=== PATIENT | male | born 1995 | race Caucasian/White ===

== ENCOUNTER 2021-07-12 14:49 | Emergency (ER) | payer BC, SELFPAY ==
--- NOTE | 2021-07-12 14:50 | ED.URI ---
HPI - URI/Sore Throat General Chief Complaint: Upper Respiratory Infection Stated Complaint: Sore Throat/Cough/Fever Time Seen by Provider: 07/12/21 15:14 Source: patient and RN notes reviewed Mode of arrival: ambulatory Limitations: no limitations History of Present Illness HPI Narrative: 25-year-old male presents with concern for 2-day history of sore throat, cough, fever, nasal congestion and rhinorrhea. He reports he has been taking Tylenol and ibuprofen. He denies shortness of breath, nausea, vomiting, diarrhea. Denies known sick contacts MD elicited complaint: cough and sore throat Related Data Allergies Allergy/AdvReac Type Severity Reaction Status Date / Time No Known Allergies Allergy Unknown Verified 07/12/21 15:05 Review of Systems Review of Systems: CONSTITUTIONAL: Report malaise, fever. EYES: Denies visual changes, redness, or discharge. ENT: Reports rhinorrhea, congestion, and sore throat. Denies sinus pain, otalgia CARDIOVASCULAR: Denies chest pain, palpitations, or edema. RESPIRATORY: Reports cough. Denies dyspnea. GASTROINTESTINAL: Denies abdominal pain, nausea, vomiting, diarrhea SKIN: Denies rash or itching. MUSCULOSKELETAL: Reports myalgia. NEUROLOGIC: Denies headache. All systems reviewed & are unremarkable except as noted in HPI and below PMFSH Social History Social History Smoking status: Never smoker Alcohol intake: never Comments At time of signature, agree with nursing past medical, surgical, social and family history. There is no relevant family history pertinent to the presenting complaint Exam Narrative: GENERAL: Nontoxic-appearing and in no acute distress. HEAD: Normocephalic EYES: PERRLA, conjunctivae clear ENT: Nares clear, clear discharge. Mucous membranes moist. TM pearly pulido with sharp light reflex bilaterally; no tragal tenderness. Oropharynx not erythematous without lesions. Tonsils not enlarged and without exudate, no drooling, no hoarseness, no trismus, uvula midline. NECK: Supple. No lymphadenopathy CHEST: Clear to auscultation, breath sounds equal. No wheezing, rhonchi, rales, or stridor. No respiratory distress, speaks in full sentences. HEART: Regular rate and rhythm. No murmur heard. SKIN: Warm, dry, no rash. NEURO: Alert and oriented x3. PSYCH: Normal mood and affect Course Course Emergency Course: Patient is aware of diagnosis, understands and agrees to treatment plan. Anticipatory guidance given. Patient agrees to follow-up as directed and is aware of reasons to seek care at the emergency department. Portions of this record may have been created with voice recognition software Level of Care: Express Care Visit Vital Signs Vital signs: Reviewed. MDM - URI/Sore Throat MDM Narrative Medical decision making narrative: Differential diagnosis considered: Carter virus, strep pharyngitis, allergic rhinitis, upper respiratory tract infection, sinusitis, rhinosinusitis, nasopharyngitis. viral pharyngitis, otitis media, otitis externa, pneumonia, bronchitis, viral cough syndrome, viral syndrome, and influenza. Exam findings show no acute concerns or changes; patient is non-toxic appearing and is in no distress. Patient is appropriate for outpatient treatment and follow-up. Lab Data Attestation: I reviewed the patient's lab results. Critical Care Time Critical Care Time Critical Care Time: No Discharge Plan Discharge Clinical Impression: Influenza A Patient Disposition: Home, Self-Care Condition: Stable Instructions: Influenza (ED) Additional Instructions: -Your symptoms are likely caused by a virus, and antibiotic does not cure viral illness. -Take strict precautions to prevent the spread of your virus. Be diligent about covering your cough (even when you are alone) and washing your hands frequently. -You may contagious until you have been symptom and/or fever free for 24 hours without fever reducing me
[2021-07-12 14:53] VITALS: BP 138/98; PULSE 85; RESP 16; TEMP 36.7; O2SAT 98
== END 2021-07-12 15:22 | disposition home or self-care (01) ==
PROVIDERS: Emergency Provider Nurse Practitioner
DX: J10.1 Influenza due to other identified influenza virus with other respiratory manifestations (principal)
CPT/HCPCS: 87804; 99213; G0463

== ENCOUNTER 2021-09-12 16:55 | Emergency (ER) | payer OTHER, BC, SELFPAY ==
--- NOTE | ~2021-09-12 | XR_ITS ---
XR wrist RT min 3V DATE: 09/12/2021 17:34 INDICATION: Right wrist caught between 2 freezers. Posterior wrist pain. TECHNIQUE: 4 views COMPARISON: None FINDINGS: No fracture or dislocation, periosteal reaction or bone destruction, joint space narrowing, erosive change or chondrocalcinosis. IMPRESSION: Negative Reviewed, dictated and finalized at location B. IMPRESSION: Negative
--- NOTE | 2021-09-12 17:05 | ED.UPPEXIN ---
HPI - Extremity Injury (Upper) General Chief Complaint: Extremity Injury, Upper Stated Complaint: Right Wrist Injury Time Seen by Provider: 09/12/21 17:05 Source: patient and RN notes reviewed History of Present Illness HPI narrative: Patient is a 25-year-old male who presents the urgent care with complaints of right wrist pain after he smashed it between 2 medical freezers at work today around 1 PM. Patient has not taken anything [id number] for his symptoms or his pain. Patient is right-hand dominant. Denies of any other acute complaints or injuries. No acute distress noted. Patient aware of the plan of care. Some parts of this dictation were generated by voice recognition software and may contain typographical and/or grammatical inaccuracies. Related Data Home Medications Medication Instructions Recorded Confirmed phentermine 37.5 mg tablet 37.5 mg PO DAILY 09/12/21 09/12/21 Allergies Allergy/AdvReac Type Severity Reaction Status Date / Time No Known Allergies Allergy Unknown Verified 07/12/21 15:05 Review of Systems Review of Systems: CONSTITUTIONAL: Denies fever, chills, or sweats. EYES: Denies visual changes, redness, or discharge. ENT: Denies rhinorrhea, congestion, sore throat, or otalgia. CARDIOVASCULAR: Denies chest pain, palpitations, or edema. RESPIRATORY: Denies cough or dyspnea. GASTROINTESTINAL: Denies abdominal pain, nausea, vomiting, or diarrhea. GENITOURINARY: Denies dysuria or hematuria. SKIN: Denies rash or itching. MUSCULOSKELETAL: Reports of right wrist pain NEUROLOGIC: Denies headache, numbness, or weakness. All other systems reviewed are negative, except as documented in HPI. PMFSH Social History Social History Smoking status: Never smoker Alcohol intake: never Comments At the time of my signature, I reviewed and agree with the nursing past medical, surgical, social, and family history. There is no relevant family history pertinent to the patient complaint. Exam Narrative: GENERAL: This is a well-nourished, well-developed patient, in no apparent distress. HEAD: normocephalic, atraumatic. EYES: PERRL. Sclera clear/white. Vision is grossly intact. EARS: External ears normal NOSE: External nose normal with no obvious nasal discharge, nares without redness, no rhinorrhea. THROAT: Mucous membranes moist NECK: Neck supple CARDIOVASCULAR: Regular rate and rhythm without murmurs, gallops, or rubs. RESPIRATORY: Clear to auscultation. Breath sounds equal bilaterally. No wheezes, rales, or rhonchi. SKIN: warm, intact with no suspicious lesions or rash, good texture and turgor. NEURO: awake, alert, and oriented to person, place and time. There were no obvious focal neurologic abnormalities. EXTREMITIES: Very mild edema without ecchymosis with slight tenderness to the distal right ulna. Positive strong right radial pulse with capillary refill less than 2 seconds. Range of motion to right wrist within normal limits with mild exacerbated pain on rotation. Course Course Level of Care: Express [facility] Visit Vital Signs Vital signs: Vital Signs Temperature 98.5 F 09/12/21 17:09 Pulse Rate 89 09/12/21 17:09 Respiratory Rate 16 09/12/21 17:09 Pulse Oximetry 99 09/12/21 17:09 Oxygen Delivery Room Air 09/12/21 17:09 Temperature 98.5 F 09/12/21 17:09 Pulse Rate 89 09/12/21 17:09 Respiratory Rate 16 09/12/21 17:09 Pulse Oximetry 99 09/12/21 17:09 Oxygen Delivery Room Air 09/12/21 17:09 Reviewed MDM - Extremity Injury (Upper) MDM Narrative Medical decision making narrative: Patient is aware that our facility does not have x-ray this evening. He will need to follow-up at [facility] who is aware of his transfer for a right wrist x-ray. Advised the patient to go directly to the facility. Britt Mcknight NP is made aware of the patient's transfer and will discharge the patient based on ev
[2021-09-12 17:09] VITALS: PULSE 89; RESP 16; TEMP 36.9; O2SAT 99
--- NOTE | 2021-09-12 17:15 | PC.NURSE ---
1713 PT LEFT TO GO TO [facility] FOR RIGHT WRIST X RAY.
== END 2021-09-12 17:47 | disposition other institution (70) ==
PROVIDERS: Emergency Provider Nurse Practitioner Family
DX: S60.211A Contusion of right wrist, initial encounter (principal); X58.XXXA Exposure to other specified factors, initial encounter; Y99.0 Civilian activity done for income or pay
CPT/HCPCS: 73110; 99213; G0463

== ENCOUNTER 2022-01-03 10:37 | Emergency (ER) | payer SELFPAY ==
--- NOTE | 2022-01-03 10:38 | ED.URI ---
HPI - URI/Sore Throat General Stated Complaint: Diarrhea/Headache Time Seen by Provider: 01/03/22 10:38 Source: patient Mode of arrival: ambulatory Limitations: no limitations History of Present Illness HPI Narrative: Mr. Humphreys is a 26-year-old male patient presenting to the clinic today with complaints of diarrhea, cough, and headache times 2 days. States had diarrhea approximately 15 times yesterday and several times this morning. He reports no fever, sore throat, nausea,vomiting, or urinary symptoms. He is passing gas. He denies feeling bloated. Has abdominal cramping that is intermittent. Children at home are sick as well. No known exposure to a member COVID, strep, or flu. MD elicited complaint: cough and other (Headache, diarrhea) Related Data Home Medications Medication Instructions Recorded Confirmed No Home Medications 01/03/22 01/03/22 Allergies Allergy/AdvReac Type Severity Reaction Status Date / Time No Known Allergies Allergy Unknown Verified 01/03/22 10:42 Review of Systems Review of Systems: Pertinent positives per HPI. Patient denies any fever, chills, rash, visual changes, dizziness, cough, shortness of breath, chest pain, palpitations, nausea, vomiting, bloody stools, constipation, or any urinary issues. [facility] Past Medical History Medical History Acute appendicitis with localized peritonitis Dietary counseling and surveillance (01/06/17) Encounter for surgical aftercare following surgery of digestive system Unresponsive episode Surgical History Surgical History History of appendectomy History of hip surgery [address] 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 There is no relevant family history pertinent to the patient complaint. Exam Narrative: General: Well-developed, well nourished, in no apparent distress Head: Normocephalic, atraumatic Eyes: Pupils equally round and reactive to light bilaterally, EOM intact, sclera and conjunctive clear, no discharge, lids normal Ears: TMs intact and dull, ear canals clear, no drainage, grossly hearing normal. Nose: Nares patent, no nasal discharge, no inflammation, no sinus tenderness. Mouth: Oral pharynx without lesions or masses, good dentition, MMM. Neck: Supple, trachea midline, no enlargement of anterior or posterior cervical nodes, no thyroid masses or goiter palpable. Cardio: Regular rate and rhythm, s1 and s2 normal, no murmur appreciated. Resp: Clear to auscultation bilaterally, no rhonchi, rales, wheezing or rubs Abdomen: Soft, pliable, nontender to palpation, bowel sounds present all 4 quadrants, no organomegaly, no CVAT tenderness Course Course Emergency Course: Portions of this record may have been created with voice recognition software. Level of Care: Express Care Visit Vital Signs Vital signs: Vital signs reviewed MDM - URI/Sore Throat MDM Narrative Medical decision making narrative: At the time of visit patient is resting comfortably on the exam table. Influenza and COVID testing were obtained. Influenza and COVID testing were negative. I suspect patient has gastroenteritis. Supportive measures were discussed with the patient he voiced understanding of discharge instructions and agrees to the treatm
[2022-01-03 10:42] VITALS: BP 132/79; PULSE 80; RESP 20; TEMP 36.9; O2SAT 100
[2022-01-03 10:56] VITALS: BP 132/79; PULSE 80; RESP 20; TEMP 36.9; O2SAT 100
== END 2022-01-03 11:15 | disposition home or self-care (01) ==
PROVIDERS: Emergency Provider Nurse Practitioner Family
DX: K52.9 Noninfective gastroenteritis and colitis, unspecified (principal); Z20.822 Contact with and (suspected) exposure to COVID-19
CPT/HCPCS: 87426; 87804; 99213; C9803; G0463

== ENCOUNTER 2022-05-02 08:02 | Emergency (ER) | payer OTHER, SELFPAY ==
[2022-05-02 08:10] VITALS: BP 128/81; PULSE 98; RESP 18; TEMP 36.2; O2SAT 100
--- NOTE | 2022-05-02 08:10 | ED.GENADULT ---
HPI - General Adult General Chief complaint: Upper Respiratory Infection Stated complaint: flu Source: patient and RN notes reviewed History of Present Illness HPI narrative: 26-year-old male presents urgent care with complaints of nausea, vomiting, diarrhea since yesterday. Patient reports associated, generalized, abdominal pain. Patient reports having 2 episodes of vomiting and mostly diarrhea after he eats anything. Patient states his has similar symptoms. Patient reports chills and body aches. Denies any headaches, congestion, sore throat, chest pain, shortness of breath. Related Data Allergies Allergy/AdvReac Type Severity Reaction Status Date / Time No Known Allergies Allergy Unknown Verified 05/02/22 08:13 Review of Systems Review of Systems: CONSTITUTIONAL: Reports chills EYES: Denies visual changes, redness, or discharge. ENT: Denies otalgia and sore throat CARDIOVASCULAR: Denies chest pain, palpitations, or edema. RESPIRATORY: Denies cough or dyspnea. GASTROINTESTINAL: Reports abdominal pain, nausea, vomiting, or diarrhea. GENITOURINARY: Denies dysuria or hematuria. SKIN: Denies rash or itching. MUSCULOSKELETAL: Reports myalgia. NEUROLOGIC: Denies headache, numbness, or weakness. [facility] Past Medical History Medical History Acute appendicitis with localized peritonitis Dietary counseling and surveillance (01/06/17) Encounter for surgical aftercare following surgery of digestive system Unresponsive episode Surgical History Surgical History History of appendectomy History of hip surgery [address] 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 There is no relevant family history pertinent to the patient complaint. Exam Narrative: GENERAL: This is a well-nourished, well-developed patient, in no apparent distress. HEAD: normocephalic, atraumatic. EYES: PERRL. Sclera clear/white. Vision is grossly intact. EARS: External ears normal, auditory canals clear and without drainage, TMs normal without perforation. Hearing grossly intact. NOSE: External nose normal with no obvious nasal discharge, nares without redness, no rhinorrhea. THROAT: Mucous membranes moist, posterior pharynx clear. NECK: Neck supple, non-tender without lymphadenopathy, masses or thyromegaly. CARDIOVASCULAR: Regular rate and rhythm without murmurs, gallops, or rubs. RESPIRATORY: Clear to auscultation. Breath sounds equal bilaterally. No wheezes, rales, or rhonchi. GASTROINTESTINAL: Abdomen soft, non-tender, nondistended. Bowel sounds are active. No hepato-splenomegaly, or palpable masses. No guarding. SKIN: warm, intact with no suspicious lesions or rash, good texture and turgor. NEURO: awake, alert, and oriented to person, place and time. There were no obvious focal neurologic abnormalities. Course Course Level of Care: Express Care Visit Vital Signs Vital signs: Vital Signs Temperature 97.1 F L 05/02/22 08:10 Pulse Rate 98 05/02/22 08:10 Respiratory Rate 18 05/02/22 08:10 Blood Pressure 128/81 05/02/22 08:10 Pulse Oximetry 100 05/02/22 08:10 Oxygen Delivery Room Air 05/02/22 08:10 Temperature 97.1 F L 05/02/22 08:10 Pulse Rate 98 05/02/22 08:10 Respiratory
== END 2022-05-02 08:26 | disposition home or self-care (01) ==
PROVIDERS: Emergency Provider Nurse Practitioner Family; PCP Family Medicine
DX: K52.9 Noninfective gastroenteritis and colitis, unspecified (principal)
CPT/HCPCS: 99213; G0463

== ENCOUNTER 2022-10-28 09:06 | Outpatient (CLI) | payer BC, SELFPAY ==
--- NOTE | ~2022-10-28 | US_ITS ---
EXAMINATION: US abdomen limited DATE: 10/28/2022 09:43 INDICATION: Right upper quadrant pain TECHNIQUE: Multiple grayscale and Doppler ultrasound images of the abdomen were obtained. COMPARISON: None available FINDINGS: The head and body of the pancreas are normal. The pancreatic tail is obscured by bowel gas. The liver is normal with normal echogenicity and echotexture. No surface nodularity. Normal hepatope damaris flow in the main portal vein. The gallbladder is normal with no abnormal wall thickening, pericho lecystic fluid or stones. The normal common bile duct measures 4 mm. There was no sonographic Lala sign. IMPRESSION: 1. Normal sonographic study of the gallbladder. Reviewed, dictated and finalized at location B.
== END 2022-10-28 09:07 | disposition home or self-care (01) ==
PROVIDERS: PCP Family Medicine; Visit Provider Family Medicine
DX: R10.11 Right upper quadrant pain (principal)
CPT/HCPCS: 76705

== ENCOUNTER 2022-11-29 08:29 | Outpatient (CLI) | payer BC, SELFPAY ==
--- NOTE | ~2022-11-29 | NM_ITS ---
EXAMINATION: NM hepatobiliary wo pharm DATE: 11/29/2022 11:09 CDT INDICATION: Right upper quadrant pain COMPARISON: Ultrasound dated 10/28/2022. TECHNIQUE: 4.7 mCi Tc-99m mebrofenin (Choletec) was administered intravenously. Scintigraphic images of the abdomen were obtained for one hour. At the 1 hour time point, the patient drank 8 oz Ensure, and imaging was continued for 60 minutes. Gallbladder ejection fraction was calculated by the technol ogist. FINDINGS: There is normal clearance of radiotracer from the blood pool. There is homogeneous tracer u ptake by the liver. Activity progresses to the bowel and gallbladder. The gallbladder ejection fract ion is 34%. Note that with this technique, normal GBEF >= 33%. IMPRESSION: 1. Normal hepatobiliary scan. Reviewed, dictated and finalized at location B.
== END 2022-11-29 08:30 | disposition home or self-care (01) ==
PROVIDERS: PCP Family Medicine; Visit Provider Family Medicine
DX: R10.11 Right upper quadrant pain (principal)
CPT/HCPCS: 78226; A9537

== ENCOUNTER 2022-12-17 11:43 | Emergency (ER) | payer BC, SELFPAY ==
[2022-12-17 11:48] VITALS: BP 136/99; PULSE 72; RESP 20; TEMP 36.8; O2SAT 97
--- NOTE | 2022-12-17 12:06 | ED.URI ---
HPI - URI/Sore Throat General Chief Complaint: Upper Respiratory Infection Stated Complaint: Congestion/Headache Time Seen by Provider: 12/17/22 12:06 Source: patient, RN notes reviewed and old records reviewed Mode of arrival: ambulatory Limitations: no limitations History of Present Illness HPI Narrative: 27-year-old male presents to Express [facility] with complaints of a feelings of congestion and fatigue for the past week.Patient states he has had some dizziness, headache and some nasal stuffiness since this morning. Patient reports no fevers chills or body aches reports no ear pain. Patient reports that kids have been ill with cold symptoms also .Patient reports that he has had Covid shot but no flu shot. He states that he has taken some DayQuil MD elicited complaint: cough, sore throat, rhinorrhea, nasal congestion and other (headache) Onset (ago): week(s) (1 week nasal congestion fatigue today sore throat and headache) Severity: moderate Treatments prior to arrival: other (DayQuil) Related Data Allergies Allergy/AdvReac Type Severity Reaction Status Date / Time No Known Allergies Allergy Unknown Verified 10/16/22 13:00 Review of Systems Review of Systems: CONSTITUTIONAL: Denies malaise, chills, sweats, or fever. EYES: Denies visual changes, redness, or discharge. ENT: Reports rhinorrhea, congestion, sinus pain,no otalgia and some sore throat. CARDIOVASCULAR: Denies chest pain, palpitations, or edema. RESPIRATORY: Reports cough.? Denies dyspnea. GASTROINTESTINAL: Denies abdominal pain, nausea, vomiting, diarrhea SKIN: Denies rash or itching. MUSCULOSKELETAL: Denies myalgia. NEUROLOGIC: Reports headache. All systems reviewed & are unremarkable except as noted in HPI and below PMFSH Past Medical History Medical History Acute appendicitis with localized peritonitis Dietary counseling and surveillance (01/06/17) Encounter for surgical aftercare following surgery of digestive system Unresponsive episode Surgical History Surgical History History of appendectomy History of hip surgery [address] 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 There is no relevant family history pertinent to the presenting complaint Exam Narrative: GENERAL: Well-appearing, well-nourished, and in no acute distress. HEAD: Normocephalic EYES: PERRLA, conjunctivae clear ENT: Nares clear, turbinates edematous and erythematous, clear discharge. Mucous membranes moist. TM pearly pulido with dull light reflex bilaterally; no tragal tenderness. Oropharynx erythematous without lesions. Tonsils red enlarged and without exudate, no drooling, no hoarseness, no trismus, uvula midline.some post nasal drainage NECK: Supple. lymphadenopathy CHEST: Clear to auscultation, breath sounds equal. No wheezing, rhonchi, rales, or stridor. No respiratory distress, speaks in full sentences.cough noted SAO2 97% on room air HEART: Regular rate and rhythm. No murmur heard. SKIN: Warm, dry, no rash. NEURO: Alert and oriented x3. PSYCH: Normal mood and affect Course Course Emergency Course: Patient is aware of diagnosis, understands and agrees to treatment plan.? Anticipatory guidance given.? Patient agrees to follow-up as directed and is aw
== END 2022-12-17 12:47 | disposition home or self-care (01) ==
PROVIDERS: Emergency Provider Registered Nurse
DX: J02.0 Streptococcal pharyngitis (principal); Z20.822 Contact with and (suspected) exposure to COVID-19
CPT/HCPCS: 87426; 87804; 87880; 99213; C9803; G0463

== ENCOUNTER 2023-04-23 15:33 | Outpatient (CLI) | payer BC, SELFPAY ==
--- NOTE | ~2023-04-23 | XR_ITS ---
EXAMINATION: XR finger 2nd RT min 2V DATE: 04/23/2023 16:37 INDICATION: Right hand second digit pain. TECHNIQUE: 4 views of right hand second digit were obtained. COMPARISON: None. FINDINGS: Bone alignment is normal. No fracture. There is mild osteoarthritis of second distal interp halangeal joint. No radiopaque foreign body. IMPRESSION: 1. 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 Reviewed, dictated and finalized at location E. EL BRANDER
== END 2023-04-23 15:34 ==
LOC: MICIMG 15:35
PROVIDERS: PCP Family Medicine; Visit Provider Family Medicine
DX: M19.041 Primary osteoarthritis, right hand (principal)
CPT/HCPCS: 73140

== ENCOUNTER 2024-03-01 09:13 | Emergency (ER) | payer OTHER, SELFPAY ==
--- NOTE | 2024-03-01 09:40 | ED_ITS ---
HPI - URI/Sore Throat General Chief Complaint: Upper Respiratory Infection Stated Complaint: Congestion Time Seen by Provider: 03/01/24 10:14 Source: patient, RN notes reviewed and old records reviewed Mode of arrival: ambulatory Limitations: no limitations History of Present Illness HPI Narrative: 28-year-old male presents to the [facility] with sinus congestion, intermittent headache, intermittent dizziness for at least 10 days. States that he was taking Mucinex. No other treatment prior to arrival Onset (ago): day(s) (Over 10 days) Treatments prior to arrival: cold medicine Related Data Allergies Allergy/AdvReac Type Severity Reaction Status Date / Time No Known Allergies Allergy Unknown Verified 03/01/24 10:14 Review of Systems Review of Systems: All systems reviewed & are unremarkable except as noted in HPI and below Constitutional: Constitutional: Reports no additional constitutional complaints ENT: Reports as per HPI and Reports nasal congestion Cardiovascular: Cardiovascular: Reports no additional cardiovascular complaints, Denies chest pain and Denies dyspnea Respiratory: Respiratory: Reports no additional respiratory complaints, Denies chest congestion, Denies cough and Denies dyspnea Gastrointestinal: Gastrointestinal: Reports no additional gastrointestinal complaints, Denies abdominal pain, Denies nausea and Denies vomiting Musculoskeletal: Musculoskeletal: Reports no additional musculoskeletal complaints Integumentary/Breasts: Skin/Breast: Reports system reviewed and no additional complaints, except as docu PMFSH Past Medical History Medical History Unresponsive episode Encounter for surgical aftercare following surgery of digestive system Dietary counseling and surveillance (01/06/17) Acute appendicitis with localized peritonitis Surgical History Surgical History History of hip surgery [address] 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 There is no relevant family history pertinent to the patient complaint. Exam Const: General: cooperative, healthy appearing, comfortable, no acute distress, well developed, alert and well nourished Nutritional Appearance: well nourished Orientation/consciousness: patient oriented x3 Limitations: no limitations HENMT: Head: normal to inspection Ears: hearing grossly normal bilaterally and external ears normal Face/Nose/Sinus: Normal external nose present, normal facial exam and face symmetric Face and sinus: normal facial exam and face symmetric Eyes: General: appearance normal, both eyes and all related structures Alignment and Position: alignment normal Periorbital: periorbital findings normal Neck: Neck: normal visual inspection, full ROM, no lymphadenopathy and no meningeal signs Chest: Chest palpation & inspection: normal inspection of the chest Resp: Effort & Inspection: normal respiratory effort and able to speak in complete sentences Auscultation: clear to auscultation bilaterally, no crackles, no rales, no rhonchi and no wheezes Cardio: Rate: regular rate Skin: General skin exam: normal color and no rashes or lesions noted Lesio ns: no lesions Rashes: no rashes Wounds: no wounds Neuro: General: patient oriented x3, gait normal, tone normal, moves all extremities and no meningeal signs Cognition (Neuro): normal cognition Speech: normal speech Gait exam (Neuro): Normal gait present Extrem: General: normal to inspection, full ROM, capillary refill normal and normal gait Psych: Appearance: grossly normal and well kempt Mental Status: mental status grossly normal Speech and movement: Normal speech and movement present and Clear speech present Affect: normal affect Attitude: cooperative Course Course Level of Care: Express Care Visit Vital Signs Vital signs: Vital Signs Temperature 97.7 F 03/01/24 09:51 Pulse Rate 81 03/01/24 09:51 Respiratory Rate 16 03/01/24 09:51 Blood Pressure 128/87 03/01/24 09:51 Pulse Oximetry 98 03/01/24 09:51 Oxygen Delivery Room Air 03/01/24 09:51 Temperature 97.7 F 03/01/24 09:51 Pulse Rate 81 03/01/24 09:51 Respiratory Rate 16 03/01/24 09:51 Blood Pressure 128/87 03/01/24 09:51 Pulse Oximetry 98 03/01/24 09:51 Oxygen Delivery Room Air 03/01/24 09:51 Reviewed MDM - URI/Sore Throat MDM Narrative Medical decision making narrative: Patient sitting comfortably in exam room. Nontoxic, vitals stable. Patient in no acute distress. Patient with 10 day history of viral symptoms. But due to length will attempt an antibiotic, discussed with patient that if this is a virus and antibiotics do very little for him. Patient appropriate for outpatient treatment and follow-up Discharge instructions reviewed with patient, as well as provided in writing per nursing staff. The instructions also include specific and strict return/GO TO THE ER as well as f/u information. All questions have been answered, and the patient deny any further questions with discharge and discharge plan. Some parts of this dictation were generated by voice recognition software and may contain typographical and/or grammatical inaccuracies. Differential Diagnosis Differential diagnosis: Likely upper respiratory infection, otitis media, sinusitis, viral infection, bronchitis, influenza and pharyngitis Critical Care Time Critical Care Time Critical Care Time: No Discharge Plan Discharge Clinical Impression: Sinusitis Qualifiers: Sinusitis location: pansinusitis Chronicity: acute Recurrence: not specified as recurrent Qualified Code(s): J01.40 - Acute pansinusitis, unspecified Patient Disposition: Home, Self-Care Condition: Stable Instructions: Sinusitis (ED) Additional Instructions: It is very important to treat your symptoms. Drink plenty of water, Gatorade, Pedialyte, ice pops or Jell-O. -Alternate Tylenol and Motrin per package directions for fever or pain. You can alternate every 4 hours -Antihistamine medication such as Benadryl at night and Zyrtec/Claritin/Krys during the day can help improve symptoms. -doing daily nasal irrigations can help relieve pressure your sinuses. Things like a Neti pot -Use Flonase twice a day for 5 days then daily to help reduce the inflammation and dry up your sinuses. -You can also use Mucinex. Be sure to drink plenty of water with this medication at least 8 ounces with every dose and it is important to drink 8 to 10 glasses of water per day. Water is a natural decongestant -Eat and drink things that are easy to swallow, like tea or soup, or popsicles. -Oral rinses such as: Salt water gargles and/or may use topical anesthetic (eg. Chloraseptic spray) or lozenges to relieve dryness or throat pain). -Frequent hand washing or hand accordion tuner is one of the best ways to prevent spread of infection. -Using a vaporizer or humidifier at night will also help thin secretions and help with coughing up phlegm. -Follow up with primary care provider in 7-10 days if condition is not improving - For new or worsening symptoms go directly to the nearest ER Patient Language: [place] Prescriptions: New doxycycline monohydrate 100 mg tablet 100 mg PO BID Qty: 14 0RF Follow-up/Referrals: Adeel Drew MD [Primary Care Provider] - 2 Weeks ([facility] care follow up ) Stand Alone Forms: Work/School Release IP Time of Disposition: 10:22
[2024-03-01 09:51] VITALS: BP 128/87; PULSE 81; RESP 16; TEMP 36.5; O2SAT 98
--- OUTSIDE RECORDS SUMMARY | 2024-03-08 03:59 | XMS_ITS | Encounter Summary ---
Author Organization [facility] Address [address] [place] [address] Care Team Providers Care Cheese Grader Name Role Phone Vidal Valdez MD Primary Care Provider [phone] Reason for Visit * (Routine) - Closed Specialty Diagnoses / Procedures Referred By Lester hooks Referred To Contact Cardiology [facility] [address] [place] [phone] [address] [place] [id number] Referral ID Status Reason Start Date Expiration Date Visits Re quested Visits Authorized [id number] Closed 09/05/2011 03/03/2012 1 1 Encounter Details Date Type Department Care Team (Latest Contact Info) Description 09/05/2011 8:42 AM CDT - 09/05/2011 11:59 PM CDT Hospital Encounter [facility] at [address] [address] Makayla Fraser MD [address] [place] [id number] Chad Bermudez MD [address] [place] [phone] Discharge Disposition: Home or Self Care Social History Tobacco Use Types Packs/Day Years Used Date Smoking Tobacco: Never Assessed Sex and Gender Information Value Date Recorded Sex Assigned at Not on file Gender Identity Not on file Sexual Orientation Not on file documented as of this encounter Miscellaneous Notes * Miscellaneous Scans - Document, Scanned - 09/16/2011 2:59 PM CDT * Miscellaneous Scans - Document, Scanned - 09/14/2011 2:56 PM CDT documented in this encounter Plan of Treatment Not on file documented as of this encounter Visit Diagnoses Diagnosis Bradycardia Other specified cardiac dysrhythmias documented in this encounter Care Teams Cheese Grader Relationship Specialty Start Date End Date Vidal Valdez MD [address] [place] [phone] PCP - General Pediatrics 09/05/11 08/05/23 documented as of this encounter
--- OUTSIDE RECORDS SUMMARY | 2024-03-08 03:59 | XMS_ITS | Encounter Summary ---
Author Organization [facility] Address [address] [place] [address]. [place] [address] [place] [address] Care Team Providers Care Review Trainer Name Role Phone Unavailable Primary Care Provider Unavailtani e Encounter Details Date Type Department Care Team (Late st Contact Info) Description 07/24/2015 Abstract [facility] Family & Internal Medicine [facility] [address] [place] [address] Magdiel Mack NP Social History Tobacco Use Types Packs/Day Years Used Date Smoking Tobacco: Never Assessed Sex and Gender Information Value Date Recorded Sex Assigned at Not on file Legal Sex Male 7:08 PM CDT Gender Identity Not on file Sexual Orientation Not on file documented as of this encounter Last Filed Vital Signs Vital Sign Reading Time Taken Comments Blood Pressure 128/66 07/24/2015 2:25 PM CDT Pulse 88 07/24/2015 2:25 PM CDT Temperature - - Respiratory Rate - - Oxygen Saturation - - Inhaled Oxygen Concentration - - Weight 93.4 kg (206 lb) 07/24/2015 2:25 PM CDT Height 172.7 cm (5' 8 ) 07/24/2015 2:25 PM CDT Body Mass Index 31.32 07/24/2015 2:25 PM CDT documented in this encounter Progress Notes * Magdiel Mack NP - 07/24/2015 2:15 PM CDT Reason For Visit Reason For Visit: Acute Visit Chief Complaint pt here c/o bleeding from rectum History of Present Illness HPI Free Text: 19 y/o male here with c/o BRB when felt needed to have a BM today. states there was no stool or straining with the BM. has not had previous bleeding. denies rectal pain, straining, constipation or rectal irritation. mild upset stomach that has not caused n/v/d Bright Red Blood Per Rectum: Delbert Humphreys presents with complaints of bright red blood per rectum. Associated symptoms include no abdominal distention, no nausea, no vomiting, no hematemesis, no diarrhea, no constipation, no tenesmus, no rectal mass, no rectal pain, no rectal itching, no rectal urgency, no weight loss, no fever, no chills, no jaundice, no rash, no hematuria, no vaginal bleeding,no palpitations, no pruritus, no pallor and no dizziness. The patient presents with complaints of sudden onset of mild mid abdominal pain, described as aching, non-radiating. Review of Systems See HPI for pertinent positives. Constitutional: Normal. ENT: normal. Cardiovascular: Normal. Respiratory: Normal. Genitourinary: Normal. Integumentary: Normal. Musculoskeletal: Normal. Neurological: Normal. Psychiatric: Normal. Active Problems 1. ADHD (attention deficit hyperactivity disorder), combined type (314.01) (F90.2) 2. Asthma (493.90) (J45.909) 3. Back strain (847.9) (S39.012A) 4. 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 Viral gastroenteritis (008.8) (A08.4) 7. Well adolescent visit (V20.2) (Z00.129) Past Medical History Patient indicats no significant past medical history. Surgical History 1. History of Treatment Of Forearm Fracture Family History Mother 1. Family history of hypertension (V17.49) (Z82.49) Grandparent 2. Family history of hypertension (V17.49) (Z82.49) Social History ?? Never a smoker ?? Never Drank Alcohol ?? Single Current Meds 1. No Reported Medications Recorded CLAUDIA = N; ; Last Updated By: Sabrina Mays; 07/24/2015 2:40:59 PM Allergies 1. No Known Drug Allergies Recorded By: Arlen Alcantar; 05/19/2012 9:06:49 AM Vitals Recorded: [id number] 02:25PM Heart Rate 88 Systolic 128 Diastolic 66 O2 Saturation 98 Height 5 ft 8 in 2-20 Stature Percentile 29 % Weight 206 lb 2-20 Weight Percentile 94 % BMI Calculated 31.32 BMI Percentile 96 % BSA Calculated 2.07 Physical Exam Constitutional General appearance: No acute distress, well appearing and well nourished. Eyes Conjunctiva and lids: No swelling, erythema, or discharge. Pupils and irises: Equal, round and reactive to light. Pulmonary Respiratory effort: No increased work of breathing or signs of respiratory distress. Auscultation of lungs: Clear to auscultation. Cardiovascular Auscultation of heart: Normal rate and rhythm, normal S1 and S2, without murmurs. Examination of extremities for edema and/or varicosities: Normal. Abdomen Abdomen: Abnormal. The abdomen was rounded. Bowel sounds were normal. The abdomen was soft. There was mild tenderness. tenderness in the periumbilical area. tenderness in the suprapubic area. tenderness in the left lower quadrant. The abdomen was not rigid. No rebound tenderness. No guarding. no masses palpated. The abdomen was normal to percussion. Lymphatic Palpation of lymph nodes in neck: No lymphadenopathy. Musculoskeletal Gait and station: Normal. Skin Skin and subcutaneous tissue: Normal without rashes or lesions. The stool was normal and brown, was negative for occult blood analysis and no gross blood. The sphincter tone was tight. The patient was unable to relax for digital rectal exam. Results/Data *Hemoccult Screening In Office 24Jul2015 02:41PM Magdiel Mack Test Name Result Flag Reference *Hemoccult In Office negative Assessment 1. Rectal inflammation (569.49) (K62.89) 2. BRBPR (bright red blood per rectum) (569.3) (K62.5) Plan BRBPR (bright red blood per rectum) 1. *Hemoccult Screening In Office; Status:Resulted - Requires Verification; Done: 24Jul2015 02:41PM Performed:In Office; Due:23Aug2015;Ordered; For:BRBPR (bright red blood per rectum); Ordered By:Magdiel Mack; Rectal inflammation 2. Proctosol HC 2.5 % Rectal Cream; APPLY 1-2 times daily for up to two weeks, use a small amount internally if possible Rx By: Magdiel Mack; Dispense: 0 Days ; #:1 X 28.35 GM Tube; Refill: 2; For: Rectal inflammation; CLAUDIA = N; Verified Transmission to [facility] [id number]; Last Updated By: Chelsey Rangel; 07/24/2015 2:41:59 PM no blood with today's exam avoid straining with BMs get plenty of fiber in your diet and drink lots of water call if bleeding noted again 'School / Work Excuse' Return to School - Work: Delbert Humphreys may return to work on 07/25/15. He has been under my care for medical reasons. He was out from 07/24/15 to 07/25/15. Return to School: Return to Work: Signatures Electronically signed by : Magdiel Mack NP; Jul 24 2015 6:53PM FASHION ILLUSTRATOR (Author) Electronically signed by : Tex Eller M.D.; Aug 20 2015 7:16PM FASHION ILLUSTRATOR (Author) documented in this encounter Miscellaneous Notes * Letter - Magdiel Mack NP - 07/24/2015 2:15 PM CDT Delbert Humphreys may return to work on 07/25/15. He has been under my care for medical reasons. He was out from 07/24/15 to 07/25/15. Electronically signed by : Magdiel Mack NP; Jul 24 2015 6:53PM FASHION ILLUSTRATOR (Author) documented in this encounter Plan of Treatment Not on file documented as of this encounter Procedures Procedure Name Priority Date/Time Associated Diagnosis Comments OCCULT BLOOD, FECES Routine 07/24/2015 2 :41 PM CDT documented in this encounter Results * OCCULT BLOOD, FECES (07/24/2015 2:41 PM CDT) OCCULT BLOOD SCREEN negative [facility] TO EPIC CONVERSION 07/24/2015 2:41 PM CDT 07/24/2015 2:41 PM CDT Narrative [facility] TO [facility] CONVERSION - 07/24/2015 2:41 PM CDT Result Communication: No patient communication needed at this time us Magdiel Mack NP BODY FLUIDS AND STOOLS ORDERAB LES Final Result [facility] TO EPIC CONVERSION documented in this encounter Visit Diagnoses Not on filedocumented in this encounter
--- OUTSIDE RECORDS SUMMARY | 2024-03-08 03:59 | XMS_ITS | Encounter Summary ---
Author Organization [facility] Address [address] [place] [address]. [place] [id number] [place] [address] Care Team Providers Care Special Librarian Name Role Phone Unavailable Primary Care Provider Unavailabl e Encounter Details Date Type Department Care Team (Latest Contact Info) Description 04/25/2015 Abstract [facility] , Vicki Pratt MD Social History Tobacco Use Types Packs/Day Years Used Date Smoking Tobacco: Never Assessed Sex and Gender Information Value Date Recorded Sex Assigned at Not on file Legal Sex Male 7:08 PM CDT Gender Identity Not on file Sexual Orientation Not on file documented as of this encounter Progress Notes * Generic Conversion MD Harlan - 04/25/2015 9:18 AM CST Message Recorded as Task Date: 04/14/2015 12:18 PM, Created By: Magdiel Mack Task Name: Call Patient with results Assigned To: [facility] Nurse Team Regarding Patient: Delbert Humphreys, Status: Complete Comment: Magdiel Mack - 14 Apr 2015 12:18 PM Patient please notify patient his lab is normal except for an elevated bilirubin which should be rechecked in 2-3 months. we have not gotten any records yet from [place] so as yet I am not going to refill his ADD medication. thanks Sabrina Mays - 17 Apr 2015 2:21 PM TASK EDITED l/m for pt to call the office Sabrina Mays - 17 Apr 2015 3:03 PM TASK REASSIGNED: Previously Assigned To Magdiel Mack Tonya - 18 Apr 2015 12:00 PM TASK EDITED letter mailed to patient Sabrina Mays - 25 Apr 2015 7:15 AM TASK COMPLETED Message: pt informed of result & advised to repeat bilirubin level in 2-3 months. order placed for repeat testing. luis antonio russell Signatures Electronically signed by : Em Olivas MA; Apr 25 2015 9:18AM MANAGER OFFICE SERVICES (Author) documented in this encounter Plan of Treatment Not on file documented as of this encounter Procedures Procedure Name Priority Date/Time Associated Diagnosis Comments BILIRUBIN TOTAL Routine 06/02/2015 9:19 AM CDT documented in this encounter Results * (ABNORMAL) BILIRUBIN TOTAL (06/02/2015 9:19 AM CDT) BILIRUBIN TOTAL S/P/B 1.7(H) 0.2 - 1.2 MG/DL [facility] TO [facility] CONVERSION 06/02/2015 9:19 AM CDT 06/02/2015 9:19 AM CDT Narrative [facility] TO [facility] CONVERSION - 06/02/2015 3:36 PM CDT Result Communication: Call patient with results Magdiel Mack NP LABORATORY Final Result [facility] TO EP[facility] CONVERSION documented in this encounter Visit Diagnoses Not on filedocumented in this encounter
--- OUTSIDE RECORDS SUMMARY | 2024-03-08 03:59 | XMS_ITS | Encounter Summary ---
Author Organization [facility] Address [address] [place] [address]. [place] [address] Care Team Providers Care Icu Staff Nurse Name Role Phone Unavailable Primary Care Provider Unavailabl e Encounter Details Date Type Department Care Team (Latest Contact Info) Description 03/22/[address] [facility] Magdiel Mack SUPERVISOR HAND WORKERS Social History Tobacco Use Types Packs/Day Years Used Date Smoking Tobacco: Never Assessed Sex and Gender Information Value Date Recorded Sex Assigned at Not on file Legal Sex Male 7:08 PM CDT Gender Identity Not on file Sexual Orientation Not on file documented as of this encounter Plan of Treatment Not on file documented as of this encounter Visit Diagnoses Not on filedocumented in this encounter
--- OUTSIDE RECORDS SUMMARY | 2024-03-08 03:59 | XMS_ITS | Encounter Summary ---
Author Organization [facility] Address [address] [place] [address]. [place] [address] Care Team Providers Care Flight Operations Specialist Name Role Phone Unavailable Primary Care Provider Unavailabl e Encounter Details Date Type Department Care Team (Latest Contact Info) Description 10/24/2014 Abstract [facility] Social History Tobacco Use Types Packs/Day Years [...]
--- OUTSIDE RECORDS SUMMARY | 2024-03-08 03:59 | XMS_ITS | Encounter Summary ---
Author Organization [facility] Address [address] [place] [address]. [place] [address] [place] [address] Care Team Providers Care Instrumentation Chemist Name Role Phone Unavailable Primary Care Provider Ronak e Encounter Details Date Type Department Care Team (Late st Contact Info) Description 04/12/2015 Abstract [facility] Medical [facility] Family & Internal Medicine [facility] [address] [place] [address] [place] [address] [place] [address] Social History Tobacco Use Types Packs/Day Years Used Date Smoking Tobacco: Never Assessed Sex and Gender Information Value Date Recorded Sex Assigned at Not on file Legal Sex Male 7:08 PM CDT Gender Identity Not on file Sexual Orientation Not on file documented as of this encounter Last Filed Vital Signs Vital Sign Reading Time Taken Comments Blood Pressure 104/60 04/12/2015 8:40 AM CONCRETE BOOM OPERATOR Pulse 100 04/12/2015 8:40 AM CONCRETE BOOM OPERATOR Temperature - - Respiratory Rate - - Oxygen Saturation - - Inhaled Oxygen Concentration - - Weight 92.1 kg (203 lb) 04/12/2015 8:40 AM CONCRETE BOOM OPERATOR Height 172.7 cm (5' 8 ) 04/12/2015 8:40 AM CONCRETE BOOM OPERATOR Body Mass Index 30.87 04/12/2015 8:40 AM CONCRETE BOOM OPERATOR documented in this encounter Progress Notes * Magdiel Mack NP - 04/12/2015 8:30 AM CST Reason For Visit Chronic Recheck Visit Chief Complaint pt here for f/u visit for ADHD History of Present Illness HPI Free Text: 19 y/o male with hx ADHD last seen here in 2013. has been getting care through psych at [facility] in [place]. states he stopped taking the medication about 3 months ago feeling he could do without it. 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 decided to come here for his medication since it would be easier ; did not attempt to go back to [place]. ADHD (Follow-Up): The patient's ADHD subtype is the predominantly inattentive type. He is also being followed by a psychiatrist. Interval Events: stopped medication on own. Target Symptoms: 1. Hyperactive behavior is denied. 2. Impulsive behavior is denied. 3. Difficulty concentrating is worse. Medications: The patient is not currently on any medications for his ADHD. (previously on concerta)Medication side effects include states weight better controlled on medication, but no anorexia, no headache, no tics, no irritability, no problems sleeping, no abdominal pain, no nausea and no suicidal ideation. The side effects are described as tolerable. Review of Systems Constitutional: Normal. ENT: normal. Cardiovascular: Normal. Respiratory: Normal. Gastrointestinal: Normal. Genitourinary: Normal. Integumentary: Normal. Neurological: Normal. Psychiatric: no anxiety. no suicidal ideation no depression Active Problems 1. ADHD (attention deficit hyperactivity disorder), combined type (314.01) (F90.2) 2. Asthma (493.90) (J45.909) 3. Back strain (847.9) (S39.012A) 4. Viral gastroenteritis (008.8) (A08.4) 5. Well adolescent visit (V20.2) (Z00.129) Surgical History 1. History of Treatment Of Forearm Fracture Family History Mother 1. Family history of hypertension (V17.49) (Z82.49) Grandparent 2. Family history of hypertension (V17.49) (Z82.49) Social History ?? Never a smoker ?? Never Drank Alcohol ?? Single Allergies 1. No Known Drug Allergies Vitals Recorded: 12Apr2015 08:40AM Heart Rate 100 Systolic 104 Diastolic 60 O2 Saturation 98 Height 5 ft 8 in 2-20 Stature Percentile 29 % Weight 203 lb 2-20 Weight Percentile 93 % BMI Calculated 30.87 BMI Percentile 96 % BSA Calculated 2.06 Physical Exam Constitutional General appearance: No acute distress, well appearing and well nourished. Eyes Conjunctiva and lids: No swelling, erythema, or discharge. Pupils and irises: Equal, round and reactive to light. Ears, Nose, Mouth, and Throat External inspection of ears and nose: Normal. Otoscopic examination: Tympanic membrane translucent with normal light reflex. Canals patent without erythema. Oropharynx: Normal with no erythema, edema, exudate or lesions. Pulmonary Respiratory effort: No increased work of breathing or signs of respiratory distress. Auscultation of lungs: Clear to auscultation. Cardiovascular Auscultation of heart: Normal rate and rhythm, normal S1 and S2, without murmurs. Examination of extremities for edema and/or varicosities: Normal. Lymphatic Palpation of lymph nodes in neck: No lymphadenopathy. Musculoskeletal Gait and station: Normal. Skin Skin and subcutaneous tissue: Normal without rashes or lesions. Neurologic Cranial nerves: Cranial nerves 2-12 intact. Psychiatric Orientation to person, place and time: Normal. Mood and affect: Normal. no SI/HI. cognitively slow. Assessment 1. ADHD (attention deficit hyperactivity disorder), combined type (314.01) (F90.2) 2. exterminator use of drug (V58.69) (Z79.899) Plan ADHD (attention deficit hyperactivity disorder), combined type, exterminator use of drug 1. Compr Metabolic Prof ( CMP ); Status:In Progress - Specimen/Data Collected; Done: 12Apr2015 Perform:. [facility]; Due:[id number]; Last Updated By:Tanya Benjamin; 04/12/2015 9:02:12 AM;Ordered; For:ADHD (attention deficit hyperactivity disorder), combined type, exterminator use of drug; Ordered By:Magdiel Mack; 2. TSH W Reflex Free T4; Status:In Progress - Specimen/Data Collected; Done: 12Apr2015 Perform:[facility]; Due:[id number]; Last Updated By:Tanya Benjamin; 04/12/2015 9:02:12 AM;Ordered; For:ADHD (attention deficit hyperactivity disorder), combined type, exterminator use of drug; Ordered By:Magdiel Mack; 3. *Venipuncture In Office; Status:Complete; Done: 12Apr2015 Perform:In Office; Due:[id number]; Last Updated By:Tanya Benjamin; 04/12/2015 9:09:36 AM;Ordered; For:ADHD (attention deficit hyperactivity disorder), combined type, exterminator use of drug; Ordered By:Magdiel Mack; 4. CBC W Differential; Status:In Progress - Specimen/Data Collected; Done: 12Apr2015 Perform:[facility]; Due:[id number]; Last Updated By:Tanya Benjamin; 04/12/2015 9:02:12 AM;Ordered; For:ADHD (attention deficit hyperactivity disorder), combined type, exterminator use of drug; Ordered By:Magdiel Mack; will have him sign ROR from [place] will review records and lab prior to restarting methylphenidate f/u 3 months and prn Discussion/Summary [place] do [place] also before restarting medication ([place]/ for focalin #30 and # 15 03/04/2014 Signatures Electronically signed by : Magdiel Mack NP; Apr 12 2015 10:01AM CONCRETE BOOM OPERATOR (Author) documented in this encounter Plan of Treatment Not on file documented as of this encounter Procedures Procedure Name Priority Date/Time Associated Diagnosis Comments TSH W/REFLEX Routine 04/12/2015 9:10 AM CONCRETE BOOM OPERATOR COMPREHENSIVE METABOLIC PANEL Routine 04/12/2015 9:10 AM CONCRETE BOOM OPERATOR CBC W/DIFF AUTOMATED Routine 04/12/2015 9:10 AM CONCRETE BOOM OPERATOR documented in this encounter Results * (ABNORMAL) CBC W/DIFF AUTOMATED (04/12/2015 9:10 AM CONCRETE BOOM OPERATOR) WBC 9.1 4.4 - 11.0 x10'3/uL [facility] TO EPIC CONVERSION RBC 5.51 4.50 - 5.90 x10'6/uL [facility] TO EPIC CONVERSION HGB 16.4 14.0 - 17.5 G/DL [facility] TO EPIC CONVERSION HCT 47.7 41.5 - 50.4 % [facility] TO EPIC CONVERSION MCV 86.6 80.0 - 96.0 FL [facility] TO EPIC CONVERSION MCH 29.8 26.5 - 31.4 PG [facility] TO EPIC CONVERSION MCHC 34.4 31.9 - 34.8 G/DL [facility] TO EPIC CONVERSION RDW 11.9(L) 12.3 - 14.3 % [facility] TO EPIC CONVERSION PLT 309 151 - 353 x10'3/uL [facility] TO EPIC CONVERSION MPV 11.1 9.7 - 11.9 FL [facility] TO EPIC CONVERSION BASOPHILS % 0.4 0.0 - 1.3 % [facility] TO EPIC CONVERSION EOSINOPHILS % 0.2 0.0 - 5.6 % [facility] TO EPIC CONVERSION NEUTROPHILS % 77.2(H) 42.1 - 71.9 % [facility] TO EPIC CONVERSION LYMPHOCYTES % 15.1(L) 15.8 - 45.0 % [facility] TO EPIC CONVERSION MONOCYTES % 6.8 5.7 - 12.5 % [facility] TO EPIC CONVERSION IMMATURE GRANS % 0.3 0.0 - 0.5 % [facility] TO EPIC CONVERSION ABS. NEUTROPHILS TOTAL 7.03(H) 1.40 - 6.00 x10'3/uL [facility] TO EPIC CONVERSION WBC MORPHOLOGY NORMAL [facility] OUP TO EPIC CONVERSION PLT MORPH. NORMAL [facility] TO EPIC CONVERSION RBC MORPHOLOGY NORMAL [facility] OUP TO EPIC CONVERSION 04/12/2015 9:10 AM CONCRETE BOOM OPERATOR 04/12/2015 9:10 AM CONCRETE BOOM OPERATOR Narrative [facility] TO EP[facility] CONVERSION - 04/12/2015 3:23 PM CONCRETE BOOM OPERATOR Result Communication: Call patient with results us Magdiel Mack NP LABORATORY Final Result [facility] TO EPIC CONVERSION * TSH W/REFLEX (SNS) (04/12/2015 9:10 AM CONCRETE BOOM OPERATOR) TSH 1.06 0.35 - 4.94 uIU/mL [facility] TO EPIC CONVERSION Comment:Result Comment: FREE T4 NOT INDICATED 04/12/2015 9:10 AM CONCRETE BOOM OPERATOR 04/12/2015 9:10 AM CONCRETE BOOM OPERATOR Narrative [facility] TO EPIC CONVERSION - 04/12/2015 6:28 PM CONCRETE BOOM OPERATOR Result Communication: Call patient with results us Magdiel Mack FARM EQUIPMENT ASSEMBLER LABORATORY Final Result [facility] TO EPIC CONVERSION * (ABNORMAL) COMPREHENSIVE METABOLIC PANEL (04/12/2015 9:10 AM CONCRETE BOOM OPERATOR) SODIUM S/P/B 140 136 - 145 MMOL/L [facility] TO EPIC CONVERSION POTASSIUM S/P/B 4.5 3.5 - 5.1 MMOL/L [facility] TO EPIC CONVERSION CHLORIDE S/P/B 102 98 - 107 MMOL/L [facility] TO EPIC CONVERSION CO2 26.0 22 - 29 MMOL/L [facility] TO EPIC CONVERSION ANION GAP 16.5 10.0 - 24.0 MMOL/L [facility] TO EPIC CONVERSION BUN 13 8.9 - 20.6 MG/DL [facility] TO EPIC CONVERSION CREATININE S/P/B 1.04 0.72 - 1.25 MG/DL [facility] TO EPIC CONVERSION GFR ESTIMATE NOT CALCULATED ?? GFR Reference Range: Kidney Failure - <15mL/min Chronic Kidney Disease - <60mL/min Normal Kidney Function - >60mL/min GFR calculation is not recommended for Patients less than 18 years or greater than 70 years as per the national Kidney Foundation. If the patient is -[place]ol[place] n, multiply results by 1.21 >60 ml/min/1 .73 m2 [facility] TO EPIC CONVERSION BUN CREATININE RATIO 12.5 6.0 - 26.0 [facility] TO EPIC CONVERSION GLUCOSE 88 70 - 105 MG/DL [facility] TO EPIC CONVERSION OSMOLALITY (CALC) 279 271 - 290 MOSM/KG [facility] TO EPIC CONVERSION CALCIUM S/P/B 10.4 8.8 - 10.8 MG/DL [facility] TO EPIC CONVERSION BILIRUBIN TOTAL S/P/B 2.6(H) 0.2 - 1.2 MG/DL [facility] TO EPIC CONVERSION AST 18 5 - 34 UNITS/L [facility] TO [facility]IC CONVERSION ALT 16 6 - 55 UNITS/L [facility] TO EPIC CONVERSION ALKALINE PHOSPHATASE S/P/B 96 40 - 115 UNITS/L [facility] TO EPIC CONVERSION TOTAL PROTEIN S/P/B 7.7 6.4 - 8.3 G/DL [facility] TO EPIC CONVERSION ALBUMIN S/P/B 4.8 3.5 - 5.0 G/DL [facility] TO EPIC CONVERSION A/G RATIO 1.7 1.1 - 1.9 RATIO [facility] TO EPIC CONVERSION 04/12/2015 9:10 AM CONCRETE BOOM OPERATOR 04/12/2015 9:10 AM CONCRETE BOOM OPERATOR Narrative [facility] TO EPIC CONVERSION - 04/12/2015 6:14 PM CONCRETE BOOM OPERATOR Result Communication: Call patient with results us Magdiel Mack NP LABORATORY Final Result [facility] TO EPIC CONVERSION documented in this encounter Visit Diagnoses Not on filedocumented in this encounter
--- OUTSIDE RECORDS SUMMARY | 2024-03-08 03:59 | XMS_ITS | Clinical Summary ---
Author Organization [facility] Address [address] [place] [address]. [place], [place] [address] [place], [place] [id number] Care Team Providers Care Braid Folder Name Role Phone Unavailable Primary Care Provider Unavailabl e Social History Tobacco Use Types Packs/Day Years Used Date Smoking Tobacco: Never Assessed Sex and Gender Information Value Date Recorded Sex Assigned at Not on file Legal Sex Male 7:08 PM CDT Gender Identity Not on file Sexual Orientation Not on file Last Filed Vital Signs Vital Sign Reading [...] Mass Index 31.32 07/24/2015 2:25 PM CDT Plan of Treatment Health Maintenance Due Date Last Done Comments Annual Physical 10/16/1998 Hepatitis C 10/16/2013 DTaP, Tdap and Td Vaccines ( 1 - Tdap) 10/16/2014 Hepatitis B Vaccines (1 of 3 - 19+ 3-dose series) 10/16/2014 COVID-19 Vaccine (2023-2 5 season) 2023 Influenza Adult (#1) 2023 HPV Vaccines Aged Out No longer eligi ble based on patient's age to complete this topic Meningococcal Vaccine Aged Out No dereck dieter eligible based on patient's age to complete this topic Pneumococcal Vaccine: Pediat rics (0 to 5 Years) and At-Risk Patients (6 to 64 Years) Aged Out No longer eligible b ased on patient's age to complete this topic RSV Immunizations Under 20 Months Aged Out No longer eligible based on patient's age to complete this topic
--- OUTSIDE RECORDS SUMMARY | 2024-03-08 03:59 | XMS_ITS | Referral Summary ---
Author Organization [facility] Address [facility] [place] [address] Care Team Providers Care Vegetable Farming Supervisor Name Role Phone Unavailable Primary Care Provider Unavailabl e Source Comments [facility],non-owned Affiliates and Associated Physician Practices is amultiple site organization consisting of ambulatory clinics and hospital sitesin [place], [place], [place] and [place]. This disclosure is being madepursuant to the Care Everywhere program and may not contain all information available regarding this patient. Last updated 17.[facility] Social History Tobacco Use Types Packs/Day Years Used Date Smoking Tobacco: Never Assessed Sex and Gender Information Value Date Recorded Sex Assigned at Not on file Gender Identity Not on file Sexual Orientation Not on file Plan of Treatment Not on file
--- OUTSIDE RECORDS SUMMARY | 2024-03-08 03:59 | XMS_ITS | Clinical Summary ---
Author Organization [id number] Address [address] [place] [address] Care Team Providers Care Bookkeepers Supervisor Name Role Phone Unavailable Primary Care Provider Unavailabl e Source Comments [facility],non-owned Affiliates and Associated Physician Practices is amultiple site organization consisting of ambulatory clinics and hospital sitesin [place], [place], [place] and [place]. This disclosure is being madepursuant to the Care Everywhere program and may not contain all information available regarding this patient. Last updated 17.[facility] Social History Tobacco Use Types Packs/Day Years Used Date Smoking Tobacco: Never Assessed Sex and Gender Information Value Date Recorded Sex Assigned at Not on file Gender Identity Not on file Sexual Orientation Not on file Plan of Treatment Health Maintenance Due Date Last Done Comments HIV SCREENING 10/16/2010 HEPATITIS C SCREENING 10/12/2013 DTAP/TDAP/TD VACCINES (1 - Tdap) 10/16/2014 HEPATITIS B VACCINE (1 of 3 - 19+ 3-dose series) 10/16/2014 DEPRESSION SCREENING 03/17/2023 COVID-19 VACCINE (1 - 2023-2 5 season) 2023 INFLUENZA VACCINE (#1) 2023 ZOSTER VACCINE (1 of 2) 10/16/2045 HIB VACCINE Aged Out No longer eligi ble based on patient's age to complete this topic HPV VACCINE Aged Out No longer eligi ble based on patient's age to complete this topic MENINGOCOCCAL VACCINE Aged Out No dereck dieter eligible based on patient's age to complete this topic PNEUMOCOCCAL VACCINE Aged Out No long er eligible based on patient's age to complete this topic
--- OUTSIDE RECORDS SUMMARY | 2024-03-08 03:59 | XMS_ITS | Encounter Summary ---
Author Organization [facility] Address [address] [place] [address]. [place], [place] [address] [place] [address] Care Team Providers Care Brothel Keeper Name Role Phone Unavailable Primary Care Provider Ronak e Encounter Details Date Type Department Care Team (Latest Contact Info) Description 04/14/2015 Abstract [facility] Medical Group Social History Tobacco Use Types Packs/Day Years Used Date Smoking Tobacco: Never Assessed Sex and Gender Information Value Date Recorded Sex Assigned at Not on file Legal Sex Male 7:08 PM CDT Gender Identity Not on file Sexual Orientation Not on file documented as of this encounter Progress Notes * Magdiel Mack NP - 04/14/2015 12:18 PM CST Message please notify patient his lab is normal except for an elevated bilirubin which should be rechecked in 2-3 months. we have not gotten any records yet from [place] so as yet I am not going to refill his ADD medication. thanks Verified Results CBC W Differential 12Apr2015 09:10AM Magdiel Mack Test Name Result Flag Reference White Blood Cell Count (WBC) 9.1 x10'3/uL 4.4-11.0 Red Blood Cell Count (RBC) 5.51 x10'6/uL 4.50-5.90 Hemoglobin (HGB) 16.4 G/DL 14.0-17.5 Hematocrit (HCT) 47.7 % 41.5-50.4 Mean Corpuscular Volume (MCV) 86.6 FL 80.0-96.0 Mean Corpuscular Hgb (MCH) 29.8 PG 26.5-31.4 Mean Corpuscular Hgb Conc (MCH 34.4 G/DL 31.9-34.8 Red Cell Distrib Width (RDW) 11.9 % L 12.3-14.3 Platelet Count (PLT) 309 x10'3/uL 151-353 Mean Platelet Volume (MPV) 11.1 FL 9.7-11.9 Lymphocytes % (Auto) 15.1 % L 15.8-45.0 Neutrophils % (Auto) 77.2 % H 42.1-71.9 Monocytes % (Auto) 6.8 % 5.7-12.5 Eosinophils % (Auto) 0.2 % 0.0-5.6 Basophils % (Auto) 0.4 % 0.0-1.3 Total Absolute Neutrophils 7.03 x10'3/uL H 1.40-6.00 Immature Granulocytes 0.3 % 0.0-0.5 Platelet Evaluation NORMAL RBC Morphology NORMAL WBC Morphology NORMAL Compr Metabolic Prof ( CMP ) 12Apr2015 09:10AM Magdiel Mack Test Name Result Flag Reference Glucose 88 MG/DL 70-105 Blood Urea Nitrogen (BUN) 13 MG/DL 8.9-20.6 Creatinine 1.04 MG/DL 0.72-1.25 Sodium (Na) 140 MMOL/L 136-145 Potassium (K) 4.5 MMOL/L 3.5-5.1 Chloride (Cl) 102 MMOL/L 98-107 Carbon Dioxide (CO2) 26.0 MMOL/L 22-29 Anion Gap 16.5 MMOL/L 10.0-24.0 Osmolality Calc 279 MOSM/KG 271-290 Calcium 10.4 MG/DL 8.8-10.8 Total Bilirubin 2.6 MG/DL H 0.2-1.2 Total Protein 7.7 G/DL 6.4-8.3 Albumin 4.8 G/DL 3.5-5.0 AST/GOT 18 UNITS/L 5-34 ALT/GPT 16 UNITS/L 6-55 Alkaline Phosphatase (ALKP) 96 UNITS/L 40-115 BUN Creatinine Ratio 12.5 6.0-26.0 A:G Ratio 1.7 RATIO 1.1-1.9 Glomerular Filt Rate Calc (Report) >60 NOT CALCULATED GFR Reference Range: Kidney Failure - <15mL/min Chronic Kidney Disease - <60mL/min Normal Kidney Function - >60mL/min GFR calculation is not recommended for Patients less than 18 years or greater than 70 years as per the national Kidney Foundation. If the patient is -[place], multiply results by 1.21 TSH W Reflex Free T4 12Apr2015 09:10AM Magdiel Mack Test Name Result Flag Reference TSH w Reflex Free T4 1.06 uIU/mL 0.35-4.94 FREE T4 NOT INDICATED documented in this encounter Plan of Treatment Not on file documented as of this encounter Visit Diagnoses Not on filedocumented in this encounter
--- OUTSIDE RECORDS SUMMARY | 2024-03-08 03:59 | XMS_ITS | Patient Health Summary ---
Author Organization [facility] Address [address] [place] [address] Care Team Providers Care Lead Javascript Engineer Name Role Phone Unavailable Primary Care Provider Unavailabl e Note from [facility],non-owned Affiliates and Associated Physician Practices is amultiple site organization consisting of ambulatory clinics and hospital sitesin [place], [place], [place] and [place]. This disclosure is being madepursuant to the Care Everywhere program and may not contain all information available regarding this patient. Last updated 17.[facility] Social History Tobacco Use Types Packs/Day Years Used Date Smoking Tobacco: Never Assessed Sex and Gender Information Value Date Recorded Sex Assigned at Not on file Gender Identity Not on file Sexual Orientation Not on file
--- OUTSIDE RECORDS SUMMARY | 2024-03-08 03:59 | XMS_ITS | Encounter Summary ---
Author Organization [facility] Address [address] [place] [address]. [place] [address] Care Team Providers Care Screener Operator Name Role Phone Unavailable Primary Care Provider Unavailabl e Encounter Details Date Type Department Care Team (Late st Contact Info) Description 04/12/2015 Abstract [facility] [address] [address] [place] [id number] Magdiel Mack, MAIL HANDLER SORTER Social History Tobacco Use Types Packs/Day Years Used Date Smoking Tobacco: Never Assessed Sex and Gender Information Value Date Recorded Sex Assigned at Not on file Legal Sex Male 7:08 PM CDT Gender Identity Not on file Sexual Orientation Not on file documented as of this encounter Plan of Treatment Not on file documented as of this encounter Visit Diagnoses Diagnosis Attention-deficit hyperactivity disorder, combined type Attention deficit disorder with hyperactivity documented in this encounter
--- OUTSIDE RECORDS SUMMARY | 2024-03-08 03:59 | XMS_ITS | Encounter Summary ---
Author Organization [facility] Address [address] [place] [address]. [place] [address] [place] [address] Care Team Providers Care Travel Registered Nurse Pacu Name Role Phone Unavailable Primary Care Provider Ronak e Encounter Details Date Type Department Care Team (Late st Contact Info) Description 06/02/2015 Abstract [facility] Medical Group Family & Internal Medicine [facility] [address] [place] [address] Magdiel Mack NP Social History Tobacco Use Types Packs/Day Years Used Date Smoking Tobacco: Never Assessed Sex and Gender Information Value Date Recorded Sex Assigned at Not on file Legal Sex Male 7:08 PM CDT Gender Identity Not on file Sexual Orientation Not on file documented as of this encounter Progress Notes * Magdiel Mack NP - 06/02/2015 3:51 PM CDT Message please notify patient his bilirubin is better; still a little high so we should recheck it again in6 monnths. thanks Verified Results Total Bilirubin 02Jun2015 09:19AM Magdiel Mack Test Name Result Flag Reference Total Bilirubin 1.7 MG/DL H 0.2-1.2 Plan Elevated bilirubin ?? Compr Metabolic Prof ( CMP ); Status:Hold For - Manual Activation; Requested for:[id number]; ?? Fract Bilirub ( Total / Direct ); Status:Hold For - Manual Activation; Requested for:[id number]; documented in this encounter Plan of Treatment Not on file documented as of this encounter Visit Diagnoses Not on filedocumented in this encounter
--- OUTSIDE RECORDS SUMMARY | 2024-03-08 03:59 | XMS_ITS | Encounter Summary ---
Author Organization [facility] Address [address] [place] [address]. [place] [address] Care Team Providers Care Burr Sander Name Role Phone Unavailable Primary Care Provider Unavailabl e Encounter Details Date Type Department Care Team (Latest Contact Info) Description 01/20/2018 Abstract [facility] Medical Group , Generic [place], Social History Tobacco Use Types Packs/Day Years [...]
--- OUTSIDE RECORDS SUMMARY | 2024-03-08 03:59 | XMS_ITS | Encounter Summary ---
Author Organization [facility] Address [address] [place] [address]. [place] [address] Care Team Providers Care Insurance Coordinator Name Role Phone Unavailable Primary Care Provider Unavailabl e Encounter Details Date Type Department Care Team (Late st Contact Info) Description 06/02/2015 Abstract [facility] [address] [place] [phone] Magdiel Mack, SENIOR FUNCTIONAL ANALYST Social History Tobacco Use Types Packs/Day Years Used Date Smoking Tobacco: Never Assessed Sex and Gender Information Value Date Recorded Sex Assigned at Not on file Legal Sex Male 7:08 PM CDT Gender Identity Not on file Sexual Orientation Not on file documented as of this encounter Plan of Treatment Not on file documented as of this encounter Visit Diagnoses Diagnosis Jaundice Jaundice, unspecified, not of documented in this encounter
--- OUTSIDE RECORDS SUMMARY | 2024-03-08 04:00 | XMS_ITS | Encounter Summary ---
Author Organization [facility] Address [address] [place] [address]. [place] [phone] [place], [place] [id number] Care Team Providers Care Pharmacist'S Aide Name Role Phone Unavailable Primary Care Provider Unavailtani e Encounter Details Date Type Department Care Team (Late st Contact Info) Description 04/02/2013 Abstract [facility] Family & Internal Medicine [facility] [address] [place] [address] Duc Green MD Social History Tobacco Use Types Packs/Day Years Used Date Smoking Tobacco: Never Assessed Sex and Gender Information Value Date Recorded Sex Assigned at Not on file Legal Sex Male 7:08 PM CDT Gender Identity Not on file Sexual Orientation Not on file documented as of this encounter Progress Notes * Lucy Green MD - 04/02/2013 3:15 PM CST Reason For Visit Nurse Visit: Injection Chief Complaint pt. came with his mom today for a flu inj. IM Active Problems 1. ADHD, Combined Type 314.01 2. Asthma 493.90 3. Back Strain 847.9 Current Meds 1. Methylphenidate HCl ER 54 MG Oral Tablet Extended Release; TK 1 T PO QAM; Therapy: 08Apr2012 to (Evaluate:11Apr2013); Last Rx:[id number] Allergies 1. No Known Drug Allergies Signatures Electronically signed by : Lianna Jacobson, ; Apr 02 2013 3:38PM (Author) Electronically signed by : Lucy Green M.D.; Apr 03 2013 2:29PM BUILDER OPERATOR documented in this encounter Plan of Treatment Not on file documented as of this encounter Visit Diagnoses Not on filedocumented in this encounter
--- OUTSIDE RECORDS SUMMARY | 2024-03-08 04:00 | XMS_ITS | Encounter Summary ---
Author Organization [facility] Address [address] [place] [address]. [place] [phone] [place], [place] [phone] Care Team Providers Care Credit Products Officer Name Role Phone Unavailable Primary Care Provider Unavailabl e Encounter Details Date Type Department Care Team (Late st Contact Info) Description 07/13/[address] [facility] CONVERSION [address] [place] [address] , Generic Conversion, Social History Tobacco Use Types Packs/Day Years [...]
--- OUTSIDE RECORDS SUMMARY | 2024-03-08 04:00 | XMS_ITS | Encounter Summary ---
Author Organization [facility] Address [address] [place] [address]. [place] [phone] [place] [phone] Care Team Providers Care Machine Setter And Repairer Name Role Phone Unavailable Primary Care Provider Unavailtani e Encounter Details Date Type Department Care Team (Late st Contact Info) Description 01/18/2013 Abstract [facility] Family & Internal Medicine [facility] [address] [place] [address] Lynn Irwin MD Social History Tobacco Use Types Packs/Day Years Used Date Smoking Tobacco: Never Assessed Sex and Gender Information Value Date Recorded Sex Assigned at Not on file Legal Sex Male 7:08 PM CDT Gender Identity Not on file Sexual Orientation Not on file documented as of this encounter Last Filed Vital Signs Vital Sign Reading Time Taken Comments Blood Pressure 108/78 01/18/2013 3:32 PM KENNEL MANAGER Pulse 52 01/18/2013 3:32 PM KENNEL MANAGER Temperature - - Respiratory Rate - - Oxygen Saturation - - Inhaled Oxygen Concentration - - Weight 87.5 kg (193 lb) 01/18/2013 3:32 PM KENNEL MANAGER Height 172.7 cm (5' 8 ) 01/18/2013 3:32 PM KENNEL MANAGER Body Mass Index 29.35 01/18/2013 3:32 PM KENNEL MANAGER Body Mass Index Percentile 95.57% 01/18/2013 3:3 2 PM KENNEL MANAGER Growth Chart: CDC (Boys, 2-2 0 Years) documented in this encounter Progress Notes * Lynn Irwin MD - 01/18/2013 3:00 PM CST Reason For Visit Reason For Visit: Acute Visit Chief Complaint Chief Complaint Free Text: Pt is here today for a check up for medication refills. History of Present Illness HPI Free Text: Patient is a 17-year-old male with past medical history of ADHD and asthma. Currently he is on Concerta. His mood is stable. He does not feel like hurting himself or others. Asthma is stable. He denies shortness of breath or wheezing or cough. No recent fever or chills. Appetite is good, weight is stable. Active Problems 1. ADHD, Combined Type 314.01 2. Asthma 493.90 3. Back Strain 847.9 Past Medical History Patient indicats no significant past medical history. Surgical History Patient indicates no past surgical history. Family History Patient indicates no significant family history of disease. Social History ?? Never A Smoker ?? Never Drank Alcohol Current Meds 1. Methylphenidate HCl ER 54 MG Oral Tablet Extended Release; TK 1 T PO QAM; Therapy: 08Apr2012 to (Evaluate:23Dec2012); Last Rx:23Nov2012 Ordered; For: ADHD, Combined Type (314.01); Rx By: Lynn Irwin; Dispense: 30 Days ; #:30 Tablet Extended Release; Refill: 0; Record; Msg to Pharmacy: handwritten script; Last Updated By: Arlen Alcantar Allergies 1. No Known Drug Allergies No Known Drug Allergies Vitals Vital Signs [Data Includes: Current Encounter] 18Jan2013 03:32PM Temperature 98.2 F Heart Rate 52 Respiration 18 Systolic 108 Diastolic 78 O2 Saturation 98 BMI Calculated 29.25 BSA Calculated 2.02 Height 5 ft 8 in Weight 193 lb Physical Exam Constitutional - General appearance: No acute distress, well appearing and well nourished. Ears, Nose, Mouth, and Throat - Oropharynx: Moist mucosa, normal tongue and tonsils without lesions. Pulmonary - Auscultation of lungs: Clear bilaterally. Cardiovascular - Auscultation of heart: Regular rate and rhythm, normal S1 and S2, no murmur. Skin - Skin and subcutaneous tissue: Normal. Psychiatric - Orientation to person, place, and time: Normal. Mood and affect: Normal. Assessment 1. ADHD, Combined Type 314.01 2. Asthma 493.90 Plan Continue with Concerta. Refer to psychiatrist. Stable, follow up as needed. Signatures Electronically signed by : Lynn Irwin M.D.; Jan 18 2013 4:18PM (Author) EL MANAGER documented in this encounter Plan of Treatment Not on file documented as of this encounter Visit Diagnoses Not on filedocumented in this encounter
--- OUTSIDE RECORDS SUMMARY | 2024-03-08 04:00 | XMS_ITS | Encounter Summary ---
Author Organization [facility] Address [address] [place] [address]. [place], [place] [phone] [place] [address] Care Team Providers Care Epidemiology Intern Name Role Phone Unavailable Primary Care Provider Unavailtani e Encounter Details Date Type Department Care Team (Late st Contact Info) Description 08/20/2011 Abstract [facility] [address] [place] [place] [phone] Vidal Valdez MD [address] [address] Social History Tobacco Use Types Packs/Day Years Used Date Smoking Tobacco: Never Assessed Sex and Gender Information Value Date Recorded Sex Assigned at Not on file Legal Sex Male 7:08 PM CDT Gender Identity Not on file Sexual Orientation Not on file documented as of this encounter Plan of Treatment Not on file documented as of this encounter Visit Diagnoses Diagnosis Chest pain Chest pain, unspecified documented in this encounter
--- OUTSIDE RECORDS SUMMARY | 2024-03-08 04:00 | XMS_ITS | Encounter Summary ---
Author Organization [facility] Address [address] [place] [address]. [place] [phone] [place], [place] [phone] Care Team Providers Care Width Stripper Name Role Phone Unavailable Primary Care Provider Unavailabl e Encounter Details Date Type Department Care Team (Latest Contact Info) Description 05/03/2013 Abstract [facility] Social History Tobacco Use Types Packs/Day Years Used Date Smoking Tobacco: Never Assessed Sex and Gender Information Value Date Recorded Sex Assigned at Not on file Legal Sex Male 7:08 PM CDT Gender Identity Not on file Sexual Orientation Not on file documented as of this encounter Progress Notes * Vicki Pratt Md, MD - 05/03/2013 2:47 PM CST Message Recorded as Task Date: 05/03/2013 11:43 AM, Created By: Arlen Alcantar Task Name: Follow Up Assigned To: Arlen Alcantar Regarding Patient: Delbert Humphreys, Status: Active Comment: Arlen Alcantar - 03 May 2013 11:43 AM TASK CREATED Pt mother Angeline called requesting refill on pt Concerta. He is due for appt. Looks like mansoor was in Jan 2013. Please advise Lynn Irwin - 03 May 2013 12:51 PM TASK REPLIED TO: Previously Assigned To Lynn Irwin We have a policy that he has to be seen every month. Arlen Alcantar - 03 May 2013 2:46 PM TASK EDITED pt mother Angeline informed per 5 in 1 that pt needs appt before refill. She was transferred to scheduling to get appt Signatures Electronically signed by : Arlen Alcantar MA; May 03 2013 2:47PM HOME FIRE ALARM INSTALLER (Author) FIRE ALARM INSTALLER documented in this encounter Plan of Treatment Not on file documented as of this encounter Visit Diagnoses Not on filedocumented in this encounter
--- OUTSIDE RECORDS SUMMARY | 2024-03-08 04:00 | XMS_ITS | Encounter Summary ---
Author Organization [facility] Address [address] [place] [address]. [place] [address] Care Team Providers Care Prototype Fabricator Name Role Phone Unavailable Primary Care Provider Unavailabl e Encounter Details Date Type Department Care Team (Latest Contact Info) Description 12/07/2013 Abstract [facility] Social History Tobacco Use Types [...]
--- OUTSIDE RECORDS SUMMARY | 2024-03-08 04:00 | XMS_ITS | Encounter Summary ---
Author Organization [facility] Address [address] [place] [address]. [place] [phone] Care Team Providers Care Location Man Name Role Phone Unavailable Primary Care Provider Unavailabl e Encounter Details Date Type Department Care Team (Latest Contact Info) Description 11/23/2012 Abstract [facility] Social History Tobacco Use Types Packs/Day Years Used Date Smoking Tobacco: Never Assessed Sex and Gender Information Value Date Recorded Sex Assigned at Not on file Legal Sex Male 7:08 PM CDT Gender Identity Not on file Sexual Orientation Not on file documented as of this encounter Progress Notes * Lynn Irwin MD - 11/23/2012 4:10 PM CDT Message Date: 23 Nov 2012 4:11 PM PICKED EDGE SEWING MACHINE OPERATOR, Recorded By: Arlen Alcantar Calling For: Lynn Irwin PT NEEDING REFILL ON HIS CONCERTA. HE HAS APPT SCHEDULED ON 12/07/12 HANDWRITTEN SCRIPT LEFT AT FRONT FOR HIS MOTHER TO SIMULATION SOFTWARE ENGINEER Plan 1. Methylphenidate HCl ER 54 MG Oral Tablet Extended Release; TK 1 T PO QAM; Therapy: 08Apr2012 to (Evaluate:23Dec2012); Last Rx:23Nov2012 Signatures Electronically signed by : Lynn Irwin M.D.; Nov 27 2012 11:15AM (Author) ED EDGE SEWING MACHINE OPERATOR documented in this encounter Plan of Treatment Not on file documented as of this encounter Visit Diagnoses Not on filedocumented in this encounter
--- OUTSIDE RECORDS SUMMARY | 2024-03-08 04:00 | XMS_ITS | Encounter Summary ---
Author Organization [facility] Address [address] [place] [address]. [place] [address] Care Team Providers Care Hair Machine Operator Name Role Phone Unavailable Primary Care Provider Unavailabl e Encounter Details Date Type Department Care Team (Latest Contact Info) Description 11/24/2012 Abstract [facility] Social History Tobacco [...]
--- OUTSIDE RECORDS SUMMARY | 2024-03-08 04:00 | XMS_ITS | Encounter Summary ---
Author Organization [facility] Address [address] [place] [address]. [place] [phone] [place], [place] [phone] Care Team Providers Care Garbage Man Name Role Phone Unavailable Primary Care Provider Unavailtani e Encounter Details Date Type Department Care Team (Late st Contact Info) Description 11/16/1998 Abstract [facility] CONVERSION [address] [place] [address] , Generic Conversion, Social History [...]
--- OUTSIDE RECORDS SUMMARY | 2024-03-08 04:00 | XMS_ITS | Encounter Summary ---
Author Organization [facility] Address [address] [place] [address]. [place], [place] [phone] [place] [address] Care Team Providers Care Balance And Hairspring Assembler Name Role Phone Unavailable Primary Care Provider Unavailabl e Encounter Details Date Type Department Care Team (Late st Contact Info) Description 12/13/2010 Abstract [facility] Emergency Room [address] [place] [address] Jignesh Ortiz MD [place] [address] [place] [address] Social History Tobacco Use Types Packs/Day Years Used Date Smoking Tobacco: Never Assessed Sex and Gender Information Value Date Recorded Sex Assigned at Not on file Legal Sex Male 7:08 PM CDT Gender Identity Not on file Sexual Orientation Not on file documented as of this encounter Plan of Treatment Not on file documented as of this encounter Visit Diagnoses Diagnosis Open wound of hand Open wound of hand except finger(s) alone, without mention of complication documented in this encounter
--- OUTSIDE RECORDS SUMMARY | 2024-03-08 04:00 | XMS_ITS | Encounter Summary ---
Author Organization [facility] Address [address] [place] [address]. [place], [place] [phone] [place] [address] Care Team Providers Care Fur Mixer Operator Name Role Phone Unavailable Primary Care Provider Unavailabl e Encounter Details Date Type Department Care Team (Latest Contact Info) Description 01/20/2013 Abstract [facility] Social History Tobacco Use Types Packs/Day Years Used Date Smoking Tobacco: Never Assessed Sex and Gender Information Value Date Recorded Sex Assigned at Not on file Legal Sex Male 7:08 PM CDT Gender Identity Not on file Sexual Orientation Not on file documented as of this encounter Progress Notes * Lynn Irwin MD - 01/20/2013 6:48 AM CST Message Recorded as Task Date: 01/12/2013 03:22 PM, Created By: Komal Schmitt Task Name: Renew Medication Assigned To: Arlen Alcantar Regarding Patient: Delbert Humphreys, Status: In Progress Comment: Komal Schmitt - 12 Jan 2013 3:22 PM TASK CREATED Caller: Self; Renew Medication; Patient made appt for 01-18-13. Is out of Concerta. Wants to know if Dr. Irwin will write a RX for mom to lease picker?? Arlen Alcantar - 12 Jan 2013 4:07 PM TASK EDITED PLEASE ADVISE Lynn Márquez - 12 Jan 2013 4:28 PM TASK REPLIED TO: Previously Assigned To Lynn Irwin yes Arlen Alcantar - 13 Jan 2013 6:51 AM TASK IN PROGRESS Arlen Alcantar 13 Jan 2013 8:10 AM TASK EDITED LEFT MESSAGE FOR RETURN CALL Arlen Alcantar - 14 Jan 2013 9:44 AM TASK EDITED LEFT MESSAGE FOR RETURN CALL Arlen Alcantar - 20 Jan 2013 6:47 AM TASK EDITED I WAS NOT EVER ABLE TO GET A HOLD OF PT WILL INFORM HIM OF THIS INFORMATION WHEN HE RETURNS MY MESSAGES Arlen Alcantar - 20 Jan 2013 6:48 AM TASK EDITED LOOKS LIKE PT HAD APPT ON 01/18 Signatures Electronically signed by : Lynn Irwin M.D.; Jan 20 2013 12:29PM (Author) ICAL BIOCHEMIST documented in this encounter Plan of Treatment Not on file documented as of this encounter Visit Diagnoses Not on filedocumented in this encounter
--- OUTSIDE RECORDS SUMMARY | 2024-03-08 04:00 | XMS_ITS | Encounter Summary ---
Author Organization [facility] Address [address] [place] [address]. [place] [phone] [place], [place] [phone] Care Team Providers Care Tire Adjuster Name Role Phone Unavailable Primary Care Provider Unavailabl e Encounter Details Date Type Department Care Team (Late st Contact Info) Description 10/19/1998 Abstract [facility] CONVERSION [address] [place] [address] , Generic Conversion, Social History [...]
--- OUTSIDE RECORDS SUMMARY | 2024-03-08 04:00 | XMS_ITS | Encounter Summary ---
Author Organization [facility] Address [address] [place] [address]. [place] [phone] [place], [place] [phone] Care Team Providers Care Hostel Parent Name Role Phone Unavailable Primary Care Provider Unavailabl e Encounter Details Date Type Department Care Team (Late st Contact Info) Description 05/21/2003 Abstract [facility] CONVERSION [address] [place] [address] , Generic Conversion, Social History [...]
--- OUTSIDE RECORDS SUMMARY | 2024-03-08 04:00 | XMS_ITS | Encounter Summary ---
Author Organization [facility] Address [address] [place] [address]. [place] [address] Care Team Providers Care Certified Industrial Hygienist Name Role Phone Unavailable Primary Care Provider Unavailabl e Encounter Details Date Type Department Care Team (Latest Contact Info) Description 09/01/2012 Abstract [facility] Social History Tobacco Use [...]
--- OUTSIDE RECORDS SUMMARY | 2024-03-08 04:00 | XMS_ITS | Encounter Summary ---
Author Organization [facility] Address [address] [place] [address]. [place] [phone] [place], [place] [phone] Care Team Providers Care Sas Programmer Analyst Name Role Phone Unavailable Primary Care Provider Unavailabl e Encounter Details Date Type Department Care Team (Latest Contact Info) Description 05/19/2012 Abstract [facility] Group Lynn Irwin MD Social History Tobacco Use Types Packs/Day Years Used Date Smoking Tobacco: Never Assessed Sex and Gender Information Value Date Recorded Sex Assigned at Not on file Legal Sex Male 7:08 PM CDT Gender Identity Not on file Sexual Orientation Not on file documented as of this encounter Last Filed Vital Signs Vital Sign Reading Time Taken Comments Blood Pressure 120/80 05/19/2012 9:05 AM PATROL JUDGE Pulse 87 05/19/2012 9:05 AM PATROL JUDGE Temperature - - Respiratory Rate - - Oxygen Saturation - - Inhaled Oxygen Concentration - - Weight 72.6 kg (160 lb) 05/19/2012 9:05 AM PATROL JUDGE Height 172.7 cm (5' 8 ) 05/19/2012 9:05 AM PATROL JUDGE Body Mass Index 24.33 05/19/2012 9:05 AM PATROL JUDGE Body Mass Index Percentile 83.46% 05/19/2012 9:0 5 AM PATROL JUDGE Growth Chart: CDC (Boys, 2-2 0 Years) documented in this encounter Progress Notes * Lynn Irwin MD - 05/19/2012 9:00 AM CST Chief Complaint 1. Medication Refill Chief Complaint Free Text: New pt here to establish care and for medication refill eg,rma Patient is a 16 year old male with PMH of ADHD. he was diagnosed 10 + years ago. he was on concertain the past. Currently he is on methylphenidate. he is doing good overall. Review of Systems Complete-Male Adolescent: Constitutional: no chills and not feeling poorly. Head and Face: normocephalic, atraumatic and no scalp tenderness. Eyes: no itching of the eyes and no purulent discharge from the eyes. ENT: no earache and no hearing loss. Cardiovascular: the heart rate was not fast, no palpitations and no chest pain. Respiratory: no wheezing and no shortness of breath during exertion. Gastrointestinal: no abdominal pain and no nausea. Genitourinary: no testicular pain and no nocturia. Musculoskeletal: no myalgias. Integumentary: no rashes. Endocrine: no feelings of weakness. Hematologic and Lymphatic: no swollen glands and no swollen glands in the neck. Social History ?? Never A Smoker ?? Never Drank Alcohol Current Meds 1. Methylphenidate HCl ER 54 MG Oral Tablet Extended Release; TK 1 T PO QAM; Therapy: 08Apr2012 to Recorded; Dispense: 30 Days ; #:30 TBCR; Refill: 0; Record; Last Updated By: Arlen Alcantar Allergies 1. No Known Drug Allergies No Known Drug Allergies Vitals Vital Signs [Data Includes: Current Encounter] 19May2012 09:05AM Temperature 97.5 F Heart Rate 87 Respiration 20 Systolic 120 Diastolic 80 O2 Saturation 98 BMI Calculated 24.25 BSA Calculated 1.86 Height 5 ft 8 in Weight 160 lb Physical Exam Constitutional - General appearance: No acute distress, well appearing and well nourished. Head and Face - Head and face: Normocephalic, atraumatic. Eyes - Pupils and irises: Equal, round, reactive to light bilaterally. Ears, Nose, Mouth, and Throat - Otoscopic examination: Tympanic membranes pulido, translucent with good bony landmarks and light reflex. Canals patent without erythema. Neck - Neck: Supple, symmetric, no masses. Thyroid: No thyromegaly. Pulmonary - Auscultation of lungs: Clear bilaterally. Cardiovascular - Auscultation of heart: Regular rate and rhythm, normal S1 and S2, no murmur. Abdomen - Abdomen: Normal bowel sounds, soft, non-tender, no masses. Liver and spleen: No hepatomegaly or splenomegaly. Lymphatic - Palpation of lymph nodes in neck: No anterior or posterior cervical lymphadenopathy. Musculoskeletal - Gait and station: Normal gait. Digits and nails: Normal without clubbing or cyanosis. Skin - Skin and subcutaneous tissue: No rash or lesions. Neurologic - Cranial nerves: Normal. Cortical function: Normal. Sensation: Normal. Coordination: Normal. Psychiatric - Recent and remote memory: Normal. Mood and affect: Normal. Assessment 1. Health Maintenance V20.2 2. 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 Stable. he goes to school , he is very active and is doing well. F Up in 3 months. Signatures Electronically signed by : Lynn Irwin M.D.; May 19 2012 9:39AM (Author) OL JUDGE documented in this encounter Plan of Treatment Not on file documented as of this encounter Visit Diagnoses Not on filedocumented in this encounter
--- OUTSIDE RECORDS SUMMARY | 2024-03-08 04:00 | XMS_ITS | Encounter Summary ---
Author Organization [facility] Address [address] [place] [address]. [place] [phone] [place], [place] [phone] Care Team Providers Care Hotel Maintenance Worker Name Role Phone Unavailable Primary Care Provider Unavailtani e Encounter Details Date Type Department Care Team (Late st Contact Info) Description 09/27/2001 Abstract [facility] CONVERSION [address] [place] [address] , Generic Conversion, Social History [...]
--- OUTSIDE RECORDS SUMMARY | 2024-03-08 04:00 | XMS_ITS | Encounter Summary ---
Author Organization [facility] Address [address] [place] [address]. [place] [phone] [place], [place] [phone] Care Team Providers Care Chopper Operator Name Role Phone Unavailable Primary Care Provider Unavailtani e Encounter Details Date Type Department Care Team (Late st Contact Info) Description 06/26/2007 Abstract [facility] Emergency Room [address] [place] [id number] Social History Tobacco Use Types Packs/Day Years [...]
--- OUTSIDE RECORDS SUMMARY | 2024-03-08 04:00 | XMS_ITS | Encounter Summary ---
Author Organization [facility] Address [address] [place] [address]. [place] [address] Care Team Providers Care Assistant County Attorney Name Role Phone Unavailable Primary Care Provider Unavailabl e Encounter Details Date Type Department Care Team (Latest Contact Info) Description 06/23/2012 Abstract [facility] Group Social [...]
--- OUTSIDE RECORDS SUMMARY | 2024-03-08 04:00 | XMS_ITS | Encounter Summary ---
Author Organization [facility] Address [address] [place] [address]. [place] [phone] Care Team Providers Care Classroom Monitor Name Role Phone Unavailable Primary Care Provider Unavailabl e Encounter Details Date Type Department Care Team (Latest Contact Info) Description 08/31/2012 Abstract [facility] Lynn Irwin MD Social History [...] Sign Reading Time Taken Comments Blood Pressure 126/90 08/31/2012 1:51 PM CDT Pulse 96 08/31/2012 1:51 PM CDT Temperature - - Respiratory Rate - - Oxygen Saturation - - Inhaled Oxygen Concentration - - Weight 80.7 kg (178 lb) 08/31/2012 1:51 PM CDT Height 172.7 cm (5' 8 ) 08/31/2012 1:51 PM CDT Body Mass Index 27.06 08/31/2012 1:51 PM CDT Body Mass Index Percentile 92.93% 08/31/2012 1:5 1 PM CDT Growth Chart: CDC (Boys, 2-2 0 Years) documented in this encounter Progress Notes * Lynn Irwin MD - 08/31/2012 1:30 PM CDT Chief Complaint Chief Complaint Free Text: PT HERE FOR SPORTS PHYSICAL AND REFILL ON HIS CONCERTA History of Present Illness HPI Free Text: Patient is a 16-year-old male with significant history of exercise induced asthma, ADHD. He is herefor follow. ADHD is stable. He takes Concerta every day. His mood is good. Asthma is well controlled, he uses albuterol inhaler only during exercise. He used inhaler probablya year ago. Also he is here for sports physical exam. Review of Systems Complete-Male Adolescent: Constitutional: no chills, no fever and not feeling tired. Active Problems 1. ADHD, Combined Type 314.01 Social History ?? Never A Smoker ?? Never Drank Alcohol Current Meds 1. Methylphenidate HCl ER 54 MG Oral Tablet Extended Release; TK 1 T PO QAM; Therapy: 08Apr2012 to (Evaluate:22Aug2012); Last Rx:23Jul2012 Allergies 1. No Known Drug Allergies Vitals Vital Signs [Data Includes: Current Encounter] 31Aug2012 01:51PM Temperature 98 F Heart Rate 96 Respiration 22 Systolic 126 Diastolic 90 O2 Saturation 98 BMI Calculated 26.98 BSA Calculated 1.95 Height 5 ft 8 in Weight 178 lb Physical Exam Constitutional - General appearance: No acute distress, well appearing and well nourished. Head and Face - Face and sinuses: Normal, no sinus tenderness. Eyes - Pupils and irises: Equal, round, reactive to light bilaterally. Ears, Nose, Mouth, and Throat - Otoscopic examination: Tympanic membranes pulido, translucent with good bony landmarks and light reflex. Canals patent without erythema. Oropharynx: Moist mucosa, normaltongue and tonsils without lesions. Neck - Neck: Supple, symmetric, no masses. Pulmonary - Respiratory effort: Normal respiratory rate and rhythm, no increased work of breathing.Auscultation of lungs: Clear bilaterally. Cardiovascular - Pedal pulses: Normal, 2+ bilaterally. Examination of extremities for edema and/or varicosities: Normal. Abdomen - Abdomen: Normal bowel sounds, soft, non-tender, no masses. Liver and spleen: No hepatomegaly or splenomegaly. Lymphatic - Palpation of lymph nodes in neck: No anterior or posterior cervical lymphadenopathy. Musculoskeletal - Gait and station: Normal gait. Digits and nails: Normal without clubbing or cyanosis. Inspection/palpation of joints, bones, and muscles: Normal. Neurologic - Cranial nerves: Normal. Reflexes: Normal. Sensation: Normal. Psychiatric - Orientation to person, place, and time: Normal. Mood and affect: Normal. Assessment 1. ADHD, Combined Type 314.01 2. Asthma 493.90 Plan Continue with current medication. Sports physical exam form completed. Follow-up in 3 months. Signatures Electronically signed by : Lynn Irwin M.D.; Aug 31 2012 2:20PM (Author) NCIAL OPERATIONS CONSULTANT documented in this encounter Plan of Treatment Not on file documented as of this encounter Visit Diagnoses Not on filedocumented in this encounter
--- OUTSIDE RECORDS SUMMARY | 2024-03-08 04:00 | XMS_ITS | Encounter Summary ---
Author Organization [facility] Address [address] [place] [address]. [place] [phone] [place], [place] [id number] Care Team Providers Care Commercial Pilot Name Role Phone Unavailable Primary Care Provider Unavailabl e Encounter Details Date Type Department Care Team (Late st Contact Info) Description 05/04/2013 Abstract [facility] [address] [place] [phone] Maksim Bowen MD Social History Tobacco Use Types Packs/Day Years Used Date Smoking Tobacco: Never Assessed Sex and Gender Information Value Date Recorded Sex Assigned at Not on file Legal Sex Male 7:08 PM CDT Gender Identity Not on file Sexual Orientation Not on file documented as of this encounter Plan of Treatment Not on file documented as of this encounter Visit Diagnoses Diagnosis Nausea with vomiting documented in this encounter
--- OUTSIDE RECORDS SUMMARY | 2024-03-08 04:00 | XMS_ITS | Encounter Summary ---
Author Organization [facility] Address [address] [place] [address]. [place] [address] Care Team Providers Care Puzzle Assembler Name Role Phone Unavailable Primary Care Provider Unavailabl e Encounter Details Date Type Department Care Team (Latest Contact Info) Description 10/16/2012 Abstract [facility] Social History Tobacco Use Types [...]
--- OUTSIDE RECORDS SUMMARY | 2024-03-08 04:00 | XMS_ITS | Encounter Summary ---
Author Organization [facility] Address [address] [place] [address]. [place] [address] [place] [address] Care Team Providers Care Mechanic/Welder Name Role Phone Unavailable Primary Care Provider Unavailtani e Encounter Details Date Type Department Care Team (Late st Contact Info) Description 08/17/2013 Abstract [facility] Family & Internal Medicine [facility] [address] [place] [address] Magdiel Mack NP Social History [...] Sign Reading Time Taken Comments Blood Pressure 122/80 08/17/2013 3:05 PM CDT Pulse 82 08/17/2013 3:05 PM CDT Temperature - - Respiratory Rate - - Oxygen Saturation - - Inhaled Oxygen Concentration - - Weight 95.3 kg (210 lb) 08/17/2013 3:05 PM CDT Height 172.7 cm (5' 8 ) 08/17/2013 3:05 PM CDT Body Mass Index 31.93 08/17/2013 3:05 PM CDT Body Mass Index Percentile 96.78% 08/17/2013 3:0 5 PM CDT Growth Chart: [facility] (Boys, 2-2 0 Years) documented in this encounter Progress Notes * Magdiel Mack NP - 08/17/2013 3:00 PM CDT Reason For Visit Reason For Visit: here for medication refills. Chief Complaint 1. Medication Refill History of Present Illness HPI Free Text: 17 y/o male here for refill of ritalin. has been doing well; concentration, appetite and sleep good. weight stable. had blood count done in Apr 2013. sees a psychiatrist every 45 days Review of Systems Focused-Male: Constitutional: Normal. ENT: normal. Cardiovascular: Normal. Respiratory: Normal. Gastrointestinal: Normal. Genitourinary: Normal. Integumentary: Normal. Neurological: Normal. Psychiatric: Normal. Active Problems 1. ADHD (attention deficit hyperactivity disorder), combined type (314.01) (F90.2) 2. Asthma (493.90) (J45.909) 3. Back strain (847.9) (S39.012A) 4. Viral gastroenteritis (008.8) (A08.4) Past Medical History Patient indicats no significant past medical history. Surgical History 1. History of Treatment Of Forearm Fracture Family History Mother 1. Family history of hypertension (V17.49) (Z82.49) Grandparent 2. Family history of hypertension (V17.49) (Z82.49) Social History ?? Never a smoker ?? Never Drank Alcohol Current Meds 1. GuanFACINE HCl - 1 MG Oral Tablet (Tenex); TAKE 1 TABLET DAILY; Therapy: 07Jun2013 to (Evaluate:07Jul2013); Last Rx:07Jun2013 Ordered Rx By: Lynn Irwin; Dispense: 30 Days ; #:30 Tablet; Refill: 0; For: ADHD (attention deficit hyperactivity disorder), combined type; CLAUDIA = N; Record; Last Updated By: Eleni Bhagat; 08/17/2013 3:20:03 PM 2. Methylphenidate HCl ER 54 MG Oral Tablet Extended Release; TK 1 T PO QAM; Therapy: 08Apr2012 to (Evaluate:07Jul2013); Last Rx:07Jun2013 Ordered Rx By: Lynn Irwin; Dispense: 30 Days ; #:30 Tablet Extended Release; Refill: 0; For: ADHD (attention deficit hyperactivity disorder), combined type; CLAUDIA = N; Print Rx; Last Updated By: Eleni Bhagat; 08/17/2013 3:19:19 PM Allergies 1. No Known Drug Allergies Recorded By: Arlen Alcantar; 05/19/2012 9:06:49 AM Vitals Vital Signs [Data Includes: Current Encounter] Recorded by : Sharla Chacon at 17Aug2013 03:05PM Temperature 99.3 F Heart Rate 82 Respiration 16 Systolic 122 Diastolic 80 O2 Saturation 98 Height 5 ft 8 in 2-20 Stature Percentile 33 % Weight 210 lb 2-20 Weight Percentile 96 % BMI Calculated 31.93 BMI Percentile 99 % BSA Calculated 2.09 Physical Exam Constitutional - General appearance: No acute distress, well appearing and well nourished. Eyes - Conjunctiva and lids: No injection, edema or discharge. Pupils and irises: Equal, round, reactive to light bilaterally. Ears, Nose, Mouth, and Throat - External inspection of ears and nose: Normal without deformities ordischarge. Otoscopic examination: Tympanic membranes pulido, translucent with good bony landmarks andlight reflex. Canals patent without erythema. Oropharynx: Moist mucosa, normal tongue and tonsils without lesions. Neck - Neck: Supple, symmetric, no masses. Pulmonary - Respiratory effort: Normal respiratory rate and rhythm, no increased work of breathing.Auscultation of lungs: Clear bilaterally. Cardiovascular - Auscultation of heart: Regular rate and rhythm, normal S1 and S2, no murmur. Pedalpulses: Normal, 2+ bilaterally. Examination of extremities for edema and/or varicosities: Normal. Lymphatic - Palpation of lymph nodes in neck: No anterior or posterior cervical lymphadenopathy. Skin - Skin and subcutaneous tissue: Normal. Psychiatric - Orientation to person, place, and time: Normal. Mood and affect: Normal. Assessment 1. ADHD (attention deficit hyperactivity disorder), combined type (314.01) (F90.2) Plan 1. Renew: GuanFACINE HCl - 1 MG Oral Tablet (Tenex 1 MG Oral Tablet); TAKE 1 TABLET DAILY Rx By: Magdiel Mack; Dispense: 30 Days ; #:30 Tablet; Refill: 3; For: ADHD (attention deficit hyperactivity disorder), combined type; CLAUDIA = N; Verified Transmission to [facility] [id number]; Last Updated By: Chlesey Rangel; 08/17/2013 3:20:03 PM 2. Renew: Methylphenidate HCl ER 54 MG Oral Tablet Extended Release; TK 1 T PO QAM Rx By: Lynn Irwin; Dispense: 30 Days ; #:30 Tablet Extended Release; Refill: 0; For: ADHD (attention deficit hyperactivity disorder), combined type; CLAUDIA = N; Print Rx; Last Updated By: Magdiel Mack; 08/17/2013 3:19:19 PM we need records from psychiatrist office as would wonder if he can be off medication over summer. f/u monthly and prn Signatures Electronically signed by : Sharla Chacon L.P.N.; Aug 17 2013 3:09PM BULL LADLE TENDER (Author) Electronically signed by : Magdiel Mack NP; Aug 17 2013 4:05PM BULL LADLE TENDER (Author) documented in this encounter Plan of Treatment Not on file documented as of this encounter Visit Diagnoses Not on filedocumented in this encounter
--- OUTSIDE RECORDS SUMMARY | 2024-03-08 04:00 | XMS_ITS | Encounter Summary ---
Author Organization [facility] Address [address] [place] [address]. [place] [phone] [place], [place] [phone] Care Team Providers Care Extension Service Specialist In Charge Name Role Phone Unavailable Primary Care Provider Unavailabl e Encounter Details Date Type Department Care Team (Late st Contact Info) Description 03/26/2004 Abstract [facility] Emergency Room [address] [place] [phone] , Vicki Pratt MD Social History Tobacco [...]
--- OUTSIDE RECORDS SUMMARY | 2024-03-08 04:00 | XMS_ITS | Encounter Summary ---
Author Organization [facility] Address [address] [place] [address]. [place] [phone] [place], [place] [phone] Care Team Providers Care Associate Designer Name Role Phone Unavailable Primary Care Provider Unavailabl e Encounter Details Date Type Department Care Team (Late st Contact Info) Description 07/08/1997 Abstract [facility] CONVERSION [address] [place] [address] , Generic Conversion, Social History [...]
--- OUTSIDE RECORDS SUMMARY | 2024-03-08 04:00 | XMS_ITS | Encounter Summary ---
Author Organization [facility] Address [address] [place] [address]. [place], [place] [address] [place], [place] [phone] Care Team Providers Care Laboratory Tester Name Role Phone Unavailable Primary Care Provider Ronak e Encounter Details Date Type Department Care Team (Latest Contact Info) Description 12/09/2012 Abstract [facility] Social History Tobacco Use Types Packs/Day Years Used Date Smoking Tobacco: Never Assessed Sex and Gender Information Value Date Recorded Sex Assigned at Not on file Legal Sex Male 7:08 PM CDT Gender Identity Not on file Sexual Orientation Not on file documented as of this encounter Progress Notes * Magdiel Mack NP - 12/09/2012 1:10 PM CDT Message please notify parent his back xray is normal. thanks Verified Results XR T-SPINE 3 VIEW ( Routine ) 01Dec2012 03:21PM Magdiel Mack Test Name Result Flag Reference DELBERT HUMPHREYS ORDERING MD: MAGDIEL MACK ACCT: [id number] : 1995 PT TYPE: REG CLI SEX: M ORD SITE: [facility] STUDY DATE REPORT # PROCEDURE CODE PROCEDURE 12/01/12 [id number] XR T-SPINE 3 VIEW EXTORDERID [id number] CHART DOCUMENT DIVISION OF RADIOLOGY ACCESSION # EXAM DATE EXAM DESCRIPTION [id number] 12/01/2012 XR T-SPINE 3 VIEW IMAGING STUDIES: FOUR VIEWS OF THE THORACIC SPINE 12-01-2012 COMPARISON STUDIES: NO PREVIOUS AVAILABLE HISTORY: TRAUMA, PAIN FINDINGS/IMPRESSION: 1)MINIMAL DEXTROCURVATURE OF THE THORACIC SPINE. 2)NO EVIDENCE OF COMPRESSION DEFORMITIES. NO SPONDYLOLISTHESIS. NO VISIBLE ACUTE FRACTURE LINE. ELECTRONICALLY SIGNED BY STUART MCGOVERN MD 12/09/2012 09:18 MG/YADIEL 12/01/2012 3:21 P 12/01/2012 4:54 P JOB NO: DOC NO: [id number] CC: ECTION MANAGER documented in this encounter Plan of Treatment Not on file documented as of this encounter Visit Diagnoses Not on filedocumented in this encounter
--- OUTSIDE RECORDS SUMMARY | 2024-03-08 04:00 | XMS_ITS | Encounter Summary ---
Author Organization [facility] Address [address] [place] [address]. [place], [place] [address] [place] [address] Care Team Providers Care Gas Station Clerk Name Role Phone Unavailable Primary Care Provider Unavailabl e Encounter Details Date Type Department Care Team (Latest Contact Info) Description 10/15/2012 Abstract [facility] Social History Tobacco Use Types Packs/Day Years Used Date Smoking Tobacco: Never Assessed Sex and Gender Information Value Date Recorded Sex Assigned at Not on file Legal Sex Male 7:08 PM CDT Gender Identity Not on file Sexual Orientation Not on file documented as of this encounter Progress Notes * Lynn Irwin MD - 10/15/2012 4:52 PM CDT Message Recorded as Task Date: 10/15/2012 03:47 PM, Created By: Treva Carter Task Name: Call Back Assigned To: Arlen Alcantar Regarding Patient: Delbert Humphreys, Status: Active Comment: Treva Carter - 15 Oct 2012 3:47 PM TASK CREATED Caller: Angeline, Cady; Angeline called about getting a written Rx for Concerta for her son. Was hoping we had it up front. Please call Angeline at [phone] Arlen Alcantar - 15 Oct 2012 4:32 PM TASK EDITED PLEASE ADVISE Lynn Márquez - 15 Oct 2012 4:48 PM TASK REPLIED TO: Previously Assigned To Lynn Irwin we can do that. Arlen Alcantar - 15 Oct 2012 4:53 PM TASK EDITED HANDWRITTEN SCRIPT LEFT AT FRONT FOR KINDERGARTEN CLASSROOM TEACHER Plan 1. Methylphenidate HCl ER 54 MG Oral Tablet Extended Release; TK 1 T PO QAM; Therapy: 08Apr2012 to (Evaluate:01Mgx5715); Last Rx:15Oct2012 Signatures Electronically signed by : Lynn Irwin M.D.; Oct 20 2012 1:05PM (Author) CONSULTANT documented in this encounter Plan of Treatment Not on file documented as of this encounter Visit Diagnoses Not on filedocumented in this encounter
--- OUTSIDE RECORDS SUMMARY | 2024-03-08 04:00 | XMS_ITS | Encounter Summary ---
Author Organization [facility] Address [address] [place] [address]. [place] [phone] [place], [place] [phone] Care Team Providers Care Playback Operator Name Role Phone Unavailable Primary Care Provider Unavailtani e Encounter Details Date Type Department Care Team (Late st Contact Info) Description 04/29/1996 Abstract [facility] CONVERSION [address] [place] [address] , Generic Conversion, Social History [...]
--- OUTSIDE RECORDS SUMMARY | 2024-03-08 04:00 | XMS_ITS | Encounter Summary ---
Author Organization [facility] Address [address] [place] [address]. [place] [phone] [place], [place] [phone] Care Team Providers Care Business Segment Manager Name Role Phone Unavailable Primary Care Provider Unavailabl e Encounter Details Date Type Department Care Team (Late st Contact Info) Description 12/01/2012 Abstract [facility] [address] [place] [phone] Magdiel Mack, SANDWICH AND DRINK CART OPERATOR Social History Tobacco Use Types Packs/Day Years Used Date Smoking Tobacco: Never Assessed Sex and Gender Information Value Date Recorded Sex Assigned at Not on file Legal Sex Male 7:08 PM CDT Gender Identity Not on file Sexual Orientation Not on file documented as of this encounter Plan of Treatment Not on file documented as of this encounter Visit Diagnoses Diagnosis Sprain of back Sprain of unspecified site of back documented in this encounter
--- OUTSIDE RECORDS SUMMARY | 2024-03-08 04:00 | XMS_ITS | Encounter Summary ---
Author Organization [facility] Address [address] [place] [address]. [place] [address] [place] [address] Care Team Providers Care Furnace Firer Name Role Phone Unavailable Primary Care Provider Unavailabl e Encounter Details Date Type Department Care Team (Late st Contact Info) Description 06/07/2013 Abstract [facility] Medical Group Family & Internal Medicine [facility] [address] [place] [address] [place] [address] [address] Social History Tobacco Use Types Packs/Day Years Used Date Smoking Tobacco: Never Assessed Sex and Gender Information Value Date Recorded Sex Assigned at Not on file Legal Sex Male 7:08 PM CDT Gender Identity Not on file Sexual Orientation Not on file documented as of this encounter Last Filed Vital Signs Vital Sign Reading Time Taken Comments Blood Pressure 120/70 06/07/2013 11:01 AM CDT Pulse 75 06/07/2013 11:01 AM CDT Temperature - - Respiratory Rate - - Oxygen Saturation - - Inhaled Oxygen Concentration - - Weight 94.8 kg (209 lb) 06/07/2013 11:01 AM CDT Height 172.7 cm (5' 8 ) 06/07/2013 11:01 AM CDT Body Mass Index 31.78 06/07/2013 11:01 AM CDT Body Mass Index Percentile 96.78% 06/07/2013 11: 01 AM CDT Growth Chart: CDC (Boys, 2-2 0 Years) documented in this encounter Progress Notes * Erin Sung RN SURGICAL - 06/07/2013 11:00 AM CDT Reason For Visit Reason For Visit: Chronic Recheck Visit History of Present Illness ADHD Medication Check, 3-19 years (Brief): The patient is being seen for a routine clinic follow-upregarding medication for attention deficit hyperactivity disorder. Symptoms: forgetfulness, but no short attention span, no hyperactive behavior, no easy distractibility, no poor grades and no fidgeting. No associated symptoms are reported. Current treatment includes Seeing a Physciatrist - they added an afternoon dose for him. (Pt reports that the ADD medication has been improving attention span. Pt is seeing psychiatrist and has had medication added to routine) Review of Systems Focused-Male: ENT: normal and no earache. Cardiovascular: no chest pain and no palpitations. Respiratory: Normal and no cough. Gastrointestinal: Normal, no abdominal pain and no constipation. Genitourinary: Normal and no dysuria. Integumentary: Normal. Musculoskeletal: Normal. Neurological: Normal and no dizziness. Psychiatric: (see HPI). no depression Active Problems 1. ADHD (attention deficit hyperactivity disorder), combined type (314.01) (F90.2) 2. Asthma (493.90) (J45.909) 3. Back strain (847.9) (S39.012A) 4. Viral gastroenteritis (008.8) (A08.4) Surgical History 1. History of Treatment Of Forearm Fracture Family History 1. Family history of hypertension (V17.49) (Z82.49) 2. Family history of hypertension (V17.49) (Z82.49) Social History ?? Never a smoker ?? Never Drank Alcohol Current Meds 1. Methylphenidate HCl ER 54 MG Oral Tablet Extended Release; TK 1 T PO QAM; Therapy: 08Apr2012 to (Evaluate:03Jun2013); Last Rx:04May2013 Ordered Allergies 1. No Known Drug Allergies Vitals Vital Signs [Data Includes: Current Encounter] Recorded by : Eleni Bhagat at 07Jun2013 11:01AM Heart Rate 75 Systolic 120 Diastolic 70 O2 Saturation 98 Height 5 ft 8 in 2-20 Stature Percentile 33 % Weight 209 lb 2-20 Weight Percentile 96 % BMI Calculated 31.78 BMI Percentile 99 % BSA Calculated 2.08 Physical Exam Constitutional - General appearance: No acute distress, well appearing and well nourished. Eyes - Conjunctiva and lids: No injection, edema or discharge. Pupils and irises: Equal, round, reactive to light bilaterally. Ears, Nose, Mouth, and Throat - External inspection of ears and nose: Normal without deformities ordischarge. Neck - Neck: Supple, symmetric, no masses. Pulmonary - Respiratory effort: Normal respiratory rate and rhythm, no increased work of breathing.Auscultation of lungs: Clear bilaterally. Cardiovascular - Pedal pulses: Normal, 2+ bilaterally. Examination of extremities for edema and/or varicosities: Normal. Abdomen - Abdomen: Normal bowel sounds, soft, non-tender, no masses. Lymphatic - Palpation of lymph nodes in neck: No anterior or posterior cervical lymphadenopathy. Musculoskeletal - Gait and station: Normal gait. Digits and nails: Normal without clubbing or cyanosis. Inspection/palpation of joints, bones, and muscles: Normal. Skin - Skin and subcutaneous tissue: Normal. Neurologic - Cranial nerves: Normal. Reflexes: Normal. Psychiatric - Orientation to person, place, and time: Normal. Mood and affect: Normal. Assessment 1. ADHD (attention deficit hyperactivity disorder), combined type (314.01) (F90.2) Plan 1. Start: GuanFACINE HCl - 1 MG Oral Tablet (Tenex 1 MG Oral Tablet); TAKE 1 TABLET DAILY Rx By: Lynn Irwin; Dispense: 30 Days ; #:30 Tablet; Refill: 0; For: ADHD (attention deficit hyperactivity disorder), combined type; CLAUDIA = N; Record; Last Updated By: Eleni Bhagat; 06/07/2013 11:13:07 AM 2. Renew: Methylphenidate HCl ER 54 MG Oral Tablet Extended Release; TK 1 T PO QAM Rx By: Lynn Irwin; Dispense: 30 Days ; #:30 Tablet Extended Release; Refill: 0; For: ADHD (attention deficit hyperactivity disorder), combined type; CLAUDIA = N; Print Rx; Last Updated By: Eleni Bhagat; 06/07/2013 9:42:52 AM 3. Follow-up visit in 1 month Outpatient Follow-up Status: Complete Done: 07Jun2013 Ordered; For: ADHD (attention deficit hyperactivity disorder), combined type; Ordered By: Erin Sung Performed: Due: 17Jun2013; Last Updated By: Angeline Jin; 06/07/2013 11:22:15 AM Pt had guanfacine 1 mg added to daily routine by the psychiatrist. Pt denies feeling suicidal or any feeling of wanting hurt someone else. Pt states has been doing well at school. Signatures Electronically signed by : Erin Sung NP; Jun 07 2013 1:32PM MEDICAL I D SALES (Author) documented in this encounter Plan of Treatment Not on file documented as of this encounter Visit Diagnoses Not on filedocumented in this encounter
--- OUTSIDE RECORDS SUMMARY | 2024-03-08 04:00 | XMS_ITS | Encounter Summary ---
Author Organization [facility] Address [address] [place] [address]. [place] [id number] [place], [place] [id number] Care Team Providers Care Travel Pt Name Role Phone Unavailable Primary Care Provider Unavailabl e Encounter Details Date Type Department Care Team (Late st Contact Info) Description 04/11/2004 Abstract [facility] Emergency Room [address] [place] [phone] , Vicki Pratt MD Social History Tobacco [...]
--- OUTSIDE RECORDS SUMMARY | 2024-03-08 04:00 | XMS_ITS | Encounter Summary ---
Author Organization [facility] Address [address] [place] [address]. [place] [address] Care Team Providers Care Trains Service Conductor Name Role Phone Unavailable Primary Care Provider Unavailabl e Encounter Details Date Type Department Care Team (Latest Contact Info) Description 05/21/2012 Abstract [facility] Social History Tobacco [...]
--- OUTSIDE RECORDS SUMMARY | 2024-03-08 04:00 | XMS_ITS | Encounter Summary ---
Author Organization [facility] Address [address] [place] [address]. [place], [place] [address] [place] [address] Care Team Providers Care Communication Technician Name Role Phone Unavailable Primary Care Provider Unavailabl e Encounter Details Date Type Department Care Team (Late st Contact Info) Description 03/22/2010 Abstract [facility] Emergency Room [address] [place] [address] Jignesh Ortiz MD [place] [address] [place] [address] Social History Tobacco Use Types Packs/Day Years Used Date Smoking Tobacco: Never Assessed Sex and Gender Information Value Date Recorded Sex Assigned at Not on file Legal Sex Male 7:08 PM CDT Gender Identity Not on file Sexual Orientation Not on file documented as of this encounter Plan of Treatment Not on file documented as of this encounter Visit Diagnoses Diagnosis Closed fracture of nasal bones Nasal bones, closed fracture documented in this encounter
--- OUTSIDE RECORDS SUMMARY | 2024-03-08 04:00 | XMS_ITS | Encounter Summary ---
Author Organization [facility] Address [address] [place] [address]. [place] [phone] [place] [phone] Care Team Providers Care Bus Driver School Name Role Phone Unavailable Primary Care Provider Unavailabl e Encounter Details Date Type Department Care Team (Late st Contact Info) Description 10/08/2013 Abstract [facility] Family [facility] [address] [place] [address] Lynn Irwin MD Social History [...] Sign Reading Time Taken Comments Blood Pressure 110/70 10/08/2013 11:08 AM CDT Pulse 72 10/08/2013 11:08 AM CDT Temperature - - Respiratory Rate - - Oxygen Saturation - - Inhaled Oxygen Concentration - - Weight 97.1 kg (214 lb) 10/08/2013 11:08 AM CDT Height 172.7 cm (5' 8 ) 10/08/2013 11:08 AM CDT Body Mass Index 32.54 10/08/2013 11:08 AM CDT Body Mass Index Percentile 97.04% 10/08/2013 11: 08 AM CDT Growth Chart: [facility] (Boys, 2-2 0 Years) documented in this encounter Progress Notes * Lynn Irwin MD - 10/08/2013 11:30 AM CDT Reason For Visit Reason For Visit: Acute Visit Chief Complaint Chief Complaint Free Text: 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 History of Present Illness HPI Free Text: Patient has bee gaining weight,he has not been physically active,he does not watch his diet. He does not smoke or drink alcohol. he does not use drug.Currently he lives with his mother. He has a girlfriend and a child. ADHD Medication Check, 3-19 years (Brief): The patient is being seen for a routine clinic follow-upregarding medication for attention deficit hyperactivity disorder. Symptoms: no short attention span, no impulsive behavior, no poor grades, no forgetfulness, no fidgeting, no excessive talking and no difficulty awaiting turn. Associated symptoms: no palpitations and no anxiety. ADHD Evaluation, 3-19 years (Initial): Current treatment includes stimulant medications. By report,there is good compliance with treatment, good tolerance of treatment and good symptom control. Asthma (Follow-Up): The patient is being seen for a routine clinic follow-up of asthma. The patient's long-term asthma pattern has been classified as intermittent . The patient states he has been stable with his asthma control since the last visit. Interval symptoms: Denies wheezing, denies coughing, denies shortness of breath, denies chest tightness and denies reduced exercise tolerance. Associated symptoms include not awakened at night with cough and not awakened at night because of wheezing or trouble breathing. Review of Systems Focused-Male: Constitutional: feeling tired. ENT: normal and no earache. Cardiovascular: no chest pain and no palpitations. Respiratory: no shortness of breath and no cough. Gastrointestinal: abdominal pain, but no constipation. Genitourinary: no dysuria. Integumentary: no skin rash. Musculoskeletal: no arthralgias. Neurological: no dizziness. no depression Complete-Male Adolescent: Constitutional: no chills. Head and Face: normocephalic and normal head size. Eyes: no itching of the eyes. ENT: no earache and no nasal discharge. Cardiovascular: the heart rate was not fast and no chest pain. Respiratory: no wheezing and no shortness of breath. Gastrointestinal: no abdominal pain and no nausea. Genitourinary: no dysuria. Musculoskeletal: joint stiffness, but no myalgias. Integumentary: no rashes and no skin lesions. Neurological: no confusion and no dizziness. Psychiatric: no anxiety and no depression. Endocrine: negative. Hematologic and Lymphatic: no swollen glands. Active Problems 1. ADHD (attention deficit hyperactivity [...] TAKE 1 TABLET DAILY; Therapy: 07Jun2013 to (Evaluate:15Dec2013) Requested for: 17Aug2013; Last Rx:17Aug2013 Ordered 2. Methylphenidate HCl ER 54 MG Oral Tablet Extended Release; Take one tab every morning; Therapy: 08Apr2012 to (Evaluate:90Zsx3965); Last Rx:21Sep2013 Ordered Allergies 1. No Known Drug Allergies Vitals Vital Signs [Data Includes: Current Encounter] Recorded by : Lianna Jacobson at 26Qhh0157 11:08AM Temperature 98.6 F Heart Rate 72 Respiration 16 Systolic 110 Diastolic 70 O2 Saturation 98 Height 5 ft 8 in 2-20 Stature Percentile 32 % Weight 214 lb 2-20 Weight Percentile 97 % BMI Calculated 32.54 BMI Percentile 99 % BSA Calculated 2.1 Physical Exam Constitutional - General appearance: No acute distress, well appearing and well nourished. Head and Face - Face and sinuses: Normal, no sinus tenderness. Eyes - Pupils and irises: Equal, round, reactive to light bilaterally. Ears, Nose, Mouth, and Throat - Oropharynx: Moist mucosa, normal tongue and tonsils without lesions. Neck - Neck: Supple, symmetric, no masses. Pulmonary - Auscultation of lungs: Clear bilaterally. Cardiovascular - Pedal pulses: Normal, 2+ bilaterally. Examination of extremities for edema and/or varicosities: Normal. Abdomen - Abdomen: Normal bowel sounds, soft, non-tender, no masses. Lymphatic - Palpation of lymph nodes in neck: No anterior or posterior cervical lymphadenopathy. Musculoskeletal - Gait and station: Normal gait. Skin - Skin and subcutaneous tissue: Normal. Neurologic - Cranial nerves: Normal. Reflexes: Normal. Sensation: Normal. Psychiatric - Orientation to person, place, and time: Normal. Mood and affect: Normal. Assessment 1. ADHD (attention deficit hyperactivity disorder), combined type (314.01) (F90.2) 2. Well child visit (V20.2) (Z00.129) 3. Asthma (493.90) (J45.909) 4. Well adolescent visit (V20.2) (Z00.129) Plan 1. Renew: Methylphenidate HCl ER 54 MG Oral Tablet Extended Release; Take one tab every morning Rx By: Lynn Irwin; Dispense: 30 Days ; #:30 Tablet Extended Release; Refill: 0; For: ADHD (attention deficit hyperactivity disorder), combined type; CLAUDIA = N; Print Rx; Last Updated By: Lianna Jacobson; 10/08/2013 11:08:02 AM 2. Follow-up visit in 3 months Outpatient Follow-up Status: Complete Done: [id number] Ordered; For: ADHD (attention deficit hyperactivity disorder), combined type, Asthma; Ordered By: Lynn Irwin Performed: Due: 21Kqt7821; Last Updated By: Angeline Jin; 10/08/2013 11:47:25 AM Discussion/Summary Discussion Summary Free Text: continue with the current medications. Medications reviewed with the patient. Patient mother is with him. Patient has significantly gained weight almost 100 pounds in last one year. He has to exercise and watch diet. Nutrition counseling done with the patient and his mother. They verbalized understanding. Signatures Electronically signed by : Lynn Irwin M.D.; Oct 12 2013 12:18PM RN HEMODIALYSIS (Author) documented in this encounter Plan of Treatment Not on file documented as of this encounter Visit Diagnoses Not on filedocumented in this encounter
--- OUTSIDE RECORDS SUMMARY | 2024-03-08 04:00 | XMS_ITS | Encounter Summary ---
Author Organization [facility] Address [address] [place] [address]. [place] [phone] [place], [place] [phone] Care Team Providers Care Microbiological Analyst Name Role Phone Unavailable Primary Care Provider Unavailtani e Encounter Details Date Type Department Care Team (Late st Contact Info) Description 01/24/2008 Abstract [facility] Emergency Room [address] [place] [address] Social History Tobacco Use Types [...]
--- OUTSIDE RECORDS SUMMARY | 2024-03-08 04:00 | XMS_ITS | Encounter Summary ---
Author Organization [facility] Address [address] [place] [address]. [place] [address] Care Team Providers Care Casino Dealer Name Role Phone Unavailable Primary Care Provider Unavailabl e Encounter Details Date Type Department Care Team (Latest Contact Info) Description 07/23/2012 Abstract [facility] [...]
--- OUTSIDE RECORDS SUMMARY | 2024-03-08 04:00 | XMS_ITS | Encounter Summary ---
Author Organization [facility] Address [address] [place] [address]. [place] [phone] Care Team Providers Care Histology Technician Name Role Phone Unavailable Primary Care Provider Unavailabl e Encounter Details Date Type Department Care Team (Latest Contact Info) Description 09/21/2013 Abstract [facility] Social History Tobacco Use Types Packs/Day Years Used Date Smoking Tobacco: Never Assessed Sex and Gender Information Value Date Recorded Sex Assigned at Not on file Legal Sex Male 7:08 PM CDT Gender Identity Not on file Sexual Orientation Not on file documented as of this encounter Progress Notes * Vicki Pratt Md, MD - 09/21/2013 11:46 AM CDT Message Recorded as Task Date: 09/21/2013 11:44 AM, Created By: Tarsha Asencio Task Name: Informational Assigned To: [facility] Nurse Team Regarding Patient: Delbert Humphreys, Status: Active Comment: Tarsha Asencio - 21 Sep 2013 11:44 AM TASK CREATED Patient needs script for his concerta. He is out. Patient has appt October 08 with you. Thanks Grace Curiel - 21 Sep 2013 11:51 AM TASK EDITED Printed script for pt and informed that script is ready for sweet pickle maker. Also infomred pt to keep appt October 08 or no further refills will be authorized. Plan 1. Changed: From Methylphenidate HCl ER 54 MG Oral Tablet Extended Release TK 1 T PO QAM To Methylphenidate HCl ER 54 MG Oral Tablet Extended Release Take one tab every morning Signatures Electronically signed by : Grace Curiel, ; Sep 21 2013 11:51AM DENTAL FLOSS PACKER (Author) documented in this encounter Plan of Treatment Not on file documented as of this encounter Visit Diagnoses Not on filedocumented in this encounter
--- OUTSIDE RECORDS SUMMARY | 2024-03-08 04:00 | XMS_ITS | Encounter Summary ---
Author Organization [facility] Address [address] [place] [address]. [place], [place] [address] [place] [address] Care Team Providers Care Chicken Sexer Name Role Phone Unavailable Primary Care Provider Ronak e Encounter Details Date Type Department Care Team (Late st Contact Info) Description 01/07/2012 Abstract [facility] [address] [place] [phone] Vidal Valdez MD [address] [address] Social History Tobacco Use Types Packs/Day Years Used Date Smoking Tobacco: Never Assessed Sex and Gender Information Value Date Recorded Sex Assigned at Not on file Legal Sex Male 7:08 PM CDT Gender Identity Not on file Sexual Orientation Not on file documented as of this encounter Plan of Treatment Not on file documented as of this encounter Visit Diagnoses Diagnosis Injury, other and unspecified, elbow, forearm, and wrist documented in this encounter
--- OUTSIDE RECORDS SUMMARY | 2024-03-08 04:00 | XMS_ITS | Encounter Summary ---
Author Organization [facility] Address [address] [place] [address]. [place] [address] [place] [address] Care Team Providers Care Drafting Supervisor Name Role Phone Unavailable Primary Care Provider Unavailabl e Encounter Details Date Type Department Care Team (Late st Contact Info) Description 12/01/[address] [facility] Family & Internal Medicine [facility] [address] [place] [address] [place] [address] [address] Social History Tobacco Use Types Packs/Day Years Used Date Smoking Tobacco: Never Assessed Sex and Gender Information Value Date Recorded Sex Assigned at Not on file Legal Sex Male 7:08 PM CDT Gender Identity Not on file Sexual Orientation Not on file documented as of this encounter Last Filed Vital Signs Vital Sign Reading Time Taken Comments Blood Pressure 116/68 12/01/2012 10:52 AM CDT Pulse 51 12/01/2012 10:52 AM CDT Temperature - - Respiratory Rate - - Oxygen Saturation - - Inhaled Oxygen Concentration - - Weight 86.2 kg (190 lb) 12/01/2012 10:52 AM CDT Height - - Body Mass Index 28.89 08/31/2012 1:51 PM CDT Body Mass Index Percentile 95.35% 12/01/2012 10: 52 AM CDT Growth Chart: [facility] (Boys, 2-2 0 Years) documented in this encounter Progress Notes * Magdiel Mack NP - 12/01/2012 10:45 AM CDT Reason For Visit Reason For Visit: Other: Back and rib pain Chief Complaint 1. Back Pain 2. Back Pain, 3-19 years Chief Complaint Free Text: pt c/o mid and lower back pain and right side rib pain since Sat football game. History of Present Illness HPI Free Text: generally healthy 17 y/o male tackled in football and upper back snapped back but he continued to play the football game. since has continued to have upper back pain. has not tried ice or heat or ibuprofen. has not resumed football yet but plans to play next week. no weakness of extremities or bowel/bladder issues Review of Systems Focused-Male: Constitutional: Normal. Cardiovascular: Normal. Respiratory: Normal. Gastrointestinal: Normal. Genitourinary: Normal. Integumentary: Normal. Musculoskeletal: no joint swelling, no limb pain, no joint pain, no joint stiffness and no limb swelling The patient presents with complaints of arthralgias (pain across mid to lower thoracic area spanning across entire back). Neurological: Normal. Active Problems 1. ADHD, Combined Type 314.01 2. Asthma 493.90 Past Medical History Patient indicats no significant [...] Vitals Vital Signs [Data Includes: Current Encounter] 01Dec2012 10:52AM Temperature 98.5 F Heart Rate 51 Systolic 116 Diastolic 68 O2 Saturation 98 Weight 190 lb Physical Exam Constitutional - General appearance: [...] cyanosis. Inspection/palpation of joints, bones, and muscles: Abnormal. Mild TTP across mid back in the paraspinous muscles bilat. has FROM back and upper and lower extremities without deficit. feels a pulling sensation when bends over. full rotation and lateral movement. Skin - Skin and subcutaneous tissue: Normal. Neurologic - Cranial nerves: Normal. Psychiatric - Orientation to person, place, and time: Normal. Assessment 1. Back Strain 847.9 Plan 1. Cyclobenzaprine HCl 10 MG Oral Tablet; TAKE 1 TABLET every 8 hours as needed for muscles spasmsDAILY; Therapy: 11Nmu9303 to (Last Rx:28Vnr7219) Requested for: 10Pyh7185; Edited Ordered; For: Back Strain (847.9); Rx By: Magdiel Mack; Dispense: 0 Days ; #:30 Tablet; Refill: 0; Verified Transmission to [facility] [id number]; Msg to Pharmacy: avoid use middle school band teacher or driving 2. Naproxen 500 MG Oral Tablet; TAKE 1 TABLET EVERY 12 HOURS WITH FOOD; Therapy: 34Glt5642 to (Evaluate:21Dec2012) Requested for: 30Coa9287; Last Rx:56Vma4502; Edited Ordered; For: Back Strain (847.9); Rx By: Magdiel Mack; Dispense: 20 Days ; #:40 Tablet; Refill: 0;Verified Transmission to [facility] [id number] 3. XR T-SPINE 3 VIEW ( Routine ) Requested for: 00Jfi5637 Ordered; For: Back Strain (847.9); Ordered By: Magdiel Mack Perform: [facility] Radiology Due: 40Krv5669 will get an xray as mother concerned but reassured appears muscular. given stretches to do several times daily. use heat alternating with ice. can take the muscle relaxer after school if needed. takethe naprosyn routinely with food until improved. recheck one week. Signatures Electronically signed by : Magdiel Mack NP; Dec 03 2012 7:04AM (Author) T ROCK APPLICATOR documented in this encounter Plan of Treatment Not on file documented as of this encounter Procedures Procedure Name Priority Date/Time Associated Diagnosis Comments XR THOR SPINE 3V Routine 12/01/2012 3:21 PM CDT documented in this encounter Results * XR THOR SPINE 3V (12/01/2012 3:21 PM CDT) Anatomical Region Laterality Modality Spine Radiographic Leydi ging 12/01/2012 3:21 PM CDT 12/01/2012 3:21 PM CDT Narrative 12/09/2012 9:20 AM CDT DELBERT GOMEZ MD: MAGDIEL MACK ?? ACCT: [id number] ?? : 1995 PT TYPE: REG CLI ?? SEX: M ORD SITE: [facility] ? STUDY DATE REPORT # PROCEDURE CODE PROCEDURE ?? 12/01/12 [id number] TSPN3V XR T-SPINE 3 VIEW ? EXTORDERID ? [id number] ? CHART DOCUMENT ? DIVISION OF RADIOLOGY ? ACCESSION # ?EXAM DATE ? EXAM DESCRIPTION ?? [id number] ?12/01/2012 ?XR T-SPINE 3 VIEW ? IMAGING STUDIES: ? FOUR VIEWS OF THE THORACIC SPINE 12-01-2012 ? COMPARISON STUDIES: ?? NO PREVIOUS AVAILABLE ? HISTORY: ? TRAUMA, PAIN ? FINDINGS/IMPRESSION: ?1)MINIMAL DEXTROCURVATURE OF THE THORACIC SPINE. ?2)NO EVIDENCE OF COMPRESSION DEFORMITIES. ??NO SPONDYLOLISTHESIS. ?? NO VISIBLE ACUTE FRACTURE LINE. ? ELECTRONICALLY SIGNED BY ?? STUART MCGOVERN MD 12/09/2012 09:18 ? MG/DJM ?? 12/01/2012 3:21 P ?? 12/01/2012 ??4:54 P ?? JOB NO: ?DOC NO: ??[id number] ?? CC: ? Procedure Note Vicki Claros MD - 01/07/2018 DELBERT GOMEZ MD: MAGDIEL MACK ACCT: [id number] : 1995 PT TYPE: REG CLI SEX: M ORD SITE: [facility] STUDY DATE REPORT # PROCEDURE CODE PROCEDURE 12/01/12 [id number] TSPN3V XR T-SPINE 3 VIEW EXTORDERID [id number] CHART DOCUMENT DIVISION OF RADIOLOGY ACCESSION # EXAM DATE EXAM DESCRIPTION [id number] 12/01/2012 XR T-SPINE 3 VIEW IMAGING STUDIES: FOUR VIEWS OF THE THORACIC SPINE 12-01-2012 COMPARISON STUDIES: NO PREVIOUS AVAILABLE HISTORY: TRAUMA, PAIN FINDINGS/IMPRESSION: 1)MINIMAL DEXTROCURVATURE OF THE THORACIC SPINE. 2)NO EVIDENCE OF COMPRESSION DEFORMITIES. NO SPONDYLOLISTHESIS. NO VISIBLE ACUTE FRACTURE LINE. ELECTRONICALLY SIGNED BY STUART MCGOVERN MD 12/09/2012 09:18 MG/DJM 12/01/2012 3:21 P 12/01/2012 4:54 P JOB NO: DOC NO: [id number] CC: Magdiel Mack INSIGHT LEADER GENERAL IMAGING Final Result documented in this encounter Visit Diagnoses Not on filedocumented in this encounter
--- OUTSIDE RECORDS SUMMARY | 2024-03-08 04:00 | XMS_ITS | Encounter Summary ---
Author Organization [facility] Address [address] [place] [address]. [place] [phone] [place], [place] [phone] Care Team Providers Care Cattle Dipper Name Role Phone Unavailable Primary Care Provider Unavailabl e Encounter Details Date Type Department Care Team (Late st Contact Info) Description 11/28/2003 Abstract [facility] [address] [place] [address] , Generic Conversion, Social History [...]
--- OUTSIDE RECORDS SUMMARY | 2024-03-08 04:00 | XMS_ITS | Encounter Summary ---
Author Organization [facility] Address [address] [place] [address]. [place] [address] [place] [address] Care Team Providers Care Fiberglass Luggage Molder Name Role Phone Unavailable Primary Care Provider Unavailabl e Encounter Details Date Type Department Care Team (Late st Contact Info) Description 05/04/2013 Abstract [facility] Family & Internal Medicine [facility] [address] [place] [address] Lynn Irwin MD Social History [...] Reading Time Taken Comments Blood Pressure 110/70 05/04/2013 9:06 AM ASSISTANT CENTER DIRECTOR Pulse 77 05/04/2013 9:06 AM ASSISTANT CENTER DIRECTOR Temperature - - Respiratory Rate - - Oxygen Saturation - - Inhaled Oxygen Concentration - - Weight 92.5 kg (204 lb) 05/04/2013 9:06 AM ASSISTANT CENTER DIRECTOR Height 172.7 cm (5' 8 ) 05/04/2013 9:06 AM ASSISTANT CENTER DIRECTOR Body Mass Index 31.02 05/04/2013 9:06 AM ASSISTANT CENTER DIRECTOR Body Mass Index Percentile 96.41% 05/04/2013 9:0 6 AM ASSISTANT CENTER DIRECTOR Growth Chart: CDC (Boys, 2-2 0 Years) documented in this encounter Progress Notes * Lynn Irwin MD - 05/04/2013 9:30 AM CST Reason For Visit Reason For Visit: Other: 1 month Check up/ Med Refill Chief Complaint 1. Medication Refill Chief Complaint Free Text: Pt is here for Check up for follow up ADHD. He states he is doing well. He is waiting to get in with a psychiatrist. He currently has an appt on Friday at [facility] with Sophie Ramirez. He will then get scheduled to see Psychiatrist. History of Present Illness HPI Free Text: Patient is a 17 year old male with past medical history of ADHD. He is here for the follow up from ER visit. Follow up for ADHD. The patient has been having nausea vomiting and watery diarrhea for 2 days. Mild abdominal pain. Hedid eat Uzbek food 2 days back and he started. He denies any fever or chills. Nobody at home is sick. No blood in the stool. In emergency room patient received Zofran, hydrocodone. His basic labs were done. Review of Systems Focused-Male: Constitutional: feeling tired. ENT: normal and no earache. Cardiovascular: no chest pain and no palpitations. Respiratory: no shortness of breath and no cough. Gastrointestinal: abdominal pain, but no constipation. Genitourinary: no dysuria. Integumentary: no skin rash. Musculoskeletal: no arthralgias. Neurological: no dizziness. no depression Active Problems 1. ADHD (attention deficit hyperactivity disorder), combined type (314.01) (F90.2) 2. Asthma (493.90) (J45.909) 3. Back strain (847.9) (S39.012A) Surgical History 1. History of Treatment Of Forearm Fracture Family History 1. Family history of hypertension (V17.49) (Z82.49) 2. Family history of hypertension (V17.49) (Z82.49) Social History ?? Never a smoker ?? Never Drank Alcohol Current Meds 1. Methylphenidate HCl ER 54 MG Oral Tablet Extended Release; TK 1 T PO QAM; Therapy: 08Apr2012 to (Evaluate:11Apr2013); Last Rx:[id number] Ordered Allergies 1. No Known Drug Allergies Vitals Vital Signs [Data Includes: Current Encounter] Recorded by : Arlen Alcantar at 04May2013 09:06AM Temperature 97.8 F Heart Rate 77 Respiration 16 Systolic 110 Diastolic 70 O2 Saturation 97 Height 5 ft 8 in 2-20 Stature Percentile 34 % Weight 204 lb 2-20 Weight Percentile 96 % BMI Calculated 31.02 BMI Percentile 98 % BSA Calculated 2.06 Physical Exam Ears, Nose, Mouth, and Throat - Oropharynx: Moist mucosa, normal tongue and tonsils without lesions. Pulmonary - Auscultation of lungs: Clear bilaterally. Cardiovascular - Auscultation of heart: Regular rate and rhythm, normal S1 and S2, no murmur. Skin - Skin and subcutaneous tissue: Normal. Psychiatric - Orientation to person, place, and time: Normal. Mood and affect: Normal. Assessment 1. Viral gastroenteritis (008.8) (A08.4) 2. ADHD (attention deficit hyperactivity disorder), combined type (314.01) (F90.2) Discussion/Summary Emergency room records reviewed. Rest, hydration. Takes Zofran as needed for nausea. Follow up for fever or chills or worsening symptoms. Continue with Concerta for now. Keep up an appointment with a psychiatrist. Signatures Electronically signed by : Lynn Irwin M.D.; May 04 2013 9:40AM ASSISTANT CENTER DIRECTOR (Author) STANT CENTER DIRECTOR documented in this encounter Plan of Treatment Not on file documented as of this encounter Visit Diagnoses Not on filedocumented in this encounter
--- OUTSIDE RECORDS SUMMARY | 2024-03-08 04:00 | XMS_ITS | Encounter Summary ---
Author Organization [facility] Address [address] [place] [address]. [place] [address] [place] [address] Care Team Providers Care Press Operator Carbon Products Name Role Phone Unavailable Primary Care Provider Unavailabl e Encounter Details Date Type Department Care Team (Late st Contact Info) Description 07/04/2010 Abstract [facility] Emergency Room [address] [place] [address] Bertha Neff MD [address] [address] Social History Tobacco Use Types Packs/Day Years Used Date Smoking Tobacco: Never Assessed Sex and Gender Information Value Date Recorded Sex Assigned at Not on file Legal Sex Male 7:08 PM CDT Gender Identity Not on file Sexual Orientation Not on file documented as of this encounter Plan of Treatment Not on file documented as of this encounter Visit Diagnoses Diagnosis Cellulitis and abscess of upper arm and forearm documented in this encounter
--- OUTSIDE RECORDS SUMMARY | 2024-03-08 04:00 | XMS_ITS | Encounter Summary ---
Author Organization [facility] Address [address] [place] [address]. [place], [place] [address] [place] [address] Care Team Providers Care Case Finishing Machine Adjuster Name Role Phone Unavailable Primary Care Provider Ronak e Encounter Details Date Type Department Care Team (Late st Contact Info) Description 02/17/2012 Abstract [facility] [address] [place] [id number] Vidal Valdez MD [address] [address] Social History Tobacco Use Types Packs/Day Years [...] Visit Diagnoses Diagnosis Injury, other and unspecified, unspecified site documented in this encounter
--- OUTSIDE RECORDS SUMMARY | 2024-03-08 04:00 | XMS_ITS | Encounter Summary ---
Author Organization [facility] Address [address] [place] [address]. [place] [id number] Care Team Providers Care Rn Advice Name Role Phone Unavailable Primary Care Provider Unavailabl e Encounter Details Date Type Department Care Team (Latest Contact Info) Description 06/19/2012 Abstract [facility] Medical Group Social History Tobacco Use Types Packs/Day Years Used Date Smoking Tobacco: Never Assessed Sex and Gender Information Value Date Recorded Sex Assigned at Not on file Legal Sex Male 7:08 PM CDT Gender Identity Not on file Sexual Orientation Not on file documented as of this encounter Progress Notes * Lynn Irwin MD - 06/19/2012 11:59 AM CDT Message Recorded as Task Date: 06/18/2012 10:43 AM, Created By: Arlen Alcantar Task Name: Med Renewal Request Assigned To: Arlen Alcantar Regarding Patient: Delbert Humphreys, Status: Active Comment: Arlen Alcantar - 18 Jun 2012 10:43 AM TASK CREATED pt mom called stating pt needs refill on his Mehtylphenidate. Pt just seen May 19. If you can signscript I can fill it out TAM Quiroga Nitu - 18 Jun 2012 1:27 PM TASK REPLIED TO: Previously Assigned To Lynn Irwin Emily - 19 Jun 2012 12:00 PM TASK EDITED handwritten script left at front for pt mom rosas to machine operator picker eg,rma Plan 1. Methylphenidate HCl ER 54 MG Oral Tablet Extended Release; TK 1 T PO QAM; Therapy: 08Apr2012 to (Evaluate:[id number]); Last Rx:[id number] RIAL CONTROL SPECIALIST documented in this encounter Plan of Treatment Not on file documented as of this encounter Visit Diagnoses Not on filedocumented in this encounter
--- OUTSIDE RECORDS SUMMARY | 2024-03-08 04:00 | XMS_ITS | Encounter Summary ---
Author Organization [facility] Address [address] [place] [address]. [place] [id number] [place], [place] [id number] Care Team Providers Care Investigation Division Lieutenant Name Role Phone Unavailable Primary Care Provider Unavailtani e Encounter Details Date Type Department Care Team (Late st Contact Info) Description 12/26/2003 Abstract [facility] CONVERSION [address] [place] [address] , Generic Conversion, Social History [...]
--- OUTSIDE RECORDS SUMMARY | 2024-03-08 04:03 | XMS_ITS | Encounter Summary ---
Author Organization [facility] Address [address] [place] [address] Care Team Providers Care Glaucoma Specialist Name Role Phone No, Physician Primary Care Provider [phone] Reason for Referral * Diagnostic Imaging (Routine) - Closed Specialty Diagnoses / Procedures Referred By Lester hooks Referred To Contact Diagnoses Follow-up examination following surgery Pain in right hip Procedures Injection Hip Right Arthro Only Randolph Sullivan MD [address] [address] Phone: tel: fax: [place] [address] [place] [address] Referral ID Status Reason Start Date Expiration Date Visits Re quested Visits Authorized [id number] Closed 07/31/2020 08/30/2021 1 1 Reason for Visit * Diagnostic Imaging (Routine) - Closed Specialty Diagnoses / Procedures Referred By Lester hooks Referred To Contact Diagnoses Follow-up examination following surgery Pain in right hip Procedures Injection Hip Right Arthro Only Randolph Sullivan MD [address] [facility] [address] [place] [address] Phone: tel: fax: [place] [address] [place] [address] Referral ID Status Reason Start Date Expiration Date Visits Re quested Visits Authorized [id number] Closed 07/31/2020 08/30/2021 1 1 Encounter Details Date Type Department Care Team (Latest Contact Info) Description 08/23/2020 9:19 AM CDT - 08/23/2020 11:59 PM CDT Hospital Encounter [facility] Imaging [address] [address] [place] [address] Randolph Sullivan MD [address] [facility] [address] [place] [address] Follow-up examination following surgery; Pain in right hip Discharge Disposition: Discharge to home or self care Social History Tobacco Use Types Packs/Day Years Used Date Smoking Tobacco: Never Smokeless Tobacco: Never Alcohol Use Standard Drinks/Week Comments Yes 0 (1 standard drink = 0.6 oz pur e alcohol) Social Sex and Gender Information Value Date Recorded Sex Assigned at Not on file 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 06/07/2020 meloxicam (MOBIC) 7.5 mg tabletIndications :Osteoarthritis Take 1 tablet (7.5 mg total) by mouth daily 45 tablet 08/21/2020 10/05/2020 documented as of this encounter Discharge Disposition Disposition Code Departure Means Destination Discharge to home or self care documented in this encounter Miscellaneous Notes * Post-Procedure Note - Chau Manzo MD - 08/23/2020 9:45 AM CDT Radiology Brief Post Procedure Note Attending: Dg Supervisor Airplane Flight Attendant: Jovany Sedation/Anesthesia: Local Pre-Op/Pre-Procedure Diagnosis: Right hip dysplasia Post-Op/Post-Procedure Diagnosis: Same Procedure Performed: Right hip injection Procedure Findings: Normal right hip joint Complications: None Estimated Blood Loss: None Specimens: None Condition: Stable Full report to follow. documented in this encounter Plan of Treatment Not on file documented as of this encounter Procedures Procedure Name Priority Date/Time Associated Diagnosis Comments INJECTION HIP RIGHT ARTHRO ONLY Schedule Routine, Read Routine (OP Routine) 08/23/2020 10:08 AM CDT Follow-up examination following surgery Pain in right hip documented in this encounter Results * Injection Hip Right Arthro Only (08/23/2020 10:08 AM CDT) Anatomical Region Laterality Modality Hip Right X-Ray Angiograph y 08/23/2020 11:2 5 AM CDT Impressions 08/23/2020 11:45 AM CDT 1. ??Right hip joint injection under fluoroscopic guidance for MR arthrography. Dictated by: Chau Manzo M.D. The radiology attending physician has personally reviewed this study, and had reviewed and/or edited this written report and agrees with it. Electronically signed by: Colin Conte M.D. Narrative 08/23/2020 11:45 AM CDT EXAMINATION: ?? 1. Right hip joint injection 2. Fluoroscopic guidance for needle placement HISTORY: 24-year-old man with right hip dysplasia status post right periacetabular osteotomy, pre MR arthrogram TECHNIQUE: ??The risks, benefits and alternatives were discussed with the patient. ??Informed consent was obtained. ??Prior to beginning the procedure, [place] Protocol was performed to confirm the patient's identity and the planned procedure. ??The fluoroscopy time has been recorded in the electronic medical record. The patient was placed supine on the fluoroscopy table. ??The right hip joint was localized with fluoroscopic guidance. ?? The skin was prepped and draped in a standard sterile fashion. ??Using sterile technique, a 20 mL solution was prepared consisting of 10 mL of a 1:100 dilution of Dotarem gadolinium contrast in sterile saline and 10 mL Omnipaque 300. Local anesthesia was achieved with subcutaneous injection of 1% lidocaine 1 mL. ??A 22-gauge ??needle was then introduced into the joint under fluoroscopic guidance. The intra-articular position of the needle was confirmed with injection of 1 mL of the previously described injectate. ??Subsequently 12 mL of the 1:200 gadolinium contrast was injected with intermittent fluoroscopic visualization. The injection was performed by Dr. Manzo. ?? Complication: None Type: NONE The patient was then transferred to the MR suite for MR arthrogram. Dr. Colin Conte M.D., the attending radiologist, was present from the beginning to the end of the procedure. FINDINGS: Fluoroscopic images confirm intra-articular position of the needle tip with subsequent filling of the joint space. ?? The results of the MR arthrogram are reported separately. Procedure Note Colin Conte MD - 08/23/2020 EXAMINATION: 1. Right hip joint injection 2. Fluoroscopic guidance for needle placement HISTORY: 24-year-old man with right hip dysplasia status post right periacetabular osteotomy, pre MR arthrogram TECHNIQUE: The risks, benefits and alternatives were discussed with the patient. Informed consent was obtained. Prior to beginning the procedure, [place] Protocol was performed to confirm the patient's identity and the planned procedure. The fluoroscopy time has been recorded in the electronic medical record. The patient was placed supine on the fluoroscopy table. The right hip joint was localized with fluoroscopic guidance. The skin was prepped and draped in a standard sterile fashion. Using sterile technique, a 20 mL solution was prepared consisting of 10 mL of a 1:100 dilution of Dotarem gadolinium contrast in sterile saline and 10 mL Omnipaque 300. Local anesthesia was achieved with subcutaneous injection of 1% lidocaine 1 mL. A 22-gauge needle was then introduced into the joint under fluoroscopic guidance. The intra-articular position of the needle was confirmed with injection of 1 mL of the previously described injectate. Subsequently 12 mL of the 1:200 gadolinium contrast was injected with intermittent fluoroscopic visualization. The injection was performed by Dr. Manzo. Complication: None Type: NONE The patient was then transferred to the MR suite for MR arthrogram. Dr. Colin Conte M.D., the attending radiologist, was present from the beginning to the end of the procedure. FINDINGS: Fluoroscopic images confirm intra-articular position of the needle tip with subsequent filling of the joint space. The results of the MR arthrogram are reported separately. IMPRESSION: 1. Right hip joint injection under fluoroscopic guidance for MR arthrography. Dictated by: Chau Dario Manzo, M.D. The radiology attending physician has personally reviewed this study, and had reviewed and/or edited this written report and agrees with it. Electronically signed by: Colin Conte M.D. Randolph Sullivan MD IMG XR PROCEDURES Final Resul t documented in this encounter Visit Diagnoses Diagnosis Follow-up examination following surgery Pain in right hip documented in this encounter Administered Medications Inactive Administered Medications - up to 3 most recent administrations Medication Order MAR Action Action Date Dose Rate Site gadoterate meglumine (DOTAREM) 0.5 mmol/mL injection Code/trauma/sedation medication, Starting on Fri08/23/20 at 1030 Given 08/23/2020 10:30 AM CDT 0.01 mmol iohexoL (OMNIPAQUE) 300 mg iodine/mL injection solution Code/trauma/sedation medication, Starting on Fri08/23/20 at 1029 Given 08/23/2020 10:29 AM CDT 10 mL sodium chloride 0.9% flush Code/trauma/sedation medication, Starting on Fri08/23/20 at 1030 Given 08/23/2020 10:30 AM CDT 5 mL documented in this encounter Care Teams Glaucoma Specialist Relationship Specialty Start Date End Date No, Physician PCP - General 07/28/19 documented as of this encounter
--- OUTSIDE RECORDS SUMMARY | 2024-03-08 04:03 | XMS_ITS | Encounter Summary ---
Author Organization [facility] Address [address] [place] [address] Phone Care Team Providers Care Global President Name Role Phone No, Physician Primary Care Provider [phone] Encounter Details Date Type Department Care Team (Late st Contact Info) Description 01/04/2020 Orders Only [facility] PMR [phone] Scanning, Provider Social History Tobacco Use Types Packs/Day Years Used Date Smoking Tobacco: Never Smokeless Tobacco: Never Alcohol Use Standard Drinks/Week Comments Yes 0 (1 standard drink = 0.6 oz pur e alcohol) Social Sex and Gender Information Value Date Recorded Sex Assigned at Not on file 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 Gender Identity Not on file Sexual Orientation Not on file documented as of this encounter Plan of Treatment Not on file documented as of this encounter Procedures Procedure Name Priority Date/Time Associated Diagnosis Comments SCAN - RADIOLOGY/IMAGING 01/04/2020 documented in this encounter Results * SCAN - RADIOLOGY/IMAGING (01/04/2020) Anatomical Region Laterality Modality Other us Provider Scanning Final Result documented in this encounter Visit Diagnoses Not on filedocumented in this encounter Additional Health Concerns Infection Onset Date Last Indicated Resolved Time COVID: Suspected 11/01/2020 11/01/2020 11/01/2020 5:33 PM CDT COVID19 11/01/2020 11/01/2020 11/15/2020 3:05 AM CDT documented as of this encounter Care Teams Global President Relationship Specialty Start Date End Date No, Physician PCP - General 07/28/19 documented as of this encounter
--- OUTSIDE RECORDS SUMMARY | 2024-03-08 04:03 | XMS_ITS | Encounter Summary ---
Author Organization [facility] Medical Group Address [address] [place] [address] [address] [place] [address] Care Team Providers Care Pulp Making Plant Operator Name Role Phone No, Physician Primary Care Provider [phone] Reason for Visit * Reason Onset Date Comments Covid-19 Home Monitoring 11/04/2020 Encounter Details Date Type Department Care Team (Late st Contact Info) Description 11/04/2020 Telephone [facility] Accountable Care Organization [address] [place] [address] Teetee Cardozo MA [address] [address] Covid-19 Home Monitoring Social History Tobacco Use Types Packs/Day Years Used Date Smoking Tobacco: Never Smokeless Tobacco: Never Alcohol Use Standard Drinks/Week Comments Yes 0 (1 standard drink = 0.6 oz pur e alcohol) Social Sex and Gender Information Value Date Recorded Sex Assigned at Not on file 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 The patient was contacted via phone for enrollment in the program, but could not be reached to accept or decline. Next program call due: n/a documented in this encounter Plan of Treatment Not on file documented as of this encounter Visit Diagnoses Not on filedocumented in this encounter Additional Health Concerns Infection Onset Date Last Indicated Resolved Time COVID19 11/01/2020 11/01/2020 11/15/2020 3:05 AM CDT documented as of this encounter Care Teams Pulp Making Plant Operator Relationship Specialty Start Date End Date No, Physician PCP - General 07/28/19 documented as of this encounter
--- OUTSIDE RECORDS SUMMARY | 2024-03-08 04:03 | XMS_ITS | Encounter Summary ---
Author Organization [facility] Address [address] [place] [address] Care Team Providers Care Ballet Company Member Name Role Phone No, Physician Primary Care Provider [phone] Encounter Details Date Type Department Care Team (Late st Contact Info) Description 08/22/2020 Telephone [facility] Imaging [address] [place] [address] [address] Social History Tobacco Use Types Packs/Day Years Used Date Smoking Tobacco: Never Smokeless Tobacco: Never Alcohol Use Standard Drinks/Week Comments Yes 0 (1 standard drink = 0.6 oz pur e alcohol) Social Sex and Gender Information Value Date Recorded Sex Assigned at Not on file 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
--- OUTSIDE RECORDS SUMMARY | 2024-03-08 04:03 | XMS_ITS | Encounter Summary ---
Author Organization [facility] Facility Care Team Providers Care Health Safety Specialist Name Role Phone Unavailable Primary Care Provider Unavailabl e Encounter Details Date Type Department Care Team (Late st Contact Info) Description 10/15/2013 4:30 PM CDT - 10/15/2013 11:59 PM CDT Hospital Encounter [facility] Mohinder Julio MD [address] [address] Laboratory examination Social History Tobacco Use Types Packs/Day Years Used Date Smoking Tobacco: Never Assessed Sex and Gender Information Value Date Recorded Sex Assigned at Not on file 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 Gender Identity Not on file Sexual Orientation Not on file documented as of this encounter Plan of Treatment Not on file documented as of this encounter Procedures Procedure Name Priority Date/Time Associated Diagnosis Comments STAPH AUREUS (MRSA/MSSA) CULTURE, CDR Routine 10/15/2013 11:17 AM CDT ALL MICROBIOLOGY REPORT SECTION Routine 10/15/2013 12:00 AM CDT DISCHARGE LABORATORY CUMULATIVE REPORT Routine 10/15/2013 12:00 AM CDT documented in this encounter Results * Staph aureus (MRSA/MSSA) Culture (10/15/2013 11:17 AM CDT) Organism CARLITA^[id number] HISTORICAL RESULTS Nasal (Unknown) 10/15/2013 1 1:17 AM CDT 10/15/2013 4:46 PM CDT Narrative HISTORICAL RESULTS - 10/19/2013 11:12 AM CDT Moderate Staphylococcus aureus (methicillin-susceptible) * ??* ??* ??* ??* ??* ??* ??* ??* ??* ??* ??* ??* ??* ??* ??* ??* ??* ??* ??* This Staphylococcus aureus (methicillin-susceptible) is presumed to be clindamycin resistant based on detection of inducible resistance. ??Clindamycin may still be effective in some patients. ??Doxycycline and other tetracycline antibiotics are not generally recommended for treatment of Staphylococcus aureus in children under 8 years of age. Rifampin should not be used alone for antimicrobial therapy. Organism Antibiotic Method Susceptibility Staphylococcus aureus, methicillin susceptible Erythromycin Resistant Staphylococcus aureus, methicillin susceptible Clindamycin Resistant Staphylococcus aureus, methicillin susceptible Trimethoprim with Sulfamethoxazole Susceptible Staphylococcus aureus, methicillin susceptible Rifampin Susceptible Staphylococcus aureus, methicillin susceptible Tetracycline Susceptible Staphylococcus aureus, methicillin susceptible Vancomycin Susceptible Staphylococcus aureus, methicillin susceptible Oxacillin Susceptible Staphylococcus aureus, methicillin susceptible Cefazolin Susceptible Historical Provider MD LAB MICROBIOLOGY - GENERA L ORDERABLES Final Result HISTORICAL RESULTS * Discharge Laboratory Cumulative Report (10/15/2013 12:00 AM CDT) 10/15/2013 Narrative HISTORICAL RESULTS - 10/20/2013 2:39 AM CDT ? [facility] ?Clinical Laboratories ? [facility] ? [place] [address] Patient Name: ? DELBERT HUMPHREYS Rec Number: ?? [id number] [facility] Number: ? [id number] Date: ? 1995 Sex/Age: ?Male 18 years Admit Date: ? 10/15/2013 Discharge Date: ?? 10/15/2013 Doctor: ? Mohinder Julio Referring Doctor: Mohinder Julio Facility: ? [facility] Location: ? [facility] Chart Printed: ?10/20/2013 02:39 ?* Abnormal ??C Critical ??f Footnote ??^ Corrected ??L Low ??H High ? i Interp Data ??@ Ref Lab ?Chart Type:Cumulative ? GENERAL MICROBIOLOGY ? PROCEDURE: Staph aureus Screen Culture ?SOURCE: Nasal COLLECTED: 10/15/13 ??1117 ? BODY SITE: STARTED: 10/15/13 ??1646 FREE TEXT SOURCE: FINAL REPORT REPORTED: 10/19/13 1112 Moderate Staphylococcus aureus (methicillin-susceptible) * ??* ??* * ??* ??* ??* ??* ??* ??* ??* ??* ??* ??* ??* ??* ??* ??* ??* ??* This Staphylococcus aureus (methicillin-susceptible) is presumed to be clindamycin resistant based on detection of inducible resistance. ??Clindamycin may still be effective in some patients. Doxycycline and other tetracycline antibiotics are not generally recommended for treatment of Staphylococcus aureus in children under 8 years of age. Rifampin should not be used alone for antimicrobial therapy. SUSCEPTIBILITY RESULTS Staphylococcus aureus (methicillin-susceptible) ? SUSCEPTIBLE: Trimethoprim with Sulfamethoxazole, ?Rifampin,Tetracycline, ?Vancomycin (JONATHAN),Oxacillin, ?Cefazolin ? RESISTANT: Erythromycin,Clindamycin us Historical Provider MD LAB BLOOD ORDERABLES Laura l Result HISTORICAL RESULTS * All Microbiology Report Section (10/15/2013 12:00 AM CDT) 10/15/2013 Narrative HISTORICAL RESULTS - 10/19/2013 12:24 PM CDT ?[facility] ? Clinical Laboratories ?[facility] ?[place] [address] ? Patient Name: ? DELBERT HUMPHREYS ? Med Rec Number: ? [id number] ? Fin Number: ? [id number] ? Date: ? 1995 ? Sex/Age: ?Male 18 years ? Admit Date: ? 10/15/2013 ? Discharge Date: ? 10/15/2013 ? Doctor: ? Mohinder Julio L ? Facility: ? [facility] ? Location: ? [facility] ? * Abnormal ??C Critical ??f Footnote ??^ Corrected ??L Low ??H High ?i Interp Data ??@ Ref Lab ? Chart Type: Cumulative ?* * * * MICROBIOLOGY - GENERAL MICROBIOLOGY * * * * ?PROCEDURE: Staph aureus Screen Culture ? SOURCE: Nasal ? COLLECTED: 10/15/ ??1117 ?BODY SITE: ? STARTED: 10/15/13 ??1646 ? FREE TEXT SOURCE: ? FINAL REPORT ? REPORTED: 10/19/13 1112 ? Moderate Staphylococcus aureus (methicillin-susceptible) * ??* ??* ? * ??* ??* ??* ??* ??* ??* ??* ??* ??* ??* ??* ??* ??* ??* ??* ??* This ? Staphylococcus aureus (methicillin-susceptible) is presumed to ? be clindamycin resistant based on detection of inducible ? resistance. ??Clindamycin may still be effective in some patients. ? Doxycycline and other tetracycline antibiotics are not ? generally recommended for treatment of Staphylococcus aureus in ? children under 8 years of age. Rifampin should not be used alone ? for antimicrobial therapy. ? SUSCEPTIBILITY RESULTS ? Staphylococcus aureus (methicillin-susceptible) ?SUSCEPTIBLE: Trimethoprim with Sulfamethoxazole, ? Rifampin,Tetracycline, ? Vancomycin (JONATHAN),Oxacillin, ? Cefazolin ?RESISTANT: Erythromycin,Clindamycin ? us Historical Provider LAB MICROBIOLOGY - GENERA L ORDERABLES Final Result HISTORICAL RESULTS documented in this encounter Visit Diagnoses Diagnosis Laboratory examination documented in this encounter
--- OUTSIDE RECORDS SUMMARY | 2024-03-08 04:03 | XMS_ITS | Encounter Summary ---
Author Organization [facility] Address [address] [place] [address] Phone Care Team Providers Care Ship Propeller Finisher Name Role Phone No, Physician Primary Care Provider [phone] Reason for Referral * Diagnostic Imaging (Routine) - Closed Specialty Diagnoses / Procedures Referred By Lester t Referred To Contact Diagnoses Follow-up examination following surgery Pain in right hip Procedures Injection Hip Right Arthro Only Randolph Sullivan MD [address] [address] Phone: tel: fax: [place] [address] [place] [address] Referral ID Status Reason Start Date Expiration Date Visits Re quested Visits Authorized [id number] Closed 07/31/2020 08/30/2021 1 1 * MRI/CAT/PET Scan (Routine) - Closed Specialty Diagnoses / Procedures Referred By Lester hooks Referred To Contact Radiology Diagnoses Follow-up examination following surgery Pain in right hip Procedures MRI Hip Arthrogram Right W Contrast Randolph Sullivan MD [address] [address] Phone: tel: fax: [place] [address] [place] [address] Referral ID Status Reason Start Date Expiration Date Visits Re quested Visits Authorized [id number] Closed 08/11/2020 09/09/2020 1 1 Reason for Visit * Reason Comments Pain Encounter Details Date Type Department Care Team (Late st Contact Info) Description 07/31/2020 3:50 PM CDT Office Visit [facility] Orthopaedic Surgery [address] [place] [address] Medical Office Building [address] [place] [address] Randolph Sullivan MD [facility] [place] [address] Follow-up examination following surgery (Primary Dx); Pain in right hip Social History Tobacco Use Types Packs/Day Years Used Date Smoking Tobacco: Never Smokeless Tobacco: Never Alcohol Use Standard Drinks/Week Comments Yes 0 (1 standard drink = 0.6 oz pur e alcohol) Social Sex and Gender Information Value Date Recorded Sex Assigned at Not on file 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 ESTABLISHED PATIENT VISIT INTERIM HISTORY: Delbert Humphreys presents today 6-1/2 years after right periacetabular osteotomy. Last injection made the pain worse, no relief. His last steroid injection in March did not help very much. He reports his hip is about the same. 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 He is up on his feet a lot during the day walking a lot throughout hospitals. Mercedes Hip Score indicates: Unchanged since last visit PHYSICAL EXAM: The physical examination demonstrates: RIGHT Start of Flexion 0 End of flexion 90 Abduction 20 Adduction 10 ERE 20 LINDA 10 Anterior Impingement (FADIR) RIGHT positive REVIEW OF XRAYS/STUDIES: Radiographs show maintenance of reduction and a healed periacetabular osteotomy. The joint space iswell-maintained. TREATMENT PLAN: Given his continued symptoms, we would recommend an MR arthrogram of his right hip. FOLLOW UP: We will call him with the results of his MR arthrogram. Patient seen and examined by Dr. Laurie Givens MD [facility] Orthopaedics Adult Reconstruction Fellow ATTENDING ADDENDUM The patient was seen and examined today with the resident or fellow. I was present for the History,Physical Exam, Case Discussion, and Plan. I agree with the Assessment and Plan as dictated in the full clinic note. MD Sagar Henderson and Amalia Membreno Distinguished Professor of Orthopaedic Surgery Chief Adult Reconstructive Surgery Director Adolescent and Young Adult Hip Service Roaster Helper Department of Orthopaedic Surgery documented in this encounter Plan of Treatment Not on file documented as of this encounter Results * MRI Hip Arthrogram Right W Contrast (08/23/2020 11:19 AM CDT) Anatomical Region Laterality Modality Lower Extremities Right Magnetic Reson ance 08/23/2020 4:05 PM CDT Impressions 08/24/2020 9:09 AM CDT 1. Healed right periacetabular osteotomy with right femoral head Perthes ??deformity. ??No evidence of recurrent right labral tear or hip chondrosis. Dictated by: Chau Manzo M.D. The radiology attending physician has personally reviewed this study, and had reviewed and/or edited this written report and agrees with it. Electronically signed by: Chau Ornelas M.D. Narrative 08/24/2020 9:09 AM CDT EXAMINATION: 1. MRI right hip with contrast HISTORY: ??24-year-old man with history of right hip dysplasia status post right periacetabular osteotomy six years ago, with several months of right hip pain. TECHNIQUE: An MRI of the right hip and pelvis was performed following the fluoroscopic guided intra-articular injection of 12 mL of a (1:200) dilution of Dotarem in sterile saline and Conray 60. ??Please see separate dictation for details of the procedure. An MR examination was then performed using a multi-coil array. Coronal short TR/TE and fast spin echo images of the entire pelvis were supplemented by small field of view, high resolution images of the hip. The ??right hip was examined in the transverse, oblique transverse, sagittal and coronal plane with short TR/TE and fast spin echo technique. FINDINGS: Comparison is made to prior right hip radiographs dated 01/24/2020. There are postsurgical changes from prior right-sided periacetabular osteotomy and right hip labral repair. There is normal marrow signal intensity in the lower lumbar spine, sacrum, pelvis, and proximal femora. Specifically, there is no evidence of fracture, stress fracture, or avascular necrosis. The musculature of the pelvis is normal and symmetric. The sciatic nerves are symmetric. The hamstring origins, adductor muscles, and abductor tendons are normal. There is no evidence of bursitis. Within the right hip, the labrum is intact. There is no right hip chondrosis. The ligamentum teres is intact. There are no loose bodies in the hip joint. There is a Perthes deformity of the right femoral head. Procedure Note Chau Ornelas MD - 08/24/2020 EXAMINATION: 1. MRI right hip with contrast HISTORY: 24-year-old man with history of right hip dysplasia status post right periacetabular osteotomy six years ago, with several months of right hip pain. TECHNIQUE: An MRI of the right hip and pelvis was performed following the fluoroscopic guided intra-articular injection of 12 mL of a (1:200) dilution of Dotarem in sterile saline and Conray 60. Please see separate dictation for details of the procedure. An MR examination was then performed using a multi-coil array. Coronal short TR/TE and fast spin echo images of the entire pelvis were supplemented by small field of view, high resolution images of the hip. The right hip was examined in the transverse, oblique transverse, sagittal and coronal plane with short TR/TE and fast spin echo technique. FINDINGS: Comparison is made to prior right hip radiographs dated 01/24/2020. There are postsurgical changes from prior right-sided periacetabular osteotomy and right hip labral repair. There is normal marrow signal intensity in the lower lumbar spine, sacrum, pelvis, and proximal femora. Specifically, there is no evidence of fracture, stress fracture, or avascular necrosis. The musculature of the pelvis is normal and symmetric. The sciatic nerves are symmetric. The hamstring origins, adductor muscles, and abductor tendons are normal. There is no evidence of bursitis. Within the right hip, the labrum is intact. There is no right hip chondrosis. The ligamentum teres is intact. There are no loose bodies in the hip joint. There is a Perthes deformity of the right femoral head. IMPRESSION: 1. Healed right periacetabular osteotomy with right femoral head Perthes deformity. No evidence of recurrent right labral tear or hip chondrosis. Dictated by: Chau Manzo M.D. The radiology attending physician has personally reviewed this study, and had reviewed and/or edited this written report and agrees with it. Electronically signed by: Chau Ornelas M.D. Randolph Sullivan MD IM MRI PROCEDURES Final Resu lt * Injection Hip Right Arthro Only (08/23/2020 [...] was obtained. ??Prior to beginning the procedure, [place] Protocol was performed to confirm the patient's [...] was obtained. Prior to beginning the procedure, [place] Protocol was performed to confirm the patient's [...] and agrees with it. Electronically signed by: Coiln Conte M.D. us Randolph Sullivan MD IMG XR PROCEDURES Final Resul t documented in this encounter Visit Diagnoses Diagnosis Follow-up examination following surgery- Primary Pain in right hip Follow-up examination following surgery Pain in right hip Follow-up examination following surgery Pain in right hip documented in this encounter Historical Medications * This list may reflect changes made after this encounter. ID NOW COVID-19 Test Kit kit TEST DIRECTED. 06/07/2020 added in this encounter Care Teams Ship Propeller Finisher Relationship Specialty Start Date End Date No, Physician PCP - General 07/28/19 documented as of this encounter
--- OUTSIDE RECORDS SUMMARY | 2024-03-08 04:03 | XMS_ITS | Encounter Summary ---
Author Organization [facility] Address [address] [place] [address] Phone Care Team Providers Care Chlorinator Operator Name Role Phone No, Physician Primary Care Provider [phone] Reason for Visit * Reason Onset Date Comments Injections 04/11/2020 Pain Diary Encounter Details Date Type Department Care Team (Late st Contact Info) Description 05/02/2020 Telephone [facility] Orthopaedic Surgery [facility] [place] [address] Vannessa Bacon MD [address] [facility] [address] [place], [place] [id number] Injections (Pain Diary) Social History Tobacco Use Types Packs/Day Years Used Date Smoking Tobacco: Never Smokeless Tobacco: Never Alcohol Use Standard Drinks/Week Comments Yes 0 (1 standard drink = 0.6 oz pur e alcohol) Social Sex and Gender Information Value Date Recorded Sex Assigned at Not on file Legal Sex Male 3:24 AM MOLYBDENUM STEAMER OPERATOR Gender Identity Not on file Sexual Orientation Not on file 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 He is going to [facility] in [place] and is going tomorrow for an appointment and is going to have them send us progress notes. BDENUM STEAMER OPERATOR * Telephone Encounter - Gely Marie CMA - 05/03/2020 1:31 PM CST LVM for pt to call back to discuss. BDENUM STEAMER OPERATOR * Telephone Encounter - Vannessa Bacon MD - 05/03/2020 12:40 PM MOLYBDENUM STEAMER OPERATOR This tells us we need to optimize the physical therapy. I haven't seen any PT notes recently. BDENUM STEAMER OPERATOR * Telephone Encounter - Gely Marie CMA - 05/03/2020 11:15 AM CST 04/11/2020 Iliopsoas tendon injection w/ Ultrasound Guidance BDENUM STEAMER OPERATOR * Telephone Encounter - Suyapa Garcia CPhT - 05/02/2020 4:07 PM MOLYBDENUM STEAMER OPERATOR THERAPEUTIC INJECTION DOS: 04/11/20 INJECTION TYPE: us Guided Rate each of the followin% 25% 50% 75% 100% Immediately? 0% 6 hours after? 0% 24 hours after? 0% 4 days after? 0% 1 week after? 0% 10 days after? 0% 2 weeks after? 0% Pt is wanting to know what the next step is. How would you rate your overall improvement since your injection? 0% Hip feels a lot worse. Are you currently in Physical Therapy? yes How many sessions have you attended? 3 Are you performing a monitored home exercise program? yes Has your injection improved your ability to perform activities of daily living with less pain? no Are you happy with your improvement level? yes BDENUM STEAMER OPERATOR documented in this encounter Plan of Treatment Not on file documented as of this encounter Visit Diagnoses Not on filedocumented in this encounter Care Teams Chlorinator Operator Relationship Specialty Start Date End Date No, Physician PCP - General 07/28/19 documented as of this encounter
--- OUTSIDE RECORDS SUMMARY | 2024-03-08 04:03 | XMS_ITS | Encounter Summary ---
Author Organization [facility] Address [address] [place] [address] Phone Care Team Providers Care Contact Acid Plant Operator Name Role Phone No, Physician Primary Care Provider [phone] Reason for Visit * Reason Comments Follow-up Encounter Details Date Type Department Care Team (Late st Contact Info) Description 03/20/2020 11:10 AM RESTORATION SILVERSMITH Office Visit [facility] Orthopaedic Surgery [address] [place] [address] Medical Office Building [address] [place] [id number] Randolph Sullivan MD [address] 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 ESTABLISHED PATIENT VISIT INTERIM HISTORY: Delbert Emmanuel Petr presents today 6 years after right periacetabular osteotomy. Patient returns to clinic today after being seen approximately 2 months ago for her right hip pain. At that time it was thought that he was having tendinitis in his right psoas tendon, and the plan was to send him to physical therapy, give him a prescription for naproxen, and to obtain a steroid injection into the tendon sheath. Unfortunately, that injection had to be rescheduled due to work, and is now scheduled for the 11 of April. With therapy and anti- inflammatories alone he does feel that his pain is somewhatimproved, but he still has significant pain when he feels the popping in his hip. It does limit hisactivities somewhat, but he is still able to work. Mercedes Hip Score indicates: RIGHT Pain: moderate LEFT Pain: none RIGHT Limp: slight LEFT Limp: none RIGHT Distance: 6 blocks LEFT Distance: unlimited RIGHT Sitting: any chair ?? hour LEFT Sitting: any chair 1 hour\ RIGHT Shoes/Socks easy LEFT Shoes/Socks easy RIGHT Stairs: normal LEFT Stairs: normal RIGHT Support: none LEFT Support: none RIGHT Public Transportation Yes LEFT Public Transportation Yes PHYSICAL EXAM: The physical examination demonstrates: Limp: RIGHT slight LEFT none Trendelenburg: RIGHT positive LEFT negative Leg Length Discrepancy: legs equal Pulse intact: RIGHT Yes LEFT Yes Neurological Status Intact: RIGHT Yes LEFT Yes Deformity: RIGHT No deformity noted LEFT No deformity noted Skin status: RIGHT prev. Incision LEFT normal Abductor Strength: RIGHT 5/5 LEFT 5/5 Pain Location: RIGHT Anterior (groin) LEFT none REVIEW OF XRAYS/STUDIES: Radiographs show maintenance of reduction and a healed periacetabular osteotomy. The joint space iswell-maintained. No evidence of hardware failure. TREATMENT PLAN: He is doing relatively the same as he was 2 months ago, and we did discuss the planned does remain that he needs to continue with therapy, take his anti- inflammatories, and obtain the steroid injection. His response to that injection will be extremely helpful in terms of guiding his further treatment. He does have that scheduled at the end the month, and then we will plan to see him back in about4 months from today for repeat clinical evaluation. He was in agreement with this plan. FOLLOW UP: Delbert should return for Four months for routine. Samson Sung M.D. Orthopaedic Surgery Resident [facility] in [place] Sung MD dictating using Fluency Direct Software. Cpr Instructor variances may occur. ATTENDING ADDENDUM The patient was seen and examined today with the resident or fellow. I was present for the History,Physical Exam, Case Discussion, and Plan. I agree with the Assessment and Plan as dictated in the full clinic note. MD Sagar Henderson and Amalia Membreno Distinguished Professor of Orthopaedic Surgery Chief Adult Reconstructive Surgery Director Adolescent and Young Adult Hip Service Assistant Golf Course Superintendent Department of Orthopaedic Surgery ORATION SILVERSMITH documented in this encounter Plan of Treatment Not on file documented as of this encounter Visit Diagnoses Diagnosis Follow-up examination following surgery- Primary Pain in right hip documented in this encounter Care Teams Contact Acid Plant Operator Relationship Specialty Start Date End Date No, Physician PCP - General 07/28/19 documented as of this encounter
--- OUTSIDE RECORDS SUMMARY | 2024-03-08 04:03 | XMS_ITS | Encounter Summary ---
Author Organization [facility] Address [address] [place] [address] Phone Care Team Providers Care Adult Neuropsychologist Name Role Phone No, Physician Primary Care Provider [phone] Reason for Referral * Injectables (Routine) - Closed Specialty Diagnoses / Procedures Referred By Contac t Referred To Contact Diagnoses Right hip pain Procedures Iliopsoas tendon injection w/ Ultrasound Guidance Vannessa Bacon MD [address] [facility] [address] [address] Phone: tel: fax: [facility] (All Locations) Referral ID Status Reason Start Date Expiration Date Visits Re quested Visits Authorized [id number] Closed 01/20/2020 02/18/2021 1 1 DINATOR HOTELS Encounter Details Date Type Department Care Team (Late st Contact Info) Description 01/20/2020 9:45 AM COORDINATOR HOTELS Office Visit [facility] Orthopaedic Surgery [address] [facility] Advanced Medicine 6th [place] [address] [place] [address] Vannessa Bacon MD [address] [facility] [id number] [place] [address] Right hip pain (Primary Dx) Social History Tobacco Use Types Packs/Day Years Used Date Smoking Tobacco: Never Smokeless Tobacco: Never Alcohol Use Standard Drinks/Week Comments Yes 0 (1 standard drink = 0.6 oz pur e alcohol) Social Sex and Gender Information Value Date Recorded Sex Assigned at Not on file Legal Sex Male 3:24 AM COORDINATOR HOTELS Gender Identity Not on file Sexual Orientation Not on file documented as of this encounter Patient Instructions * Patient Instructions* Gely Marie CMA - 01/20/2020 9:45 AM COORDINATOR HOTELS PLAN: 1. You were scheduled for an ultrasound injection today 2. Referral was set up for [phone] 3. Diclofenac was sent to your pharmacy If you have any questions or concerns please give us a call at [phone] DINATOR HOTELS DINATOR HOTELS documented in this encounter Progress Notes * Vannessa Bacon MD - 01/20/2020 9:45 AM CST Images from the original note were not included. ESTABLISHED PATIENT VISIT INTERIM HISTORY: Delbert Humphreys is a 24 y.o. male who presents to the office today for follow-up. The patient was last seen on 11/04/2019 for an intra articular hip injection which gave him immediate 40% improvement of the lateral hip pain but no steroid affect and on 01/04/2020 for a greater trochanteric bursa injection under US did not give him relief with the anesthetic or the steroid. He continues to have painwith walking more than 2 blocks. He also has pain with transitional movement and difficulty gettingup and going. He has pain with donning and doffing his shoes and stairs. Past medical history and review of systems are unchanged from previous visit. PHYSICAL EXAM: On examination today, the patient is awake, alert, and oriented x3. He is tender over the right iliopsoas. Pain with activation. Hip flexion is painful at 90 degrees, IRF minimally painful and ERF islimited and minimally painful. REVIEW OF IMAGING/STUDIES XR Pelvis 2 views, Lumbar spine 2 views 09/30/19 ??There is a healed right periacetabular osteotomy with internal fixation of the iliac bone. There is mild Perthes deformity of the right femur and right labral repair. On the left, there is femoral head asphericity. The hip joint spaces are normal and symmetric. ?? IMPRESSION/DIAGNOSIS 1. 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 R iliopsoas pain and dysfunction ?? TREATMENT/PLAN 1. Physical exam findings, diagnosis and management plan discussed with patient. Questions were answered. Discussed he has both intra and extra articular pain. 2. Recommend a right iliopsoas bursa injection to see if this is the source of the snapping. Although I do think he has intra articular hip pain as well. 3. Discussed f/u with Dr. Sullivan to discuss when to consider a ALVINA. Vannessa Bacon M.D. Laceworker Physical Medicine and Rehabilitation [facility] Orthopedics DINATOR HOTELS documented in this encounter Plan of Treatment Not on file documented as of this encounter Results * TX INJECTION 1 TENDON SHEATH/LIGAMENT APONEUROSIS, CHG US GUIDANCE NEEDLE PLACEMENT IMG S&I (04/11/2020 4:00 PM COORDINATOR HOTELS) Narrative Vannessa Bacon MD - 04/11/2020 4:00 PM COORDINATOR HOTELS Vannessa Bacon MD ? 04/24/2020 ??5:57 PM Iliopsoas tendon injection w/ Ultrasound Guidance Performed by: Vannessa Bacon MD Authorized by: Vannessa Bacon MD Procedure Details: ??Site: ??Right Iliopsoas Tendon ??Ultrasound guidance: Yes ??Injection with ultrasound guidance. The iliopsoas tendon was identified in the anterior hip using the ultrasound. The area was cleaned and prepped in sterile fashion. ??Sterile ultrasound probe cover and sterile ultrasound gel were used. ??Ultrasound approach: The needle was advanced under ultrasound guidance using an ??In-plane approach into the iliopsoas tendon. ??Ultrasound Note: ??Ultrasound Guided Iliopsoas Tendon Injection Informed consent was obtained. ??Risks and benefits of the procedure were explained. ??Ultrasound guided iliopsoas tendon/bursa injection was performed for diagnosis of iliopsoas tendinopathy/bursitis. ??The right iliopsoas tendon was visualized using the curvilinear ultrasound probe. ?? Skin was cleaned and prepped with Betadine x 3. Sterile ultrasound probe cover and sterile ultrasound gel were used. ??Ethyl chloride spray was used to anesthetize the skin. ??Then using a 25 gauge 3.5 inch needle, this was inserted laterally and directed medially under ultrasound guidance using an in-plane approach into the iliopsoas tendon/busa. ??Then, the treatment solution as documented was injected. ??Patient tolerated the procedure well without any complications. ??Medications: ??2 mL lidocaine 10 mg/mL (1 %); 2 mL bupivacaine 0.25 % (2.5 mg/mL); 40 mg triamcinolone 40 mg/mL us Vannessa Bacon MD IN CLINIC/BEDSIDE ORDERABL ES Final Result documented in this encounter Visit Diagnoses Diagnosis Right hip pain- Primary Pain in joint, pelvic region and thigh Right hip pain Pain in joint, pelvic region and thigh documented in this encounter Care Teams Adult Neuropsychologist Relationship Specialty Start Date End Date No, Physician PCP - General 07/28/19 documented as of this encounter
--- OUTSIDE RECORDS SUMMARY | 2024-03-08 04:03 | XMS_ITS | Encounter Summary ---
Author Organization [facility] Address [address] [place] [address] Phone Care Team Providers Care Pharmaceutical Service Representative Name Role Phone No, Physician Primary Care Provider [phone] Reason for Referral * Diagnostic Imaging (Routine) - Closed Specialty Diagnoses / Procedures Referred By Contac t Referred To Contact Radiology Diagnoses Low back pain with radiation Tendinitis of right hip flexor Procedures IR Injection Tendon Sheath Or Ligament Right (ILIOPSOAS) Vannessa Bacon MD [address] [place] [address] Phone: tel: fax: [address] [address] Referral ID Status Reason Start Date Expiration Date Visits Re quested Visits Authorized [id number] Closed 12/07/2019 01/05/2021 1 1 Encounter Details Date Type Department Care Team (Late st Contact Info) Description 12/07/2019 Orders Only [facility] Orthopaedic Surgery [address] [facility] Medical [address] [place] [address] Vannessa Bacon MD [address] [place] [address] Low back pain with radiation (Primary Dx); Tendinitis of right hip flexor Social History Tobacco Use Types Packs/Day Years Used Date Smoking Tobacco: Never Smokeless Tobacco: Never Alcohol Use Standard Drinks/Week Comments Yes 0 (1 standard drink = 0.6 oz pur e alcohol) Social Sex and Gender Information Value Date Recorded Sex Assigned at Not on file 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 Gender Identity Not on file Sexual Orientation Not on file documented as of this encounter Plan of Treatment Scheduled Orders Name Type Priority Associated Diagnoses Orde r Schedule IR Injection Tendon Sheath Or Ligament Right (ILIOPSOAS) Imaging Schedule Routine, Read Routine (OP Routine) Low back pain with radiation Tendinitis of right hip flexor Expected: 12/07/2019, Expires: 12/06/2020 documented as of this encounter Visit Diagnoses Diagnosis Low back pain with radiation- Primary Tendinitis of right hip flexor documented in this encounter Care Teams Pharmaceutical Service Representative Relationship Specialty Start Date End Date No, Physician PCP - General 07/28/19 documented as of this encounter
--- OUTSIDE RECORDS SUMMARY | 2024-03-08 04:03 | XMS_ITS | Encounter Summary ---
Author Organization [facility] Address [address] [place] [address] Phone Care Team Providers Care Street Engineer Name Role Phone No, Physician Primary Care Provider [phone] Encounter Details Date Type Department Care Team (Late st Contact Info) Description 09/04/2020 Telephone [facility] Orthopaedic Surgery [address] 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 Sullivan reviewed MRA. No obvious tear of problem in the joint space. F/u with Dr. Bacon. He verbalized understanding. documented in this encounter Plan of Treatment Not on file documented as of this encounter Visit Diagnoses Not on filedocumented in this encounter Care Teams Street Engineer Relationship Specialty Start Date End Date No, Physician PCP - General 07/28/19 documented as of this encounter
--- OUTSIDE RECORDS SUMMARY | 2024-03-08 04:03 | XMS_ITS | Encounter Summary ---
Author Organization [facility] Address [address] [place] [address] Phone Care Team Providers Care Relay Shop Tester Name Role Phone No, Physician Primary Care Provider [phone] Reason for Referral * Procedure (Routine) - Closed Specialty Diagnoses / Procedures Referred By Lester hooks Referred To Contact Diagnoses Trochanteric bursitis of right hip Procedures Greater trochanteric bursa injection Vannessa Bacon MD [address] [place] [address] Phone: tel: fax: [facility] (All Locations) Referral ID Status Reason Start Date Expiration Date Visits Re quested Visits Authorized [id number] Closed 01/04/2020 02/02/2021 1 1 Reason for Visit * Diagnostic Imaging (Routine) - Closed Specialty Diagnoses / Procedures Referred By Lester hooks Referred To Contact Radiology Diagnoses Low back pain with radiation Tendinitis of right hip flexor Procedures IR Injection Tendon Sheath Or Ligament Right (ILIOPSOAS) Vannessa Bacon MD [address] [place] [address] Phone: tel: fax: [facility] [address] [place] [address] Referral ID Status Reason Start Date Expiration Date Visits Re quested Visits Authorized [id number] Closed 12/07/2019 01/05/2021 1 1 Encounter Details Date Type Department Care Team (Late st Contact Info) Description 01/04/2020 2:00 PM CDT Office Visit [facility] Orthopaedic Surgery [address] [facility] Medical Office Building [address] [place] [address] Vannessa Bacon MD [address] [facility] [address] [place] [address] Trochanteric bursitis of right hip (Primary Dx); Low back pain with radiation; Tendinitis of right hip flexor Social History Tobacco Use Types Packs/Day Years Used Date Smoking Tobacco: Never Smokeless Tobacco: Never Alcohol Use Standard Drinks/Week Comments Yes 0 (1 standard drink = 0.6 oz pur e alcohol) Social Sex and Gender Information Value Date Recorded Sex Assigned at Not on file 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 Gender Identity Not on file Sexual Orientation Not on file documented as of this encounter Progress Notes * Vannessa Bacon MD - 01/04/2020 2:00 PM CDTAssociated Order(s): Greater trochanteric bursa injection Post-Procedure Diagnose(s): Trochanteric bursitis of right hip Greater trochanteric bursa injection Performed by: Vannessa Bacon MD Authorized by: Vannessa Bacon MD Prior to the start of the procedure, verbal verification by the procedure participant(s) confirmed (as applicable): corect patient idenity; correct site/side marked and visible; agreement on the procedure to be done; correct patient positioning; an accurate procedure consent form, relevant images and results correctly labeled and displayed; any safety precautions based on clinical history and/or medication use have been addressed.: Procedure Details: Site: Right Greater Trochanteric Bursa Patient position: Sidelying Needle Size: 25 G Ultrasound guidance: Yes Ultrasound Note: Ultrasound Guided Greater Trochanteric Bursa Injection Informed consent was obtained. Risks and benefits of the procedure were explained. Ultrasound guidance was used to accurately inject the greater trochanteric bursa for a diagnosis of greater trochanteric bursitis. The right greater trochanter area of maximal tenderness was identified using a linear ultrasound probe. Skin was cleaned and prepped with Betadine x 3. Sterile ultrasound probe cover and sterile ultrasound gel were used. Ethyl chloride spray was used to anesthetize the skin. Then, using a 25 gauge 3.5 inch needle, this was was inserted posteriorly and directed anteriorly under ultrasound guidance using an in-plane approach into the greater trochanteric bursa. Then, the treatment solution as documented was injected. The patient tolerated the procedure well without complications. Medications: 2 mL bupivacaine 0.25 % (2.5 mg/mL); 2 mL lidocaine 10 mg/mL (1 %); 40 mg triamcinolone 40 mg/mL documented in this encounter Plan of Treatment Not on file documented as of this encounter Procedures Procedure Name Priority Date/Time Associated Diagnosis Comments [place] ARTHROCENTESIS ASPIR&/INJ MAJOR JT/BURSA W/US Routine 01/04/2020 2:00 PM CDT Trochanteric bursitis of right hip documented in this encounter Results * [place] ARTHROCENTESIS ASPIR&/INJ MAJOR JT/BURSA W/US (01/04/2020 2:00 PM CDT) Narrative Vannessa Bacon MD - 01/04/2020 2:00 PM CDT Vannessa Bacon MD ? 01/04/2020 ??3:32 PM Greater trochanteric bursa injection Performed by: Vannessa Bacon MD Authorized by: Vannessa Bacon MD Prior to the start of the procedure, verbal verification by the procedure participant(s) confirmed (as applicable): corect patient idenity; correct site/side marked and visible; agreement on the procedure to be done; correct patient positioning; an accurate procedure consent form, relevant images and results correctly labeled and displayed; any safety precautions based on clinical history and/or medication use have been addressed.: Procedure Details: ??Site: ??Right Greater Trochanteric Bursa ??Patient position: ??Sidelying ??Needle Size: ??25 G ??Ultrasound guidance: Yes ?Ultrasound Note: ??Ultrasound Guided Greater Trochanteric Bursa Injection Informed consent was obtained. ??Risks and benefits of the procedure were explained. ??Ultrasound guidance was used to accurately inject the greater trochanteric bursa for a diagnosis of greater trochanteric bursitis. ??The right greater trochanter area of maximal tenderness was identified using a linear ultrasound probe. ??Skin was cleaned and prepped with Betadine x 3. ?? Sterile ultrasound probe cover and sterile ultrasound gel were used. ?? Ethyl chloride spray was used to anesthetize the skin. ??Then, using a 25 gauge 3.5 inch needle, this was was inserted posteriorly and directed anteriorly under ultrasound guidance using an in-plane approach into the greater trochanteric bursa. ??Then, the treatment solution as documented was injected. ??The patient tolerated the procedure well without complications. ??Medications: ??2 mL bupivacaine 0.25 % (2.5 mg/mL); 2 mL lidocaine 10 mg/mL (1 %); 40 mg triamcinolone 40 mg/mL Vannessa Bacon MD IN CLINIC/BEDSIDE ORDERABL ES Final Result documented in this encounter Visit Diagnoses Diagnosis Trochanteric bursitis of right hip- Primary Low back pain with radiation Tendinitis of right hip flexor documented in this encounter Administered Medications Inactive Administered Medications - up to 3 most recent administrations Medication Order MAR Action Action Date Dose Rate Site bupivacaine (MARCAINE) 0.25 % (2.5 mg/mL) injection 2 mL 2 mL, other, One-Time Injection, Starting on Fri01/04/20 at 1531, For 1 doseIndications:Trochanteric bursitis of right hip Given 01/04/2020 3:31 PM CDT 2 mL lidocaine (XYLOCAINE) 10 mg/mL (1 %) injection 2 mL 2 mL, One-Time Injection, Starting on Fri01/04/20 at 1531, For 1 dose, Indications: Administration of Local AnesthesiaIndications:Administratio n of Local Anesthesia Given 01/04/2020 3:31 PM CDT 2 mL triamcinolone (KENALOG) 40 mg/mL injection 40 mg 40 mg, intra-articular, One-Time Injection, Starting on Fri01/04/20 at 1531, For 1 doseIndications:Trochanteric bursitis of right hip Given 01/04/2020 3:31 PM CDT 40 mg documented in this encounter Orders Imaging Orders Without Results Count Last Order ed Date First Ordered Date IR INJECTION TENDON SHEATH O R LIGAMENT RIGHT 1 01/04/2020 documented in this encounter Care Teams Relay Shop Tester Relationship Specialty Start Date End Date No, Physician PCP - General 07/28/19 documented as of this encounter
--- OUTSIDE RECORDS SUMMARY | 2024-03-08 04:03 | XMS_ITS | Referral Summary ---
Author Organization [facility] Address [address] [place] [address] Care Team Providers Care Auto Clutch Specialist Name Role Phone No, Physician Primary Care Provider [phone] Allergies No known active allergies Medications ID NOW COVID-19 Test Kit kit TEST DIRECTED. 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 Gender Identity Not on file Sexual Orientation Not on file 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 Not on file Not on file Last Filed Vital Signs Vital Sign Reading Time Taken Comments Blood Pressure 118/86 11/01/2020 5:23 PM CDT Pulse 113 11/01/2020 5:23 PM CDT Temperature 36.2 ??C (97.1 ??F) 11/01/2020 5:23 PM CD T Respiratory Rate 16 11/01/2020 5:23 PM CDT Oxygen Saturation 97% 11/01/2020 5:23 PM CDT Inhaled Oxygen Concentration - - Weight 118.6 kg (261 lb 6.4 oz) 11/01/2020 5:23 PM CDT Height 175.3 cm (5' 9 ) 11/01/2020 5:23 PM CDT Body Mass Index 38.6 11/01/2020 5:23 PM CDT Plan of Treatment Not on file [place] Care Teams Auto Clutch Specialist Relationship Specialty Start Date End Date No, Physician PCP - General 07/28/19
--- OUTSIDE RECORDS SUMMARY | 2024-03-08 04:03 | XMS_ITS | Encounter Summary ---
Author Organization [facility] Address [address] [place] [address] Phone Care Team Providers Care Piecer Up Name Role Phone No, Physician Primary Care Provider [phone] Encounter Details Date Type Department Care Team (Late st Contact Info) Description 12/06/2019 Telephone [facility] Orthopaedic Surgery [facility] Medical Office Building [address] [place] [address] Vannessa Bacon MD [address] [facility] [address] [place] [address] Social History Tobacco Use Types Packs/Day Years Used Date Smoking Tobacco: Never Smokeless Tobacco: Never Alcohol Use Standard Drinks/Week Comments Yes 0 (1 standard drink = 0.6 oz pur e alcohol) Social Sex and Gender Information Value Date Recorded Sex Assigned at Not on file 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 If less than 50% better, next step is to now address the hip flexor tendon with a right IP tendon sheath injection under US. The first injeciton addressed the pain inside the joint. This injection will address the bursa/tendon issue outside the joint. Per Patient he states right after the injection he got maybe 25% relief but nothing more. Scheduledhim for USI with . No further questions at this time. * Telephone Encounter - Sarah Toscano - 12/07/2019 2:38 PM CDT Patient is calling back Per patient 25% maybe is all he received even right after with the numbing medication pain is still all in right hip * Telephone Encounter - Randolph Mak - 12/06/2019 2:47 PM CDT Pt attempted to return call, please call [phone]. * Telephone Encounter - Ludy Avila RN - 12/06/2019 2:35 PM CDT LMOR for pt to return call to discuss injection and hip pain. Need to know % improvement immediately after injection. This will determine pt next steps in tx plan. * Telephone Encounter - Ludy Avila RN - 12/06/2019 2:35 PM CDT ----- Message from Delbert Humphreys sent at 12/03/2019 2:33 PM CDT ----- Regarding: RE: Visit Follow-Up Question Contact: Yes I still have a lot of pain in the hip ----- Message ----- From: Nurse Ludy De Leon Sent: 12/03/19, 2:24 PM To: Delbert Humphreys Subject: RE: Visit Follow-Up Question Samm Mandujano, Did the injection provide anymore relief than 25% initially after the injection? This is important to determine the next step in your care. Thank you, Ludy ----- Message ----- From:Delbert Humphreys Sent:12/02/2019 3:02 PM CDT To:Vannessa Bacon MD Subject:RE: Visit Follow-Up Question Velvet I have been in physical for 4 weeks 2 days a week so far I'm still having a lot of pain in the hip and a lot of popping when I walk the shot feels like it maybe cleared up 25% of the pain. ----- Message ----- From:Nurse Ludy De Leon Sent:12/02/2019 2:57 PM CDT To:Delbert Humphreys Subject:RE: Visit Follow-Up Question Samm Mandujano, We request you send an update 2 weeks after your injection. Also, have you started physical therapyand if yes are you seeing any improvement with physical therapy? Thank you, Ludy ----- Message ----- From:Delbert Humphreys Sent:12/02/2019 1:53 PM CDT To:Vannessa Bacon MD Subject:Visit Follow-Up Question Velvet I was wondering when you would like to see me back documented in this encounter Plan of Treatment Not on file documented as of this encounter Visit Diagnoses Not on filedocumented in this encounter Care Teams Piecer Up Relationship Specialty Start Date End Date No, Physician PCP - General 07/28/19 documented as of this encounter
--- OUTSIDE RECORDS SUMMARY | 2024-03-08 04:03 | XMS_ITS | Encounter Summary ---
Author Organization [facility] Address [address] [facility] [address] [place] [id number] Care Team Providers Care Chemical Engineering Intern Name Role Phone No, Physician Primary Care Provider [phone] Reason for Visit * Reason Comments COVID-19 EVALUATION Headaches, fatigue, sinus drainage and hot and cold chills since yesterday. no exp. vaccinated. Encounter Details Date Type Department Care Team (Late st Contact Info) Description 11/01/2020 4:15 PM CDT Office Visit [facility] [address] [place] [address] Isabela Pepper, BENCH ASSEMBLER OPERATOR [address] [place] [address] COVID-19 (Primary Dx) Social History Tobacco Use Types Packs/Day Years Used Date Smoking Tobacco: Never Smokeless Tobacco: Never Alcohol Use Standard Drinks/Week Comments Yes 0 (1 standard drink = 0.6 oz pur e alcohol) Social Sex and Gender Information Value Date Recorded Sex Assigned at Not on file Legal Sex Male 3:24 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 The following are recommendations for treating the symptoms related to COVID19. What is the difference between Influenza (Flu) and COVID-19? Influenza (Flu) and COVID-19 are both contagious respiratory illnesses, but they are caused by different viruses. COVID-19 is caused by infection with a new coronavirus (called SARS-CoV-2) and flu is caused by infection with influenza viruses. There are some irwin differences between flu and COVID-19. COVID-19 seems to spread more easily than flu and causes more serious illnesses in some people. It can also take longer before people show symptoms and people can be contagious for longer. The best way to prevent infection is to avoid being exposed to the virus. Because some of the symptoms of flu and COVID-19 are similar, it may be hard to tell the difference between them based on symptoms alone, and testing may be needed to help confirm a diagnosis.While more is learned every day, there is still a lot that is unknown about COVID-19 and the virus that causes it. The [facility] will be reaching out to all patients who have a positive test for further discussion and monitoring. Continue to self isolate until at least 10 days have passed since symptom onset, your symptoms have improved, and you have been fever free without the use of fever reducing medications for at least 24 hours. You may use acetaminophen and/or ibuprofen to control pain and fever. If you have chronic liver disease, have ever had a stomach ulcer or gastrointestinal bleeding talk with your healthcare provider before using these medicines. Aspirin should never be given to anyone under 18 years of age who is ill with a viral infection or fever. It may cause severe liver or brain damage. Your appetite may be poor, so a light diet is ok. Stay well hydrated by drinking 6 to 8 glasses of fluids per day (water, soft drinks, juices, tea, or soup). Extra fluids will help loosen secretions in the nose and lungs. Yjop-wkw-ngxqies cold medicines will not shorten the length of time you???re sick, but they may be helpful for relieving the following symptoms: headache, cough, sore throat, and nasal and sinus congestion. If you take prescription medicines, ask your healthcare provider or pharmacist which cpts-qfm-etrgfbg medicines are safe to use. (Note: DO NOT use decongestants if you have high blood pressure.) Steps to help prevent the spread of COVID-19 if you are sick If you are sick with COVID-19 or think you might have COVID-19, follow the steps below to care for yourself and to help protect other people in your home and community. Stay home except to get medical care ??? Most people with COVID-19 have mild illness and are able to recover at home without medical care. Do not leave your home, except to get medical care. Do not visit public areas. ??? Take care of yourself. Get rest and stay hydrated. Take pyvp-grb-ozposfm medicines to help you feel better. ??? Stay in touch with your doctor. Call before you get medical care. Be sure to get care if you have trouble breathing, or have any other emergency warning signs, or if you think it is an emergency. ??? Avoid using public transportation, ride-sharing, or taxis. Monitor your symptoms ??? Symptoms of COVID-19 include fever, cough, shortness of breath or difficulty breathing, fatigue, muscle or body aches, headache, new loss of taste or smell, sore throat, congestion, runny nose, nausea, vomiting, or diarrhea. When to Seek Medical Attention If you develop emergency warning signs for COVID-19 get medical attention immediately. Emergency warning signs include*: ??? Trouble breathing ??? Persistent pain or pressure in the chest ??? New confusion or inability to arouse ??? Bluish lips or face *This list is not all inclusive. Please consult your medical provider for any other symptoms that are severe or concerning. Call 911 if you have a medical emergency: If you have a medical emergency and need to call 911, notify the scada operator that you have or think you might have, COVID-19. If possible, put on a facemask before medical help arrives. Separate yourself from other people in your home, this is known as home isolation ??? As much as possible, you should stay away from other people and pets in your home. You should stay in a specific ???sick room?? if possible. Use a separate bathroom, if available. If you need peggy around other people or animals in or outside of the home, wear a mask For more information on sharing close living quarters with someone who is sick visit https://www.cdc .gov/coronavirus/2019-ncov/ofkkl-spxx-zdhqwi/lvwyti-bp-lmtcd-quarters.html For more information on COVID-19 and pets visit https://www.cdc.gov/coronavirus/2019-ncov/faq.html Call ahead before visiting your doctor ??? Many medical visits for routine care are being postponed or done by phone or telemedicine. ??? If you have a medical appointment that cannot be postponed, call your doctor???s office, and tell them you have or may have COVID-19. This will help the office protect themselves and other patients. documented in this encounter Progress Notes * Isabela Pepper NP - 11/01/2020 4:15 PM CDT Images from the original note were not included. Patient ID: Delbert Humphreys is a 25 y.o. male followed by No, Physician Chief Complaint Patient presents with ??? COVID-19 EVALUATION Headaches, fatigue, sinus drainage and hot and cold chills since yesterday. no exp. vaccinated. Patient presents to the clinic with c/o headache, fatigue, chills, and sinus drainage x1 day. Denies shortness of breath, fevers, nausea, and vomiting. He has taken advil for his symptoms. Patient isfully vaccinated against covid. Review of Systems Constitutional: Positive for chills and fatigue. Negative for fever. HENT: Positive for congestion. Negative for ear pain, postnasal drip, rhinorrhea and sore throat. Respiratory: Negative for cough, chest tightness, shortness of breath and wheezing. Cardiovascular: Negative for chest pain. Neurological: Positive for headaches. Vitals: 11/01/20 1723 BP: 118/86 BP Location: Right arm Patient Position: Sitting Pulse: 113 Resp: 16 Temp: 36.2 ??C (97.1 ??F) TempSrc: Temporal SpO2: 97% Weight: 118.6 kg (261 lb 6.4 oz) Height: 175.3 cm (5' 9 ) Recent Results (from the past 24 hour(s)) COVID-19 POC Collection Time: 11/01/20 5:33 PM Result Value Ref Range COVID-19 Ag POC Positive (A) Presumptive Negative, Invalid Physical Exam Vitals reviewed. Constitutional: Appearance: He is well-developed. HENT: Head: Normocephalic. Right Ear: Tympanic membrane, ear canal and external ear normal. Tympanic membrane is not injected,erythematous or bulging. Left Ear: Tympanic membrane, ear canal and external ear normal. Tympanic membrane is not injected, erythematous or bulging. Nose: Right Sinus: No maxillary sinus tenderness or frontal sinus tenderness. Left Sinus: No maxillary sinus tenderness or frontal sinus tenderness. Mouth/Throat: Lips: [place]. Mouth: Mucous membranes are moist. Pharynx: No posterior oropharyngeal erythema. Tonsils: No tonsillar exudate. Eyes: Conjunctiva/sclera: Conjunctivae normal. Cardiovascular: Rate and Rhythm: Normal rate and regular rhythm. Pulmonary: Effort: Pulmonary effort is normal. Breath sounds: Normal breath sounds. No wheezing or rhonchi. Musculoskeletal: General: Normal range of motion. Skin: General: Skin is warm and dry. Neurological: Mental Status: He is alert and oriented to person, place, and time. Diagnoses and all orders for this visit: COVID-19 (Primary) - COVID-19 POC Orders Placed This Encounter Procedures ??? COVID-19 POC Order Specific Question: Is the Patient experiencing symptoms consistent with COVID? Answer: Yes Order Specific Question: Date of Symptom Onset Answer: 10/31/2020 Order Specific Question: Is the patient hospitalized? Answer: No Order Specific Question: Is the patient admitted to an ICU? Answer: No Order Specific Question: Is this the first COVID-19 test for this patient? Answer: No Order Specific Question: Does the patient currently work in a healthcare facility with direct patient contact? Answer: No Order Specific Question: Is the patient a resident of a congregate care or living setting? Answer: No Order Specific Question: Is the patient ? Answer: No Assessment/Plan Lungs CTA, O2 Saturation @97%/RA, low suspicion for pneumonia at this time. Will recommend supportive care for symptoms with f/u precautions including signs/symptoms warranting ER evaluation. ??? Discussed home self-care, follow up needs, and signs and symptoms that warrant immediate medical attention/ER evaluation including worsening fever, increased shortness of breath, severe N/V/D, orany other worrisome symptoms ??? Reviewed isolation/quarantine protocols ??? Discussed symptomatic relief of symptoms ??? Advised to rest and increase oral fluid intake ??? Advised to stay out of work and work release given explaining when patient can return to work Patient Education The rapid COVID test performed today in clinic was positive. The following are recommendations for treating the symptoms related to COVID19. What is the difference between Influenza (Flu) and COVID-19? Influenza (Flu) and COVID-19 are both contagious respiratory illnesses, but they are caused by different viruses. COVID-19 is caused by infection with a new coronavirus (called SARS-CoV-2) and flu is caused by infection with influenza viruses. There are some irwin differences between flu and COVID-19. COVID-19 seems to spread more easily than flu and causes more serious illnesses in some people. It can also take longer before people show symptoms and people can be contagious for longer. The best way to prevent infection is to avoid being exposed to the virus. Because some of the symptoms of flu and COVID-19 are similar, it may be hard to tell the difference between them based on symptoms alone, and testing may be needed to help confirm a diagnosis.While more is learned every day, there is still a lot that is unknown about COVID-19 and the virus that causes it. The [facility] will be reaching out to all patients who have a positive test for further discussion and monitoring. Continue to self isolate until at least 10 days have passed since symptom onset, your symptoms have improved, and you have been fever free without the use of fever reducing medications for at least 24 hours. You may use acetaminophen and/or ibuprofen to control pain and fever. If you have chronic liver disease, have ever had a stomach ulcer or gastrointestinal bleeding talk with your healthcare provider before using these medicines. Aspirin should never be given to anyone under 18 years of age who is ill with a viral infection or fever. It may cause severe liver or brain damage. Your appetite may be poor, so a light diet is ok. Stay well hydrated by drinking 6 to 8 glasses of fluids per day (water, soft drinks, juices, tea, or soup). Extra fluids will help loosen secretions in the nose and lungs. Ufjo-aql-rbokvge cold medicines will not shorten the length of time you???re sick, but they may be helpful for relieving the following symptoms: headache, cough, sore throat, and nasal and sinus congestion. If you take prescription medicines, ask your healthcare provider or pharmacist which mkhc-dgo-nrozfbe medicines are safe to use. (Note: DO NOT use decongestants if you have high blood pressure.) Steps to help prevent the spread of COVID-19 if you are sick If you are sick with COVID-19 or think you might have COVID-19, follow the steps below to care for yourself and to help protect other people in your home and community. Stay home except to get medical care ??? Most people with COVID-19 have mild illness and are able to recover at home without medical care. Do not leave your home, except to get medical care. Do not visit public areas. ??? Take care of yourself. Get rest and stay hydrated. Take ytlk-lrl-yekceee medicines to help you feel better. ??? Stay in touch with your doctor. Call before you get medical care. Be sure to get care if you have trouble breathing, or have any other emergency warning signs, or if you think it is an emergency. ??? Avoid using public transportation, ride-sharing, or taxis. Monitor your symptoms ??? Symptoms of COVID-19 include fever, cough, shortness of breath or difficulty breathing, fatigue, muscle or body aches, headache, new loss of taste or smell, sore throat, congestion, runny nose, nausea, vomiting, or diarrhea. When to Seek Medical Attention If you develop emergency warning signs for COVID-19 get medical attention immediately. Emergency warning signs include*: ??? Trouble breathing ??? Persistent pain or pressure in the chest ??? New confusion or inability to arouse ??? Bluish lips or face *This list is not all inclusive. Please consult your medical provider for any other symptoms that are severe or concerning. Call 911 if you have a medical emergency: If you have a medical emergency and need to call 911, notify the scada operator that you have or think you might have, COVID-19. If possible, put on a facemask before medical help arrives. Separate yourself from other people in your home, this is known as home isolation ??? As much as possible, you should stay away from other people and pets in your home. You should stay in a specific ???sick room?? if possible. Use a separate bathroom, if available. If you need peggy around other people or animals in or outside of the home, wear a mask For more information on sharing close living quarters with someone who is sick visit https://www.cdc .gov/coronavirus/2019-ncov/jdgxl-yztp-mndhbs/hzzocw-mw-enzxn-quarters.html For more information on COVID-19 and pets visit https://www.cdc.gov/coronavirus/2019-ncov/faq.html Call ahead before visiting your doctor ??? Many medical visits for routine care are being postponed or done by phone or telemedicine. ??? If you have a medical appointment that cannot be postponed, call your doctor???s office, and tell them you have or may have COVID-19. This will help the office protect themselves and other patients. Isabela Pepper NP documented in this encounter Plan of Treatment Not on file documented as of this encounter Procedures Procedure Name Priority Date/Time Associated Diagnosis Comments COVID-19 POC Routine 11/01/2020 5:33 PM CDT COVID-19 documented in this encounter Results * (ABNORMAL) COVID-19 POC (11/01/2020 5:33 PM CDT) [facility] Signature COVID-19 Ag POC (BD Veritor) Positive( A) Presumptive Negative, Invalid [facility] Nasal 11/01/2020 5:33 PM CDT Isabela Pepper NP POINT OF CARE TEST ORDERABLES Final Result [facility] [address] [place] [address] documented in this encounter Visit Diagnoses Diagnosis COVID-19- Primary documented in this encounter Additional Health Concerns Infection Onset Date Last Indicated Resolved Time COVID: Suspected 11/01/2020 11/01/2020 11/01/2020 5:33 PM CDT COVID19 11/01/2020 11/01/2020 11/15/2020 3:05 AM CDT documented as of this encounter Care Teams Chemical Engineering Intern Relationship Specialty Start Date End Date No, Physician PCP - General 07/28/19 documented as of this encounter
--- OUTSIDE RECORDS SUMMARY | 2024-03-08 04:03 | XMS_ITS | Encounter Summary ---
Author Organization [facility] Address [address] [place] [address] Phone Care Team Providers Care Retail Tire Sales Manager Name Role Phone No, Physician Primary Care Provider [phone] Encounter Details Date Type Department Care Team (Late st Contact Info) Description 05/12/2020 Orders Only [facility] Orthopaedic Surgery [address] [facility] [address] [place] [address] Vannessa Bacon MD [address] [facility] [address] [place], [place] [id number] Right hip pain (Primary Dx); Low back pain with radiation; Tendinitis of right hip flexor; Trochanteric bursitis of right hip; Bilateral hip pain; Thoracic spine pain Social History Tobacco Use Types Packs/Day Years Used Date Smoking Tobacco: Never Smokeless Tobacco: Never Alcohol Use Standard Drinks/Week Comments Yes 0 (1 standard drink = 0.6 oz pur e alcohol) Social Sex and Gender Information Value Date Recorded Sex Assigned at Not on file 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 Gender Identity Not on file Sexual Orientation Not on file 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
--- OUTSIDE RECORDS SUMMARY | 2024-03-08 04:03 | XMS_ITS | Encounter Summary ---
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 Name Role Phone Unavailable Primary Care Provider Unavailabl e Encounter Details Date Type Department Care Team (Late st Contact Info) Description 07/21/2013 - 07/21/2013 11:59 PM CDT Hospital Encounter [facility] John Reveles MD [address] [place] [address] Pain in joint, pelvic region and thigh; Sprain and strain of other specified sites of hip and thigh Social History Tobacco Use Types Packs/Day Years Used Date Smoking Tobacco: Never Assessed Sex and Gender Information Value Date Recorded Sex Assigned at Not on file 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 Gender Identity Not on file Sexual Orientation Not on file documented as of this encounter Plan of Treatment Not on file documented as of this encounter Procedures Procedure Name Priority Date/Time Associated Diagnosis Comments MRI LOWER EXTREMITY JOINT W CONTRAST Routine 07/21/2013 4:34 PM CDT FLUORO GUIDED NEEDLE PLACEMENT Routine 07/21/2013 3:42 PM CDT FLUORO GUIDED NEEDLE PLACEMENT Routine 07/21/2013 3:42 PM CDT documented in this encounter Results * MRI Lower Extremity Joint W Contrast (07/21/2013 4:34 PM CDT) Anatomical Region Laterality Modality N/A Magnetic Resonan ce 07/21/2013 4:34 PM CDT Narrative 07/22/2013 10:29 AM CDT SAMANTA ALANIS M.D. Todd WALKER FINAL REPORT The radiology attending physician has personally reviewed this study, and has reviewed and/or edited this written report and agrees with it. ACC# ??Date Time ??Exam [id number] July 21, 2013 16:34:00 [id number] MRI Jnt Lower Extr wi con R EXAMINATION: ?? MRI of the right hip with contrast HISTORY: Right Legg-Perthes and right hip labral tear FINDINGS: Outside hospital hip radiographs and a CT examination dated 07/21/2013 were reviewed. MR examination of the pelvis was performed with a multicoil array following the intra-articular injection of 9 mL of a 1:200 dilution of OptiMARK intravenous contrast into the right hip joint. The details of the injection procedure will be dictated as a separate report. Coronal short TR/TE and fast spin echo images of the entire pelvis were supplemented by high-resolution small [id number] images of the right hip. The right hip was imaged in the transverse, sagittal, coronal, and oblique transverse plane with fast spin echo technique. There is normal marrow signal intensity within the lower lumbar spine, sacrum, pelvis, and both proximal femora. There is no evidence of fracture, stress fracture, or acute osteonecrosis. Musculature of the pelvis is normal and symmetric. The piriformis muscles are normal and symmetric. Hamstring origins are normal. The sciatic nerves are normal in course and caliber. There is mild right coxa magna and coxa plana compatible with prior Legg-Perthes. There is a detached nondisplaced tear of the anterosuperior right hip labrum measuring approximately 12 mm in length. Ligamentum teres is intact. No focal chondrosis of the right femoral head or acetabular socket is noted. The acetabulum is anteverted. ?? IMPRESSION: 1. Mild right Legg-Perthes deformity with a detached nondisplaced tear of the anterosuperior right hip labrum. Right hip articular cartilage is normal. 2. Images of both femora were not performed. The patient could return for additional images for calculation of femoral torsion. ?? Requested By: JOHN MORENO ??Todd Dictated By: ?? Todd WALKER ??on July ??2013 ??9:15A This document has been electronically signed by: SAMANTA ALNAIS M.D. on July ??2013 10:29A Procedure Note Provider, MD Caren - 07/09/2016 SAMANTA ALANIS M.D. JENN ARIAS M.D. FINAL REPORT The radiology attending physician has personally reviewed this study, and has reviewed and/or edited this written report and agrees with it. ACC# Date Time Exam [id number] July 21, 2013 16:34:00 [id number] MRI Jnt Lower Extr wi con R EXAMINATION: MRI of the right hip with contrast HISTORY: Right Legg-Perthes and right hip labral tear FINDINGS: Outside hospital hip radiographs and a CT examination dated 07/21/2013 were reviewed. MR examination of the pelvis was performed with a multicoil array following the intra-articular injection of 9 mL of a 1:200 dilution of OptiMARK intravenous contrast into the right hip joint. The details of the injection procedure will be dictated as a separate report. Coronal short TR/TE and fast spin echo images of the entire pelvis were supplemented by high-resolution small dlteq-kp-lkyj images of the right hip. The right hip was imaged in the transverse, sagittal, coronal, and oblique transverse plane with fast spin echo technique. There is normal marrow signal intensity within the lower lumbar spine, sacrum, pelvis, and both proximal femora. There is no evidence of fracture, stress fracture, or acute osteonecrosis. Musculature of the pelvis is normal and symmetric. The piriformis muscles are normal and symmetric. Hamstring origins are normal. The sciatic nerves are normal in course and caliber. There is mild right coxa magna and coxa plana compatible with prior Legg-Perthes. There is a detached nondisplaced tear of the anterosuperior right hip labrum measuring approximately 12 mm in length. Ligamentum teres is intact. No focal chondrosis of the right femoral head or acetabular socket is noted. The acetabulum is anteverted. IMPRESSION: 1. Mild right Legg-Perthes deformity with a detached nondisplaced tear of the anterosuperior right hip labrum. Right hip articular cartilage is normal. 2. Images of both femora were not performed. The patient could return for additional images for calculation of femoral torsion. Requested By: JOHN MORENO M.D. Dictated By: Todd WALKER on Jul 22 2013 9:15A This document has been electronically signed by: SAMANTA ALANIS M.D. on Jul 22 2013 10:29A us Historical Provider IMG MRI PROCEDURES Final Result * FLUORO GUIDED NEEDLE PLACEMENT (07/21/2013 3:42 PM CDT) Anatomical Region Laterality Modality Body N/A Radiographic Leydi ging 07/21/2013 3:42 PM CDT Narrative 07/21/2013 4:36 PM CDT JENN ARIAS M.D. FINAL REPORT ACC# ??Date Time ??Exam [id number] July 21, 2013 15:42:00 [id number] Asp/Inj Large Joint R [id number] July 21, 2013 15:42:00 [id number] Fluoro Guide [employer] [employer] EXAMINATION: ??EXAMINATIONS: 1. Right hip injection. 2. Fluoroscopic guidance for needle placement. HISTORY: Right hip pain. Intra-articular injection of gadolinium contrast is requested prior to right hip MRI. FINDINGS: Comparison is made to radiographs dated 07/20/2013 The procedure was explained to the patient, his and his mother's questions were answered, and they agreed to proceed. The ipsilateral femoral artery was palpated and marked. Using sterile technique, a 20 mL solution was prepared consisting of 10 mL of a 1:100 dilution of Optimark gadolinium contrast in sterile saline, 5 mL 1% lidocaine, and 5 mL Conray- 43. 2 mL subcutaneous 1% lidocaine was administered for local anesthesia. Using fluoroscopic guidance, a 22-gauge spinal needle was introduced into the right hip joint from an anterior approach. 9 mL was instilled under fluoroscopic observation. The needle was removed. There were no complications of the injection. Dr. Arias, the attending radiologist, was present throughout the procedure. Fluoroscopic images show contrast filling the right hip joint. A right hip MRI was then performed. This examination is dictated under a separate report. IMPRESSION: ?? Successful right hip injection for MR arthrogram. Requested By: FREDDY AMAYA ??M.D. Dictated By: ?? JENN ARIAS M.D. ??on July ??2013 ??4:36P This document has been electronically signed by: JENN ARIAS M.D. on July ??2013 ??4:36P Procedure Note Provider, MD Caren - 07/09/2016 JENN ARIAS M.D. FINAL REPORT ACC# Date Time Exam [id number] July 21, 2013 15:42:00 [id number] Asp/Inj Large Joint R [id number] July 21, 2013 15:42:00 19454 Fluoro Guide [employer] EXAMINATION: EXAMINATIONS: 1. Right hip injection. 2. Fluoroscopic guidance for needle placement. HISTORY: Right hip pain. Intra-articular injection of gadolinium contrast is requested prior to right hip MRI. FINDINGS: Comparison is made to radiographs dated 07/20/2013 The procedure was explained to the patient, his and his mother's questions were answered, and they agreed to proceed. The ipsilateral femoral artery was palpated and marked. Using sterile technique, a 20 mL solution was prepared consisting of 10 mL of a 1:100 dilution of Optimark gadolinium contrast in sterile saline, 5 mL 1% lidocaine, and 5 mL Conray- 43. 2 mL subcutaneous 1% lidocaine was administered for local anesthesia. Using fluoroscopic guidance, a 22-gauge spinal needle was introduced into the right hip joint from an anterior approach. 9 mL was instilled under fluoroscopic observation. The needle was removed. There were no complications of the injection. Dr. Arias, the attending radiologist, was present throughout the procedure. Fluoroscopic images show contrast filling the right hip joint. A right hip MRI was then performed. This examination is dictated under a separate report. IMPRESSION: Successful right hip injection for MR arthrogram. Requested By: FREDDY AMAYA M.D. Dictated By: JENN ARIAS M.D. on Jul 21 2013 4:36P This document has been electronically signed by: JENN ARIAS M.D. on Jul 21 2013 4:36P Historical Provider MD MEJIA FLUOROSCOPY PROCEDURE S Final Result * FLUORO GUIDED NEEDLE PLACEMENT (07/21/2013 3:42 PM CDT) Anatomical Region Laterality Modality Body N/A Radiographic Leydi ging 07/21/2013 3:42 PM CDT Narrative 07/21/2013 4:36 PM CDT JENN ARIAS M.D. FINAL REPORT ACC# ??Date Time ??Exam [id number] July 21, 2013 15:42:00 [id number] Asp/Inj Large Joint R [id number] July 21, 2013 15:42:00 [id number] Fluoro Guide [employer] EXAMINATION: ??EXAMINATIONS: 1. Right hip injection. 2. Fluoroscopic guidance for needle placement. HISTORY: Right hip pain. Intra-articular injection of gadolinium contrast is requested prior to right hip MRI. FINDINGS: Comparison is made to radiographs dated 07/20/2013 The procedure was explained to the patient, his and his mother's questions were answered, and they agreed to proceed. The ipsilateral femoral artery was palpated and marked. Using sterile technique, a 20 mL solution was prepared consisting of 10 mL of a 1:100 dilution of Optimark gadolinium contrast in sterile saline, 5 mL 1% lidocaine, and 5 mL Conray- 43. 2 mL subcutaneous 1% lidocaine was administered for local anesthesia. Using fluoroscopic guidance, a 22-gauge spinal needle was introduced into the right hip joint from an anterior approach. 9 mL was instilled under fluoroscopic observation. The needle was removed. There were no complications of the injection. Dr. Arias, the attending radiologist, was present throughout the procedure. Fluoroscopic images show contrast filling the right hip joint. A right hip MRI was then performed. This examination is dictated under a separate report. IMPRESSION: ?? Successful right hip injection for MR arthrogram. Requested By: FREDDY AMAYA ??Todd Dictated By: ?? JENN ARIAS M.D. ??on July ??2013 ??4:36P This document has been electronically signed by: JENN ARIAS M.D. on July ??2013 ??4:36P Procedure Note Provider, MD Caren - 07/09/2016 JENN MIKE, M.D. FINAL REPORT ACC# Date Time Exam [id number] July 21, 2013 15:42:00 [id number] Asp/Inj Large Joint R [id number] July 21, 2013 15:42:00 [id number] Fluoro Guide Ndl [facility] EXAMINATION: EXAMINATIONS: 1. Right hip injection. 2. Fluoroscopic guidance for needle placement. HISTORY: Right hip pain. Intra-articular injection of gadolinium contrast is requested prior to right hip MRI. FINDINGS: Comparison is made to radiographs dated 07/20/2013 The procedure was explained to the patient, his and his mother's questions were answered, and they agreed to proceed. The ipsilateral femoral artery was palpated and marked. Using sterile technique, a 20 mL solution was prepared consisting of 10 mL of a 1:100 dilution of Optimark gadolinium contrast in sterile saline, 5 mL 1% lidocaine, and 5 mL Conray- 43. 2 mL subcutaneous 1% lidocaine was administered for local anesthesia. Using fluoroscopic guidance, a 22-gauge spinal needle was introduced into the right hip joint from an anterior approach. 9 mL was instilled under fluoroscopic observation. The needle was removed. There were no complications of the injection. Dr. Arias, the attending radiologist, was present throughout the procedure. Fluoroscopic images show contrast filling the right hip joint. A right hip MRI was then performed. This examination is dictated under a separate report. IMPRESSION: Successful right hip injection for MR arthrogram. Requested By: FREDDY AMAYA M.D. Dictated By: JENN ARIAS M.D. on Jul 21 2013 4:36P This document has been electronically signed by: JENN ARIAS M.D. on Jul 21 2013 4:36P us Historical Provider MD MEJIA FLUOROSCOPY PROCEDURE S Final Result documented in this encounter Visit Diagnoses Diagnosis Pain in joint, pelvic region and thigh Sprain and strain of other specified sites of hip and thigh documented in this encounter
--- OUTSIDE RECORDS SUMMARY | 2024-03-08 04:03 | XMS_ITS | Encounter Summary ---
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 Gender Identity Not on file Sexual Orientation Not on file documented as of this encounter Plan of Treatment Not on file documented as of this encounter Procedures Procedure Name Priority Date/Time Associated Diagnosis Comments HIP MAGNETIC RESONANCE (MR) IMAGING WITH CONTRAST Routine 11/10/2015 10:17 AM CDT XR INJECT HIP ARTHRO ONLY Routine 11/10/2015 9:00 AM CDT FLUORO GUIDED NEEDLE PLACEMENT Routine 11/10/2015 9:00 AM CDT documented in this encounter Results * HIP MAGNETIC RESONANCE (MR) IMAGING WITH CONTRAST (11/10/2015 10:17 AM CDT) Anatomical Region Laterality Modality N/A Magnetic Resonan ce 11/10/2015 10:1 7 AM CDT Narrative 11/10/2015 11:50 AM CDT TORY AGUIRRE, FINAL REPORT ACC# ??Date Time ??Exam [id number] Nov 10, 2015 09:00:00 [id number] FLUORO GUIDE FOR NDLE [facility] [id number] Nov 10, 2015 09:00:00 [id number] INJECTION HIP ARTHROGRAM R [id number] Nov 10, 2015 10:17:00 [id number] MRI HIP W R EXAMINATION: ?? 1. Fluoroscopic guidance for right hip joint needle placement. 2. Right hip joint injection. 3. MRI right hip with contrast. HISTORY: 20-year-old male with healed right Legg-Perthes disease, status post right acetabular labral repair and periacetabular osteotomy in 2013. Recurrent right hip pain. TECHNIQUE: The risks, benefits, and alternatives of right hip arthrography were explained to the patient and written informed consent was obtained from the patient. Risks discussed included pain, paresthesias, infection, and/or bleeding at the puncture site. A time-out procedure was then performed. The skin over the right hip was prepped and draped in the usual sterile fashion. 1% lidocaine was administered for local analgesia. Using fluoroscopic guidance with sterile technique, 12 cc of a 20 cc mixture of 1:200 dilute gadolinium contrast (10 cc of 1:100 Dotarem:normal saline, 8 cc of Omnipaque-180, and 2 cc of 1% lidocaine) were injected into the right hip joint from an anterior approach. Following this, a multisequence multiplanar MR examination of the right hip was performed. Metal artifact suppression techniques were utilized. COMPARISON: Right hip MR arthrogram dated 07/21/2013 (pre-operative) and outside right hip and pelvis radiographs dated 09/07/2015 and 07/02/2013. The most recent radiographs demonstrate symmetric cartilage thickness in the hip joints and good coverage of the right femoral head. FINDINGS: Bones: There has been interval right periacetabular osteotomy with susceptibility artifact from four screws noted in the iliac bone and scarring in the overlying soft tissues. The superior acetabulum is anteverted. The subspine region is difficult to evaluate given the artifact, but the outside radiographs demonstrate no substantial bony spur. Redemonstrated is mild right coxa breva, coxa magna, and coxa plana with asphericity of the femoral head, consistent with healed Legg-Perthes disease. Normal marrow signal. Femoral anteversion measures 32 degrees. Joint: Right hip joint alignment is maintained. The anterior joint capsule is thickened consistent with interval arthrotomy. Intact articular cartilage. No intra-articular body. Normal left hip joint and sacroiliac joints. Labrum: Interval repair of the previously reported detached anterosuperior tear. No evidence of a re-tear or new tear. Ligaments: Ligamentum teres is thickened, but intact. Tendons: Postsurgical thickening of the right rectus femoris tendon (direct and indirect heads). Otherwise normal. Muscles and soft tissues: Iatrogenic decompression of contrast material into the iliopsoas bursa. Otherwise normal muscle signal and bulk. Normal visualized visceral pelvis, including the sciatic nerves. IMPRESSION: ?? 1. Interval right acetabular labral repair with no evidence of a re-tear or new tear. 2. Healed right Legg-Perthes disease with redemonstration of mild coxa breva, coxa magna, and coxa plana. No evidence of cartilage loss in the right hip joint. 3. Postsurgical changes from interval right periacetabular osteotomy. Requested By: Dictated By: ?? TORY AGUIRRE, ?? on Nov 10 2015 11:50A This document has been electronically signed by: TORY AGUIRRE, ??on Nov 10 2015 11:50A [id number] Procedure Note Provider, MD Caren - 07/09/2016 TORY AGUIRRE, FINAL REPORT ACC# Date Time Exam [id number] Nov 10, 2015 09:00:00 [id number] FLUORO GUIDE FOR NDLE PL[facility] [id number] Nov 10, 2015 09:00:00 [id number] INJECTION HIP ARTHROGRAM R [id number] Nov 10, 2015 10:17:00 [id number] MRI HIP W R EXAMINATION: 1. Fluoroscopic guidance for right hip joint needle placement. 2. Right hip joint injection. 3. MRI right hip with contrast. HISTORY: 20-year-old male with healed right Legg-Perthes disease, status post right acetabular labral repair and periacetabular osteotomy in 2013. Recurrent right hip pain. TECHNIQUE: The risks, benefits, and alternatives of right hip arthrography were explained to the patient and written informed consent was obtained from the patient. Risks discussed included pain, paresthesias, infection, and/or bleeding at the puncture site. A time-out procedure was then performed. The skin over the right hip was prepped and draped in the usual sterile fashion. 1% lidocaine was administered for local analgesia. Using fluoroscopic guidance with sterile technique, 12 cc of a 20 cc mixture of 1:200 dilute gadolinium contrast (10 cc of 1:100 Dotarem:normal saline, 8 cc of Omnipaque-180, and 2 cc of 1% lidocaine) were injected into the right hip joint from an anterior approach. Following this, a multisequence multiplanar MR examination of the right hip was performed. Metal artifact suppression techniques were utilized. COMPARISON: Right hip MR arthrogram dated 07/21/2013 (pre-operative) and outside right hip and pelvis radiographs dated 09/07/2015 and 07/02/2013. The most recent radiographs demonstrate symmetric cartilage thickness in the hip joints and good coverage of the right femoral head. FINDINGS: Bones: There has been interval right periacetabular osteotomy with susceptibility artifact from four screws noted in the iliac bone and scarring in the overlying soft tissues. The superior acetabulum is anteverted. The subspine region is difficult to evaluate given the artifact, but the outside radiographs demonstrate no substantial bony spur. Redemonstrated is mild right coxa breva, coxa magna, and coxa plana with asphericity of the femoral head, consistent with healed Legg-Perthes disease. Normal marrow signal. Femoral anteversion measures 32 degrees. Joint: Right hip joint alignment is maintained. The anterior joint capsule is thickened consistent with interval arthrotomy. Intact articular cartilage. No intra-articular body. Normal left hip joint and sacroiliac joints. Labrum: Interval repair of the previously reported detached anterosuperior tear. No evidence of a re-tear or new tear. Ligaments: Ligamentum teres is thickened, but intact. Tendons: Postsurgical thickening of the right rectus femoris tendon (direct and indirect heads). Otherwise normal. Muscles and soft tissues: Iatrogenic decompression of contrast material into the iliopsoas bursa. Otherwise normal muscle signal and bulk. Normal visualized visceral pelvis, including the sciatic nerves. IMPRESSION: 1. Interval right acetabular labral repair with no evidence of a re-tear or new tear. 2. Healed right Legg-Perthes disease with redemonstration of mild coxa breva, coxa magna, and coxa plana. No evidence of cartilage loss in the right hip joint. 3. Postsurgical changes from interval right periacetabular osteotomy. Requested By: Dictated By: TORY AGUIRRE on Nov 10 2015 11:50A This document has been electronically signed by: TORY AGUIRRE on Nov 10 2015 11:50A [id number] us Historical Provider MD MEJIA MRI PROCEDURES Final Result * FLUORO GUIDED NEEDLE PLACEMENT (11/10/2015 9:00 AM CDT) Anatomical Region Laterality Modality Body N/A Radiographic Leydi ging 11/10/2015 9:00 AM CDT Narrative 11/10/2015 11:50 AM CDT TORY AGUIRRE, FINAL REPORT ACC# ??Date Time ??Exam [id number] Nov 10, 2015 09:00:00 [id number] FLUORO GUIDE FOR NDLE PLCM [id number] Nov 10, 2015 09:00:00 [id number] INJECTION HIP ARTHROGRAM R [id number] Nov 10, 2015 10:17:00 [id number] MRI HIP W R EXAMINATION: ?? 1. Fluoroscopic guidance for right hip joint needle placement. 2. Right hip joint injection. 3. MRI right hip with contrast. HISTORY: 20-year-old male with healed right Legg-Perthes disease, status post right acetabular labral repair and periacetabular osteotomy in 2013. Recurrent right hip pain. TECHNIQUE: The risks, benefits, and alternatives of right hip arthrography were explained to the patient and written informed consent was obtained from the patient. Risks discussed included pain, paresthesias, infection, and/or bleeding at the puncture site. A time-out procedure was then performed. The skin over the right hip was prepped and draped in the usual sterile fashion. 1% lidocaine was administered for local analgesia. Using fluoroscopic guidance with sterile technique, 12 cc of a 20 cc mixture of 1:200 dilute gadolinium contrast (10 cc of 1:100 Dotarem:normal saline, 8 cc of Omnipaque-180, and 2 cc of 1% lidocaine) were injected into the right hip joint from an anterior approach. Following this, a multisequence multiplanar MR examination of the right hip was performed. Metal artifact suppression techniques were utilized. COMPARISON: Right hip MR arthrogram dated 07/21/2013 (pre-operative) and outside right hip and pelvis radiographs dated 09/07/2015 and 07/02/2013. The most recent radiographs demonstrate symmetric cartilage thickness in the hip joints and good coverage of the right femoral head. FINDINGS: Bones: There has been interval right periacetabular osteotomy with susceptibility artifact from four screws noted in the iliac bone and scarring in the overlying soft tissues. The superior acetabulum is anteverted. The subspine region is difficult to evaluate given the artifact, but the outside radiographs demonstrate no substantial bony spur. Redemonstrated is mild right coxa breva, coxa magna, and coxa plana with asphericity of the femoral head, consistent with healed Legg-Perthes disease. Normal marrow signal. Femoral anteversion measures 32 degrees. Joint: Right hip joint alignment is maintained. The anterior joint capsule is thickened consistent with interval arthrotomy. Intact articular cartilage. No intra-articular body. Normal left hip joint and sacroiliac joints. Labrum: Interval repair of the previously reported detached anterosuperior tear. No evidence of a re-tear or new tear. Ligaments: Ligamentum teres is thickened, but intact. Tendons: Postsurgical thickening of the right rectus femoris tendon (direct and indirect heads). Otherwise normal. Muscles and soft tissues: Iatrogenic decompression of contrast material into the iliopsoas bursa. Otherwise normal muscle signal and bulk. Normal visualized visceral pelvis, including the sciatic nerves. IMPRESSION: ?? 1. Interval right acetabular labral repair with no evidence of a re-tear or new tear. 2. Healed right Legg-Perthes disease with redemonstration of mild coxa breva, coxa magna, and coxa plana. No evidence of cartilage loss in the right hip joint. 3. Postsurgical changes from interval right periacetabular osteotomy. Requested By: Dictated By: ?? TORY AGUIRRE, ?? on Nov 10 2015 11:50A This document has been electronically signed by: TORY AGUIRRE, ??on Nov 10 2015 11:50A Procedure Note Provider, MD Caren - 07/09/2016 TORY AGUIRRE, FINAL REPORT ACC# Date Time Exam [id number] Nov 10, 2015 09:00:00 [id number] FLUORO GUIDE FOR NDLE PLCM [id number] Nov 10, 2015 09:00:00 [id number] INJECTION HIP ARTHROGRAM R [id number] Nov 10, 2015 10:17:00 [id number] MRI HIP W R EXAMINATION: 1. Fluoroscopic guidance for right hip joint needle placement. 2. Right hip joint injection. 3. MRI right hip with contrast. HISTORY: 20-year-old male with healed right Legg-Perthes disease, status post right acetabular labral repair and periacetabular osteotomy in 2013. Recurrent right hip pain. TECHNIQUE: The risks, benefits, and alternatives of right hip arthrography were explained to the patient and written informed consent was obtained from the patient. Risks discussed included pain, paresthesias, infection, and/or bleeding at the puncture site. A time-out procedure was then performed. The skin over the right hip was prepped and draped in the usual sterile fashion. 1% lidocaine was administered for local analgesia. Using fluoroscopic guidance with sterile technique, 12 cc of a 20 cc mixture of 1:200 dilute gadolinium contrast (10 cc of 1:100 Dotarem:normal saline, 8 cc of Omnipaque-180, and 2 cc of 1% lidocaine) were injected into the right hip joint from an anterior approach. Following this, a multisequence multiplanar MR examination of the right hip was performed. Metal artifact suppression techniques were utilized. COMPARISON: Right hip MR arthrogram dated 07/21/2013 (pre-operative) and outside right hip and pelvis radiographs dated 09/07/2015 and 07/02/2013. The most recent radiographs demonstrate symmetric cartilage thickness in the hip joints and good coverage of the right femoral head. FINDINGS: Bones: There has been interval right periacetabular osteotomy with susceptibility artifact from four screws noted in the iliac bone and scarring in the overlying soft tissues. The superior acetabulum is anteverted. The subspine region is difficult to evaluate given the artifact, but the outside radiographs demonstrate no substantial bony spur. Redemonstrated is mild right coxa breva, coxa magna, and coxa plana with asphericity of the femoral head, consistent with healed Legg-Perthes disease. Normal marrow signal. Femoral anteversion measures 32 degrees. Joint: Right hip joint alignment is maintained. The anterior joint capsule is thickened consistent with interval arthrotomy. Intact articular cartilage. No intra-articular body. Normal left hip joint and sacroiliac joints. Labrum: Interval repair of the previously reported detached anterosuperior tear. No evidence of a re-tear or new tear. Ligaments: Ligamentum teres is thickened, but intact. Tendons: Postsurgical thickening of the right rectus femoris tendon (direct and indirect heads). Otherwise normal. Muscles and soft tissues: Iatrogenic decompression of contrast material into the iliopsoas bursa. Otherwise normal muscle signal and bulk. Normal visualized visceral pelvis, including the sciatic nerves. IMPRESSION: 1. Interval right acetabular labral repair with no evidence of a re-tear or new tear. 2. Healed right Legg-Perthes disease with redemonstration of mild coxa breva, coxa magna, and coxa plana. No evidence of cartilage loss in the right hip joint. 3. Postsurgical changes from interval right periacetabular osteotomy. Requested By: Dictated By: TORY AGUIRRE on Nov 10 2015 11:50A This document has been electronically signed by: TORY AGUIRRE on Nov 10 2015 11:50A us Historical Provider MD MEJIA FLUOROSCOPY PROCEDURE S Final Result * XR Inject Hip Arthro Only (11/10/2015 9:00 AM CDT) Anatomical Region Laterality Modality Hip N/A Radiographic Leydi ging 11/10/2015 9:00 AM CDT Narrative 11/10/2015 11:50 AM CDT TORY AGUIRRE, FINAL REPORT ACC# ??Date Time ??Exam [id number] Nov 10, 2015 09:00:00 [id number] FLUORO GUIDE FOR NDLE PLCM [id number] Nov 10, 2015 09:00:00 [id number] INJECTION HIP ARTHROGRAM R [id number] Nov 10, 2015 10:17:00 [id number] MRI HIP W R EXAMINATION: ?? 1. Fluoroscopic guidance for right hip joint needle placement. 2. Right hip joint injection. 3. MRI right hip with contrast. HISTORY: 20-year-old male with healed right Legg-Perthes disease, status post right acetabular labral repair and periacetabular osteotomy in 2013. Recurrent right hip pain. TECHNIQUE: The risks, benefits, and alternatives of right hip arthrography were explained to the patient and written informed consent was obtained from the patient. Risks discussed included pain, paresthesias, infection, and/or bleeding at the puncture site. A time-out procedure was then performed. The skin over the right hip was prepped and draped in the usual sterile fashion. 1% lidocaine was administered for local analgesia. Using fluoroscopic guidance with sterile technique, 12 cc of a 20 cc mixture of 1:200 dilute gadolinium contrast (10 cc of 1:100 Dotarem:normal saline, 8 cc of Omnipaque-180, and 2 cc of 1% lidocaine) were injected into the right hip joint from an anterior approach. Following this, a multisequence multiplanar MR examination of the right hip was performed. Metal artifact suppression techniques were utilized. COMPARISON: Right hip MR arthrogram dated 07/21/2013 (pre-operative) and outside right hip and pelvis radiographs dated 09/07/2015 and 07/02/2013. The most recent radiographs demonstrate symmetric cartilage thickness in the hip joints and good coverage of the right femoral head. FINDINGS: Bones: There has been interval right periacetabular osteotomy with susceptibility artifact from four screws noted in the iliac bone and scarring in the overlying soft tissues. The superior acetabulum is anteverted. The subspine region is difficult to evaluate given the artifact, but the outside radiographs demonstrate no substantial bony spur. Redemonstrated is mild right coxa breva, coxa magna, and coxa plana with asphericity of the femoral head, consistent with healed Legg-Perthes disease. Normal marrow signal. Femoral anteversion measures 32 degrees. Joint: Right hip joint alignment is maintained. The anterior joint capsule is thickened consistent with interval arthrotomy. Intact articular cartilage. No intra-articular body. Normal left hip joint and sacroiliac joints. Labrum: Interval repair of the previously reported detached anterosuperior tear. No evidence of a re-tear or new tear. Ligaments: Ligamentum teres is thickened, but intact. Tendons: Postsurgical thickening of the right rectus femoris tendon (direct and indirect heads). Otherwise normal. Muscles and soft tissues: Iatrogenic decompression of contrast material into the iliopsoas bursa. Otherwise normal muscle signal and bulk. Normal visualized visceral pelvis, including the sciatic nerves. IMPRESSION: ?? 1. Interval right acetabular labral repair with no evidence of a re-tear or new tear. 2. Healed right Legg-Perthes disease with redemonstration of mild coxa breva, coxa magna, and coxa plana. No evidence of cartilage loss in the right hip joint. 3. Postsurgical changes from interval right periacetabular osteotomy. Requested By: Dictated By: ?? TORY AGUIRRE, ?? on Nov 10 2015 11:50A This document has been electronically signed by: TORY AGUIRRE, ??on Nov 10 2015 11:50A Procedure Note Provider, MD Caren - 07/09/2016 TORY AGUIRRE, FINAL REPORT ACC# Date Time Exam [id number] Nov 10, 2015 09:00:00 [id number] FLUORO GUIDE FOR NDLE PLCM [id number] Nov 10, 2015 09:00:00 [id number] INJECTION HIP ARTHROGRAM R [id number] Nov 10, 2015 10:17:00 [id number] MRI HIP W R EXAMINATION: 1. Fluoroscopic guidance for right hip joint needle placement. 2. Right hip joint injection. 3. MRI right hip with contrast. HISTORY: 20-year-old male with healed right Legg-Perthes disease, status post right acetabular labral repair and periacetabular osteotomy in 2013. Recurrent right hip pain. TECHNIQUE: The risks, benefits, and alternatives of right hip arthrography were explained to the patient and written informed consent was obtained from the patient. Risks discussed included pain, paresthesias, infection, and/or bleeding at the puncture site. A time-out procedure was then performed. The skin over the right hip was prepped and draped in the usual sterile fashion. 1% lidocaine was administered for local analgesia. Using fluoroscopic guidance with sterile technique, 12 cc of a 20 cc mixture of 1:200 dilute gadolinium contrast (10 cc of 1:100 Dotarem:normal saline, 8 cc of Omnipaque-180, and 2 cc of 1% lidocaine) were injected into the right hip joint from an anterior approach. Following this, a multisequence multiplanar MR examination of the right hip was performed. Metal artifact suppression techniques were utilized. COMPARISON: Right hip MR arthrogram dated 07/21/2013 (pre-operative) and outside right hip and pelvis radiographs dated 09/07/2015 and 07/02/2013. The most recent radiographs demonstrate symmetric cartilage thickness in the hip joints and good coverage of the right femoral head. FINDINGS: Bones: There has been interval right periacetabular osteotomy with susceptibility artifact from four screws noted in the iliac bone and scarring in the overlying soft tissues. The superior acetabulum is anteverted. The subspine region is difficult to evaluate given the artifact, but the outside radiographs demonstrate no substantial bony spur. Redemonstrated is mild right coxa breva, coxa magna, and coxa plana with asphericity of the femoral head, consistent with healed Legg-Perthes disease. Normal marrow signal. Femoral anteversion measures 32 degrees. Joint: Right hip joint alignment is maintained. The anterior joint capsule is thickened consistent with interval arthrotomy. Intact articular cartilage. No intra-articular body. Normal left hip joint and sacroiliac joints. Labrum: Interval repair of the previously reported detached anterosuperior tear. No evidence of a re-tear or new tear. Ligaments: Ligamentum teres is thickened, but intact. Tendons: Postsurgical thickening of the right rectus femoris tendon (direct and indirect heads). Otherwise normal. Muscles and soft tissues: Iatrogenic decompression of contrast material into the iliopsoas bursa. Otherwise normal muscle signal and bulk. Normal visualized visceral pelvis, including the sciatic nerves. IMPRESSION: 1. Interval right acetabular labral repair with no evidence of a re-tear or new tear. 2. Healed right Legg-Perthes disease with redemonstration of mild coxa breva, coxa magna, and coxa plana. No evidence of cartilage loss in the right hip joint. 3. Postsurgical changes from interval right periacetabular osteotomy. Requested By: Dictated By: TORY AGUIRRE on Nov 10 2015 11:50A This document has been electronically signed by: TORY AGUIRRE on Nov 10 2015 11:50A us Historical Provider MD MEJIA XR PROCEDURES Final R esult documented in this encounter Visit Diagnoses Diagnosis Pain in right hip documented in this encounter
--- OUTSIDE RECORDS SUMMARY | 2024-03-08 04:03 | XMS_ITS | Encounter Summary ---
Author Organization 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 Gender Identity Not on file Sexual Orientation Not on file documented as of this encounter Plan of Treatment Not on file documented as of this encounter Procedures Procedure Name Priority Date/Time Associated Diagnosis Comments OUTSIDE GENERAL DIAG REFERENCE Routine 07/20/2013 10:56 AM CDT CLINICAL IMAGE Routine 07/02/2013 12:32 PM CDT documented in this encounter Results * OUTSIDE GENERAL DIAG REFERENCE (07/20/2013 10:56 AM CDT) Anatomical Region Laterality Modality N/A Radiographic Leydi ging 07/20/2013 10:5 6 AM CDT Narrative 07/20/2013 12:37 PM CDT OUTSIDE IMAGES SURGICAL APPLIANCES SALESPERSON, FINAL REPORT ACC# ??Date Time ??Exam [id number] July 20, 2013 10:56:00 REFERENCE STUDY-[facility] EXAMINATION: ?Images For Reference Purposes Only IMPRESSION: ?These images have been uploaded for Reference purposes only. ??There will be no separate report generated by a [facility] Radiologist. Requested By: FREDDY JULIO ??M.D. Dictated By: ?? OUTSIDE IMAGES SURGICAL APPLIANCES SALESPERSON, ?? on July ??2013 12:37P This document has been electronically signed by: OUTSIDE IMAGES SURGICAL APPLIANCES SALESPERSON, ??on July ??2013 12:37P Procedure Note Provider, Caren, - 07/09/2016 OUTSIDE IMAGES SURGICAL APPLIANCES SALESPERSON, FINAL REPORT ACC# Date Time Exam [id number] July 20, 2013 10:56:00 REFERENCE STUDY-[facility] EXAMINATION: Images For Reference Purposes Only IMPRESSION: These images have been uploaded for Reference purposes only. There will be no separate report generated by a [facility] Radiologist. Requested By: FREDDY JULIO M.D. Dictated By: OUTSIDE IMAGES SURGICAL APPLIANCES SALESPERSON, on Jul 20 2013 12:37P This document has been electronically signed by: OUTSIDE IMAGES SURGICAL APPLIANCES SALESPERSON, on Jul 20 2013 12:37P us Historical Provider IMG XR PROCEDURES Final R esult * Clinical Image (07/02/2013 12:32 PM CDT) 07/02/2013 12:3 2 PM CDT us Historical Provider NURSING COMMUNICATION Fin al Result HISTORICAL RESULTS documented in this encounter Visit Diagnoses Not on filedocumented in this encounter
--- OUTSIDE RECORDS SUMMARY | 2024-03-08 04:03 | XMS_ITS | Encounter Summary ---
Author Organization [facility] Facility Care Team Providers Care Ambulance Driver Name Role Phone Unavailable Primary Care Provider Unavailabl e Encounter Details Date Type Department Care Team (Late st Contact Info) Description 07/21/2013 11:22 AM CDT - 07/21/2013 11:59 PM CDT Hospital Encounter [facility] CLINCONV Mohinder Julio MD [address] [address] Juvenile osteochondrosis of hip and pelvis Social History Tobacco Use Types Packs/Day Years Used Date Smoking Tobacco: Never Assessed Sex and Gender Information Value Date Recorded Sex Assigned at Not on file 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 MIR DEAN M.D. FINAL REPORT The radiology attending physician has personally reviewed this study, and has reviewed and/or edited this written report and agrees with it. ACC# ??Date Time ??Exam [id number] July 21, 2013 11:58:[id number] LOWER EXTREMITY W/O CON R [id number] July 21, 2013 11:58:00 [id number] 3D RENDERING BY [employer]* ACC# ??Date Time ??Exam [id number] July 21, 2013 11:58:[id number] LOWER EXTREMITY W/O CON R [id number] July 21, 2013 11:58:00 [id number] 3D RENDERING BY [employer]* EXAMINATION: ?CT study of right hip without contrast with 3-D rendering. HISTORY: ??Legg-Perthes disease involving the right hip, concern for impingement. TECHNIQUE: CT study of right hip was performed without intravenous contrast according to standard protocol. 3-D reconstruction was performed by the technologist. FINDINGS: ?? Comparison is made to prior radiograph dated 07/02/2013. There is decreased height of right femoral head. The physis is essentially closed. The head neck offset appears normal. The lateral coverage of the right femoral head is normal. No evidence of joint effusion or erosions. The remainder of the visualized bones appear unremarkable. The visualized soft tissues appear normal. ?? IMPRESSION: ?? Slightly decreased height of right femoral head compatible with healed Legg-Perthes disease. Otherwise normal examination. ?? Requested By: Mohinder Julio ??M.DIris Dictated By: ?? MIR DEAN M.D. ??on July ??2013 ??1:29P This document has been electronically signed by: YADIEL CHEEMA M.D. on July ??2013 ??3:08P Procedure Note Provider, MD Caren - 07/09/2016 YADIEL CHEEMA M.D. MIR DEAN M.D. FINAL REPORT The radiology attending physician has personally reviewed this study, and has reviewed and/or edited this written report and agrees with it. ACC# Date Time Exam [id number] July 21, 2013 11:58:[id number] LOWER EXTREMITY W/O CON R [id number] July 21, 2013 11:58:00 [id number] 3D RENDERING BY TECH*BODY* ACC# Date Time Exam [id number] July 21, 2013 11:58:[id number] LOWER EXTREMITY W/O CON R [id number] July 21, 2013 11:58:00 [id number] 3D RENDERING BY TECH*BODY* EXAMINATION: CT study of right hip without contrast with 3-Drendering. HISTORY: Legg-Perthes disease involving the right hip, concern for impingement. TECHNIQUE: CT study of right hip was performed without intravenous contrast according to standard protocol. 3-D reconstruction was performed by the technologist. FINDINGS: Comparison is made to prior radiograph dated 07/02/2013. There is decreased height of right femoral head. The physis is essentially closed. The head neck offset appears normal. The lateral coverage of the right femoral head is normal. No evidence of joint effusion or erosions. The remainder of the visualized bones appear unremarkable. The visualized soft tissues appear normal. IMPRESSION: Slightly decreased height of right femoral head compatible with healed Legg-Perthes disease. Otherwise normal examination. Requested By: Mohinder Julio M.D. Dictated By: MIR DEAN M.D. on Jul 21 2013 1:29P This document has been electronically signed by: YADIEL CHEEMA M.D. on Jul 21 2013 3:08P us Historical Provider MD MEJIA CT PROCEDURES Final R esult * 3-D Rendering on Modality (07/21/2013 11:58 AM CDT) Anatomical Region Laterality Modality N/A Magnetic Resonan ce 07/21/2013 11:5 8 AM CDT Narrative 07/21/2013 3:08 PM CDT Todd LITTLE M.D. FINAL REPORT The radiology attending physician has personally reviewed this study, and has reviewed and/or edited this written report and agrees with it. ACC# ??Date Time ??Exam July 21, 2013 11:58:[id number] LOWER EXTREMITY W/O CON R [id number] July 21, 2013 11:58:00 [id number] 3D RENDERING BY TECH*BODY* ACC# ??Date Time ??Exam [id number] July 21, 2013 11:58:[id number] LOWER EXTREMITY W/O CON R [id number] July 21, 2013 11:58:00 [id number] 3D RENDERING BY TECH*BODY* EXAMINATION: ?CT study of right hip without contrast with 3-D rendering. HISTORY: ??Legg-Perthes disease involving the right hip, concern for impingement. TECHNIQUE: CT study of right hip was performed without intravenous contrast according to standard protocol. 3-D reconstruction was performed by the technologist. FINDINGS: ?? Comparison is made to prior radiograph dated 07/02/2013. There is decreased height of right femoral head. The physis is essentially closed. The head neck offset appears normal. The lateral coverage of the right femoral head is normal. No evidence of joint effusion or erosions. The remainder of the visualized bones appear unremarkable. The visualized soft tissues appear normal. ?? IMPRESSION: ?? Slightly decreased height of right femoral head compatible with healed Legg-Perthes disease. Otherwise normal examination. ?? Requested By: Mohinder Julio ??M.D. Dictated By: ?? MIR DEAN M.D. ??on July ??2013 ??1:29P This document has been electronically signed by: YADIEL CHEEMA M.D. on July ??2013 ??3:08P Procedure Note Provider, MD Caren - 07/09/2016 Todd LITTLE M.D. FINAL REPORT The radiology attending physician has personally reviewed this study, and has reviewed and/or edited this written report and agrees with it. ACC# Date Time Exam [id number] July 21, 2013 11:58:[id number] LOWER EXTREMITY W/O CON R [id number] July 21, 2013 11:58:00 [id number] 3D RENDERING BY TECH*BODY* ACC# Date Time Exam [id number] July 21, 2013 11:58:[id number] LOWER EXTREMITY W/O CON R [id number] July 21, 2013 11:58:00 [id number] 3D RENDERING BY TECH*BODY* EXAMINATION: CT study of right hip without contrast with 3-Drendering. HISTORY: Legg-Perthes disease involving the right hip, concern for impingement. TECHNIQUE: CT study of right hip was performed without intravenous contrast according to standard protocol. 3-D reconstruction was performed by the technologist. FINDINGS: Comparison is made to prior radiograph dated 07/02/2013. There is decreased height of right femoral head. The physis is essentially closed. The head neck offset appears normal. The lateral coverage of the right femoral head is normal. No evidence of joint effusion or erosions. The remainder of the visualized bones appear unremarkable. The visualized soft tissues appear normal. IMPRESSION: Slightly decreased height of right femoral head compatible with healed Legg-Perthes disease. Otherwise normal examination. Requested By: Mohinder Julio M.D. Dictated By: MIR DEAN M.D. on Jul 21 2013 1:29P This document has been electronically signed by: YADIEL CHEEMA M.D. on Jul 21 2013 3:08P Historical Provider MD MEJIA MRI PROCEDURES Final Result documented in this encounter Visit Diagnoses Diagnosis Juvenile osteochondrosis of hip and pelvis documented in this encounter
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
--- OUTSIDE RECORDS SUMMARY | 2024-03-08 04:03 | XMS_ITS | Encounter Summary ---
Author Organization [facility] Address [address] [place] [address] Care Team Providers Care Director Of Publications Name Role Phone No, Physician Primary Care Provider [phone] Reason for Referral * Diagnostic Imaging (Routine) - Closed Specialty Diagnoses / Procedures Referred By Contac t Referred To Contact Diagnoses Right hip pain Procedures XR Hip Right 4 or More Views Randolph Sullivan MD [address] [address] Phone: tel: fax: [place] [address] [place] [address] Referral ID Status Reason Start Date Expiration Date Visits Re quested Visits Authorized [id number] Closed 01/21/2020 02/19/2021 1 1 K REPAIRER HELPER Reason for Visit * Diagnostic Imaging (Routine) - Closed Specialty Diagnoses / Procedures Referred By Contac t Referred To Contact Diagnoses Right hip pain Procedures XR Hip Right 4 or More Views Randolph Sullivan MD [address] [address] Phone: tel: fax: [place] [address] [place] [address] Referral ID Status Reason Start Date Expiration Date Visits Re quested Visits Authorized [id number] Closed 01/21/2020 02/19/2021 1 1 Encounter Details Date Type Department Care Team (Latest Contact Info) Description 01/24/2020 7:56 AM TRACK REPAIRER HELPER - 01/24/2020 11:59 PM TRACK REPAIRER HELPER Hospital Encounter [id number] [address] [facility] [address] [place] [address] Randolph Sullivan MD [address] [place] [address] Right hip pain Discharge Disposition: Discharge to home or self care Social History Tobacco Use Types Packs/Day Years Used Date Smoking Tobacco: Never Smokeless Tobacco: Never Alcohol Use Standard Drinks/Week Comments Yes 0 (1 standard drink = 0.6 oz pur e alcohol) Social Sex and Gender Information Value Date Recorded Sex Assigned at Not on file Legal Sex Male 3:24 AM TRACK REPAIRER HELPER Gender Identity Not on file Sexual Orientation Not on file 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 Not on file Not on file documented as of this encounter Medications at Time of Discharge diclofenac DR (VOLTAREN) 75 mg EC tablet Take 1 tablet (75 mg total) by mouth 2 (two) times a day PRN pain 60 tablet 01/20/2020 08/21/2020 documented as of this encounter Discharge Disposition Disposition Code Departure Means Destination Discharge to home or self care documented in this encounter Plan of Treatment Not on file documented as of this encounter Procedures Procedure Name Priority Date/Time Associated Diagnosis Comments XR HIP RIGHT 4 OR MORE VIEWS Schedule Routine, Read Routine (OP Routine) 01/24/2020 8:14 AM TRACK REPAIRER HELPER Right hip pain documented in this encounter Results * XR Hip Right 4 or More Views (01/24/2020 8:14 AM TRACK REPAIRER HELPER) Anatomical Region Laterality Modality Lower Extremities, Hip, Pelvis Right C omputed Radiography 01/24/2020 8:17 AM TRACK REPAIRER HELPER Impressions 01/24/2020 8:17 AM TRACK REPAIRER HELPER 1. Healed right periacetabular rotational osteotomy with mild femoral head Perthes deformity and normal hip joint spaces. Electronically signed by: Chau Ornelas M.D. Narrative 01/24/2020 8:17 AM TRACK REPAIRER HELPER EXAMINATION: XR HIP RIGHT 4 OR MORE VIEWS HISTORY: Developmental hip dysplasia FINDINGS: 4 views of the right hip are compared with a study from 09/30/2019. There is a healed right periacetabular osteotomy with internal fixation of the iliac bone. There is mild Perthes deformity of the right femur and right labral repair. On the left, there is femoral head asphericity. The hip joint spaces are normal and symmetric.. Procedure Note Chau Ornelas MD - 01/24/2020 EXAMINATION: XR HIP RIGHT 4 OR MORE VIEWS HISTORY: Developmental hip dysplasia FINDINGS: 4 views of the right hip are compared with a study from 09/30/2019. There is a healed right periacetabular osteotomy with internal fixation of the iliac bone. There is mild Perthes deformity of the right femur and right labral repair. On the left, there is femoral head asphericity. The hip joint spaces are normal and symmetric.. IMPRESSION: 1. Healed right periacetabular rotational osteotomy with mild femoral head Perthes deformity and normal hip joint spaces. Electronically signed by: Chau Ornelas M.D. Randolph Sullivan MD IMG XR PROCEDURES Final Resul t documented in this encounter Visit Diagnoses Diagnosis Right hip pain Pain in joint, pelvic region and thigh documented in this encounter Care Teams Director Of Publications Relationship Specialty Start Date End Date No, Physician PCP - General 07/28/19 documented as of this encounter
--- OUTSIDE RECORDS SUMMARY | 2024-03-08 04:03 | XMS_ITS | Encounter Summary ---
Author Organization [facility] Address [address] [place] [address] Care Team Providers Care Detail Sergeant Name Role Phone No, Physician Primary Care Provider [phone] Reason for Referral * MRI/CAT/PET Scan (Routine) - Closed Specialty Diagnoses / Procedures Referred By Contac t Referred To Contact Radiology Diagnoses Follow-up examination following surgery Pain in right hip Procedures MRI Hip Arthrogram Right W Contrast Randolph Sullivan MD [address] [place] [address] Phone: tel: fax: [place] [address] [place] [address] Referral ID Status Reason Start Date Expiration Date Visits Re quested Visits Authorized [id number] Closed 08/11/2020 09/09/2020 1 1 Reason for Visit * MRI/CAT/PET Scan (Routine) - Closed Specialty Diagnoses / Procedures Referred By Contac t Referred To Contact Radiology Diagnoses Follow-up examination following surgery Pain in right hip Procedures MRI Hip Arthrogram Right W Contrast Randolph Sullivan MD [address] [place] [id number] Phone: tel: fax: [place] [address] [place] [address] Referral ID Status Reason Start Date Expiration Date Visits Re quested Visits Authorized [id number] Closed 08/11/2020 09/09/2020 1 1 Encounter Details Date Type Department Care Team (Latest Contact Info) Description 08/23/2020 9:19 AM CDT - 08/23/2020 11:59 PM CDT Hospital Encounter [facility] [address] [address] [address] Randolph Sullivan MD [address] [place] [address] Follow-up examination following surgery; Pain in right [...] on file 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 Randolph Sullivan MD [facility] MRI PROCEDURES Final Resu lt documented in this encounter Visit Diagnoses Diagnosis Follow-up examination following surgery Pain in right hip documented in this encounter Care Teams Detail Sergeant Relationship Specialty Start Date End Date No, Physician PCP - General 07/28/19 documented as of this encounter
--- OUTSIDE RECORDS SUMMARY | 2024-03-08 04:03 | XMS_ITS | Encounter Summary ---
Author Organization [facility] Address [address] [place] [address] Phone Care Team Providers Care Retort Unloader Name Role Phone No, Physician Primary Care Provider [phone] Encounter Details Date Type Department Care Team (Late st Contact Info) Description 04/11/2020 Orders Only [facility] PMR [phone] Scanning, Provider Social History Tobacco Use Types Packs/Day Years Used Date Smoking Tobacco: Never Smokeless Tobacco: Never Alcohol Use Standard Drinks/Week Comments Yes 0 (1 standard drink = 0.6 oz pur e alcohol) Social Sex and Gender Information Value Date Recorded Sex Assigned at Not on file Legal Sex Male 3:24 AM ARCHEOLOGY FACULTY MEMBER Gender Identity Not on file Sexual Orientation Not on file 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 Not on file Not on file documented as of this encounter Plan of Treatment Not on file documented as of this encounter Procedures Procedure Name Priority Date/Time Associated Diagnosis Comments SCAN - RADIOLOGY/IMAGING 04/11/2020 documented in this encounter Results * SCAN - RADIOLOGY/IMAGING (04/11/2020) Anatomical Region Laterality Modality Other us Provider Scanning Final Result documented in this encounter Visit Diagnoses Not on filedocumented in this encounter Additional Health Concerns Infection Onset Date Last Indicated Resolved Time COVID: Suspected 11/01/2020 11/01/2020 11/01/2020 5:33 PM CDT COVID19 11/01/2020 11/01/2020 11/15/2020 3:05 AM CDT documented as of this encounter Care Teams Retort Unloader Relationship Specialty Start Date End Date No, Physician PCP - General 07/28/19 documented as of this encounter
--- OUTSIDE RECORDS SUMMARY | 2024-03-08 04:03 | XMS_ITS | Encounter Summary ---
Author Organization [facility] Address [address] [place] [address] Care Team Providers Care Incident Handler Name Role Phone No, Physician Primary Care Provider [phone] Reason for Referral * Diagnostic Imaging (Routine) - Closed Specialty Diagnoses / Procedures Referred By Contac t Referred To Contact Diagnoses Bilateral hip pain Right hip pain Procedures FL Fluoro Guided Injection Hip Right Vannessa Bacon MD [address] [employer] [address] [place] [address] [place] [address] Phone: tel: fax: [address] [phone] Referral ID Status Reason Start Date Expiration Date Visits Re quested Visits Authorized [id number] Closed 09/30/2019 04/10/2021 1 1 Reason for Visit * Diagnostic Imaging (Routine) - Closed Specialty Diagnoses / Procedures Referred By Contac t Referred To Contact Diagnoses Bilateral hip pain Right hip pain Procedures FL Fluoro Guided Injection Hip Right Vannessa Bacon MD [address] [place] [address] Phone: tel: fax: [address] [phone] Referral ID Status Reason Start Date Expiration Date Visits Re quested Visits Authorized [id number] Closed 09/30/2019 04/10/2021 1 1 Encounter Details Date Type Department Care Team (Latest Contact Info) Description 11/04/2019 1:30 PM CDT - 11/04/2019 11:59 PM CDT Hospital Encounter [facility] [address] [place] [address] Vannessa Bacon MD [address] [place] [address] Right hip pain (Primary Dx); Bilateral hip pain Discharge Disposition: Discharge to home or self care Social History Tobacco Use Types Packs/Day Years Used Date Smoking Tobacco: Never Smokeless Tobacco: Never Alcohol Use Standard Drinks/Week Comments Yes 0 (1 standard drink = 0.6 oz pur e alcohol) Social Sex and Gender Information Value Date Recorded Sex Assigned at Not on file 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 Gender Identity Not on file Sexual Orientation Not on file documented as of this encounter Last Filed Vital Signs Vital Sign Reading Time Taken Comments Blood Pressure 146/86 11/04/2019 2:06 PM CDT Pulse 86 11/04/2019 2:06 PM CDT Temperature - - Respiratory Rate 20 11/04/2019 2:06 PM CDT Oxygen Saturation - - Inhaled Oxygen Concentration - - Weight - - Height - - Body Mass Index - - documented in this encounter Discharge Disposition Disposition Code Departure Means Destination Discharge to home or self care documented in this encounter Progress Notes * Vannessa Bacon MD - 11/04/2019 1:30 PM CDT Right Fluoroscopically-Guided Hip Joint Injection [facility] Department of Orthopedic Surgery Division of Physical Medicine and Rehabilitation Patient name: Delbert Humphreys Date of : 1995 Date of service: 11/04/2019 Delbert Humphreys presents to the fluoroscopy suite for a fluoroscopically guided right hip injection as part of conservative treatment for hip OA. After informed consent was obtained, the patient was positioned supine on the fluoroscopy table. The right intertrochanteric joint was located under fluoroscopic guidance. The area was prepped and draped in sterile fashion. Using a 25 gauge 2 inch needle, 1-2 mL of 1% lidocaine was infused subcutaneously to anesthetize the region. Then, a 25 gauge 3.5 inch spinal needle was advanced to periosteum under fluoroscopic guidance. Confirmation into the joint capsule was attained with the infusion of 0.5 mL of Omnipaque contrast which showed capsular flow. Then, a combination of 2 mL of 1% lidocaine , 40 mg Kenalog and 2 mL of 0.2% ropivacaine was infused. The patient tolerated the procedure without complications. Pre and post procedure blood pressures were stable. The patient was given verbal as well as written follow-up instructions. A pain diary with follow-up instructions was given to the patient. Prior to the start of the procedure, verbal verification by the procedure participant(s) confirmed (as applicable): correct patient identity; correct site/side marked and visible; agreement on the procedure to be done; correct patient positioning; an amLurate procedure consent form, relevant imagesand results correctly labeled and displayed; any safety precautions based on clinical history and/or medication use have been addressed. Fluoroscopic guidance was used to assist right hip joint injection. Confirmation of needle placement into the right hip joint was obtained by injecting approximately 0.5 mL of Omnipaque contrast. There was no evidence of vascular uptake noted. I personally performed or was present for the procedure above. Vannessa Bacon MD documented in this encounter Plan of Treatment Not on file documented as of this encounter Procedures Procedure Name Priority Date/Time Associated Diagnosis Comments FLUORO GUIDED INJECTION HIP RIGHT Schedule Routine, Read Routine (OP Routine) 11/04/2019 2:04 PM CDT Bilateral hip pain Right hip pain documented in this encounter Results * FL Fluoro Guided Injection Hip Right (11/04/2019 2:04 PM CDT) Narrative RAD_[facility] - 11/04/2019 2:05 PM CDT The images from this study are not interpreted by Radiology. ??Please refer to the physician's procedure / OR operative note. us Vannessa Bacon MD IMG FLUOROSCOPY PROCEDURES Final Result [facility] documented in this encounter Visit Diagnoses Diagnosis Right hip pain- Primary Pain in joint, pelvic region and thigh Bilateral hip pain Pain in joint, pelvic region and thigh documented in this encounter Administered Medications Inactive Administered Medications - up to 3 most recent administrations Medication Order MAR Action Action Date Dose Rate Site iohexoL (OMNIPAQUE) 300 mg iodine/mL injection solution Code/trauma/sedation medication, Starting on Anali 11/04/19 at 1403 Given 11/04/2019 2:03 PM CDT 5 mL ropivacaine (NAROPIN) 2 mg/mL (0.2 %) preservative free injection Code/trauma/sedation medication, Starting on Anali 11/04/19 at 1403 Given 11/04/2019 2:03 PM CDT 5 mL triamcinolone (KENALOG) 40 mg/mL injection Code/trauma/sedation medication, Starting on Anali 11/04/19 at 1403 Given 11/04/2019 2:03 PM CDT 40 mg documented in this encounter Care Teams Incident Handler Relationship Specialty Start Date End Date No, Physician PCP - General 07/28/19 documented as of this encounter
--- OUTSIDE RECORDS SUMMARY | 2024-03-08 04:03 | XMS_ITS | Encounter Summary ---
Author Organization [facility] Address [address] [place] [address] Phone Care Team Providers Care Non Destructive Testing Inspector Name Role Phone No, Physician Primary Care Provider [phone] Reason for Referral * Diagnostic Imaging (Routine) - Closed Specialty Diagnoses / Procedures Referred By Contac t Referred To Contact Diagnoses Right hip pain Procedures XR Hip Right 4 or More Views Randolph Sullivan MD [address] [address] Phone: tel: fax: [address] [phone] Referral ID Status Reason Start Date Expiration Date Visits Re quested Visits Authorized [id number] Closed 01/21/2020 02/19/2021 1 1 YTICAL RESEARCH PROGRAM MANAGER Reason for Visit * Reason Comments Pain Encounter Details Date Type Department Care Team (Late st Contact Info) Description 01/24/2020 8:10 AM ANALYTICAL RESEARCH PROGRAM MANAGER Office Visit [facility] Orthopaedic Surgery [address] [place] [address] Medical Office Building [address] [place] [id number] Randolph Sullivan MD [address] [address] Right hip pain (Primary Dx); Follow-up examination following surgery Social History Tobacco Use Types Packs/Day Years Used Date Smoking Tobacco: Never Smokeless Tobacco: Never Alcohol Use Standard Drinks/Week Comments Yes 0 (1 standard drink = 0.6 oz pur e alcohol) Social Sex and Gender Information Value Date Recorded Sex Assigned at Not on file Legal Sex Male 3:24 AM ANALYTICAL RESEARCH PROGRAM MANAGER Gender Identity Not on file Sexual Orientation Not on file 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 ESTABLISHED PATIENT VISIT INTERIM HISTORY: Delbert Humphreys presents today 6 years after right periacetabular osteotomy. He had done quite well after his RASHI until approximately 2 years ago when he began noticing some increased pain primarily with sitting at work. This has waxed and waned over time. It did worsen to the point that he sought care with Dr. Bacon. She has given him a trochanteric injection which provided no relief and then intra-articular steroid injection which provided less than 20% relief which was not durable. He has beengiven a prescription for diclofenac and 1 for physical therapy but has not completed his course of physical therapy yet and has not picked of the diclofenac. He currently takes Tylenol. 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 Mercedes Hip Score indicates: RIGHT Pain: slight LEFT Pain: moderate RIGHT Limp: slight LEFT Limp: none RIGHT [...] slight LEFT none Trendelenburg: RIGHT positive LEFT positive Leg Length Discrepancy: legs equal True Discrepancy: 0 (cm) Pulse intact: RIGHT Yes LEFT Yes Neurological Status Intact: RIGHT Yes LEFT Yes Deformity: RIGHT No deformity noted LEFT No deformity noted Skin status: RIGHT prev. Incision LEFT normal Abductor Strength: RIGHT 5/5 LEFT 5/5 Pain Location: RIGHT Anterior (groin) and Lateral LEFT Anterior (groin) Range of Motion: LEFT Start of Flexion 0 End of flexion 85 IR @ 90 Flexion 10 ER @ 90 Flexion 20 Abduction 25 Adduction 10 ERE 50 LINDA 0 RIGHT Start of Flexion 0 End of flexion 85 IR @ 90 Flexion 20 ER @ 90 Flexion 30 Abduction 10 Adduction 15 ERE 0 LINDA 5 Joint Preservation Patients Only: Anterior Impingement (FADIR) RIGHT positive LEFT negative Apprehension Sign RIGHT negative LEFT negative Lazaro's Test (groin) RIGHT negative LEFT negative REVIEW OF XRAYS/STUDIES: Radiographs show maintenance of reduction and a healed periacetabular osteotomy. With Perthes type deformity of the femoral head and neck with coxa magna and coxa brevis. The joint space is well-maintained. 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 Unfortunately now has some recurrent pain. At this point he will proceed with receiving his ileus psoas injection with Dr. Bacon on the 02 of March. Additionally 1 him to begin physical therapy. He hasa script is provided by Dr. Bacon. He is to follow up on this and fill his prescription for naproxen. We will see him back in 2 months after he was started this to see how he is improving FOLLOW UP: Delbert should return for repeat evaluation after starting physical therapy and beginning a course ofNSAIDs. We will see him back in 2 months for repeat clinical evaluation. Luc Sosa PGY4 ATTENDING ADDENDUM The patient was seen and examined today with the resident or fellow. I was present for the History,Physical Exam, Case Discussion, and Plan. I agree with the Assessment and Plan as dictated in the full clinic note. MD Sagar Henderson and Amalia Membreno Distinguished Professor of Orthopaedic Surgery Chief Adult Reconstructive Surgery Director Adolescent and Young Adult Hip Service Bobbin Coil Winder Department of Orthopaedic Surgery YTICAL RESEARCH PROGRAM MANAGER documented in this encounter Plan of Treatment Not on file documented as of this encounter Results * XR Hip Right 4 or More Views (01/24/2020 8:14 AM ANALYTICAL RESEARCH PROGRAM MANAGER) Anatomical Region Laterality Modality Lower Extremities, Hip, Pelvis Right C omputed Radiography 01/24/2020 8:17 AM ANALYTICAL RESEARCH PROGRAM MANAGER Impressions 01/24/2020 8:17 AM ANALYTICAL RESEARCH PROGRAM MANAGER 1. Healed right periacetabular rotational osteotomy with mild femoral head Perthes deformity and normal hip joint spaces. Electronically signed by: Chau Ornelas M.D. Narrative 01/24/2020 8:17 AM ANALYTICAL RESEARCH PROGRAM MANAGER EXAMINATION: XR HIP RIGHT 4 OR MORE [...] Pain in joint, pelvic region and thigh Follow-up examination following surgery Right hip pain Pain in joint, pelvic region and thigh documented in this encounter Care Teams Non Destructive Testing Inspector Relationship Specialty Start Date End Date No, Physician PCP - General 07/28/19 documented as of this encounter
--- OUTSIDE RECORDS SUMMARY | 2024-03-08 04:03 | XMS_ITS | Encounter Summary ---
Author Organization [facility] Address [address] [place] [address] Care Team Providers Care Senior Sql Database Developer Name Role Phone No, Physician Primary Care Provider [phone] Reason for Visit * Diagnostic Imaging (Routine) - Closed Specialty Diagnoses / Procedures Referred By Contac t Referred To Contact Diagnoses Acute low back pain, unspecified back pain laterality, unspecified whether sciatica present Procedures XR Spine Lumbar 2 or 3 Views Vannessa Bacon MD [address] [facility] [address] Phone: tel: fax: [address] [phone] Referral ID Status Reason Start Date Expiration Date Visits Re quested Visits Authorized [id number] Closed 09/30/2019 04/10/2021 1 1 Encounter Details Date Type Department Care Team (Latest Contact Info) Description 09/30/2019 9:14 AM CDT - 09/30/2019 11:59 PM CDT Hospital Encounter [facility]) [address] [place] [address] Vannessa Bacon MD [address] [facility] [address] Discharge Disposition: Discharge to home or self care Social History Tobacco Use Types Packs/Day Years Used Date Smoking Tobacco: Never Smokeless Tobacco: Never Alcohol Use Standard Drinks/Week Comments Yes 0 (1 standard drink = 0.6 oz pur e alcohol) Social Sex and Gender Information Value Date Recorded Sex Assigned at Not on file 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 Gender Identity Not on file Sexual Orientation Not on file documented as of this encounter Discharge Disposition Disposition Code Departure Means Destination Discharge to home or self care documented in this encounter Plan of Treatment Not on file documented as of this encounter Procedures Procedure Name Priority Date/Time Associated Diagnosis Comments XR SPINE LUMBAR 2 OR 3 VIEWS Schedule Routine, Read Routine (OP Routine) 09/30/2019 9:29 AM CDT Acute low back pain, unspecified back pain laterality, unspecified whether sciatica present XR PELVIS 1 OR 2 VIEWS Schedule Routine, Read Routine (OP Routine) 09/30/2019 9:29 AM CDT Bilateral hip pain documented in this encounter Results * XR Spine Lumbar 2 or 3 Views (09/30/2019 9:29 AM CDT) Anatomical Region Laterality Modality Spine N/A Computed Radiogr aphy 09/30/2019 10:0 8 AM CDT Impressions 09/30/2019 11:57 AM CDT 1. Healed right Legg-Perthes disease. 2. Healed right acetabular repair. 3. Normal examination of the lumbar spine. Dictated by: Sixto Tafoya M.D. The radiology attending physician has personally reviewed this study, and had reviewed and/or edited this written report and agrees with it. Electronically signed by: Bandar Chau MD, PHD Narrative 09/30/2019 11:57 AM CDT EXAMINATION: XR PELVIS 1 OR 2 VIEWS, XR SPINE LUMBAR 2 OR 3 VIEWS HISTORY: Pelvic and low back pain FINDINGS: 2 views of the lumbar spine and 2 views of the pelvis are submitted for interpretation with comparison made to right hip radiograph reference dated 10/09/2015. Postsurgical changes of right acetabular repair are noted. There is right femoral head mild coxa valga, coxa magna and coxa plana. The hip joint spaces are symmetric. There is no acute fracture. The alignment of the lumbar spine is normal. Intervertebral disc spaces are normal. Lumbar vertebral body heights are normal. Procedure Note Bandar Chau MD PhD - 09/30/2019 EXAMINATION: XR PELVIS 1 OR 2 VIEWS, XR SPINE LUMBAR 2 OR 3 VIEWS HISTORY: Pelvic and low back pain FINDINGS: 2 views of the lumbar spine and 2 views of the pelvis are submitted for interpretation with comparison made to right hip radiograph reference dated 10/09/2015. Postsurgical changes of right acetabular repair are noted. There is right femoral head mild coxa valga, coxa magna and coxa plana. The hip joint spaces are symmetric. There is no acute fracture. The alignment of the lumbar spine is normal. Intervertebral disc spaces are normal. Lumbar vertebral body heights are normal. IMPRESSION: 1. Healed right Legg-Perthes disease. 2. Healed right acetabular repair. 3. Normal examination of the lumbar spine. Dictated by: Sixto Tafoya M.D. The radiology attending physician has personally reviewed this study, and had reviewed and/or edited this written report and agrees with it. Electronically signed by: Bandar Chau MD, PHD Vannessa Bacon MD IMG XR PROCEDURES Final Re sult * XR Pelvis 1 or 2 Views (09/30/2019 9:29 AM CDT) Anatomical Region Laterality Modality Body, Pelvis N/A Computed Radiogr aphy 09/30/2019 10:0 8 AM CDT Impressions 09/30/2019 11:57 AM CDT 1. Healed right Legg-Perthes disease. 2. Healed right acetabular repair. 3. Normal examination of the lumbar spine. Dictated by: Sixto Tafoya M.D. The radiology attending physician has personally reviewed this study, and had reviewed and/or edited this written report and agrees with it. Electronically signed by: Bandar Chau MD, PHD Narrative 09/30/2019 11:57 AM CDT EXAMINATION: XR PELVIS 1 OR 2 VIEWS, XR SPINE LUMBAR 2 OR 3 VIEWS HISTORY: Pelvic and low back pain FINDINGS: 2 views of the lumbar spine and 2 views of the pelvis are submitted for interpretation with comparison made to right hip radiograph reference dated 10/09/2015. Postsurgical changes of right acetabular repair are noted. There is right femoral head mild coxa valga, coxa magna and coxa plana. The hip joint spaces are symmetric. There is no acute fracture. The alignment of the lumbar spine is normal. Intervertebral disc spaces are normal. Lumbar vertebral body heights are normal. Procedure Note Bandar Chau MD PhD - 09/30/2019 EXAMINATION: XR PELVIS 1 OR 2 VIEWS, XR SPINE LUMBAR 2 OR 3 VIEWS HISTORY: Pelvic and low back pain FINDINGS: 2 views of the lumbar spine and 2 views of the pelvis are submitted for interpretation with comparison made to right hip radiograph reference dated 10/09/2015. Postsurgical changes of right acetabular repair are noted. There is right femoral head mild coxa valga, coxa magna and coxa plana. The hip joint spaces are symmetric. There is no acute fracture. The alignment of the lumbar spine is normal. Intervertebral disc spaces are normal. Lumbar vertebral body heights are normal. IMPRESSION: 1. Healed right Legg-Perthes disease. 2. Healed right acetabular repair. 3. Normal examination of the lumbar spine. Dictated by: Sixto Tafoya M.D. The radiology attending physician has personally reviewed this study, and had reviewed and/or edited this written report and agrees with it. Electronically signed by: Bandar Chau MD, PHD Vannessa Bacon MD IMG XR PROCEDURES Final Re sult documented in this encounter Visit Diagnoses Not on filedocumented in this encounter Care Teams Senior Sql Database Developer Relationship Specialty Start Date End Date No, Physician PCP - General 07/28/19 documented as of this encounter
--- OUTSIDE RECORDS SUMMARY | 2024-03-08 04:03 | XMS_ITS | Clinical Summary ---
Author Organization [facility] Address [address] [place] [id number] Care Team Providers Care Pmo Manager Name Role Phone No, Physician Primary Care Provider [phone] Allergies No known active allergies Medications ID NOW COVID-19 Test Kit kit TEST DIRECTED. 06/07/2020 Active Active Problems No known active problems Immunizations Name Administration Dates Next Due DrinkSendo (J&J) SARS-CoV-2 Vaccination 05/22/2020 Tdap 05/27/2019 Surgical History Surgery Date Site/Laterality Comments FLUORO GUIDED INJECTION HIP RIGHT 11/04/2019 Right HIP SURGERY Medical History Medical History Date Comments Obesity Family History Medical History Relation Name Comments No Known Problems Father No Known Problems Mother Relation Name Status Comments Father Alive Mother Alive Social History Tobacco Use Types Packs/Day Years Used Date Smoking Tobacco: Never Smokeless Tobacco: Never Alcohol Use Standard Drinks/Week Comments Yes 0 (1 standard drink = 0.6 oz pur e alcohol) Social Personal Safety Answer Date Recorded Getting School Help Needed Not on file 05/11 Sex and Gender Information Value Date Recorded Sex Assigned at Not on file 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 Gender Identity Not on file Sexual Orientation Not on file 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 Not on file Not on file Obstetrics History Last Filed Vital Signs Vital Sign Reading [...] 11/01/2020 5:23 PM CDT Plan of Treatment Health Maintenance Due Date Last Done Comments Depression Screening 1995 Hepatitis C Screening 1995 Varicella Vaccines (1 of 2 - 13+ 2-dose series) 10/16/2008 Hepatitis B Screening 10/16/2013 Regular Well Visit/Exam 18-64 10/16/2013 Covid-19 Vaccine (2 - 2023-2 5 season) 2023 05/22/2020 Influenza Vaccine (#1) 2023 DTaP/Tdap/Td Vaccine (2 - Td or Tdap) 05/26/2029 05/27/2019 HPV Vaccines Aged Out No longer eligi ble based on patient's age to complete this topic Pneumococcal vaccine <65 Aged Out No longer eligible based on patient's age to complete this topic [place] Care Teams Pmo Manager Relationship Specialty Start Date End Date No, Physician PCP - General 07/28/19
--- OUTSIDE RECORDS SUMMARY | 2024-03-08 04:03 | XMS_ITS | Encounter Summary ---
Author Organization [facility] Address [address] [place] [address] Phone Care Team Providers Care It Risk Analyst Name Role Phone No, Physician Primary Care Provider [phone] Encounter Details Date Type Department Care Team (Late st Contact Info) Description 05/12/2020 Telephone [facility] Orthopaedic Surgery [facility] [place] [address] Vannessa Bacon MD [address] [facility] [address] [place] [address] Social History Tobacco Use Types Packs/Day Years Used Date Smoking Tobacco: Never Smokeless Tobacco: Never Alcohol Use Standard Drinks/Week Comments Yes 0 (1 standard drink = 0.6 oz pur e alcohol) Social Sex and Gender Information Value Date Recorded Sex Assigned at Not on file Legal Sex Male 3:24 AM EXPERIMENTAL PREFLIGHT MECHANIC Gender Identity Not on file Sexual Orientation Not on file 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 RIMENTAL PREFLIGHT MECHANIC * Telephone Encounter - Vannessa Bacon MD - 05/12/2020 12:13 PM EXPERIMENTAL PREFLIGHT MECHANIC Yes please. RIMENTAL PREFLIGHT MECHANIC * Telephone Encounter - Gely Marie CMA - 05/12/2020 8:53 AM CST Okay to write updated PT RX with the following recommendations? [facility] Iliopsoas release and improve function Myofascial techniques at thoracic spine Avoid positions of right hip impingement Improve muscle balance of length and strength at the pelvis. Ergonomics HEP Last written 09/2019 GREG: USI 03/2020 RIMENTAL PREFLIGHT MECHANIC * Telephone Encounter - Sarah Toscano - 05/12/2020 8:48 AM CST Tisha from [place] physical therapy at [phone] and fax [phone] is calling to get a continuation on physical therapy script RIMENTAL PREFLIGHT MECHANIC documented in this encounter Plan of Treatment Not on file documented as of this encounter Visit Diagnoses Not on filedocumented in this encounter Care Teams It Risk Analyst Relationship Specialty Start Date End Date No, Physician PCP - General 07/28/19 documented as of this encounter
--- OUTSIDE RECORDS SUMMARY | 2024-03-08 04:03 | XMS_ITS | Encounter Summary ---
Author Organization [facility] Address [address] [place] [address] Phone Care Team Providers Care Director Child Abuse Therapy Name Role Phone No, Physician Primary Care Provider [phone] Reason for Visit * Injectables (Routine) - Closed Specialty Diagnoses / Procedures Referred By Contac t Referred To Contact Diagnoses Right hip pain Procedures Iliopsoas tendon injection w/ Ultrasound Guidance Vannessa Bacon MD [address] [place] [address] Phone: tel: fax: [facility] (All Locations) Referral ID Status Reason Start Date Expiration Date Visits Re quested Visits Authorized [id number] Closed 01/20/2020 02/18/2021 1 1 Encounter Details Date Type Department Care Team (Late st Contact Info) Description 04/11/2020 4:00 PM WELDER GAS Office Visit [facility] Orthopaedic Surgery [address] [place] [address] Medical Office Building [address] [place] [address] Vannessa Bacon MD [address] [place] [address] Right hip pain Social History Tobacco Use Types Packs/Day Years Used Date Smoking Tobacco: Never Smokeless Tobacco: Never Alcohol Use Standard Drinks/Week Comments Yes 0 (1 standard drink = 0.6 oz pur e alcohol) Social Sex and Gender Information Value Date Recorded Sex Assigned at Not on file Legal Sex Male 3:24 AM WELDER GAS Gender Identity Not on file Sexual Orientation Not on file 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 The iliopsoas tendon was identified in the anterior hip using the ultrasound. The area was cleaned and prepped in sterile fashion. Sterile ultrasound probe cover and sterile ultrasound gel were used. Ultrasound approach: The needle was advanced under ultrasound guidance using an In-plane approach into the iliopsoas tendon. Ultrasound Note: Ultrasound Guided Iliopsoas Tendon Injection Informed consent was obtained. Risks and benefits of the procedure were explained. Ultrasound guided iliopsoas tendon/bursa injection was performed for diagnosis of iliopsoas tendinopathy/bursitis. The right iliopsoas tendon was visualized using the curvilinear ultrasound probe. Skin was cleaned and prepped with Betadine x 3. Sterile ultrasound probe cover and sterile ultrasound gel were used. Ethyl chloride spray was used to anesthetize the skin. Then using a 25 gauge 3.5 inch needle, this wasinserted laterally and directed medially under ultrasound guidance using an in-plane approach into the iliopsoas tendon/busa. Then, the treatment solution as documented was injected. Patient tolerated the procedure well without any complications. Medications: 2 mL lidocaine 10 mg/mL (1 %); 2 mL bupivacaine 0.25 % (2.5 mg/mL); 40 mg triamcinolone 40 mg/mL ER GAS documented in this encounter Plan of Treatment Not on file documented as of this encounter Procedures Procedure Name Priority Date/Time Associated Diagnosis Comments CHG US GUIDANCE NEEDLE PLACEMENT IMG S&I Routine 04/11/2020 4:00 PM WELDER GAS Right hip pain PA INJECTION 1 TENDON SHEATH/LIGAMENT APONEUROSIS Routine 04/11/2020 4:00 PM WELDER GAS Right hip pain documented in this encounter Results * PA INJECTION 1 TENDON SHEATH/LIGAMENT APONEUROSIS, CHG US GUIDANCE NEEDLE PLACEMENT IMG S&I (04/11/2020 4:00 PM WELDER GAS) Narrative Vannessa Bacon MD - 04/11/2020 4:00 PM WELDER GAS Vannessa Bacon MD ? 04/24/2020 ??5:57 PM [...] Site bupivacaine (MARCAINE) 0.25 % (2.5 mg/mL) preservative free injection 2 mL 2 mL, One-Time Injection, Starting on Fri04/24/20 at 1757, For 1 doseIndications:Right hip pain Given 04/24/2020 5:57 PM WELDER GAS 2 mL lidocaine (XYLOCAINE) 10 mg/mL (1 %) injection 2 mL 2 mL, One-Time Injection, Starting on Fri04/24/20 at 1757, For 1 dose, Indications: Administration of Local AnesthesiaIndications:Administratio n of Local Anesthesia Given 04/24/2020 5:57 PM WELDER GAS 2 mL triamcinolone (KENALOG) 40 mg/mL injection 40 mg 40 mg, One-Time Injection, Starting on Fri04/24/20 at 1757, For 1 doseIndications:Right hip pain Given 04/24/2020 5:57 PM WELDER GAS 40 mg documented in this encounter Care Teams Director Child Abuse Therapy Relationship Specialty Start Date End Date No, Physician PCP - General 07/28/19 documented as of this encounter
--- OUTSIDE RECORDS SUMMARY | 2024-03-08 04:03 | XMS_ITS | Encounter Summary ---
Author Organization [facility] Address [address] [place] [address] Phone Care Team Providers Care Consumer Loan Specialist Name Role Phone No, Physician Primary Care Provider [phone] Encounter Details Date Type Department Care Team (Late st Contact Info) Description 08/21/2020 Orders Only [facility] Orthopaedic Surgery [address] [place] [address] Medical Office Building [address] [place] [id number] Randolph Sullivan MD [address] [facility] [address] [place] [address] Social History Tobacco Use Types Packs/Day Years Used Date Smoking Tobacco: Never Smokeless Tobacco: Never Alcohol Use Standard Drinks/Week Comments Yes 0 (1 standard drink = 0.6 oz pur e alcohol) Social Sex and Gender Information Value Date Recorded Sex Assigned at Not on file Legal Sex Male 3:24 AM HEAD OF GEOGRAPHY Gender Identity Not on file Sexual Orientation Not on file 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 Not on file Not on file documented as of this encounter Ordered Prescriptions Prescription Sig Dispense Quantity Refills Last Filled Start Date End Date meloxicam (MOBIC) 7.5 mg tabletIndications: Osteoarthritis Take 1 tablet (7.5 mg total) by mouth daily 45 tablet 08/21/2020 10/05/2020 documented in this encounter Plan of Treatment Not on file documented as of this encounter Visit Diagnoses Not on filedocumented in this encounter Discontinued Medications Medication Sig Discontinue Reason Start Date End Da te diclofenac DR (VOLTAREN) 75 mg EC tablet Take 1 tablet (75 mg total) by mouth 2 (two) times a day PRN pain 01/20/2020 08/21/2020 documented as of this encounter Care Teams Consumer Loan Specialist Relationship Specialty Start Date End Date No, Physician PCP - General 07/28/19 documented as of this encounter
--- OUTSIDE RECORDS SUMMARY | 2024-03-08 04:03 | XMS_ITS | Encounter Summary ---
Author Organization [facility] Address [address] [place] [address] Phone Care Team Providers Care Project Specialist Name Role Phone No, Physician Primary Care Provider [phone] Reason for Referral * Diagnostic Imaging (Routine) - Closed Specialty Diagnoses / Procedures Referred By Contac t Referred To Contact Diagnoses Bilateral hip pain Right hip pain Procedures FL Fluoro Guided Injection Hip Right Vannessa Bacon MD [address] [place] [address] Phone: tel: fax: [address] [address] Referral ID Status Reason Start Date Expiration Date Visits Re quested Visits Authorized [id number] Closed 09/30/2019 04/10/2021 1 1 * Diagnostic Imaging (Routine) - Closed Specialty Diagnoses / Procedures Referred By Contac t Referred To Contact Diagnoses Acute low back pain, unspecified back pain laterality, unspecified whether sciatica present Procedures XR Spine Lumbar 2 or 3 Views Vannessa Bacon MD [address] [facility] [address] [place] [address] Phone: tel: fax: [address] [address] Referral ID Status Reason Start Date Expiration Date Visits Re quested Visits Authorized [id number] Closed 09/30/2019 04/10/2021 1 1 * Diagnostic Imaging (Routine) - Closed Specialty Diagnoses / Procedures Referred By Lester hooks Referred To Contact Diagnoses Bilateral hip pain Procedures XR Pelvis 1 or 2 Views Vannessa Bacon MD [address] [facility] [address], [place] [address] Phone: tel: fax: [facility] 1 [place] [address] Referral ID Status Reason Start Date Expiration Date Visits Re quested Visits Authorized [id number] Closed 09/30/2019 04/10/2021 1 1 Reason for Visit * Reason Comments Pain Pain Encounter Details Date Type Department Care Team (Late st Contact Info) Description 09/30/2019 9:00 AM CDT Office Visit [facility] Orthopaedic Surgery [address] [facility] 6th [place] [address] [place] [address] Vannessa Bacon MD [address] [facility] [address] [place] [address] Bilateral hip pain (Primary Dx); Acute low back pain, unspecified back pain laterality, unspecified whether sciatica present; Right hip pain; Thoracic spine pain Social History Tobacco Use Types Packs/Day Years Used Date Smoking Tobacco: Never Smokeless Tobacco: Never Alcohol Use Standard Drinks/Week Comments Yes 0 (1 standard drink = 0.6 oz pur e alcohol) Social Sex and Gender Information Value Date Recorded Sex Assigned at Not on file Legal Sex Male 3:24 AM HOOF AND SHOE INSPECTOR Gender Identity Not on file Sexual Orientation Not on file documented as of this encounter Progress Notes * Vannessa Bacon MD - 09/30/2019 9:00 AM CDT Images from the original note were not included. NEW PATIENT VISIT CHIEF COMPLAINT Bilateral hip pain and R thoracic back pain HISTORY OF PRESENT ILLNESS Delbert Humphreys is a 23 y.o. male with previous history of Legg Calves Perthes disease s/p RASHI who presents with bilateral hip pain of 2 year duration. Patient states he was diagnosed with Legg calve perthes and was seen by Dr. Sullivan who performed a RASHI in 2013 at [facility]. Patient states that his hip pain completely resolved at the time and he was pain free after his procedure until last year when the pain returned insidiously in his R hip and now involves his L hip though he endorses R hip being worse than L hip. The pain will wake him up night and he will have to reposition to go back tosleep. Denies saddle anesthesia, loss of bowel/bladder function and sudden weakness in his legs. Patient has never been formally evaluated by PT and has never had any injections to his hip either.He only performed HEP after his initial surgery in 2013 that he continues PRN to this day. He occasionally uses APAP/advil for pain relief and ice as well. Patient also presents with R thoracic back pain that started 6 months ago. He states it starts around T7-8 distribution and spreads around in a band like distribution towards his chest and will occasionally radiate laterally down his R leg. He describes the pain as a sore aching pain that worsens as the day progresses. PAST MEDICAL HISTORY He has no past medical history on file. PAST SURGICAL HISTORY He has no past surgical history on file. INITIAL REVIEW OF MEDICATIONS He currently has no medications in their medication list. ALLERGIES He has No Known Allergies. SOCIAL HISTORY He reports that he has never smoked. He has never used smokeless tobacco. He reports current alcohol use. He reports that he does not use drugs. FAMILY HISTORY His family history is not on file. REVIEW OF SYSTEMS As per the intake questionnaire dated 09/29 PHYSICAL EXAMINATION GENERAL: In no acute distress. Well-developed and well nourished. PSYCHOLOGICAL: Alert and oriented. Cooperative, normal stated mood, congruent affect. HENT: Normocephalic, atraumatic. Hearing adequate for conversation. EYES: Non-icteric sclera. ABDOMEN: Soft, non-tender; no palpable masses. RESPIRATORY: Non-labored breathing. No audible cough or wheeze. CARDIOVASCULAR: No edema. Bilateral lower extremities are warm well perfused. SKIN: No rashes or open wounds involving bilateral lower extremities, hip, posterior torso. NEUROLOGIC: Strength: 5/5 bilaterally with hip flexion, knee extension, knee flexion, ankle dorsiflexion, ankleeversion, ankle inversion, ankle plantarflexion, and great toe extension. 4/5 hip abductor strengthbilaterally. Sensation: intact light touch sensation throughout both lower extremities. Reflexes: intact and symmetric in bilateral lower extremities. Gait: able to heel walk, toe walk, and perform tandem gait. MUSCULOSKELETAL: Inspection: Normal alignment of lumbar spine. No shift or scoliosis. Normal posture. R iliac crest height lower than L iliac crest. Palpation: TTP over R/L iliopsoas with R being worse than L, R hip TTP over acetabulum and greater trochanter. TTP over R SI joint. Mildly TTP over R ROM: Active lumbar spine ROM is full/intact, L side flexion produces R hip pain over iliopsoas. Passive right hip ROM is limited due to pain but can reach 110 degrees HF with full ER/IR.Passive left hip ROM is full and without pain. Special Tests: Supine SLR: negative, Logroll: negative, FADIR: positive R hip, Hip Scour: negative, ERIC/Lazaro's: negative, sacral compression: negative, Gaenslen's: negative Genny: negative Single-leg Squat: produces pain in R hip REVIEW OF IMAGING/STUDIES XR Pelvis 2 views, Lumbar spine 2 views 09/30/19 - reviewed with patient, R iliac crest noted to be lower than L iliac crest IMPRESSION: 1. Healed right Legg-Perthes disease. 2. Healed right acetabular repair. 3. Normal examination of the lumbar spine. ?? IMPRESSION/DIAGNOSIS R iliopsoas pain and dysfunction TREATMENT/PLAN 1. Physical exam findings, diagnosis and management plan discussed with patient. Questions were answered. Discussed trying to unlayer his pain as he has intra and extra articular feature. 2. Physical Therapy RX given to patient 3. Discussed performing R hip injection, diagnostic and therapeutic under fluoroscopy to isolate whether pain is coming from only iliopsoas vs iliopsoas and R hip. Patient expressed agreement. 4. Follow up with Dr. Bacon on 11/03 for R hip injection Fernando Tracy MD Resident Physician PGY-3 [facility] Orthopedics Division of Physical Medicine and Rehabilitation Portions of this note were dictated using M*Modal Fluency Direct speech recognition software. Please excuse any bridge operator errors. ADDENDUM: I saw and evaluated the patient with Dr. Fernando Tracy I participated fully in the history, physical, review of radiographs, assessment and plan. I discussed this case with Dr. Tracy and agree with his findings as documented above. Please see for details. Vannessa Bacon MD Ski Patrol Director Physical Medicine and Rehabilitation [facility] Orthopedics documented in this encounter Plan of Treatment Not on file documented as of this encounter Procedures Procedure Name Priority Date/Time Associated Diagnosis Comments XR PELVIS 1 OR 2 VIEWS Schedule Routine, Read Routine (OP Routine) 09/30/2019 9:29 AM CDT Bilateral hip pain XR SPINE LUMBAR 2 OR 3 VIEWS Schedule Routine, Read Routine (OP Routine) 09/30/2019 9:29 AM CDT Acute low back pain, unspecified back pain laterality, unspecified whether sciatica present documented in this encounter Results * FL Fluoro Guided Injection Hip Right (11/04/2019 2:04 PM CDT) Narrative [facility] - 11/04/2019 2:05 PM CDT The images from this study are not interpreted by Radiology. ??Please refer to the physician's procedure / OR operative note. us Vannessa Bacon MD IMG FLUOROSCOPY PROCEDURES Final Result [facility] * XR Spine Lumbar 2 or 3 [...] Electronically signed by: Bandar Chau MD, PHD us Vannessa Bacon MD IMG XR PROCEDURES Final [...] sult documented in this encounter Visit Diagnoses Diagnosis Bilateral hip pain- Primary Pain in joint, pelvic region and thigh Acute low back pain, unspecified back pain laterality, unspecified whether sciatica present Right hip pain Pain in joint, pelvic region and thigh Thoracic spine pain Pain in thoracic spine Right hip pain- Primary Pain in joint, pelvic region and thigh Bilateral hip pain Pain in joint, pelvic region and thigh documented in this encounter Care Teams Project Specialist Relationship Specialty Start Date End Date No, Physician PCP - General 07/28/19 documented as of this encounter
--- OUTSIDE RECORDS SUMMARY | 2024-03-08 04:44 | XMS_ITS | Encounter Summary ---
Author Organization [facility] Address [address] [place] [address]. [place], [place] [address] [place] [address] Care Team Providers Care Steel Erector Apprentice Name Role Phone Unavailable Primary Care Provider Unavailtani e Encounter Details Date Type Department Care Team (Late st Contact Info) Description 08/20/2011 Abstract [facility] [address] [place] [id number] Vidal Valdez MD [address] [address] Social History Tobacco Use Types Packs/Day Years [...]
--- OUTSIDE RECORDS SUMMARY | 2024-03-08 04:44 | XMS_ITS | Encounter Summary ---
Author Organization [facility] Address [address] [place] [address]. [place] [id number] [place], [place] [id number] Care Team Providers Care Cone Tender Name Role Phone Unavailable Primary Care Provider Unavailtani e Encounter Details Date Type Department Care Team (Late st Contact Info) Description 06/26/2007 Abstract [facility] Emergency Room [address] [place] [id number] Social History Tobacco Use Types Packs/Day Years [...]
--- OUTSIDE RECORDS SUMMARY | 2024-03-08 04:44 | XMS_ITS | Encounter Summary ---
Author Organization [facility] Address [address] [place] [address]. [place] [address] Care Team Providers Care Animal [facility] Office Supervisor Name Role Phone Unavailable Primary Care Provider Unavailabl e Encounter Details Date Type Department Care Team (Latest Contact Info) Description 10/24/2014 Abstract [facility] Social History Tobacco Use Types [...]
--- OUTSIDE RECORDS SUMMARY | 2024-03-08 04:44 | XMS_ITS | Encounter Summary ---
Author Organization [facility] Address [address] [place] [address]. [place] [id number] [place], [place] [id number] Care Team Providers Care Industrial Psychology Professor Name Role Phone Unavailable Primary Care Provider Unavailabl e Encounter Details Date Type Department Care Team (Latest Contact Info) Description 05/19/2012 Abstract [facility] Medical [facility] Lynn Irwin MD Social [...] Comments Blood Pressure 120/80 05/19/2012 9:05 AM QA TESTER Pulse 87 05/19/2012 9:05 AM QA TESTER Temperature - - Respiratory Rate - - Oxygen Saturation - - Inhaled Oxygen Concentration - - Weight 72.6 kg (160 lb) 05/19/2012 9:05 AM QA TESTER Height 172.7 cm (5' 8 ) 05/19/2012 9:05 AM QA TESTER Body Mass Index 24.33 05/19/2012 9:05 AM QA TESTER Body Mass Index Percentile 83.46% 05/19/2012 9:0 5 AM QA TESTER Growth Chart: CDC (Boys, 2-2 0 Years) [...] Irwin M.D.; May 19 2012 9:39AM (Author) TESTER documented in this encounter Plan of Treatment Not on file documented as of this encounter Visit Diagnoses Not on filedocumented in this encounter
--- OUTSIDE RECORDS SUMMARY | 2024-03-08 04:44 | XMS_ITS | Encounter Summary ---
Author Organization [facility] Address [address] [place] [address]. [place] [address] Care Team Providers Care Deep Fryer Assembler Name Role Phone Unavailable Primary Care Provider Unavailabl e Encounter Details Date Type Department Care Team (Latest Contact Info) Description 07/23/2012 Abstract [facility] Medical Group Social History Tobacco Use Types [...]
--- OUTSIDE RECORDS SUMMARY | 2024-03-08 04:44 | XMS_ITS | Encounter Summary ---
Author Organization [facility] Address [address] [place] [address]. [place] [address] [place] [address] Care Team Providers Care Remote Sensing Technologist Name Role Phone Unavailable Primary Care Provider Unavailtani e Encounter Details Date Type Department Care Team (Late st Contact Info) Description 08/17/2013 Abstract [facility] Medical Group Family & Internal Medicine [facility] [address] [place] [address] Magdiel Mack NP Social History [...] type; CLAUDIA = N; Verified Transmission to [facility] [address]; Last Updated By: Chelsey Rangel; 08/17/2013 3:20:03 PM 2. Renew: Methylphenidate [...] Sharla Chacon L.P.N.; Aug 17 2013 3:09PM ABRASIVE GRINDER (Author) Electronically signed by : Magdiel Mack NP; Aug 17 2013 4:05PM ABRASIVE GRINDER (Author) documented in this encounter Plan of Treatment Not on file documented as of this encounter Visit Diagnoses Not on filedocumented in this encounter
--- OUTSIDE RECORDS SUMMARY | 2024-03-08 04:44 | XMS_ITS | Encounter Summary ---
Author Organization [facility] Address [address] [place] [address]. [place] [address] [place] [address] Care Team Providers Care Tissue Coordinator Name Role Phone Unavailable Primary Care Provider Unavailabl e Encounter Details Date Type Department Care Team (Late st Contact Info) Description 07/04/2010 Abstract [facility] Emergency Room [address] [place] [address] Bertha Neff MD [address] [id number] Social History Tobacco Use Types Packs/Day Years [...]
--- OUTSIDE RECORDS SUMMARY | 2024-03-08 04:44 | XMS_ITS | Encounter Summary ---
Author Organization [facility] Address [address] [place] [address]. [place] [address] [place] [address] Care Team Providers Care Dispersion Mixer Name Role Phone Unavailable Primary Care Provider Ronak e Encounter Details Date Type Department Care Team (Late st Contact Info) Description 06/02/2015 Abstract [facility] Medical Group Family & Internal Medicine [facility] [address] [place] [address] Magdiel Mack NP Social History [...] ); Status:Hold For - Manual Activation; Requested for:[id number]; ?? Fract Bilirub ( Total / Direct ); Status:Hold For - Manual Activation; Requested for:86Rpk4110; documented in this encounter Plan of Treatment Not on file documented as of this encounter Visit Diagnoses Not on filedocumented in this encounter
--- OUTSIDE RECORDS SUMMARY | 2024-03-08 04:44 | XMS_ITS | Encounter Summary ---
Author Organization [facility] Address [address] [place] [address]. [place] [address] Care Team Providers Care Push Connector Assembler Name Role Phone Unavailable Primary Care Provider Unavailabl e Encounter Details Date Type Department Care Team (Late st Contact Info) Description 04/12/2015 Abstract [facility] [address] [place] [place] [phone] Magdiel Mack, DATA SUPPORT SPECIALIST Social History Tobacco Use Types Packs/Day Years [...]
--- OUTSIDE RECORDS SUMMARY | 2024-03-08 04:44 | XMS_ITS | Encounter Summary ---
Author Organization [facility] Address [address] [place] [address]. [place], [place] [address] [place] [address] Care Team Providers Care Bookmobile Driver Name Role Phone Unavailable Primary Care Provider Unavailabl e Encounter Details Date Type Department Care Team (Late st Contact Info) Description 12/13/2010 Abstract [facility] Emergency Room [address] [place] [address] Jignesh Ortiz MD [place] [address] [place] [address] Social History Tobacco Use Types Packs/Day Years [...]
--- OUTSIDE RECORDS SUMMARY | 2024-03-08 04:44 | XMS_ITS | Clinical Summary ---
Author Organization [facility] Address [address] [place] [address]. [place], [place] [address] [place], [place] [phone] Care Team Providers Care Information Security Architect Name Role Phone Unavailable Primary Care Provider [...]
--- OUTSIDE RECORDS SUMMARY | 2024-03-08 04:44 | XMS_ITS | Encounter Summary ---
Author Organization [facility] Address [address] [place] [address]. [place] [address] Care Team Providers Care Truck Driver Instructor Name Role Phone Unavailable Primary Care Provider Unavailabl e Encounter Details Date Type Department Care Team (Latest Contact Info) Description 06/23/2012 Abstract [facility] Medical Group Social History Tobacco Use [...]
--- OUTSIDE RECORDS SUMMARY | 2024-03-08 04:44 | XMS_ITS | Encounter Summary ---
Author Organization [facility] Address [address] [place] [address]. [place] [phone] Care Team Providers Care Wood Shingle Roofer Name Role Phone Unavailable Primary Care Provider Unavailabl e Encounter Details Date Type Department Care Team (Latest Contact Info) Description 08/31/2012 Abstract [facility] Medical Group Lynn Irwin MD Social History [...] Irwin M.D.; Aug 31 2012 2:20PM (Author) ICAL REVIEWER documented in this encounter Plan of Treatment Not on file documented as of this encounter Visit Diagnoses Not on filedocumented in this encounter
--- OUTSIDE RECORDS SUMMARY | 2024-03-08 04:44 | XMS_ITS | Patient Health Summary ---
Author Organization [facility] [employer] Address [address] [place] [address] Care Team Providers Care Cloth Mercerizer Back Tender Name Role Phone Unavailable Primary Care Provider Unavailabl e Note from [facility],non-owned Affiliates and Associated Physician Practices is amultiple site organization consisting of ambulatory clinics and hospital sitesin [place], [place], [place] and [place]. This disclosure is being madepursuant to the Care Everywhere program and may not contain all information available regarding this patient. Last updated 17.[facility] [employer] Social History Tobacco Use Types Packs/Day Years Used Date Smoking Tobacco: Never Assessed Sex and Gender Information Value Date Recorded Sex Assigned at Not on file Gender Identity Not on file Sexual Orientation Not on file
--- OUTSIDE RECORDS SUMMARY | 2024-03-08 04:44 | XMS_ITS | Encounter Summary ---
Author Organization [facility] Address [address] [place] [address]. [place] [phone] [place], [place] [phone] Care Team Providers Care Cotton Washer Name Role Phone Unavailable Primary Care Provider Unavailtani e Encounter Details Date Type Department Care Team (Late st Contact Info) Description 01/24/2008 Abstract [facility] Emergency Room [address] [place] [address] Social History Tobacco Use Types [...]
--- OUTSIDE RECORDS SUMMARY | 2024-03-08 04:44 | XMS_ITS | Encounter Summary ---
Author Organization [facility] Address [address] [place] [address]. [place] [phone] Care Team Providers Care Trouble Shooting Mechanic Name Role Phone Unavailable Primary Care Provider Unavailabl e Encounter Details Date Type Department Care Team (Latest Contact Info) Description 06/19/2012 Abstract [facility] Medical Group Social History Tobacco Use Types [...] at front for pt mom rosas to picker tender helper eg,rma Plan 1. Methylphenidate HCl ER 54 MG Oral Tablet Extended Release; TK 1 T PO QAM; Therapy: 08Apr2012 to (Evaluate:89Jpn3783); Last Rx:19Jun2012 KER documented in this encounter Plan of Treatment Not on file documented as of this encounter Visit Diagnoses Not on filedocumented in this encounter
--- OUTSIDE RECORDS SUMMARY | 2024-03-08 04:44 | XMS_ITS | Encounter Summary ---
Author Organization [facility] Address [address] [place] [address]. [place], [place] [address] [place] [address] Care Team Providers Care Microwave Supervisor Name Role Phone Unavailable Primary Care Provider Unavailabl e Encounter Details Date Type Department Care Team (Latest Contact Info) Description 01/20/2013 Abstract [facility] Medical Group Social [...] will write a RX for mom to machine pecan picker?? Arlen Alcantar - 12 Jan 2013 [...] Irwin M.D.; Jan 20 2013 12:29PM (Author) OENGRAVING HELPER documented in this encounter Plan of Treatment Not on file documented as of this encounter Visit Diagnoses Not on filedocumented in this encounter
--- OUTSIDE RECORDS SUMMARY | 2024-03-08 04:44 | XMS_ITS | Encounter Summary ---
Author Organization [facility] Address [address] [place] [address]. [place] [phone] [place], [place] [phone] Care Team Providers Care Coat Joiner Lockstitch Name Role Phone Unavailable Primary Care Provider Unavailabl e Encounter Details Date Type Department Care Team (Late st Contact Info) Description 04/11/2004 Abstract [facility] Emergency Room [address] [place] [phone] , Vicki Pratt MD Social History Tobacco [...]
--- OUTSIDE RECORDS SUMMARY | 2024-03-08 04:44 | XMS_ITS | Encounter Summary ---
Author Organization [facility] Address [address] [place] [address]. [place] [phone] Care Team Providers Care Agricultural And Forestry Supervisor Name Role Phone Unavailable Primary Care Provider Unavailabl e Encounter Details Date Type Department Care Team (Latest Contact Info) Description 11/23/2012 Abstract [facility] Medical Group Social History Tobacco Use [...] Message Date: 23 Nov 2012 4:11 PM PRINTER FLOOR COVERING ASSISTANT, Recorded By: Arlen Alcantar Calling For: Lynn Irwin PT NEEDING REFILL ON HIS CONCERTA. HE HAS APPT SCHEDULED ON 12/07/12 HANDWRITTEN SCRIPT LEFT AT FRONT FOR HIS MOTHER TO WET END OPERATOR Plan 1. Methylphenidate HCl ER 54 MG Oral Tablet Extended Release; TK 1 T PO QAM; Therapy: 08Apr2012 to (Evaluate:23Dec2012); Last Rx:23Nov2012 Signatures Electronically signed by : Lynn Irwin M.D.; Nov 27 2012 11:15AM (Author) TER FLOOR COVERING ASSISTANT documented in this encounter Plan of Treatment Not on file documented as of this encounter Visit Diagnoses Not on filedocumented in this encounter
--- OUTSIDE RECORDS SUMMARY | 2024-03-08 04:44 | XMS_ITS | Encounter Summary ---
Author Organization [facility] Address [address] [place] [address]. [place] [phone] [place] [phone] Care Team Providers Care Electronic Lab Technician Name Role Phone Unavailable Primary Care Provider Unavailabl e Encounter Details Date Type Department Care Team (Late st Contact Info) Description 10/08/2013 Abstract [facility] Medical Group Family & Internal Medicine [facility] [address] [place] [address] Lynn Irwin MD Social History [...] 10/08/2013 11: 08 AM CDT Growth Chart: [facility] (Boys, 2-2 0 Years) documented in this [...] one tab every morning; Therapy: 08Apr2012 to (Evaluate:72Utl1438); Last Rx:21Sep2013 Ordered Allergies 1. No Known Drug Allergies Vitals Vital Signs [Data Includes: Current Encounter] Recorded by : Lianna Jacobson at [id number] 11:08AM Temperature 98.6 F Heart Rate 72 [...] 3 months Outpatient Follow-up Status: Complete Done: [id number] Ordered; For: ADHD (attention deficit hyperactivity disorder), combined type, Asthma; Ordered By: Lynn Irwin Performed: Due: 45Fao9839; Last Updated By: Angeline Jin; 10/08/2013 11:47:25 [...] Lynn Irwin M.D.; Oct 12 2013 12:18PM [place] (Author) documented in this encounter Plan of Treatment Not on file documented as of this encounter Visit Diagnoses Not on filedocumented in this encounter
--- OUTSIDE RECORDS SUMMARY | 2024-03-08 04:44 | XMS_ITS | Encounter Summary ---
Author Organization [facility] Address [address] [place] [address]. [place] [address] Care Team Providers Care Poke In Name Role Phone Unavailable Primary Care Provider Unavailabl e Encounter Details Date Type Department Care Team (Latest Contact Info) Description 11/24/2012 Abstract [facility] Medical Group Social History [...]
--- OUTSIDE RECORDS SUMMARY | 2024-03-08 04:44 | XMS_ITS | Encounter Summary ---
Author Organization [facility] Address [address] [place] [address]. [place] [phone] [place], [place] [phone] Care Team Providers Care Rip Machine Operator Name Role Phone Unavailable Primary Care Provider Unavailabl e Encounter Details Date Type Department Care Team (Late st Contact Info) Description 05/04/2013 Abstract [facility] Emergency Room [address] [place] [phone] Maksim Bowen MD Social History Tobacco Use [...]
--- OUTSIDE RECORDS SUMMARY | 2024-03-08 04:44 | XMS_ITS | Encounter Summary ---
Author Organization [facility] Address [address] [place] [address]. [place] [phone] [place] [phone] Care Team Providers Care Volunteer Recruitment Coordinator Name Role Phone Unavailable Primary Care Provider Unavailtani e Encounter Details Date Type Department Care Team (Late st Contact Info) Description 01/18/2013 Abstract [facility] Medical Group Family & Internal Medicine [facility] [address] [place] [address] Lynn Irwin MD Social History [...] Comments Blood Pressure 108/78 01/18/2013 3:32 PM SOCIAL WORK NURSE Pulse 52 01/18/2013 3:32 PM SOCIAL WORK NURSE Temperature - - Respiratory Rate - - Oxygen Saturation - - Inhaled Oxygen Concentration - - Weight 87.5 kg (193 lb) 01/18/2013 3:32 PM SOCIAL WORK NURSE Height 172.7 cm (5' 8 ) 01/18/2013 3:32 PM SOCIAL WORK NURSE Body Mass Index 29.35 01/18/2013 3:32 PM SOCIAL WORK NURSE Body Mass Index Percentile 95.57% 01/18/2013 3:3 2 PM SOCIAL WORK NURSE Growth Chart: CDC (Boys, 2-2 0 Years) [...] Irwin M.D.; Jan 18 2013 4:18PM (Author) [place] WORK NURSE documented in this encounter Plan of Treatment Not on file documented as of this encounter Visit Diagnoses Not on filedocumented in this encounter
--- OUTSIDE RECORDS SUMMARY | 2024-03-08 04:44 | XMS_ITS | Encounter Summary ---
Author Organization [facility] Address [address] [place] [address]. [place] [address] [place] [address] Care Team Providers Care Director Of Field Coordination Name Role Phone Unavailable Primary Care Provider Unavailabl e Encounter Details Date Type Department Care Team (Late st Contact Info) Description 12/01/2012 Abstract [facility] Medical Group Family & Internal Medicine [facility] [address] [place] [address] [place] [address] [address] Social History Tobacco Use Types [...] hours as needed for muscles spasmsDAILY; Therapy: 34Ich1853 to (Last Rx:77Vex5368) Requested for: 80Zjf7143; Edited Ordered; For: Back Strain (847.9); Rx By: Magdiel Mack; Dispense: 0 Days ; #:30 Tablet; Refill: 0; Verified Transmission to [facility] [address]996; Msg to Pharmacy: avoid use middle school coach or driving 2. Naproxen 500 MG Oral Tablet; TAKE 1 TABLET EVERY 12 HOURS WITH FOOD; Therapy: 29Epl3467 to (Evaluate:21Dec2012) Requested for: 62Pvf9077; Last Rx:96Ask8611; Edited Ordered; For: Back Strain (847.9); Rx By: Magdiel Mack; Dispense: 20 Days ; #:40 Tablet; Refill: 0;Verified Transmission to [facility] [address] 3. XR T-SPINE 3 VIEW ( Routine ) Requested for: 13Omc4924 Ordered; For: Back Strain (847.9); Ordered By: Magdiel Mack Perform: [facility] Radiology Due: 20Olu0006 will get an xray as mother concerned but reassured appears muscular. given stretches to do several times daily. use heat alternating with ice. can take the muscle relaxer after school if needed. takethe naprosyn routinely with food until improved. recheck one week. Signatures Electronically signed by : Magdiel Mack NP; Dec 03 2012 7:04AM (Author) E CUTTER documented in this encounter Plan of Treatment [...] DELBERT GOMEZ MD: MAGDIEL MACK ?? ACCT: [id number] ?? : 1995 PT TYPE: REG CLI ?? SEX: M ORD SITE: [facility] ? STUDY DATE REPORT # PROCEDURE CODE PROCEDURE ?? 12/01/12 [id number] TSPN3V XR T-SPINE 3 VIEW ? EXTORDERID ? [id number] ? CHART DOCUMENT ? DIVISION OF RADIOLOGY ? ACCESSION # ?EXAM DATE ? EXAM DESCRIPTION ?? [id number] ?12/01/2012 ?XR T-SPINE 3 VIEW ? IMAGING [...] ??4:54 P ?? JOB NO: ?DOC NO: ??[id number] ?? CC: ? Procedure Note Vicki Claros MD - 01/07/2018 DELBERT GOMEZ MD: MAGDIEL MACK ACCT: [id number] : 1995 PT TYPE: REG CLI SEX: M ORD SITE: [facility] STUDY DATE REPORT # PROCEDURE CODE PROCEDURE 12/01/12 [id number] TSPN3V XR T-SPINE 3 VIEW EXTORDERID [id number] CHART DOCUMENT DIVISION OF RADIOLOGY ACCESSION # EXAM DATE EXAM DESCRIPTION [id number] 12/01/2012 XR T-SPINE 3 VIEW IMAGING STUDIES: FOUR VIEWS OF THE THORACIC SPINE 12-01-2012 COMPARISON STUDIES: NO PREVIOUS AVAILABLE HISTORY: TRAUMA, PAIN FINDINGS/IMPRESSION: 1)MINIMAL DEXTROCURVATURE OF THE THORACIC SPINE. 2)NO EVIDENCE OF COMPRESSION DEFORMITIES. NO SPONDYLOLISTHESIS. NO VISIBLE ACUTE FRACTURE LINE. ELECTRONICALLY SIGNED BY STUART MCGOVERN MD 12/09/2012 09:18 MG/DJM 12/01/2012 3:21 P 12/01/2012 4:54 P JOB NO: DOC NO: [id number] CC: Magdiel Mack BI TRI OPERATOR GENERAL IMAGING Final Result documented in this encounter Visit Diagnoses Not on filedocumented in this encounter
--- OUTSIDE RECORDS SUMMARY | 2024-03-08 04:44 | XMS_ITS | Encounter Summary ---
Author Organization [facility] Address [address] [place] [address]. [place] [address] Care Team Providers Care Raiser Helper Name Role Phone Unavailable Primary Care Provider Unavailabl e Encounter Details Date Type Department Care Team (Latest Contact Info) Description 10/16/2012 Abstract [facility] Medical Group Social History [...]
--- OUTSIDE RECORDS SUMMARY | 2024-03-08 04:44 | XMS_ITS | Encounter Summary ---
Author Organization [facility] Address [address] [place] [address]. [place] [address] Care Team Providers Care Bilingual Nanny Name Role Phone Unavailable Primary Care Provider Unavailabl e Encounter Details Date Type Department Care Team (Late st Contact Info) Description 06/02/2015 Abstract [facility] [address] [place] [phone] Magdiel Mack, EVENT TECHNICIAN Social History Tobacco Use Types Packs/Day Years [...]
--- OUTSIDE RECORDS SUMMARY | 2024-03-08 04:44 | XMS_ITS | Encounter Summary ---
Author Organization [facility] Address [address] [place] [address]. [place] [address] Care Team Providers Care Power Press Operator Name Role Phone Unavailable Primary Care Provider Unavailabl e Encounter Details Date Type Department Care Team (Latest Contact Info) Description 09/01/2012 Abstract [facility] Medical Group Social History Tobacco Use [...]
--- OUTSIDE RECORDS SUMMARY | 2024-03-08 04:44 | XMS_ITS | Referral Summary ---
Author Organization [facility] Address [facility] [address] Care Team Providers Care Steel Tester Name Role Phone Unavailable Primary Care Provider Unavailabl e Source Comments [facility],non-owned Affiliates and Associated Physician Practices is amultiple site organization consisting of ambulatory clinics and hospital sitesin [place], [place], [place] and [place]. This disclosure is being madepursuant to the Care Everywhere program and may not contain all information available regarding this patient. Last updated 17.[facility] Social History Tobacco Use Types Packs/Day Years Used Date Smoking Tobacco: Never Assessed Sex and Gender Information Value Date Recorded Sex Assigned at Not on file Gender Identity Not on file Sexual Orientation Not on file Plan of Treatment Not on file
--- OUTSIDE RECORDS SUMMARY | 2024-03-08 04:44 | XMS_ITS | Encounter Summary ---
Author Organization [facility] Address [address] [place] [address] Care Team Providers Care Cleaning Crew Member Name Role Phone Vidal Valdez MD Primary Care Provider [phone] Reason for Visit * (Routine) - Closed Specialty Diagnoses / Procedures Referred By Lester hooks Referred To Contact Cardiology [facility] [address] [place] [phone] Card Serv [address] [place] [address] Referral ID Status Reason Start Date Expiration Date Visits Re quested Visits Authorized [id number] Closed 09/05/2011 03/03/2012 1 1 Encounter Details Date Type Department Care Team (Latest Contact Info) Description 09/05/2011 8:42 AM CDT - 09/05/2011 11:59 PM CDT Hospital Encounter [facility] at [address] [address] Makayla Fraser MD [address] [place] [address] Chad Bermudez MD [address] [place] [phone] Discharge Disposition: Home or Self Care Social [...] dysrhythmias documented in this encounter Care Teams Cleaning Crew Member Relationship Specialty Start Date End Date Vidal Valdez MD [address] [place] [phone] PCP - General Pediatrics 09/05/11 08/05/23 documented as of this encounter
--- OUTSIDE RECORDS SUMMARY | 2024-03-08 04:44 | XMS_ITS | Encounter Summary ---
Author Organization [facility] Address [address] [place] [address]. [place] [phone] [place], [place] [phone] Care Team Providers Care Astrobiologist Name Role Phone Unavailable Primary Care Provider Unavailabl e Encounter Details Date Type Department Care Team (Late st Contact Info) Description 10/19/1998 Abstract [facility] CONVERSION [address] [place] [address] , Generic Conversion, Social History [...]
--- OUTSIDE RECORDS SUMMARY | 2024-03-08 04:44 | XMS_ITS | Encounter Summary ---
Author Organization [facility] Address [address] [place] [address]. [place] [phone] [place], [place] [phone] Care Team Providers Care Nurse Anesthesia Program Director Name Role Phone Unavailable Primary Care Provider Unavailabl e Encounter Details Date Type Department Care Team (Latest Contact Info) Description 05/03/2013 Abstract [facility] Medical Group Social History Tobacco Use Types [...] Arlen Alcantar MA; May 03 2013 2:47PM STARCH AND PROSIZE MIXER (Author) CH AND PROSIZE MIXER documented in this encounter Plan of Treatment Not on file documented as of this encounter Visit Diagnoses Not on filedocumented in this encounter
--- OUTSIDE RECORDS SUMMARY | 2024-03-08 04:44 | XMS_ITS | Encounter Summary ---
Author Organization [facility] Address [address] [place] [address]. [place] [phone] [place], [place] [phone] Care Team Providers Care Correspondent Name Role Phone Unavailable Primary Care Provider Unavailabl e Encounter Details Date Type Department Care Team (Late st Contact Info) Description 12/01/2012 Abstract [facility] [address] [place] [phone] Magdiel Mack, WIRE REPAIRER Social History Tobacco Use Types Packs/Day Years [...]
--- OUTSIDE RECORDS SUMMARY | 2024-03-08 04:44 | XMS_ITS | Encounter Summary ---
Author Organization [facility] Address [address] [place] [address]. [place] [phone] [place], [place] [phone] Care Team Providers Care Central Supply Technician Supervisor Name Role Phone Unavailable Primary Care Provider Unavailabl e Encounter Details Date Type Department Care Team (Late st Contact Info) Description 03/26/2004 Abstract [facility] Emergency Room [address] [place] [phone] , Vicki Pratt MD Social History Tobacco [...]
--- OUTSIDE RECORDS SUMMARY | 2024-03-08 04:44 | XMS_ITS | Encounter Summary ---
Author Organization [facility] Address [address] [place] [address]. [place] [address] Care Team Providers Care Emg Technician Name Role Phone Unavailable Primary Care Provider Unavailabl e Encounter Details Date Type Department Care Team (Latest Contact Info) Description 03/22/2015 Abstract [facility] Medical Group Magdiel Mack EGG GATHERER Social History Tobacco Use Types Packs/Day Years [...]
--- OUTSIDE RECORDS SUMMARY | 2024-03-08 04:44 | XMS_ITS | Encounter Summary ---
Author Organization [facility] Address [address] [place] [address]. [place] [phone] [place], [place] [phone] Care Team Providers Care Corporate Communications Intern Name Role Phone Unavailable Primary Care Provider Unavailtani e Encounter Details Date Type Department Care Team (Late st Contact Info) Description 04/29/1996 Abstract [facility] CONVERSION [address] [place] [address] , Generic Conversion, Social History [...]
--- OUTSIDE RECORDS SUMMARY | 2024-03-08 04:44 | XMS_ITS | Encounter Summary ---
Author Organization [facility] Address [address] [place] [address]. [place] [address] Care Team Providers Care Oncology Registrar Name Role Phone Unavailable Primary Care Provider Unavailabl e Encounter Details Date Type Department Care Team (Latest Contact Info) Description 05/21/2012 Abstract [facility] Medical Group Social History [...]
--- OUTSIDE RECORDS SUMMARY | 2024-03-08 04:44 | XMS_ITS | Encounter Summary ---
Author Organization [facility] Address [address] [place] [address]. [place], [place] [address] [place] [address] Care Team Providers Care Professor Of Biochemistry Name Role Phone Unavailable Primary Care Provider Unavailabl e Encounter Details Date Type Department Care Team (Late st Contact Info) Description 03/22/2010 Abstract [facility] Emergency Room [address] [place] [address] Jignesh Ortiz MD [place] [address] [place] [address] Social History Tobacco Use Types Packs/Day Years [...]
--- OUTSIDE RECORDS SUMMARY | 2024-03-08 04:44 | XMS_ITS | Encounter Summary ---
Author Organization [facility] Address [address] [place] [address]. [place] [phone] [place], [place] [phone] Care Team Providers Care Loom Blower Name Role Phone Unavailable Primary Care Provider Unavailabl e Encounter Details Date Type Department Care Team (Late st Contact Info) Description 05/21/2003 Abstract [facility] CONVERSION [address] [place] [address] , Generic Conversion, Social History [...]
--- OUTSIDE RECORDS SUMMARY | 2024-03-08 04:44 | XMS_ITS | Encounter Summary ---
Author Organization [facility] Address [address] [place] [address]. [place] [address] [place] [address] Care Team Providers Care Pay Station Collector Name Role Phone Unavailable Primary Care Provider Unavailabl e Encounter Details Date Type Department Care Team (Late st Contact Info) Description 05/04/2013 Abstract [facility] Family & Internal Medicine [facility] [address] [place] [address] Lynn Irwin MD Social History [...] Comments Blood Pressure 110/70 05/04/2013 9:06 AM SCALE BALANCER Pulse 77 05/04/2013 9:06 AM SCALE BALANCER Temperature - - Respiratory Rate - - Oxygen Saturation - - Inhaled Oxygen Concentration - - Weight 92.5 kg (204 lb) 05/04/2013 9:06 AM SCALE BALANCER Height 172.7 cm (5' 8 ) 05/04/2013 9:06 AM SCALE BALANCER Body Mass Index 31.02 05/04/2013 9:06 AM SCALE BALANCER Body Mass Index Percentile 96.41% 05/04/2013 9:0 6 AM SCALE BALANCER Growth Chart: CDC (Boys, 2-2 0 Years) [...] currently has an appt on Friday at [facility] with Sophie Ramirez. He will then get scheduled to see Psychiatrist. History of Present Illness HPI Free Text: Patient is a 17 year old male with past medical history of ADHD. He is here for the follow up from ER visit. Follow up for ADHD. The patient has been having nausea vomiting and watery diarrhea for 2 days. Mild abdominal pain. Hedid eat [place] food 2 days back and he started. [...] PO QAM; Therapy: 08Apr2012 to (Evaluate:11Apr2013); Last Rx:[id number] Ordered Allergies 1. No Known Drug Allergies [...] Lynn Irwin M.D.; May 04 2013 9:40AM SCALE BALANCER (Author) E BALANCER documented in this encounter Plan of Treatment Not on file documented as of this encounter Visit Diagnoses Not on filedocumented in this encounter
--- OUTSIDE RECORDS SUMMARY | 2024-03-08 04:44 | XMS_ITS | Encounter Summary ---
Author Organization [facility] Address [address] [place] [address]. [place], [place] [address] [place] [address] Care Team Providers Care System Specialist Name Role Phone Unavailable Primary Care Provider Unavailabl e Encounter Details Date Type Department Care Team (Latest Contact Info) Description 10/15/2012 Abstract [facility] Medical Group Social History Tobacco [...] it up front. Please call Angeline at [phone] Arlen Alcantar - 15 Oct 2012 4:32 PM TASK EDITED PLEASE ADVISE Lynn Márquez - 15 Oct 2012 4:48 PM TASK REPLIED TO: Previously Assigned To Lynn Irwin we can do that. Arlen Alcantar - 15 Oct 2012 4:53 PM TASK EDITED HANDWRITTEN SCRIPT LEFT AT FRONT FOR INTERNAL RECRUITER Plan 1. Methylphenidate HCl ER 54 MG Oral Tablet Extended Release; TK 1 T PO QAM; Therapy: 08Apr2012 to (Evaluate:28Iqi2150); Last Rx:15Oct2012 Signatures Electronically signed by : Lynn Irwin M.D.; Oct 20 2012 1:05PM (Author) E MANAGEMENT TRAINEE documented in this encounter Plan of Treatment Not on file documented as of this encounter Visit Diagnoses Not on filedocumented in this encounter
--- OUTSIDE RECORDS SUMMARY | 2024-03-08 04:44 | XMS_ITS | Encounter Summary ---
Author Organization [facility] Address [address] [place] [address]. [place], [place] [address] [place], [place] [phone] Care Team Providers Care Item Processing Clerk Name Role Phone Unavailable Primary Care Provider Ronak e Encounter Details Date Type Department Care Team (Latest Contact Info) Description 12/09/2012 Abstract [facility] Medical Group Social History Tobacco [...] DELBERT HUMPHREYS ORDERING MD: MAGDIEL MACK ACCT: [id number] : 1995 PT TYPE: REG CLI SEX: M [facility]D SITE[facility] STUDY DATE REPORT # PROCEDURE CODE PROCEDURE 12/01/12 [id number] XR T-SPINE 3 VIEW EXTORDERID [id number] CHART DOCUMENT DIVISION OF RADIOLOGY ACCESSION # EXAM DATE EXAM DESCRIPTION [id number] 12/01/2012 XR T-SPINE 3 VIEW IMAGING STUDIES: FOUR VIEWS OF THE THORACIC SPINE 12-01-2012 COMPARISON STUDIES: NO PREVIOUS AVAILABLE HISTORY: TRAUMA, PAIN FINDINGS/IMPRESSION: 1)MINIMAL DEXTROCURVATURE OF THE THORACIC SPINE. 2)NO EVIDENCE OF COMPRESSION DEFORMITIES. NO SPONDYLOLISTHESIS. NO VISIBLE ACUTE FRACTURE LINE. ELECTRONICALLY SIGNED BY STUART MCGOVERN MD 12/09/2012 09:18 MG/YADIEL 12/01/2012 3:21 P 12/01/2012 4:54 P JOB NO: DOC NO: [id number] CC: RAFT LAYOUT WORKER documented in this encounter Plan of Treatment Not on file documented as of this encounter Visit Diagnoses Not on filedocumented in this encounter
--- OUTSIDE RECORDS SUMMARY | 2024-03-08 04:44 | XMS_ITS | Encounter Summary ---
Author Organization [facility] Address [address] [place] [address]. [place] [phone] [place], [place] [phone] Care Team Providers Care Delivery Route Driver Name Role Phone Unavailable Primary Care Provider Unavailtani e Encounter Details Date Type Department Care Team (Late st Contact Info) Description 12/26/2003 Abstract [facility] CONVERSION [address] [place] [address] , Generic Conversion, Social History [...]
--- OUTSIDE RECORDS SUMMARY | 2024-03-08 04:44 | XMS_ITS | Encounter Summary ---
Author Organization [facility] Address [address] [place] [address]. [place] [phone] [place], [place] [phone] Care Team Providers Care Skimmer Name Role Phone Unavailable Primary Care Provider Unavailabl e Encounter Details Date Type Department Care Team (Late st Contact Info) Description 11/28/2003 Abstract [facility] CONVERSION [address] [place] [address] , Generic Conversion, Social History [...]
--- OUTSIDE RECORDS SUMMARY | 2024-03-08 04:44 | XMS_ITS | Encounter Summary ---
Author Organization [facility] Address [address] [place] [address]. [place] [phone] Care Team Providers Care Executive Assistant Name Role Phone Unavailable Primary Care Provider Unavailabl e Encounter Details Date Type Department Care Team (Latest Contact Info) Description 09/21/2013 Abstract [facility] Medical Group Social History Tobacco Use [...] Tarsha Asencio Task Name: Informational Assigned To: [facility] Nurse Team Regarding Patient: Delbert Humphreys, Status: Active Comment: Tarsha Asencio - 21 Sep 2013 11:44 AM TASK CREATED Patient needs script for his concerta. He is out. Patient has appt October 08 with you. Thanks Grace Curiel - 21 Sep 2013 11:51 AM TASK EDITED Printed script for pt and informed that script is ready for pick up man. Also infomred pt to keep appt October 08 or no further refills will be authorized. Plan 1. Changed: From Methylphenidate HCl ER 54 MG Oral Tablet Extended Release TK 1 T PO QAM To Methylphenidate HCl ER 54 MG Oral Tablet Extended Release Take one tab every morning Signatures Electronically signed by : Grace Curiel, ; Sep 21 2013 11:51AM PROCESSING TECH (Author) documented in this encounter Plan of Treatment Not on file documented as of this encounter Visit Diagnoses Not on filedocumented in this encounter
--- OUTSIDE RECORDS SUMMARY | 2024-03-08 04:44 | XMS_ITS | Clinical Summary ---
Author Organization [facility] Address [address] [place] [address] Care Team Providers Care Bin Cleaner Name Role Phone Unavailable Primary Care Provider Unavailabl e Source Comments [facility],non-owned Affiliates and Associated Physician Practices is amultiple site organization consisting of ambulatory clinics and hospital sitesin [place], [place], [place] and [place]. This disclosure is being madepursuant to the Care Everywhere program and may not contain all information available regarding this patient. Last updated 17.[facility] [employer] Social History Tobacco Use Types Packs/Day Years [...]
--- OUTSIDE RECORDS SUMMARY | 2024-03-08 04:44 | XMS_ITS | Encounter Summary ---
Author Organization [facility] Address [address] [place] [address]. [place] [address] [place] [address] Care Team Providers Care Craft Worker Name Role Phone Unavailable Primary Care Provider Ronak e Encounter Details Date Type Department Care Team (Late st Contact Info) Description 04/12/2015 Abstract [facility] Medical Group Family & Internal Medicine [facility] [address] [place] [address] [place] [address] [place] [address] Social History Tobacco Use Types [...] Comments Blood Pressure 104/60 04/12/2015 8:40 AM [employer] Pulse 100 04/12/2015 8:40 AM [employer] Temperature - - Respiratory Rate - - Oxygen Saturation - - Inhaled Oxygen Concentration - - Weight 92.1 kg (203 lb) 04/12/2015 8:40 AM [employer] Height 172.7 cm (5' 8 ) 04/12/2015 8:40 AM [employer] Body Mass Index 30.87 04/12/2015 8:40 AM [employer] documented in this encounter Progress Notes * Magdiel Mack NP - 04/12/2015 8:30 AM CST Reason For Visit Chronic Recheck Visit Chief Complaint pt here for f/u visit for ADHD History of Present Illness HPI Free Text: 19 y/o male with hx ADHD last seen here in 2013. has been getting care through psych at [facility] in [place]. states he stopped taking the medication about 3 months ago feeling he could do without it. 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 decided to come here for his medication since it would be easier ; did not attempt to go back to [place]. ADHD (Follow-Up): The patient's ADHD subtype is [...] hyperactivity disorder), combined type (314.01) (F90.2) 2. termite exterminator helper use of drug (V58.69) (Z79.899) Plan ADHD (attention deficit hyperactivity disorder), combined type, termite exterminator helper use of drug 1. Compr Metabolic Prof ( CMP ); Status:In Progress - Specimen/Data Collected; Done: 12Apr2015 Perform:. [facility]; Due:[id number]; Last Updated By:Tanya Benjamin; 04/12/2015 9:02:12 AM;Ordered; For:ADHD (attention deficit hyperactivity disorder), combined type, termite exterminator helper use of drug; Ordered By:Magdiel Mack; 2. TSH W Reflex Free T4; Status:In Progress - Specimen/Data Collected; Done: 12Apr2015 Perform:[facility]; Due:[id number]; Last Updated By:Tanya Benjamin; 04/12/2015 9:02:12 AM;Ordered; For:ADHD (attention deficit hyperactivity disorder), combined type, termite exterminator helper use of drug; Ordered By:Magdiel Mack; 3. *Venipuncture In Office; Status:Complete; Done: 12Apr2015 Perform:In Office; Due:[id number]; Last Updated By:Tanya Benjamin; 04/12/2015 9:09:36 AM;Ordered; For:ADHD (attention deficit hyperactivity disorder), combined type, termite exterminator helper use of drug; Ordered By:Magdiel Mack; 4. CBC W Differential; Status:In Progress - Specimen/Data Collected; Done: 12Apr2015 [facility]; Due:[id number]; Last Updated By:Tanya Benjamin; 04/12/2015 9:02:12 AM;Ordered; For:ADHD (attention deficit hyperactivity disorder), combined type, termite exterminator helper use of drug; Ordered By:Magdiel Mack; will have him sign ROR from [place] will review records and lab prior to restarting methylphenidate f/u 3 months and prn Discussion/[place] do that also before restarting medication ([place]/ for focalin #30 and # 15 03/04/2014 Signatures Electronically signed by : Magdiel Mack NP; Apr 12 2015 10:01AM [employer] (Author) documented in this encounter Plan of Treatment Not on file documented as of this encounter Procedures Procedure Name Priority Date/Time Associated Diagnosis Comments TSH W/REFLEX Routine 04/12/2015 9:10 AM [employer] COMPREHENSIVE METABOLIC PANEL Routine 04/12/2015 9:10 AM [employer] CBC W/DIFF AUTOMATED Routine 04/12/2015 9:10 AM [employer] documented in this encounter Results * (ABNORMAL) CBC W/DIFF AUTOMATED (04/12/2015 9:10 AM [employer]) WBC 9.1 4.4 - 11.0 x10'3/uL [facility] [...] OUP TO EPIC CONVERSION 04/12/2015 9:10 AM [employer] 04/12/2015 9:10 AM [employer] Narrative [facility] TO EPIC CONVERSION - 04/12/2015 3:23 PM [employer] Result Communication: Call patient with results us Magdiel Mack NP LABORATORY Final Result [facility] TO EPIC CONVERSION * TSH W/REFLEX (SNS) (04/12/2015 9:10 AM [employer]) TSH 1.06 0.35 - 4.94 uIU/mL [facility] TO EPIC CONVERSION Comment:Result Comment: FREE T4 NOT INDICATED 04/12/2015 9:10 AM [employer] 04/12/2015 9:10 AM [employer] Narrative [facility] TO EPIC CONVERSION - 04/12/2015 6:28 PM [employer] Result Communication: Call patient with results us Magdiel Mack [facility] LABOR[facility] Final Result [facility] TO EPIC CONVERSION * (ABNORMAL) COMPREHENSIVE METABOLIC PANEL (04/12/2015 9:10 AM [employer]) SODIUM S/P/B 140 136 - 145 MMOL/L [...] [facility] TO EPIC CONVERSION 04/12/2015 9:10 AM [employer] 04/12/2015 9:10 AM [employer] Narrative [facility] TO EPIC CONVERSION - 04/12/2015 6:14 PM [employer] Result Communication: Call patient with results us Magdiel Mack NP LABORATORY Final Result [facility] TO EPIC CONVERSION documented in this encounter Visit Diagnoses Not on filedocumented in this encounter
--- OUTSIDE RECORDS SUMMARY | 2024-03-08 04:44 | XMS_ITS | Encounter Summary ---
Author Organization [facility] Address [address] [place] [address]. [place] [phone] [place], [place] [phone] Care Team Providers Care Physical Metallurgist Name Role Phone Unavailable Primary Care Provider Unavailtani e Encounter Details Date Type Department Care Team (Late st Contact Info) Description 11/16/1998 Abstract [facility] CONVERSION [address] [place] [address] , Generic Conversion, Social History [...]
--- OUTSIDE RECORDS SUMMARY | 2024-03-08 04:44 | XMS_ITS | Encounter Summary ---
Author Organization [facility] Address [address] [place] [address]. [place] [phone] [place], [place] [phone] Care Team Providers Care Cullet Washer Name Role Phone Unavailable Primary Care Provider Unavailabl e Encounter Details Date Type Department Care Team (Late st Contact Info) Description 07/13/2007 Abstract [facility] CONVERSION [address] [place] [address] , Generic Conversion, Social History [...]
--- OUTSIDE RECORDS SUMMARY | 2024-03-08 04:44 | XMS_ITS | Encounter Summary ---
Author Organization [facility] Address [address] [place] [address]. [place], [place] [address] [place] [address] Care Team Providers Care Makeup Instructor Name Role Phone Unavailable Primary Care Provider Ronak e Encounter Details Date Type Department Care Team (Latest Contact Info) Description 04/14/2015 Abstract [facility] Medical Group Social History Tobacco Use [...] have not gotten any records yet from [place] so as yet I am not going [...] [employer]. If the patient is -Armenian, multiply results by 1.21 TSH W Reflex Free T4 12Apr2015 09:10AM Magdiel Mack Test Name Result Flag Reference TSH w Reflex Free T4 1.06 uIU/mL 0.35-4.94 FREE T4 NOT INDICATED documented in this encounter Plan of Treatment Not on file documented as of this encounter Visit Diagnoses Not on filedocumented in this encounter
--- OUTSIDE RECORDS SUMMARY | 2024-03-08 04:44 | XMS_ITS | Encounter Summary ---
Author Organization [facility] Address [address] [place] [address]. [place] [address] [place] [address] Care Team Providers Care Oil Well Perforator Operator Name Role Phone Unavailable Primary Care Provider Unavailtani e Encounter Details Date Type Department Care Team (Late st Contact Info) Description 07/24/2015 Abstract [facility] Medical Group Family & Internal Medicine [facility] [address] [place] [address] Magdiel Mack NP Social History [...] (S39.012A) 4. Elevated bilirubin (277.4) (R17) 5. vermin exterminator use of drug (V58.69) (Z79.899) 6. Viral [...] Arlen Alcantar; 05/19/2012 9:06:49 AM Vitals Recorded: [id number] 02:25PM Heart Rate 88 Systolic 128 Diastolic [...] inflammation; CLAUDIA = N; Verified Transmission to [facility] [address]; Last Updated By: Chelsey Rangel; 07/24/2015 2:41:59 [...] Magdiel Mack NP; Jul 24 2015 6:53PM FEED WEIGHER (Author) Electronically signed by : Tex Eller M.D.; Aug 20 2015 7:16PM FEED WEIGHER (Author) documented in this encounter Miscellaneous Notes * Letter - Magdiel Mack NP - 07/24/2015 2:15 PM CDT Delbert Humphreys may return to work on 07/25/15. He has been under my care for medical reasons. He was out from 07/24/15 to 07/25/15. Electronically signed by : Magdiel Mack NP; Jul 24 2015 6:53PM FEED WEIGHER (Author) documented in this encounter Plan of [...]
--- OUTSIDE RECORDS SUMMARY | 2024-03-08 04:44 | XMS_ITS | Encounter Summary ---
Author Organization [facility] Address [address] [place] [address]. [place] [phone] [place] [address] Care Team Providers Care Family And Consumer Sciences Teacher Name Role Phone Unavailable Primary Care Provider Unavailabl e Encounter Details Date Type Department Care Team (Latest Contact Info) Description 04/25/2015 Abstract [facility] Medical Group , Vicki Pratt MD Social [...] Name: Call Patient with results Assigned To: [facility] Nurse Team Regarding Patient: Delbert Humphreys, Status: Complete Comment: Magdiel Mack - 14 Apr 2015 12:18 PM Patient please notify patient his lab is normal except for an elevated bilirubin which should be rechecked in 2-3 months. we have not gotten any records yet from [place] so as yet I am not going [...] Em Olivas MA; Apr 25 2015 9:18AM POLE TRUCK DRIVER (Author) documented in this encounter Plan of [...]
--- OUTSIDE RECORDS SUMMARY | 2024-03-08 04:44 | XMS_ITS | Encounter Summary ---
Author Organization [facility] Address [address] [place] [address]. [place] [phone] [place], [place] [phone] Care Team Providers Care Clinical Physician Assistant Name Role Phone Unavailable Primary Care Provider Unavailtani e Encounter Details Date Type Department Care Team (Late st Contact Info) Description 04/02/2013 Abstract [facility] Medical Group Family & Internal Medicine [facility] [address] [place] [address] Duc Green MD Social History [...] PO QAM; Therapy: 08Apr2012 to (Evaluate:11Apr2013); Last Rx:[id number] Allergies 1. No Known Drug Allergies Signatures Electronically signed by : Lianna Jacobson, ; Apr 02 2013 3:38PM (Author) Electronically signed by : Lucy Green M.D.; Apr 03 2013 2:29PM E LINING FINISHER [employer]BESTOS documented in this encounter Plan of Treatment Not on file documented as of this encounter Visit Diagnoses Not on filedocumented in this encounter
--- OUTSIDE RECORDS SUMMARY | 2024-03-08 04:44 | XMS_ITS | Encounter Summary ---
Author Organization [facility] Address [address] [place] [address]. [place], [place] [address] [place] [address] Care Team Providers Care Block Sorter Name Role Phone Unavailable Primary Care Provider Ronak e Encounter Details Date Type Department Care Team (Late st Contact Info) Description 01/07/2012 Abstract [facility] [address] [place] [phone] Vidal Valdez MD [address] [address] Social History Tobacco Use Types Packs/Day Years [...]
--- OUTSIDE RECORDS SUMMARY | 2024-03-08 04:44 | XMS_ITS | Encounter Summary ---
Author Organization [facility] Address [address] [place] [address]. [place] [address] [place] [address] Care Team Providers Care Gold Leaf Printer Name Role Phone Unavailable Primary Care Provider Unavailabl e Encounter Details Date Type Department Care Team (Late st Contact Info) Description 06/07/2013 Abstract [facility] Medical Group Family & Internal [facility] [address] [place] [address] [place] [address] [address] Social History Tobacco Use Types [...] this encounter Progress Notes * Erin Sung HOOKER ON - 06/07/2013 11:00 AM CDT Reason For [...] Erin Sung NP; Jun 07 2013 1:32PM PLASTICATOR (Author) documented in this encounter Plan of Treatment Not on file documented as of this encounter Visit Diagnoses Not on filedocumented in this encounter
--- OUTSIDE RECORDS SUMMARY | 2024-03-08 04:44 | XMS_ITS | Encounter Summary ---
Author Organization [facility] Address [address] [place] [address]. [place] [phone] [place], [place] [phone] Care Team Providers Care Mucker Cofferdam Name Role Phone Unavailable Primary Care Provider Unavailtani e Encounter Details Date Type Department Care Team (Late st Contact Info) Description 09/27/2001 Abstract [facility] CONVERSION [address] [place] [address] , Generic Conversion, Social History [...]
--- OUTSIDE RECORDS SUMMARY | 2024-03-08 04:44 | XMS_ITS | Encounter Summary ---
Author Organization [facility] Address [address] [place] [address]. [place] [address] Care Team Providers Care Marketing Planner Name Role Phone Unavailable Primary Care Provider Unavailabl e Encounter Details Date Type Department Care Team (Latest Contact Info) Description 12/07/2013 Abstract [facility] Medical Group Social History Tobacco [...]
--- OUTSIDE RECORDS SUMMARY | 2024-03-08 04:44 | XMS_ITS | Encounter Summary ---
Author Organization [facility] Address [address] [place] [address]. [place], [place] [address] [place] [address] Care Team Providers Care Designer Architect Name Role Phone Unavailable Primary Care Provider Ronak e Encounter Details Date Type Department Care Team (Late st Contact Info) Description 02/17/2012 Abstract [facility] [address] [place] [place] [phone] Vidal Valdez MD [address] [address] Social History Tobacco Use Types Packs/Day Years [...]
--- OUTSIDE RECORDS SUMMARY | 2024-03-08 04:44 | XMS_ITS | Encounter Summary ---
Author Organization [facility] Address [address] [place] [address]. [place] [id number] [place], [place] [id number] Care Team Providers Care Manager Hospital Name Role Phone Unavailable Primary Care Provider Unavailabl e Encounter Details Date Type Department Care Team (Late st Contact Info) Description 07/08/1997 Abstract [facility] CONVERSION [address] [place] [address] , Generic Conversion, Social History [...]
--- OUTSIDE RECORDS SUMMARY | 2024-03-08 04:44 | XMS_ITS | Encounter Summary ---
Author Organization [facility] Address [address] [place] [address]. [place] [address] Care Team Providers Care Jammer Hooker Name Role Phone Unavailable Primary Care Provider Unavailabl e Encounter Details Date Type Department Care Team (Latest Contact Info) Description 01/20/2018 Abstract [facility] , Generic [place], Social [...]
--- OUTSIDE RECORDS SUMMARY | 2024-03-08 04:46 | XMS_ITS | Encounter Summary ---
Author Organization [facility] Address [address] [place] [address] Phone Care Team Providers Care Taxicab Driver Name Role Phone No, Physician Primary Care Provider [phone] Reason for Referral * Injectables (Routine) - Closed Specialty Diagnoses / Procedures Referred By Contac t Referred To Contact Diagnoses Right hip pain Procedures Iliopsoas tendon injection w/ Ultrasound Guidance Vannessa Bacon MD [address] [facility] [address] [address] Phone: tel: fax: [facility] (All Locations) Referral ID Status Reason Start Date Expiration Date Visits Re quested Visits Authorized [id number] Closed 01/20/2020 02/18/2021 1 1 ID CENTER ASSEMBLER Encounter Details Date Type Department Care Team (Late st Contact Info) Description 01/20/2020 9:45 AM LIQUID CENTER ASSEMBLER Office Visit [facility] Orthopaedic Surgery [address] [facility] 6th [place] [address] [place] [address] Vannessa Bacon MD [address] [facility] [id number] [place] [address] Right hip pain (Primary Dx) Social History Tobacco Use Types Packs/Day Years Used Date Smoking Tobacco: Never Smokeless Tobacco: Never Alcohol Use Standard Drinks/Week Comments Yes 0 (1 standard drink = 0.6 oz pur e alcohol) Social Sex and Gender Information Value Date Recorded Sex Assigned at Not on file Legal Sex Male 3:24 AM LIQUID CENTER ASSEMBLER Gender Identity Not on file Sexual Orientation Not on file documented as of this encounter Patient Instructions * Patient Instructions* Gely Marie CMA - 01/20/2020 9:45 AM LIQUID CENTER ASSEMBLER PLAN: 1. You were scheduled for an ultrasound injection today 2. Referral was set up for [phone] 3. Diclofenac was sent to your pharmacy If you have any questions or concerns please give us a call at [phone] ID CENTER ASSEMBLER ID CENTER ASSEMBLER documented in this encounter Progress Notes * [...] to consider a ALVINA. Vannessa Bacon M.D. Piece Maker Physical Medicine and Rehabilitation [facility] Orthopedics ID CENTER ASSEMBLER documented in this encounter Plan of Treatment Not on file documented as of this encounter Results * CO INJECTION 1 TENDON SHEATH/LIGAMENT APONEUROSIS, CHG US GUIDANCE NEEDLE PLACEMENT IMG S&I (04/11/2020 4:00 PM LIQUID CENTER ASSEMBLER) Narrative Vannessa Bacon MD - 04/11/2020 4:00 PM LIQUID CENTER ASSEMBLER Vannessa Bacon MD ? 04/24/2020 ??5:57 PM [...] thigh documented in this encounter Care Teams Taxicab Driver Relationship Specialty Start Date End Date No, Physician PCP - General 07/28/19 documented as of this encounter
--- OUTSIDE RECORDS SUMMARY | 2024-03-08 04:46 | XMS_ITS | Encounter Summary ---
Author Organization [facility] Address [address] [place] [address] Phone Care Team Providers Care Transportation Job Titles Name Role Phone No, Physician Primary Care Provider [phone] Reason for Visit * Reason Comments Follow-up Encounter Details Date Type Department Care Team (Late st Contact Info) Description 03/20/2020 11:10 AM PRESIDENT [employer]ANCE [employer] Office Visit [facility] Orthopaedic Surgery [address] [place] [address] Medical Office Building [address] [place] [id number] Randolph Sullivan MD [address] [facility] [address] [place] [address] Follow-up examination following surgery (Primary Dx); Pain in right hip Social History Tobacco Use Types Packs/Day Years Used Date Smoking Tobacco: Never Smokeless Tobacco: Never Alcohol Use Standard Drinks/Week Comments Yes 0 (1 standard drink = 0.6 oz pur e alcohol) Social Sex and Gender Information Value Date Recorded Sex Assigned at Not on file Legal Sex Male 3:24 AM PRESIDENT FINANCE COMPANY Gender Identity Not on file Sexual Orientation Not on file 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 Samson Sung M.D. Orthopaedic Surgery Resident [facility] in [place]ung MD dictating using Fluency Direct Software. Acid Tank Cleaner variances may occur. ATTENDING ADDENDUM The patient [...] Director Adolescent and Young Adult Hip Service Retail Marketing Manager Department of Orthopaedic Surgery [employer] documented in this encounter Plan of Treatment Not on file documented as of this encounter Visit Diagnoses Diagnosis Follow-up examination following surgery- Primary Pain in right hip documented in this encounter Care Teams Transportation Job Titles Relationship Specialty Start Date End Date No, Physician PCP - General 07/28/19 documented as of this encounter
--- OUTSIDE RECORDS SUMMARY | 2024-03-08 04:46 | XMS_ITS | Encounter Summary ---
Author Organization [facility] Address [address] [place] [address] Care Team Providers Care Drum Cleaner Name Role Phone No, Physician Primary Care Provider [phone] Reason for Referral * Diagnostic Imaging (Routine) - Closed Specialty Diagnoses / Procedures Referred By Contac t Referred To Contact Diagnoses Right hip pain Procedures XR Hip Right 4 or More Views Randolph Sullivan MD [address] [address] Phone: tel: fax: [place] [address] [place] [address] Referral ID Status Reason Start Date Expiration Date Visits Re quested Visits Authorized [id number] Closed 01/21/2020 02/19/2021 1 1 DATA SOLUTIONS ARCHITECT Reason for Visit * Diagnostic Imaging (Routine) - Closed Specialty Diagnoses / Procedures Referred By Contac t Referred To Contact Diagnoses Right hip pain Procedures XR Hip Right 4 or More Views Randolph Sullivan MD [address] [address] Phone: tel: fax: [place] [address] [place] [address] Referral ID Status Reason Start Date Expiration Date Visits Re quested Visits Authorized [id number] Closed 01/21/2020 02/19/2021 1 1 Encounter Details Date Type Department Care Team (Latest Contact Info) Description 01/24/2020 7:56 AM BIG DATA SOLUTIONS ARCHITECT - 01/24/2020 11:59 PM BIG DATA SOLUTIONS ARCHITECT Hospital Encounter [id number] [address] [facility] [address] [place] [address] Randolph Sullivan MD [address] [place] [address] Right hip pain Discharge Disposition: Discharge to home or self care Social History Tobacco Use Types Packs/Day Years Used Date Smoking Tobacco: Never Smokeless Tobacco: Never Alcohol Use Standard Drinks/Week Comments Yes 0 (1 standard drink = 0.6 oz pur e alcohol) Social Sex and Gender Information Value Date Recorded Sex Assigned at Not on file Legal Sex Male 3:24 AM BIG DATA SOLUTIONS ARCHITECT Gender Identity Not on file Sexual Orientation Not on file 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 Healed right periacetabular rotational osteotomy with mild femoral head Perthes deformity and normal hip joint spaces. Electronically signed by: Chau Ornelas M.D. Narrative 01/24/2020 8:17 AM BIG DATA SOLUTIONS ARCHITECT EXAMINATION: XR HIP RIGHT 4 OR MORE [...] thigh documented in this encounter Care Teams Drum Cleaner Relationship Specialty Start Date End Date No, Physician PCP - General 07/28/19 documented as of this encounter
--- OUTSIDE RECORDS SUMMARY | 2024-03-08 04:46 | XMS_ITS | Encounter Summary ---
Author Organization [facility] Address [address] [place] [address] Care Team Providers Care Statistical Assistant Name Role Phone No, Physician Primary Care Provider [phone] Reason for Referral * Diagnostic Imaging (Routine) - Closed Specialty Diagnoses / Procedures Referred By Contac t Referred To Contact Diagnoses Bilateral hip pain Right hip pain Procedures FL Fluoro Guided Injection Hip Right Vannessa Bacon MD [address] [place] [address] Phone: tel: fax: [address] [address] Referral ID Status Reason Start Date Expiration Date Visits Re quested Visits Authorized [id number] Closed 09/30/2019 04/10/2021 1 1 Reason for Visit * Diagnostic Imaging (Routine) - Closed Specialty Diagnoses / Procedures Referred By Contac t Referred To Contact Diagnoses Bilateral hip pain Right hip pain Procedures FL Fluoro Guided Injection Hip Right Vannessa Bacon MD [address] [place] [address] Phone: tel: fax: [address] [address] Referral ID Status Reason Start Date Expiration Date Visits Re quested Visits Authorized [id number] Closed 09/30/2019 04/10/2021 1 1 Encounter Details Date Type Department Care Team (Latest Contact Info) Description 11/04/2019 1:30 PM CDT - 11/04/2019 11:59 PM CDT Hospital Encounter [facility] [address] [place] [address] Vannessa Bacon MD [address] [facility] 6A/6B/12A [place] [address] Right hip pain (Primary Dx); Bilateral hip [...] on file 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
--- OUTSIDE RECORDS SUMMARY | 2024-03-08 04:46 | XMS_ITS | Referral Summary ---
Author Organization [facility] Address [address] [place] [address] Care Team Providers Care Car Dumper Operator Name Role Phone No, Physician Primary Care Provider [phone] Allergies No known active allergies Medications ID NOW COVID-19 Test Kit kit TEST DIRECTED. 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
--- OUTSIDE RECORDS SUMMARY | 2024-03-08 04:46 | XMS_ITS | Encounter Summary ---
Author Organization [facility] Care Team Providers Care Weaver Apprentice Name Role Phone Unavailable Primary Care Provider Unavailtani e Encounter Details Date Type Department Care Team (Late st Contact Info) Description 07/15/2013 - 08/17/2013 11:59 PM CDT Hospital Encounter [facility] Freddy Julio MD [address] [place] [address] Social History Tobacco Use Types Packs/Day Years Used Date Smoking Tobacco: Never Assessed Sex and Gender Information Value Date Recorded Sex Assigned at Not on file 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 ??There will be no separate report generated by a [facility] Radiologist. Requested By: FREDDY JULIO ??M.D. Dictated By: ?? OUTSIDE IMAGES PROTECTIVE OFFICER, ?? on July ??2013 12:37P This document has been electronically signed by: OUTSIDE IMAGES PROTECTIVE OFFICER, ??on July ??2013 12:37P Procedure Note Provider, Caren, - 07/09/2016 OUTSIDE IMAGES PROTECTIVE OFFICER, FINAL REPORT ACC# Date Time Exam [id number] July 20, 2013 10:56:00 REFERENCE STUDY-[facility] EXAMINATION: Images For Reference Purposes Only IMPRESSION: These images have been uploaded for Reference purposes only. There will be no separate report generated by a [facility] Radiologist. Requested By: FREDDY JULIO M.D. Dictated By: OUTSIDE IMAGES PROTECTIVE OFFICER, on Jul 20 2013 12:37P This document has been electronically signed by: OUTSIDE IMAGES PROTECTIVE OFFICER, on Jul 20 2013 12:37P us Historical Provider IMG XR PROCEDURES Final R esult * Clinical Image (07/02/2013 12:32 PM CDT) 07/02/2013 12:3 2 PM CDT us Historical Provider NURSING COMMUNICATION Fin al Result HISTORICAL RESULTS documented in this encounter Visit Diagnoses Not on filedocumented in this encounter
--- OUTSIDE RECORDS SUMMARY | 2024-03-08 04:46 | XMS_ITS | Clinical Summary ---
Author Organization [facility] Address [address] [place] [address] Care Team Providers Care Nail Assembly Machine Operator Name Role Phone No, Physician Primary Care Provider [phone] Allergies No known active allergies Medications ID NOW COVID-19 Test Kit kit TEST DIRECTED. 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
--- OUTSIDE RECORDS SUMMARY | 2024-03-08 04:46 | XMS_ITS | Encounter Summary ---
Author Organization [facility] Address [address] [place] [address] Phone Care Team Providers Care Ross Furnace Operator Name Role Phone No, Physician Primary Care Provider [phone] Encounter Details Date Type Department Care Team (Late st Contact Info) Description 08/21/2020 Orders Only [facility] Orthopaedic Surgery [address] [place] [address] Medical Office Building [address] [place] [phone] Randolph Sullivan MD [address] [facility] [address] [place] [address] Social History Tobacco Use Types Packs/Day Years Used Date Smoking Tobacco: Never Smokeless Tobacco: Never Alcohol Use Standard Drinks/Week Comments Yes 0 (1 standard drink = 0.6 oz pur e alcohol) Social Sex and Gender Information Value Date Recorded Sex Assigned at Not on file 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
--- OUTSIDE RECORDS SUMMARY | 2024-03-08 04:46 | XMS_ITS | Encounter Summary ---
Author Organization [facility] Address [address] [place] [address] Phone Care Team Providers Care Photo Booth Operator Name Role Phone No, Physician Primary Care Provider [phone] Encounter Details Date Type Department Care Team (Late st Contact Info) Description 04/11/2020 Orders Only [facility] [phone] Scanning, Provider Social History Tobacco Use Types Packs/Day Years Used Date Smoking Tobacco: Never Smokeless Tobacco: Never Alcohol Use Standard Drinks/Week Comments Yes 0 (1 standard drink = 0.6 oz pur e alcohol) Social Sex and Gender Information Value Date Recorded Sex Assigned at Not on file 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
--- OUTSIDE RECORDS SUMMARY | 2024-03-08 04:46 | XMS_ITS | Encounter Summary ---
Author Organization [facility] Healthcare Address [address] [place] [address] Care Team Providers Care Sales Consultant Residential Manager Name Role Phone No, Physician Primary Care Provider [phone] Reason for Visit * Diagnostic Imaging (Routine) - Closed Specialty Diagnoses / Procedures Referred By Contac t Referred To Contact Diagnoses Acute low back pain, unspecified back pain laterality, unspecified whether sciatica present Procedures XR Spine Lumbar 2 or 3 Views Vannessa Bacon MD [address] [facility] [place] [address] Phone: tel: fax: [address] [address] Referral ID Status Reason Start Date Expiration Date Visits Re quested Visits Authorized [id number] Closed 09/30/2019 04/10/2021 1 1 Encounter Details Date Type Department Care Team (Latest Contact Info) Description 09/30/2019 9:14 AM CDT - 09/30/2019 11:59 PM CDT Hospital Encounter [facility] Radiology [facility] [address] [place] [address] Vannessa Bacon MD [address] [facility] [place] [address] Discharge Disposition: Discharge to home or self care Social History Tobacco Use Types Packs/Day Years Used Date Smoking Tobacco: Never Smokeless Tobacco: Never Alcohol Use Standard Drinks/Week Comments Yes 0 (1 standard drink = 0.6 oz pur e alcohol) Social Sex and Gender Information Value Date Recorded Sex Assigned at Not on file Legal Sex Male 3:24 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 Dictated by: Sitxo Tafoya M.D. The radiology attending physician has personally reviewed this study, and had reviewed and/or edited this written report and agrees with it. Electronically signed by: Bandar Chau MD, PHD Vannessa Bacon MD IMG XR PROCEDURES Final Re sult documented in this encounter Visit Diagnoses Not on filedocumented in this encounter Care Teams Sales Consultant Residential Manager Relationship Specialty Start Date End Date No, Physician PCP - General 07/28/19 documented as of this encounter
--- OUTSIDE RECORDS SUMMARY | 2024-03-08 04:46 | XMS_ITS | Encounter Summary ---
Author Organization [facility] Address [address] [place] [address] [address] [place] [address] Care Team Providers Care Video Production Engineer Name Role Phone No, Physician Primary Care Provider [phone] Reason for Visit * Reason Onset Date Comments Covid-19 Home Monitoring 11/04/2020 Encounter Details Date Type Department Care Team (Late st Contact Info) Description 11/04/2020 Telephone [facility] Accountable Care Organization [address] [place] [address] Teetee Cardozo [place] [address] [address] Covid-19 Home Monitoring Social History Tobacco Use Types Packs/Day Years Used Date Smoking Tobacco: Never Smokeless Tobacco: Never Alcohol Use Standard Drinks/Week Comments Yes 0 (1 standard drink = 0.6 oz pur e alcohol) Social Sex and Gender Information Value Date Recorded Sex Assigned at Not on file 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 The patient [...] documented as of this encounter Care Teams Video Production Engineer Relationship Specialty Start Date End Date No, Physician PCP - General 07/28/19 documented as of this encounter
--- OUTSIDE RECORDS SUMMARY | 2024-03-08 04:46 | XMS_ITS | Encounter Summary ---
Author Organization [facility] Address [address] [place] [address] Phone Care Team Providers Care Linen Tech Name Role Phone No, Physician Primary Care Provider [phone] Reason for Visit * Injectables (Routine) - Closed Specialty Diagnoses / Procedures Referred By Contac t Referred To Contact Diagnoses Right hip pain Procedures Iliopsoas tendon injection w/ Ultrasound Guidance Vannessa Bacon MD [address] [place] [address] Phone: tel: fax: [facility] (All Locations) Referral ID Status Reason Start Date Expiration Date Visits Re quested Visits Authorized [id number] Closed 01/20/2020 02/18/2021 1 1 Encounter Details Date Type Department Care Team (Late st Contact Info) Description 04/11/2020 4:00 PM CHEMICAL DEPENDENCY NURSE Office Visit [facility] Orthopaedic Surgery [address] [place] [address] Medical Office Building [address] [place] [address] Vannessa Bacon MD [address] [place] [address] Right hip pain Social History Tobacco Use Types Packs/Day Years Used Date Smoking Tobacco: Never Smokeless Tobacco: Never Alcohol Use Standard Drinks/Week Comments Yes 0 (1 standard drink = 0.6 oz pur e alcohol) Social Sex and Gender Information Value Date Recorded Sex Assigned at Not on file Legal Sex Male 3:24 AM CHEMICAL DEPENDENCY NURSE Gender Identity Not on file Sexual Orientation Not on file 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 Not [...] (2.5 mg/mL); 40 mg triamcinolone 40 mg/mL ICAL DEPENDENCY NURSE documented in this encounter Plan of Treatment Not on file documented as of this encounter Procedures Procedure Name Priority Date/Time Associated Diagnosis Comments CHG US GUIDANCE NEEDLE PLACEMENT IMG S&I Routine 04/11/2020 4:00 PM CHEMICAL DEPENDENCY NURSE Right hip pain AK INJECTION 1 TENDON SHEATH/LIGAMENT APONEUROSIS Routine 04/11/2020 4:00 PM CHEMICAL DEPENDENCY NURSE Right hip pain documented in this encounter Results * AK INJECTION 1 TENDON SHEATH/LIGAMENT APONEUROSIS, CHG US GUIDANCE NEEDLE PLACEMENT IMG S&I (04/11/2020 4:00 PM CHEMICAL DEPENDENCY NURSE) Narrative Vannessa Bacon MD - 04/11/2020 4:00 PM CHEMICAL DEPENDENCY NURSE Vannessa Bacon MD ? 04/24/2020 ??5:57 PM [...] doseIndications:Right hip pain Given 04/24/2020 5:57 PM CHEMICAL DEPENDENCY NURSE 2 mL lidocaine (XYLOCAINE) 10 mg/mL (1 %) injection 2 mL 2 mL, One-Time Injection, Starting on Fri04/24/20 at 1757, For 1 dose, Indications: Administration of Local AnesthesiaIndications:Administratio n of Local Anesthesia Given 04/24/2020 5:57 PM CHEMICAL DEPENDENCY NURSE 2 mL triamcinolone (KENALOG) 40 mg/mL injection 40 mg 40 mg, One-Time Injection, Starting on Fri04/24/20 at 1757, For 1 doseIndications:Right hip pain Given 04/24/2020 5:57 PM CHEMICAL DEPENDENCY NURSE 40 mg documented in this encounter Care Teams Linen Tech Relationship Specialty Start Date End Date No, Physician PCP - General 07/28/19 documented as of this encounter
--- OUTSIDE RECORDS SUMMARY | 2024-03-08 04:46 | XMS_ITS | Encounter Summary ---
Author Organization [facility] Address [address] [facility] [address] [place] [address] Care Team Providers Care Cloth Sponger Name Role Phone No, Physician Primary Care Provider [phone] Reason for Visit * Reason Comments COVID-19 EVALUATION Headaches, fatigue, sinus drainage and hot and cold chills since yesterday. no exp. vaccinated. Encounter Details Date Type Department Care Team (Late st Contact Info) Description 11/01/2020 4:15 PM CDT Office Visit [facility] [address] [place] [address] Isabela Pepper, CONTRACT ADMINISTRATOR [address] [facility] [address] [place] [address] COVID-19 (Primary Dx) Social History Tobacco Use Types Packs/Day Years Used Date Smoking Tobacco: Never Smokeless Tobacco: Never Alcohol Use Standard Drinks/Week Comments Yes 0 (1 standard drink = 0.6 oz pur e alcohol) Social Sex and Gender Information Value Date Recorded Sex Assigned at Not on file Legal Sex Male 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 [facility] will be reaching out [...] loosen secretions in the nose and lungs. Klhf-sai-ywnjdtj cold medicines will not shorten the length of time you???re sick, but they may be helpful for relieving the following symptoms: headache, cough, sore throat, and nasal and sinus congestion. If you take prescription medicines, ask your healthcare provider or pharmacist which eamk-qhl-wjurzzp medicines are safe to use. (Note: DO [...] yourself. Get rest and stay hydrated. Take qgrt-iwd-aasvzih medicines to help you feel better. ??? [...] and need to call 911, notify the make up operator that you have or think you [...] with someone who is sick visit https://www.cdc .gov/coronavirus/2019-ncov/vqxpz-strm-utwaal/peksiy-fw-ohyid-quarters.html For more information on COVID-19 and pets [...] tenderness or frontal sinus tenderness. Mouth/Throat: Lips: Earlimart. Mouth: Mucous membranes are moist. Pharynx: No [...] and the virus that causes it. [facility] will be reaching out [...] loosen secretions in the nose and lungs. Lcse-shk-jgwcjps cold medicines will not shorten the length of time you???re sick, but they may be helpful for relieving the following symptoms: headache, cough, sore throat, and nasal and sinus congestion. If you take prescription medicines, ask your healthcare provider or pharmacist which yrux-pwz-izgjinv medicines are safe to use. (Note: DO [...] yourself. Get rest and stay hydrated. Take kfnh-kbd-rkepqkr medicines to help you feel better. ??? [...] and need to call 911, notify the make up operator that you have or think you [...] with someone who is sick visit https://www.cdc .gov/coronavirus/2019-ncov/cqwgd-njqh-ueziyg/zahevs-lj-kjrbv-quarters.html For more information on COVID-19 and pets [...] (ABNORMAL) COVID-19 POC (11/01/2020 5:33 PM CDT) [facility] Signature COVID-19 Ag POC (BD Veritor) Positive( A) Presumptive Negative, Invalid [facility] [place] Nasal 11/01/2020 5:33 PM CDT Isabela Pepper NP POINT OF CARE TEST ORDERABLES Final Result [facility] [place] [address] [place] [address] documented in this encounter Visit Diagnoses Diagnosis COVID-19- Primary documented in this encounter Additional Health Concerns Infection Onset Date Last Indicated Resolved Time COVID: Suspected 11/01/2020 11/01/2020 11/01/2020 5:33 PM CDT COVID19 11/01/2020 11/01/2020 11/15/2020 3:05 AM CDT documented as of this encounter Care Teams Cloth Sponger Relationship Specialty Start Date End Date No, Physician PCP - General 07/28/19 documented as of this encounter
--- OUTSIDE RECORDS SUMMARY | 2024-03-08 04:46 | XMS_ITS | Encounter Summary ---
Author Organization [facility] Address [address] [place] [address] Phone Care Team Providers Care Hogshead Mat Assembler Name Role Phone No, Physician Primary Care Provider Reason for Referral * Diagnostic Imaging (Routine) - Closed Specialty Diagnoses / Procedures Referred By Contac t Referred To Contact Radiology Diagnoses Low back pain with radiation Tendinitis of right hip flexor Procedures IR Injection Tendon Sheath Or Ligament Right (ILIOPSOAS) Vannessa Bacon MD [address] [place] [address] Phone: tel: fax: [address] [address] Referral ID Status Reason Start Date Expiration Date Visits Re quested Visits Authorized [id number] Closed 12/07/2019 01/05/2021 1 1 Encounter Details Date Type Department Care Team (Late st Contact Info) Description 12/07/2019 Orders Only [facility] Orthopaedic Surgery [address] [facility] Medical Office Building [address] [place] [address] Vannessa Bacon MD [address] [place] [address] Low back pain with radiation [...] on file 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
--- OUTSIDE RECORDS SUMMARY | 2024-03-08 04:46 | XMS_ITS | Encounter Summary ---
Author Organization [facility] Address [address] [place] [address] Phone Care Team Providers Care Core Extruder Name Role Phone No, Physician Primary Care Provider [phone] Reason for Visit * Reason Onset Date Comments Injections 04/11/2020 Pain Diary Encounter Details Date Type Department Care Team (Late st Contact Info) Description 05/02/2020 Telephone [facility] Orthopaedic Surgery [facility] [place] [address] Vannessa Bacon MD [address] [facility] [address] [place], [place] [id number] Injections (Pain Diary) Social History Tobacco Use Types Packs/Day Years Used Date Smoking Tobacco: Never Smokeless Tobacco: Never Alcohol Use Standard Drinks/Week Comments Yes 0 (1 standard drink = 0.6 oz pur e alcohol) Social Sex and Gender Information Value Date Recorded Sex Assigned at Not on file Legal Sex Male 3:24 AM 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 He is going to [facility] in [place] and is going tomorrow for an appointment and is going to have them send us progress notes. OR CORPORATE ACCOUNTANT * Telephone Encounter - Gely Marie CMA - 05/03/2020 1:31 PM CST LVM for pt to call back to discuss. OR CORPORATE ACCOUNTANT * Telephone Encounter - Vannessa Bacon MD - 05/03/2020 12:40 PM SENIOR CORPORATE ACCOUNTANT This tells us we need to optimize the physical therapy. I haven't seen any PT notes recently. OR CORPORATE ACCOUNTANT * Telephone Encounter - Gely Marie CMA - 05/03/2020 11:15 AM CST 04/11/2020 Iliopsoas tendon injection w/ Ultrasound Guidance OR CORPORATE ACCOUNTANT * Telephone Encounter - Suyapa Garcia CPhT - 05/02/2020 4:07 PM SENIOR CORPORATE ACCOUNTANT THERAPEUTIC INJECTION DOS: 04/11/20 INJECTION TYPE: us [...] you happy with your improvement level? yes OR CORPORATE ACCOUNTANT documented in this encounter Plan of Treatment Not on file documented as of this encounter Visit Diagnoses Not on filedocumented in this encounter Care Teams Core Extruder Relationship Specialty Start Date End Date No, Physician PCP - General 07/28/19 documented as of this encounter
--- OUTSIDE RECORDS SUMMARY | 2024-03-08 04:46 | XMS_ITS | Encounter Summary ---
Author Organization [facility] Facility Care Team Providers Care Direct Of Real Estate Name Role Phone Unavailable Primary Care Provider Unavailabl e Encounter Details Date Type Department Care Team (Late st Contact Info) Description 10/15/2013 4:30 PM CDT - 10/15/2013 11:59 PM CDT Hospital Encounter [facility] Mohinder Julio MD [address] [address] Laboratory examination Social History Tobacco Use Types Packs/Day Years Used Date Smoking Tobacco: Never Assessed Sex and Gender Information Value Date Recorded Sex Assigned at Not on file Legal Sex Male 3:24 AM BATHING SUIT MAKER Gender Identity Not on file Sexual Orientation [...] (MRSA/MSSA) Culture (10/15/2013 11:17 AM CDT) Organism CARLITA^[id number] HISTORICAL RESULTS Nasal (Unknown) 10/15/2013 1 [...] RESULTS - 10/20/2013 2:39 AM CDT ? [facility] ?Clinical Laboratories ? [facility] ? [place] [address] Patient Name: ? DELBERT HUMPHREYS Rec Number: ?? [id number] [facility] Number: ? [id number] Date: ? 1995 Sex/Age: ?Male 18 years Admit Date: ? 10/15/2013 Discharge Date: ?? 10/15/2013 Doctor: ? Mohinder Julio Referring Doctor: Mohinder Julio Facility: ? [facility] Location: ? [facility] Chart Printed: ?10/20/2013 02:39 [...] HISTORICAL RESULTS - 10/19/2013 12:24 PM CDT ?[facility] ? Clinical Laboratories ?[facility] ?[place] [address] ? Patient Name: ? DELBERT HUMPHREYS ? Med Rec Number: ? [id number] ? Fin Number: ? [id number] ? Date: ? 1995 ? Sex/Age: ?Male 18 years ? Admit Date: ? 10/15/2013 ? Discharge Date: ? 10/15/2013 ? Doctor: ? Mohinder Julio L ? Facility: ? [facility] ? Location: ? [facility] ? * Abnormal [...]
--- OUTSIDE RECORDS SUMMARY | 2024-03-08 04:46 | XMS_ITS | Encounter Summary ---
Author Organization [facility] Address [address] [place] [address] Phone Care Team Providers Care Chemical Weigher Name Role Phone No, Physician Primary Care Provider [phone] Encounter Details Date Type Department Care Team (Late st Contact Info) Description 05/12/2020 Telephone [facility] Orthopaedic [facility] [place] [address] Vannessa Bacon MD [address] [facility] [address] [place] [address] Social History Tobacco Use Types Packs/Day Years Used Date Smoking Tobacco: Never Smokeless Tobacco: Never Alcohol Use Standard Drinks/Week Comments Yes 0 (1 standard drink = 0.6 oz pur e alcohol) Social Sex and Gender Information Value Date Recorded Sex Assigned at Not on file Legal Sex Male 3:24 AM LICENSED SURVEYOR Gender Identity Not on file Sexual Orientation Not on file 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 NSED SURVEYOR * Telephone Encounter - Vannessa Bacon MD - 05/12/2020 12:13 PM LICENSED SURVEYOR Yes please. NSED SURVEYOR * Telephone Encounter - Gely Marie CMA - 05/12/2020 8:53 AM CST Okay to write updated PT RX with the following recommendations? [facility] Iliopsoas release and improve function Myofascial techniques at thoracic spine Avoid positions of right hip impingement Improve muscle balance of length and strength at the pelvis. Ergonomics HEP Last written 09/2019 GREG: USI 03/2020 NSED SURVEYOR * Telephone Encounter - Sarah Toscano - 05/12/2020 8:48 AM CST Tisha from [place] [facility] at [phone] and fax [phone] is calling to get a continuation on physical therapy script NSED SURVEYOR documented in this encounter Plan of Treatment Not on file documented as of this encounter Visit Diagnoses Not on filedocumented in this encounter Care Teams Chemical Weigher Relationship Specialty Start Date End Date No, Physician PCP - General 07/28/19 documented as of this encounter
--- OUTSIDE RECORDS SUMMARY | 2024-03-08 04:46 | XMS_ITS | Encounter Summary ---
Author Organization [facility] Address [address] [place] [address] Care Team Providers Care Camera Storage Clerk Name Role Phone No, Physician Primary Care Provider [phone] Reason for Referral * MRI/CAT/PET Scan (Routine) - Closed Specialty Diagnoses / Procedures Referred By Contac t Referred To Contact Radiology Diagnoses Follow-up examination following surgery Pain in right hip Procedures MRI Hip Arthrogram Right W Contrast Randolph Sullivan MD [address] [place] [address] Phone: tel: fax: [place] [address] [place] [address] Referral ID Status Reason Start Date Expiration Date Visits Re quested Visits Authorized [id number] Closed 08/11/2020 09/09/2020 1 1 Reason for Visit * MRI/CAT/PET Scan (Routine) - Closed Specialty Diagnoses / Procedures Referred By Contac t Referred To Contact Radiology Diagnoses Follow-up examination following surgery Pain in right hip Procedures MRI Hip Arthrogram Right W Contrast Randolph Sullivan MD [address] [place] [id number] Phone: tel: fax: [place] [address] [place] [address] Referral ID Status Reason Start Date Expiration Date Visits Re quested Visits Authorized [id number] Closed 08/11/2020 09/09/2020 1 1 Encounter Details Date Type Department Care Team (Latest Contact Info) Description 08/23/2020 9:19 AM CDT - 08/23/2020 11:59 PM CDT Hospital Encounter [facility] [address] [address] [address] Randolph Sullivan MD [address] [place] [address] Follow-up examination following surgery; Pain in right [...] on file Legal Sex Male 3:24 AM TELEPHONE INSTRUMENT SUPERVISOR Gender Identity Not on file Sexual Orientation Not on file 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 Randolph Sullivan MD [facility] MRI PROCEDURES Final Resu lt documented in this encounter Visit Diagnoses Diagnosis Follow-up examination following surgery Pain in right hip documented in this encounter Care Teams Camera Storage Clerk Relationship Specialty Start Date End Date No, Physician PCP - General 07/28/19 documented as of this encounter
--- OUTSIDE RECORDS SUMMARY | 2024-03-08 04:46 | XMS_ITS | Encounter Summary ---
Author Organization [facility] Address [address] [place] [address] Phone Care Team Providers Care Quality Control Technician Name Role Phone No, Physician Primary Care Provider [phone] Encounter Details Date Type Department Care Team (Late st Contact Info) Description 12/06/2019 Telephone [facility] Orthopaedic Surgery [facility] Medical Office Building [address] [place] [address] Vannessa Bacon MD [address] [facility] [address] [place] [address] Social History Tobacco Use Types Packs/Day Years Used Date Smoking Tobacco: Never Smokeless Tobacco: Never Alcohol Use Standard Drinks/Week Comments Yes 0 (1 standard drink = 0.6 oz pur e alcohol) Social Sex and Gender Information Value Date Recorded Sex Assigned at Not on file Legal Sex Male 3:24 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 * Telephone Encounter - Ludy Avila RN [...] on filedocumented in this encounter Care Teams Quality Control Technician Relationship Specialty Start Date End Date No, Physician PCP - General 07/28/19 documented as of this encounter
--- OUTSIDE RECORDS SUMMARY | 2024-03-08 04:46 | XMS_ITS | Encounter Summary ---
Author Organization [facility] Address [address] [place] [address] Phone Care Team Providers Care Computer Technician Name Role Phone No, Physician Primary Care Provider [phone] Reason for Referral * Diagnostic Imaging (Routine) - Closed Specialty Diagnoses / Procedures Referred By Contac t Referred To Contact Diagnoses Right hip pain Procedures XR Hip Right 4 or More Views Randolph Sullivan MD [address] [address] Phone: tel: fax: [address] [address] Referral ID Status Reason Start Date Expiration Date Visits Re quested Visits Authorized [id number] Closed 01/21/2020 02/19/2021 1 1 TECHNICIAN Reason for Visit * Reason Comments Pain Encounter Details Date Type Department Care Team (Late st Contact Info) Description 01/24/2020 8:10 AM LAWN TECHNICIAN Office Visit [facility] Orthopaedic Surgery [address] [place] [address] Medical Office Building [address] [place] [address] Randolph Sullivan MD [address] [address] Right hip pain (Primary Dx); Follow-up examination following surgery Social History Tobacco Use Types Packs/Day Years Used Date Smoking Tobacco: Never Smokeless Tobacco: Never Alcohol Use Standard Drinks/Week Comments Yes 0 (1 standard drink = 0.6 oz pur e alcohol) Social Sex and Gender Information Value Date Recorded Sex Assigned at Not on file Legal Sex Male 3:24 AM LAWN TECHNICIAN Gender Identity Not on file Sexual Orientation Not on file 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 Not on file Not on file documented as of this encounter Last Filed Vital Signs Vital Sign Reading Time Taken Comments Blood Pressure - - Pulse - - Temperature - - Respiratory Rate - - Oxygen Saturation - - Inhaled Oxygen Concentration - - Weight 113 kg (249 lb 3.2 oz) 01/24/2020 8:34 AM LAWN TECHNICIAN Height 170.8 cm (5' 7.25 ) 01/24/2020 8:34 AM CS T Body Mass Index 38.74 01/24/2020 8:34 AM LAWN TECHNICIAN documented in this encounter Progress Notes * [...] 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 Healed right periacetabular rotational osteotomy with mild femoral head Perthes deformity and normal hip joint spaces. Electronically signed by: Chau Ornelas M.D. Narrative 01/24/2020 8:17 AM LAWN TECHNICIAN EXAMINATION: XR HIP RIGHT 4 OR MORE [...] thigh documented in this encounter Care Teams Computer Technician Relationship Specialty Start Date End Date No, Physician PCP - General 07/28/19 documented as of this encounter
--- OUTSIDE RECORDS SUMMARY | 2024-03-08 04:46 | XMS_ITS | Encounter Summary ---
Author Organization [facility] Address [address] [place] [address] Phone Care Team Providers Care Cnc Milling Machine Operator Name Role Phone No, Physician Primary Care Provider [phone] Encounter Details Date Type Department Care Team (Late st Contact Info) Description 01/04/2020 Orders Only [facility] [phone] Scanning, Provider Social History Tobacco Use Types Packs/Day Years Used Date Smoking Tobacco: Never Smokeless Tobacco: Never Alcohol Use Standard Drinks/Week Comments Yes 0 (1 standard drink = 0.6 oz pur e alcohol) Social Sex and Gender Information Value Date Recorded Sex Assigned at Not on file 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
--- OUTSIDE RECORDS SUMMARY | 2024-03-08 04:46 | XMS_ITS | Encounter Summary ---
Author Organization [facility] Healthcare Address [address] [place] [address] Care Team Providers Care Ladle Puller Name Role Phone No, Physician Primary Care Provider [phone] Encounter Details Date Type Department Care Team (Late st Contact Info) Description 08/22/[address] 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
--- OUTSIDE RECORDS SUMMARY | 2024-03-08 04:46 | XMS_ITS | Encounter Summary ---
Author Organization [facility] Address [address] [place] [address] Phone Care Team Providers Care Bleach Boiler Filler Name Role Phone No, Physician Primary Care Provider [phone] Encounter Details Date Type Department Care Team (Late st Contact Info) Description 09/04/2020 Telephone [facility] Orthopaedic Surgery [address] [facility] Medical Office Building [address] [place] [address] Isha Thompson, RN [address] [place] [address] Social History Tobacco Use Types Packs/Day Years Used Date Smoking Tobacco: Never Smokeless Tobacco: Never Alcohol Use Standard Drinks/Week Comments Yes 0 (1 standard drink = 0.6 oz pur e alcohol) Social Sex and Gender Information Value Date Recorded Sex Assigned at Not on file Legal Sex Male 3:24 AM CENTRAL OFFICE REPAIRER SUPERVISOR Gender Identity Not on file Sexual Orientation Not on file 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
--- OUTSIDE RECORDS SUMMARY | 2024-03-08 04:46 | XMS_ITS | Encounter Summary ---
Author Organization [facility] Address [address] [place] [address] Phone Care Team Providers Care Windows Systems Engineer Name Role Phone No, Physician Primary Care Provider [phone] Encounter Details Date Type Department Care Team (Late st Contact Info) Description 05/12/2020 Orders Only [facility] Orthopaedic Surgery [address] [facility] Medical Office Building [address] [place] [address] Vannessa Bacon MD [address] [facility] [address] [place], [place] [id number] Right hip pain (Primary Dx); Low back [...] on file Legal Sex Male 3:24 AM ASSISTANT PROFESSOR OF LIFE SCIENCES Gender Identity Not on file Sexual Orientation Not on file 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
--- OUTSIDE RECORDS SUMMARY | 2024-03-08 04:46 | XMS_ITS | Encounter Summary ---
Author Organization [facility] Address [address] [place] [address] Phone Care Team Providers Care Customer Order Clerk Name Role Phone No, Physician Primary Care Provider Reason for Referral * Diagnostic Imaging (Routine) - Closed Specialty Diagnoses / Procedures Referred By Lester t Referred To Contact Diagnoses Follow-up examination following surgery Pain in right hip Procedures Injection Hip Right Arthro Only Randolph Sullivan MD [address] [address] Phone: tel: fax: [place] [address] [place] [address] Referral ID Status Reason Start Date Expiration Date Visits Re quested Visits Authorized [id number] Closed 07/31/2020 08/30/2021 1 1 * MRI/CAT/PET Scan (Routine) - Closed Specialty Diagnoses / Procedures Referred By Lester hooks Referred To Contact Radiology Diagnoses Follow-up examination following surgery Pain in right hip Procedures MRI Hip Arthrogram Right W Contrast Randolph Sullivan MD [address] [address] Phone: tel: fax: [place] [address] [place] [address] Referral ID Status Reason Start Date Expiration Date Visits Re quested Visits Authorized [id number] Closed 08/11/2020 09/09/2020 1 1 Reason for Visit * Reason Comments Pain Encounter Details Date Type Department Care Team (Late st Contact Info) Description 07/31/2020 3:50 PM CDT Office Visit [facility] Orthopaedic Surgery [address] [place] [address] Medical Office Building [address] [place] [address] Randolph Sullivan MD [facility] [place] [address] Follow-up examination following surgery (Primary Dx); Pain in right hip Social History Tobacco Use Types Packs/Day Years Used Date Smoking Tobacco: Never Smokeless Tobacco: Never Alcohol Use Standard Drinks/Week Comments Yes 0 (1 standard drink = 0.6 oz pur e alcohol) Social Sex and Gender Information Value Date Recorded Sex Assigned at Not on file Legal Sex Male 3:24 AM AOC AADC OPERATIONS STAFF OFFICER Gender Identity Not on file Sexual Orientation Not on file 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 He is up on his feet [...] and examined by Dr. Laurie Givens MD [facility] Orthopaedics Adult Reconstruction Fellow ATTENDING ADDENDUM The [...] Director Adolescent and Young Adult Hip Service Genetic Supervisor Department of Orthopaedic Surgery documented in this [...] was obtained. ??Prior to beginning the procedure, Snowflake Protocol was performed to confirm the patient's [...] was obtained. Prior to beginning the procedure, Snowflake Protocol was performed to confirm the patient's [...] it. Electronically signed by: Colin Conte M.D. us Randolph Sullivan MD IMG [...] 06/07/2020 added in this encounter Care Teams Customer Order Clerk Relationship Specialty Start Date End Date No, Physician PCP - General 07/28/19 documented as of this encounter
--- OUTSIDE RECORDS SUMMARY | 2024-03-08 04:46 | XMS_ITS | Encounter Summary ---
Author Organization [facility] Address [address] [place] [address] Phone Care Team Providers Care Wind Turbine Installer Name Role Phone No, Physician Primary Care Provider [phone] Reason for Referral * Diagnostic Imaging (Routine) - Closed Specialty Diagnoses / Procedures Referred By Contac t Referred To Contact Diagnoses Bilateral hip pain Right hip pain Procedures FL Fluoro Guided Injection Hip Right Vannessa Bacon MD [address] [place] [address] Phone: tel: fax: [address] [address] Referral ID Status Reason Start Date Expiration Date Visits Re quested Visits Authorized [id number] Closed 09/30/2019 04/10/2021 1 1 * Diagnostic Imaging (Routine) - Closed Specialty Diagnoses / Procedures Referred By Contac t Referred To Contact Diagnoses Acute low back pain, unspecified back pain laterality, unspecified whether sciatica present Procedures XR Spine Lumbar 2 or 3 Views Vannessa Bacon MD [address] [place] [address] Phone: tel: fax: [address] [address] Referral ID Status Reason Start Date Expiration Date Visits Re quested Visits Authorized [id number] Closed 09/30/2019 04/10/2021 1 1 * Diagnostic Imaging (Routine) - Closed Specialty Diagnoses / Procedures Referred By Letser hooks Referred To Contact Diagnoses Bilateral hip pain Procedures XR Pelvis 1 or 2 Views Vannessa Bacon MD [address] [facility] [address], [place] [address] Phone: tel: fax: 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. Patient states that his hip pain completely [...] injection Fernando Tracy MD Resident Physician PGY-3 [facility] Division of Physical Medicine and Rehabilitation Portions of this note were dictated using M*Modal Fluency Direct speech recognition software. Please excuse any mainframe software developer errors. ADDENDUM: I saw and evaluated the patient with Dr. Fernando Tracy I participated fully in the history, physical, review of radiographs, assessment and plan. I discussed this case with Dr. Tracy and agree with his findings as documented above. Please see for details. Vannessa Bacon MD Insurance Account Manager Physical Medicine and Rehabilitation [facility] documented in this encounter Plan [...] thigh documented in this encounter Care Teams Wind Turbine Installer Relationship Specialty Start Date End Date No, Physician PCP - General 07/28/19 documented as of this encounter
--- OUTSIDE RECORDS SUMMARY | 2024-03-08 04:46 | XMS_ITS | Encounter Summary ---
Author Organization [facility] Address [address] [place] [address] Care Team Providers Care Forest Science Professor Name Role Phone No, Physician Primary Care Provider [phone] Reason for Referral * Diagnostic Imaging (Routine) - Closed Specialty Diagnoses / Procedures Referred By Lester hooks Referred To Contact Diagnoses Follow-up examination following surgery Pain in right hip Procedures Injection Hip Right Arthro Only Randolph Sullivan MD [address] [address] Phone: tel: fax: [place] [address] [place] [address] Referral ID Status Reason Start Date Expiration Date Visits Re quested Visits Authorized [id number] Closed 07/31/2020 08/30/2021 1 1 Reason for Visit * Diagnostic Imaging (Routine) - Closed Specialty Diagnoses / Procedures Referred By Lester hooks Referred To Contact Diagnoses Follow-up examination following surgery Pain in right hip Procedures Injection Hip Right Arthro Only Randolph Sullivan MD [address] [facility] [address] [place] [address] Phone: tel: fax: [place] [address] [place] [address] Referral ID Status Reason Start Date Expiration Date Visits Re quested Visits Authorized [id number] Closed 07/31/2020 08/30/2021 1 1 Encounter Details Date Type Department Care Team (Latest Contact Info) Description 08/23/2020 9:19 AM CDT - 08/23/2020 11:59 PM CDT Hospital Encounter [facility] Imaging [address] [address] [address] Randolph Sullivan MD [address] [place] [address] Follow-up examination following surgery; Pain in right [...] on file 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 ??Prior to beginning the procedure, Dennison Protocol was performed to confirm the patient's [...] MR arthrogram are reported separately. Procedure Note Cloin Conte MD - 08/23/2020 EXAMINATION: 1. Right hip joint injection 2. Fluoroscopic guidance for needle placement HISTORY: 24-year-old man with right hip dysplasia status post right periacetabular osteotomy, pre MR arthrogram TECHNIQUE: The risks, benefits and alternatives were discussed with the patient. Informed consent was obtained. Prior to beginning the procedure, Dennison Protocol was performed to confirm the patient's [...] mL documented in this encounter Care Teams Forest Science Professor Relationship Specialty Start Date End Date No, Physician PCP - General 07/28/19 documented as of this encounter
--- OUTSIDE RECORDS SUMMARY | 2024-03-08 04:46 | XMS_ITS | Encounter Summary ---
Author Organization 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 1. [...] TORY AGUIRRE, ??on Nov 10 2015 11:50A [id number] Procedure Note Provider, MD Caren - 07/09/2016 TORY AGUIRRE, FINAL REPORT ACC# Date Time Exam [id number] Nov 10, 2015 09:00:00 [id number] FLUORO GUIDE FOR NDLE PLCM [id number] Nov 10, 2015 09:00:00 [id number] INJECTION HIP ARTHROGRAM R [id number] Nov 10, 2015 10:17:00 [id number] MRI HIP W R EXAMINATION: 1. Fluoroscopic [...] TORY AGUIRRE on Nov 10 2015 11:50A [id number] us Historical Provider MD MEJIA MRI PROCEDURES Final Result * FLUORO GUIDED NEEDLE PLACEMENT (11/10/2015 9:00 AM CDT) Anatomical Region Laterality Modality Body N/A Radiographic Leydi ging 11/10/2015 9:00 AM CDT Narrative 11/10/2015 11:50 AM CDT TORY AGUIRRE, FINAL REPORT ACC# ??Date Time ??Exam [id number] Nov 10, 2015 09:00:00 [id number] FLUORO GUIDE FOR NDLE PLCM [id number] Nov 10, 2015 09:00:00 [id number] INJECTION HIP ARTHROGRAM R [id number] Nov 10, 2015 10:17:00 [id number] MRI HIP W R EXAMINATION: ?? 1. [...] AGUIRRE, FINAL REPORT ACC# Date Time Exam [id number] Nov 10, 2015 09:00:00 [id number] FLUORO GUIDE FOR NDLE PLCM [id number] Nov 10, 2015 09:00:00 [id number] INJECTION HIP ARTHROGRAM R [id number] Nov 10, 2015 10:17:00 [id number] MRI HIP W R EXAMINATION: 1. Fluoroscopic [...] AGUIRRE, FINAL REPORT ACC# ??Date Time ??Exam [id number] Nov 10, 2015 09:00:00 29504 FLUORO GUIDE FOR NDLE PLCM [id number] Nov 10, 2015 09:00:00 [id number] INJECTION HIP ARTHROGRAM R [id number] Nov 10, 2015 10:17:00 [id number] MRI HIP W R EXAMINATION: ?? 1. [...] AGUIRRE, FINAL REPORT ACC# Date Time Exam [id number] Nov 10, 2015 09:00:00 20404 FLUORO GUIDE FOR NDLE PLCM [id number] Nov 10, 2015 09:00:00 [id number] INJECTION HIP ARTHROGRAM R [id number] Nov 10, 2015 10:17:00 [id number] MRI HIP W R EXAMINATION: 1. Fluoroscopic [...]
--- OUTSIDE RECORDS SUMMARY | 2024-03-08 04:46 | XMS_ITS | Encounter Summary ---
Author Organization [facility] Address [address] [place] [address] Phone Care Team Providers Care Gate Watchman Name Role Phone No, Physician Primary Care Provider [phone] Reason for Referral * Procedure (Routine) - Closed Specialty Diagnoses / Procedures Referred By Lester hooks Referred To Contact Diagnoses Trochanteric bursitis of right hip Procedures Greater trochanteric bursa injection Vannessa Bacon MD [address] [employer] [place] [address] Phone: tel: fax: [facility] (All Locations) Referral ID Status Reason Start Date Expiration Date Visits Re quested Visits Authorized [id number] Closed 01/04/2020 02/02/2021 1 1 Reason for Visit * Diagnostic Imaging (Routine) - Closed Specialty Diagnoses / Procedures Referred By Lester hooks Referred To Contact Radiology Diagnoses Low back pain with radiation Tendinitis of right hip flexor Procedures IR Injection Tendon Sheath Or Ligament Right (ILIOPSOAS) Vannessa Bacon MD [address] [place] [address] Phone: tel: fax: [facility] [address] [place] [address] Referral ID Status Reason Start Date Expiration Date Visits Re quested Visits Authorized [id number] Closed 12/07/2019 01/05/2021 1 1 Encounter Details Date Type Department Care Team (Late st Contact Info) Description 01/04/2020 2:00 PM CDT Office Visit [facility] Orthopaedic Surgery [address] [facility] Medical Office Building [address] [place] [address] Vannessa Bacon MD [address] [facility] 6A[address]6B[address] [place] [address] Trochanteric bursitis of right hip (Primary Dx); [...] on file 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
--- OUTSIDE RECORDS SUMMARY | 2024-03-08 04:47 | XMS_ITS | Encounter Summary ---
Author Organization [facility] Facility Care Team Providers Care Lockstitch Waistband Setter Name Role Phone Unavailable Primary Care Provider Unavailabl e Encounter Details Date Type Department Care Team (Late st Contact Info) Description 07/21/2013 - 07/21/2013 11:59 PM CDT Hospital Encounter [facility] John Reveles MD [address] [place] [address] Pain in joint, pelvic region and thigh; Sprain and strain of other specified sites of hip and thigh Social History Tobacco Use Types Packs/Day Years Used Date Smoking Tobacco: Never Assessed Sex and Gender Information Value Date Recorded Sex Assigned at Not on file 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 ACC# ??Date Time ??Exam [id number] July 21, 2013 16:34:00 [id number] MRI Jnt Lower Extr wi con R [...] entire pelvis were supplemented by high-resolution small ucqhz-mi-ghsj images of the right hip. The right [...] electronically signed by: SAMANTA ALANIS M.D. on July ??2013 10:29A Procedure Note Provider, MD Caren - 07/09/2016 SAMANTA ALANIS M.D. JENN ARIAS M.D. FINAL REPORT The radiology attending physician has personally reviewed this study, and has reviewed and/or edited this written report and agrees with it. ACC# Date Time Exam [id number] July 21, 2013 16:34:00 86046 MRI Jnt Lower Extr wi con R [...] entire pelvis were supplemented by high-resolution small pxpto-nm-vife images of the right hip. The right [...] M.D. FINAL REPORT ACC# ??Date Time ??Exam [id number] July 21, 2013 15:42:00 40462 Asp/Inj Large Joint R [id number] July 21, 2013 15:42:00 24937 Fluoro Guide Ndl Plc EXAMINATION: ??EXAMINATIONS: 1. [...] M.D. FINAL REPORT ACC# Date Time Exam [id number] July 21, 2013 15:42:00 06406 Asp/Inj Large Joint R [id number] July 21, 2013 15:42:00 73839 Fluoro Guide Ndl Plc EXAMINATION: EXAMINATIONS: 1. [...] M.D. FINAL REPORT ACC# ??Date Time ??Exam [id number] July 21, 2013 15:42:00 63489 Asp/Inj Large Joint R [id number] July 21, 2013 15:42:00 39102 Fluoro Guide Ndl Plc EXAMINATION: ??EXAMINATIONS: 1. [...] M.D. FINAL REPORT ACC# Date Time Exam [id number] July 21, 2013 15:42:00 44722 Asp/Inj Large Joint R [id number] July 21, 2013 15:42:00 29130 Fluoro Guide Ndl [facility] EXAMINATION: EXAMINATIONS: 1. Right hip injection. 2. [...]
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
--- OUTSIDE RECORDS SUMMARY | 2024-03-08 04:47 | XMS_ITS | Encounter Summary ---
Author Organization [facility] Facility Care Team Providers Care Ward Clerk Name Role Phone Unavailable Primary Care Provider Unavailabl e Encounter Details Date Type Department Care Team (Late st Contact Info) Description 07/21/2013 11:22 AM CDT - 07/21/2013 11:59 PM CDT Hospital [facility] Mohinder Julio MD [address] [address] Juvenile osteochondrosis of hip and pelvis Social History Tobacco Use Types Packs/Day Years Used Date Smoking Tobacco: Never Assessed Sex and Gender Information Value Date Recorded Sex Assigned at Not on file 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 ACC# ??Date Time ??Exam [id number] July 21, 2013 11:58:[address] LOWER EXTREMITY W/O CON R [id number] July 21, 2013 11:58:00 86642 3D RENDERING BY DAVIDsTEA* ACC# ??Date Time ??Exam [id number] July 21, 2013 11:58:[address] LOWER EXTREMITY W/O CON R [id number] July 21, 2013 11:58:00 24105 3D RENDERING BY DAVIDsTEA* EXAMINATION: ?CT study of right hip without [...] agrees with it. ACC# Date Time Exam [id number] July 21, 2013 11:58:[address] LOWER EXTREMITY W/O CON R [id number] July 21, 2013 11:58:00 28568 3D RENDERING BY TECH*BODY* ACC# Date Time Exam [id number] July 21, 2013 11:58:[address] LOWER EXTREMITY W/O CON R [id number] July 21, 2013 11:58:00 61457 3D RENDERING BY TECH*BODY* EXAMINATION: CT study [...] ??Date Time ??Exam July 21, 2013 11:58:[address] LOWER EXTREMITY W/O CON R [id number] July 21, 2013 11:58:00 10159 3D RENDERING BY TECH*BODY* ACC# ??Date Time ??Exam [id number] July 21, 2013 11:58:[id number] LOWER EXTREMITY W/O CON R [id number] July 21, 2013 11:58:00 04106 3D RENDERING BY TECH*BODY* EXAMINATION: ?CT study [...] agrees with it. ACC# Date Time Exam [id number] July 21, 2013 11:58:[address] LOWER EXTREMITY W/O CON R [id number] July 21, 2013 11:58:00 07372 3D RENDERING BY TECH*BODY* ACC# Date Time Exam [id number] July 21, 2013 11:58:[id number] LOWER EXTREMITY W/O CON R [id number] July 21, 2013 11:58:00 05135 3D RENDERING BY TECH*BODY* EXAMINATION: CT study [...]
== END 2024-03-01 10:27 | disposition home or self-care (01) ==
PROVIDERS: Emergency Provider Nurse Practitioner; PCP Family Medicine
DX: J01.40 Acute pansinusitis, unspecified (principal)
CPT/HCPCS: 99213; G0463

== ENCOUNTER 2024-04-16 15:58 | Outpatient (CLI) | payer OTHER, SELFPAY ==
--- NOTE | ~2024-04-16 | XR_ITS ---
EXAMINATION: XR ankle LT min 3V DATE: 04/16/2024 16:16 INDICATION: Pain in left ankle and joints of left foot. TECHNIQUE: 4 views of left ankle were obtained. COMPARISON: None. FINDINGS: Alignment is normal. No fracture. Joint spaces are normal. There is an enthesophyte of post erior aspect of calcaneal tuberosity. IMPRESSION: 1. No fracture. Reviewed, dictated and finalized at location A. NCIAL RECRUITER IMPRESSION: 1. No fracture.
== END 2024-04-16 15:59 | disposition home or self-care (01) ==
LOC: MICIMG 15:59
PROVIDERS: PCP Family Medicine; Visit Provider Family Medicine
DX: M25.572 Pain in left ankle and joints of left foot (principal)
CPT/HCPCS: 73610

== ENCOUNTER 2024-05-26 17:18 | Emergency (ER) | payer OTHER, SELFPAY ==
--- NOTE | 2024-05-26 17:19 | ED_ITS ---
HPI - URI/Sore Throat General Chief Complaint: Upper Respiratory Infection Stated Complaint: sore throat Time Seen by Provider: 05/26/24 17:18 Source: patient Mode of arrival: ambulatory Limitations: no limitations History of Present Illness HPI Narrative: Delbert is a 28-year-old male patient presenting to the clinic today with complaints of sore throat and cough x2 days. He reports his daughter and girlfriend have strep. MD elicited complaint: sore throat and nasal congestion Related Data Home Medications ?Medication ?Instructions ?Recorded ?Confirmed ?Last Taken ?Type No Home Medications 04/12/24 05/26/24 Unknown History Allergies Allergy/AdvReac Type Severity Reaction Status Date / Time No Known Allergies Allergy Unknown Verified 05/26/24 17:24 Review of Systems Review of Systems: Pertinent positives per HPI. Patient denies any fever, chills, rash, headache, visual changes, dizziness, shortness of breath, chest pain, palpitations, nausea, vomiting, diarrhea, constipation, abdominal pain, or any urinary issues. [facility] Past Medical History Medical History Unresponsive episode Encounter for surgical aftercare following surgery of digestive system Dietary counseling and surveillance (01/06/17) Acute appendicitis with localized peritonitis Surgical History Surgical History History of hip surgery [address] 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 There is no relevant family history pertinent to the patient complaint. Exam Narrative: General: Well-developed, well nourished, in no apparent distress Head: Normocephalic, atraumatic Eyes: Pupils equally round and reactive to light bilaterally, EOM intact, sclera and conjunctive clear, no discharge, lids normal Ears: TMs intact and clear, ear canals clear, no drainage, grossly hearing normal. Nose: Nares patent, clear nasal discharge, no inflammation, no sinus tenderness. Mouth: Oral pharynx red without lesions or masses, good dentition, MMM. Neck: Supple, trachea midline, no enlargement of anterior or posterior cervical nodes, no thyroid masses or goiter palpable. Cardio: Regular rate and rhythm, s1 and s2 normal, no murmur appreciated. Resp: Clear to auscultation bilaterally, no rhonchi, rales, wheezing or rubs Course Course Emergency Course: Portions of this record may have been created with voice recognition software. Level of Care: Express Care Visit Vital Signs Vital signs: Vital Signs Temperature 36.3 C L 05/26/24 17:29 Pulse Rate 58 L 05/26/24 17:29 Respiratory Rate 18 05/26/24 17:29 Blood Pressure 124/84 05/26/24 17:29 Pulse Oximetry 100 05/26/24 17:29 Oxygen Delivery Room Air 05/26/24 17:29 Temperature 36.3 C L 05/26/24 17:29 Pulse Rate 58 L 05/26/24 17:29 Respiratory Rate 18 05/26/24 17:29 Blood Pressure 124/84 05/26/24 17:29 Pulse Oximetry 100 05/26/24 17:29 Oxygen Delivery Room Air 05/26/24 17:29 Vital signs reviewed MDM - URI/Sore Throat MDM Narrative Medical decision making narrative: At the time of visit patient is resting comfortably on the exam table. Patient appears to be nontoxic. Labs: Strep test was negative in the clinic today. We will send strep for culture. Plan: I suspect patient has pharyngitis. Supportive measures were discussed with the patient and they voiced understanding discharge instructions and agrees to treatment plan. Return precautions reviewed Differential Diagnosis Differential diagnosis: Likely upper respiratory infection, otitis media, sinusitis, viral infection, bronchitis, influenza, pharyngitis and other (COVID) Lab Data Labs: Lab Results 05/26/24 Range/Units 17:37 POC Grp A Strep Screen Pending Discharge Plan Discharge Clinical Impression: Pharyngitis Qualifiers: Pharyngitis/tonsillitis etiology: unspecified etiology Qualified Code(s): J02.9 - Acute pharyngitis, unspecified Patient Disposition: Home, Self-Care Condition: Stable Instructions: Antibiotic Form, Pharyngitis (ED) Additional Instructions: Strep test was negative. We will send strep for culture. Increase fluids and stay well hydrated Tylenol/motrin for pain/fever Flonase and OTC antihistamines as directed Vicks vapor rub to open sinuses Sinus rinses for congestion Cepacol spray, cough drops, throat lozenges, warm tea with honey/lemon, gargle salt water to soothe throat BRAT diet for diarrhea Clear liquids x 24 hours then advance as tolerated for nausea/vomiting Go to the ED if you develop a worsening in your condition- high fever not controlled by Tylenol or Motrin, dehydration, weakness, lethargy, shortness of breath, or chest pain. Follow up with your PCP in 3-5 days if symptoms persist. Patient Language: Malay Prescriptions: No Action No Home Medications Follow-up/Referrals: Adeel Drew MD [Primary Care Provider] - Stand Alone Forms: Work/School Release IP Time of Disposition: 17:37 Quality NIHSS Nursing Documentation ED NIHSS nursing documentation: reviewed/agree
[2024-05-26 17:29] VITALS: BP 124/84; PULSE 58; RESP 18; TEMP 36.3; O2SAT 100
[2024-05-26 17:39] LABS: EDSTREPNEGPOS1 Negative (Negative)
--- OUTSIDE RECORDS SUMMARY | 2024-05-26 18:04 | XMS_ITS | Referral Summary ---
Author Organization [facility] Address [address] [place] [id number] Care Team Providers Care Green Meat Packer Name Role Phone No, Physician Primary Care Provider [phone] Allergies No known active allergies Medications ID NOW COVID-19 Test Kit kit TEST DIRECTED. 06/07/2020 Active Active Problems No known active problems Immunizations Immunization Administration Dates Next Due [employer] 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
--- OUTSIDE RECORDS SUMMARY | 2024-05-26 18:04 | XMS_ITS | Clinical Summary ---
Author Organization [facility] Address [address] [place] [address] Care Team Providers Care Shop Laborer Name Role Phone Unavailable Primary Care Provider [...] patient's age to complete this topic Meningococcal B Vaccine Aged Out No l onger eligible based on patient's age to complete [...]
--- OUTSIDE RECORDS SUMMARY | 2024-05-26 18:04 | XMS_ITS | Encounter Summary ---
Author Organization [facility] Address [address] [place] [address] Phone Care Team Providers Care Assembler Piano Name Role Phone No, Physician Primary Care Provider [phone] Encounter Details Date Type Department Care Team (Late st Contact Info) Description 01/04/2020 Orders Only [facility] [phone] Scanning, Provider Social History Tobacco Use Types Packs/Day Years Used Date Smoking Tobacco: Never Smokeless Tobacco: Never Alcohol Use Standard Drinks/Week Comments Yes 0 (1 standard drink = 0.6 oz pur e alcohol) Social Sex and Gender Information Value Date Recorded Sex Assigned at Not on file 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
--- OUTSIDE RECORDS SUMMARY | 2024-05-26 18:04 | XMS_ITS | Clinical Summary ---
Author Organization [facility] Address [address] [place] [phone] Care Team Providers Care Obstetrics Teacher Name Role Phone No, Physician Primary Care Provider [phone] Allergies No known active allergies Medications ID NOW COVID-19 Test Kit kit TEST DIRECTED. 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
--- OUTSIDE RECORDS SUMMARY | 2024-05-26 18:04 | XMS_ITS | Encounter Summary ---
Author Organization [facility] Address [address] [place] [address] Care Team Providers Care Geothermal Plant Manager Name Role Phone No, Physician Primary Care Provider [phone] Encounter Details Date Type Department Care Team (Late st Contact Info) Description 08/22/2020 Telephone [facility] [address] [place] [address] Radhika Miller RT Social History Tobacco Use Types Packs/Day Years Used Date Smoking Tobacco: Never Smokeless Tobacco: Never Alcohol Use Standard Drinks/Week Comments Yes 0 (1 standard drink = 0.6 oz pur e alcohol) Social Sex and Gender Information Value Date Recorded Sex Assigned at Not on file 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
--- OUTSIDE RECORDS SUMMARY | 2024-05-26 18:04 | XMS_ITS | Encounter Summary ---
Author Organization [facility] Address [address] [place] [address] Phone Care Team Providers Care Production Potter Name Role Phone No, Physician Primary Care Provider [phone] Encounter Details Date Type Department Care Team (Late st Contact Info) Description 04/11/2020 Orders Only [facility] PMR [phone] Scanning, Provider Social History Tobacco Use Types Packs/Day Years Used Date Smoking Tobacco: Never Smokeless Tobacco: Never Alcohol Use Standard Drinks/Week Comments Yes 0 (1 standard drink = 0.6 oz pur e alcohol) Social Sex and Gender Information Value Date Recorded Sex Assigned at Not on file 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
--- OUTSIDE RECORDS SUMMARY | 2024-05-26 18:04 | XMS_ITS | Encounter Summary ---
Author Organization [facility] Address [address] [place] [address] Care Team Providers Care School Photographs Detailer Name Role Phone Unavailable Primary Care Provider Unavailabl e Encounter Details Date Type Department Care Team (Latest Contact Info) Description 01/20/2018 Abstract [facility] , Generic Conversion, Social History Tobacco Use [...]
--- OUTSIDE RECORDS SUMMARY | 2024-05-26 18:04 | XMS_ITS | Patient Health Summary ---
Author Organization [facility] Address [address] [place] [address] Care Team Providers Care Client Success Manager Name Role Phone Unavailable Primary Care Provider Unavailabl e Note from [facility],non-owned Affiliates and Associated Physician Practices is amultiple site organization consisting of ambulatory clinics and hospital sitesin [place], [place] and [place]. This disclosure is being madepursuant to the Care Everywhere program and may not contain all information available regarding this patient. Last updated 17.[facility] Social History Tobacco Use Types Packs/Day Years Used Date Smoking Tobacco: Never Assessed Sex and Gender Information Value Date Recorded Sex Assigned at Not on file Gender Identity Not on file Sexual Orientation Not on file
--- OUTSIDE RECORDS SUMMARY | 2024-05-26 18:04 | XMS_ITS | Clinical Summary ---
Author Organization [facility] Address [address] [place] [address] Care Team Providers Care Toll Testboard Worker Name Role Phone Unavailable Primary Care Provider Unavailabl e Source Comments [facility],non-owned Affiliates and Associated Physician Practices is amultiple site organization consisting of ambulatory clinics and hospital sitesin [place], [place], [place] and [place]. This disclosure is being madepursuant to the Care Everywhere program and may not contain all information available regarding this patient. Last updated 17.[facility] Social History Tobacco Use Types Packs/Day Years [...] 3 - 19+ 3-dose series) 10/16/2014 COVID-19 VACCINE ( - 2023-2 5 season) 2023 INFLUENZA VACCINE (#1) 2023 DEPRESSION SCREENING 03/17/2024 ZOSTER VACCINE (1 of 2) 10/16/2045 HIB VACCINE Aged Out No longer eligi ble based on patient's age to complete this topic HPV VACCINE Aged Out No longer eligi ble based on patient's age to complete this topic MENINGOCOCCAL (Group B) VACC INE SHARED DECISION-MAKING Aged Out No longer eligibl e based on patient's age to complete this topic MENINGOCOCCAL GROUPS A/C/Y/W VACCINE Aged Out No longer eligible b ased on patient's age to complete this topic PNEUMOCOCCAL VACCINE Aged Out No long er eligible based on patient's age to complete this topic
--- OUTSIDE RECORDS SUMMARY | 2024-05-26 18:04 | XMS_ITS | Referral Summary ---
Author Organization [facility] Address [facility] [place] [address] Care Team Providers Care Medical Staff Specialist Name Role Phone Unavailable Primary Care Provider Unavailabl e Source Comments [facility],non-owned Affiliates and Associated Physician Practices is amultiple site organization consisting of ambulatory clinics and hospital sitesin [place], [place], [place] and [place]. This disclosure is being madepursuant to the Care Everywhere program and may not contain all information available regarding this patient. Last updated 17.[facility] Social History Tobacco Use Types Packs/Day Years Used Date Smoking Tobacco: Never Assessed Sex and Gender Information Value Date Recorded Sex Assigned at Not on file Gender Identity Not on file Sexual Orientation Not on file Plan of Treatment Not on file
== END 2024-05-26 17:40 | disposition home or self-care (01) ==
PROVIDERS: Emergency Provider Nurse Practitioner Family; PCP Family Medicine
DX: J02.9 Acute pharyngitis, unspecified (principal)
CPT/HCPCS: 87081; 87880; 99213; G0463

== ENCOUNTER 2025-01-17 14:34 | Emergency (ER) | payer OTHER, SELFPAY ==
[2025-01-17 14:45] VITALS: BP 158/87; PULSE 111; RESP 18; TEMP 36.9; O2SAT 98
--- NOTE | 2025-01-17 15:05 | ED_ITS ---
HPI - URI/Sore Throat General Chief Complaint: Upper Respiratory Infection Stated Complaint: fever Time Seen by Provider: 01/17/25 15:05 Source: patient Mode of arrival: ambulatory Limitations: no limitations History of Present Illness HPI Narrative: 29 yo M presents with c/o headache, bodyaches, chills and sore throat starting this AM. Reports exposure to 3 son's who had strep last week. Denies N/V. all systems reviewed and negative except as noted above. Related Data Allergies Allergy/AdvReac Type Severity Reaction Status Date / Time lavender (Lavandula Allergy Mild Hives Verified 01/17/25 15:07 angustifolia) [facility] Past Medical History Medical History (Updated 01/17/25 @ 15:30 by Radhika Champagne APRN) RINKU (obstructive sleep apnea) Unresponsive episode Encounter for surgical aftercare following surgery of digestive system Dietary counseling and surveillance (01/06/17) Acute appendicitis with localized peritonitis Surgical History Surgical History History of hip surgery [address] 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 There is no relevant family history pertinent to the presenting complaint. Exam Narrative: GENERAL: This is a well-nourished, well-developed patient, Ill-appearing but no acute distress HEAD: normocephalic, atraumatic. EYES: PERRL. Sclera clear/white. Vision is grossly intact. EARS: External ears normal, auditory canals clear and without drainage, TMs normal without perforation. Hearing grossly intact. NOSE: External nose normal with no obvious nasal discharge, nares without redness, no rhinorrhea. THROAT: Mucous membranes moist, Throat is erythematous with mild swelling. No exudates. NECK: Neck supple, non-tender without lymphadenopathy, masses or thyromegaly. CARDIOVASCULAR: Regular rate and rhythm without murmurs, gallops, or rubs. RESPIRATORY: Clear to auscultation. Breath sounds equal bilaterally. No wheezes, rales, or rhonchi. SKIN: warm, Dry, intact with no suspicious lesions or rash, good texture and turgor. NEURO: awake, alert, and oriented to person, place and time. There were no obvious focal neurologic abnormalities. EXTREMITIES: No joint tenderness, effusion, or edema noted. Course Course Level of Care: Express Care Visit Vital Signs Vital signs: Vital Signs Temperature 36.9 C 01/17/25 14:45 Pulse Rate 111 H 01/17/25 14:45 Respiratory Rate 18 01/17/25 14:45 Blood Pressure 158/87 H 01/17/25 14:45 Pulse Oximetry 98 01/17/25 14:45 Oxygen Delivery Room Air 01/17/25 14:45 Temperature 36.9 C 01/17/25 14:45 Pulse Rate 111 H 01/17/25 14:45 Respiratory Rate 18 01/17/25 14:45 Blood Pressure 158/87 H 01/17/25 14:45 Pulse Oximetry 98 01/17/25 14:45 Oxygen Delivery Room Air 01/17/25 14:45 reviewed MDM - URI/Sore Throat MDM Narrative Medical decision making narrative: rapid strep negative. Strep culture ordered. Will treat patient with antibiotic due to recent strep exposure, exam findings. Patient agrees with plan of care. Differential Diagnosis Differential diagnosis: Likely upper respiratory infection, sinusitis, viral infection, influenza and pharyngitis Lab Data Labs: Lab Results 01/17/25 Range/Units 15:22 POC Grp A Strep Screen Negative (Negative) Discharge Plan Discharge Clinical Impression: Acute pharyngitis, Exposure to strep throat Patient Disposition: Home Condition: Stable Instructions: Antibiotic Form, Pharyngitis (ED) Additional Instructions: take antibiotic as prescribed until gone. Take ibuprofen or Tylenol every 6-8 hours as needed for pain and fever. Drink at least 64 oz of water a day. See your doctor if symptoms are not improving. Patient Language: Georgian Prescriptions: New amoxicillin 500 mg capsule 500 mg PO Q12H 10 Days Qty: 20 0RF Follow-up/Referrals: Adeel Drew MD [Primary Care Provider, Family Practice] Stand Alone Forms: Work/School Release IP Time of Disposition: 15:30
[2025-01-17 15:25] LABS: EDSTREPNEGPOS1 Negative (Negative)
[2025-01-17 15:32] LABS: EDCOVIDSCREEN Negative (Negative); EDINFLUASCREEN Negative (Negative); EDINFLUBSCREEN Negative (Negative)
== END 2025-01-17 15:33 | disposition home or self-care (01) ==
PROVIDERS: Emergency Provider Nurse Practitioner Family; PCP Family Medicine
DX: J02.9 Acute pharyngitis, unspecified (principal); Z20.818 Contact with and (suspected) exposure to other bacterial communicable diseases; Z20.828 Contact with and (suspected) exposure to other viral communicable diseases
CPT/HCPCS: 87081; 87426; 87804; 87880; 99213; G0463